=== PATIENT | female | born 1970 | race Caucasian/White ===

== ENCOUNTER 2022-09-06 19:06 | Emergency (ER) | payer BC, SELFPAY ==
[2022-09-06 19:18] VITALS: BP 164/82; PULSE 92; RESP 18; TEMP 36.8; O2SAT 97; BMI 37.8
[2022-09-06 19:22] LABS: Glucometer 389 mg/dL (74-106)
[2022-09-06] MEDS: 0.9 % SODIUM CHLORIDE 1,000 ML 1000 ML IV (19:57)
[2022-09-06 19:58] LABS: Basophils Percent Auto 0.4 % (0.2-2.0); Eosinophils Absolute Auto 0.2 10^3/uL (0.0-0.7); Eosinophils Percent Auto 1.9 % (0.9-7.0); Hematocrit 40.7 % (36.0-48.0); Hemoglobin 14.9 g/dL (12.0-16.0); Immature Granulocytes Abs Auto 0.05 10^3/uL (0.00-0.03); Immature Granulocytes Pct Auto 0.6 % (0.0-0.5); Lymphocytes Absolute Auto 2.3 10^3/uL (1.2-3.8); Lymphocytes Percent Auto 29.3 % (20.5-60.0); Mean Corpuscular HGB Conc 36.6 g/dL (29.9-35.2); Mean Corpuscular Hemoglobin 30.9 pg (26.7-34.0); Mean Corpuscular Volume 84.4 fL (81.0-99.0); Mean Platelet Volume 10.3 fL (9.5-13.5); Monocytes Absolute Auto 0.6 10^3/uL (0.3-0.8); Monocytes Percent Auto 7.1 % (1.7-12.0); Neutrophils Absolute Auto 4.7 10^3/uL (1.4-6.5); Neutrophils Percent Auto 60.7 % (43.0-75.0); Platelet Count 293 10^3/uL (150-450); Red Blood Count 4.82 10^6/uL (4.20-5.40); White Blood Count 7.7 10^3/uL (4.0-11.0)
[2022-09-06 20:10] LABS: Alkaline Phosphatase 136 U/L (46-116); Anion Gap 15.5; Aspartate Amino Transferase <5 U/L (15-37); BUN Creatinine Ratio 16.7; Bilirubin Total 0.4 mg/dL (0.2-1.0); Calcium 9.6 mg/dL (8.5-10.1); Chloride 99 mmol/L (98-107); Estimated GFR (African America >60 (>=60); Estimated GFR (Non-African Ame 57 (>=60); Glucose 398 mg/dL (74-106); Potassium 3.5 mmol/L (3.5-5.1); Sodium 136 mmol/L (136-145); Total Protein 8.4 g/dL (6.4-8.2)
[2022-09-06 20:21] LABS: Alanine Aminotransferase 56 U/L (14-59); Albumin Level 4.2 g/dL (3.4-5.0); Globulin 4.2 g/dL
[2022-09-06 20:24] LABS: Estimated Average Glucose 258 mg/dL; Glycohemoglobin A1C 10.6 % (4.5-6.2)
--- NOTE | 2022-09-06 21:01 | ED.GENADUL1 ---
HPI - General Adult General Chief complaint: Recheck/Abnormal Lab/Rx Stated complaint: HYPERGLYCEMIA-NOT DX DIABETIC Time Seen by Provider: 09/06/22 19:27 Source: patient Mode of arrival: walk-in Limitations: no limitations History of Present Illness HPI narrative: 52-year-old female presents with a chief complaint of elevated blood sugars at home. Patient states she noticed she had elevated blood sugars after stopping one of her psychotic medications. She states she's been borderline for several years. She had an elevated blood sugar of three eighty-nine at home. She states she felt tired and fatigued. States she also has a rash underneath both breasts. Rash appears to be fungal in nature. She's had the rash for a couple weeks. Related Data Home Medications Medication Instructions Recorded Confirmed uoubghshzd-oypmfjpcemauz-nrzrmlhr tab 09/06/22 50 mg-325 mg-40 mg tablet omeprazole 40 mg capsule,delayed mg 09/06/22 release Previous Rx's Medication Instructions Recorded metformin ER 500 mg tablet,ext rel 500 mg PO DAILY #30 dose pk 09/06/22 24 hr-blood sugar diagnostic strips nystatin 100,000 unit/gram topical 1 applic topical DAILY #30 grams 09/06/22 powder Allergies Allergy/AdvReac Type Severity Reaction Status Date / Time aspirin Allergy Unknown Hives Verified 09/06/22 19:29 lisinopril AdvReac Cough Verified 09/06/22 19:29 Review of Systems ROS Narrative All Systems are negative except as noted/marked.All systems reviewed and otherwise negative PFSH PFSH Social History Smoking status: Never smoker Exam Narrative Exam Narrative: Nurses note and vital signs reviewed and patient is not hypoxic. General: The patient appears well and in no apparent distress. Patient is resting comfortably on cart. Skin: Warm, dry, no pallor noted. Macular rash Under bilateral breast, consistent with fungal rash Head: Normocephalic, atraumatic Eye: Normal conjunctiva, no drainage, EOMI. PERRL Ears, Nose, Mouth, and Throat: oral mucosa is moist. Nares patent. Mouth without vesicles. Ear canals patent. Tm's without Erythema Cardiovascular: Regular Rate and Rhythm Respiratory: Patient is in no distress, no accessory muscle use, lungs are clear to auscultation, no wheezing, rales or rhonchi Back: non-tender, no CVA tenderness bilaterally to percussion. GI: Normal bowel sounds, no tenderness to palpation, no masses appreciated. No rebound, guarding, or rigidity noted. Musculoskeletal: The patient has no evidence of calf tenderness, no pitting edema, symmetrical pulses noted bilaterally Neurological: A&O x4, normal speech Psychiatric: Cooperative Constitutional Vital Signs - 24 hr 09/06/22 19:18 Temperature 98.2 F Pulse Rate [Monitor] 92 H Respiratory Rate 18 Blood Pressure [Left Arm] 164/82 H Pulse Oximetry 97 Oxygen Delivery Method Room Air Course Vital Signs Vital signs: Vital Signs Temperature 98.2 F 09/06/22 19:18 Pulse Rate 92 H 09/06/22 19:18 Respiratory Rate 18 09/06/22 19:18 Blood Pressure 164/82 H 09/06/22 19:18 Pulse Oximetry 97 09/06/22 19:18 Oxygen Delivery Method Room Air 09/06/22 19:18 Temperature 98.2 F 09/06/22 19:18 Pulse Rate 92 H 09/06/22 19:18 Respiratory Rate 18 09/06/22 19:18 Blood Pressure 164/82 H 09/06/22 19:18 Pulse Oximetry 97 09/06/22 19:18 Oxygen Delivery Method Room Air 09/06/22 19:18 Medical Decision Making MDM Narrative Medical decision making narrative: She presented here with a chief complaint of elevated blood sugars. CBC BMP within normal limits other rate elevated glucose of three eighty-nine.Acetone is negative patient was unable to produce a urine despite Getting a liter of fluids. BUN/creatinine within normal limits. Patient's hemoglobin A1c is greater than ten. I discussed type 2 diabetes or hypoglycemic patient. Advised patient to follow-up with her primary care physician. She will be given a prescription for nystatin powder as well as metformin. Patient agrees with plan of care. Medical Records Medical records reviewed: Yes I reviewed the patient's medical records Lab Data Lab results reviewed: Yes I reviewed the patient's lab results Labs: Lab Results 09/06/22 09/06/22 09/06/22 Range/Units 18:35 18:44 19:20 WBC 7.7 (4.0-11.0) 10^3/uL RBC 4.82 (4.20-5.40) 10^6/uL Hgb 14.9 (12.0-16.0) g/dL Hct 40.7 (36.0-48.0) % MCV 84.4 (81.0-99.0) fL MCH 30.9 (26.7-34.0) pg MCHC 36.6 H (29.9-35.2) g/dL RDW 12.0 (11.0-15.0) % Plt Count 293 (150-450) 10^3/uL MPV 10.3 (9.5-13.5) fL Neut % (Auto) 60.7 (43.0-75.0) % Lymph % (Auto) 29.3 (20.5-60.0) % [place] % (Auto) 7.1 (1.7-12.0) % Eos % (Auto) 1.9 (0.9-7.0) % Baso % (Auto) 0.4 (0.2-2.0) % Neut # (Auto) 4.7 (1.4-6.5) 10^3/uL Lymph # (Auto) 2.3 (1.2-3.8) 10^3/uL [place] # (Auto) 0.6 (0.3-0.8) 10^3/uL Eos # (Auto) 0.2 (0.0-0.7) 10^3/uL Baso # (Auto) 0.0 (0.0-0.1) 10^3/uL Abs Immat Gran (auto) 0.05 H (0.00-0.03) 10^3/uL Imm/Tot Granulo (auto) 0.6 H (0.0-0.5) % Sodium 136 (136-145) mmol/L Potassium 3.5 (3.5-5.1) mmol/L Chloride 99 (98-107) mmol/L Carbon Dioxide 25.0 (21.0-32.0) mmol/L Anion Gap 15.5 BUN 17.0 (7.0-18.0) mg/dL Creatinine 1.02 (0.55-1.02) mg/dL Est GFR ( Amer) >60 (>=60) Est GFR (Non-Af Amer) 57 L (>=60) BUN/Creatinine Ratio 16.7 Glucose 398 H (74-106) mg/dL Estimat Average Glucose 258 mg/dL Hemoglobin A1c 10.6 H (4.5-6.2) % Calcium 9.6 (8.5-10.1) mg/dL Total Bilirubin 0.4 (0.2-1.0) mg/dL AST <5 L (15-37) U/L ALT 56 (14-59) U/L Alkaline Phosphatase 136 H (46-116) U/L Total Protein 8.4 H (6.4-8.2) g/dL Albumin 4.2 (3.4-5.0) g/dL Globulin 4.2 g/dL Albumin/Globulin Ratio 1.0 POC Glucose 389 H (74-106) mg/dL Discharge Plan Discharge Chief Complaint: Recheck/Abnormal Lab/Rx Clinical Impression: Rash, Hyperglycemia Patient Disposition: Home, Self-Care Time of Disposition Decision: 20:59 Condition: Fair Prescriptions / Home Meds: New metformin-blood sugar diagnost 500 mg combo pack, tablet and strip 500 mg PO DAILY Qty: 30 0RF nystatin 100,000 unit/gram powder 1 applic topical DAILY Qty: 30 0RF No Action omeprazole 40 mg capsule,delayed release(DR/EC) atugtlxtez-tcftkmhmegwhp-esnl 50-325-40 mg tablet Instructions: Nondiabetic Hyperglycemia (ED) Stand Alone Forms: Portal Instructions Referrals: Physician,Non-Staff, MD [Primary Care Provider] - 1 week Discharge Date/Time: 09/06/22 21:35
[2022-09-07 10:49] LABS: Acetone NEGATIVE (NEGATIVE)
== END 2022-09-06 21:35 | disposition home or self-care (01) ==
PROVIDERS: Physician Assistant; Emergency Provider Internal Medicine; PCP Family Medicine
DX: R73.9 Hyperglycemia, unspecified (principal); R21 Rash and other nonspecific skin eruption; Z79.899 Other long term (current) drug therapy
CPT/HCPCS: 36415; 80053; 81001; 82009; 83036; 85025; 99284

== ENCOUNTER 2023-02-09 09:55 | Outpatient (OUT) | payer BC, SELFPAY ==
[2023-02-09 10:13] LABS: Basophils Percent Auto 0.5 % (0.2-2.0); Eosinophils Absolute Auto 0.2 10^3/uL (0.0-0.7); Hematocrit 35.9 % (36.0-48.0); Hemoglobin 13.2 g/dL (12.0-16.0); Immature Granulocytes Abs Auto 0.06 10^3/uL (0.00-0.03); Immature Granulocytes Pct Auto 0.8 % (0.0-0.5); Lymphocytes Absolute Auto 2.3 10^3/uL (1.2-3.8); Lymphocytes Percent Auto 30.7 % (20.5-60.0); Mean Corpuscular HGB Conc 36.8 g/dL (29.9-35.2); Mean Corpuscular Hemoglobin 31.7 pg (26.7-34.0); Mean Corpuscular Volume 86.1 fL (81.0-99.0); Monocytes Absolute Auto 0.6 10^3/uL (0.3-0.8); Monocytes Percent Auto 7.6 % (1.7-12.0); Neutrophils Absolute Auto 4.3 10^3/uL (1.4-6.5); Neutrophils Percent Auto 57.4 % (43.0-75.0); Platelet Count 285 10^3/uL (150-450); Red Blood Count 4.17 10^6/uL (4.20-5.40); Red Cell Distribution Width 12.7 % (11.0-15.0); White Blood Count 7.4 10^3/uL (4.0-11.0)
[2023-02-09 10:48] LABS: Estimated Average Glucose 114 mg/dL; Glycohemoglobin A1C 5.6 % (4.5-6.2)
[2023-02-09 11:47] LABS: Free T4 0.83 ng/dL (0.76-1.46)
[2023-02-09 12:00] LABS: Alanine Aminotransferase 37 U/L (14-59); Albumin Level 3.7 g/dL (3.4-5.0); Alkaline Phosphatase 98 U/L (46-116); Anion Gap 11.5; Aspartate Amino Transferase 19 U/L (15-37); BUN Creatinine Ratio 24.2; Bilirubin Direct 0.1 mg/dL (0.0-0.2); Bilirubin Total 0.3 mg/dL (0.2-1.0); Calcium 9.4 mg/dL (8.5-10.1); Carbon Dioxide 28.1 mmol/L (21.0-32.0); Chloride 106 mmol/L (98-107); Chol HDL Ratio 5.3; Cholesterol 233 mg/dL (<=200); Estimated GFR (African America >60 (>=60); Estimated GFR (Non-African Ame >60 (>=60); Free T3 2.16 pg/mL (2.18-3.98); Globulin 3.6 g/dL; Glucose 136 mg/dL (74-106); HDL Cholesterol 44 mg/dL (40-60); Potassium 3.6 mmol/L (3.5-5.1); Sodium 142 mmol/L (136-145); Thyroid Stimulating Hormone 3.163 uIU/mL (0.358-3.740); Total Protein 7.3 g/dL (6.4-8.2); Triglycerides 161 mg/dL (<=150); VLDL CHOLESTEROL 32.2 mg/dL
== END 2023-02-09 09:56 | disposition home or self-care (01) ==
LOC: LAB 09:56
PROVIDERS: PCP Family Medicine; Visit Provider Family Medicine
DX: Z00.00 Encounter for general adult medical examination without abnormal findings (principal); E03.9 Hypothyroidism, unspecified
CPT/HCPCS: 36415; 80048; 80061; 80076; 83036; 84439; 84443; 84481; 85025

== ENCOUNTER 2023-12-13 07:51 | Outpatient (OUT) | payer BC, SELFPAY ==
--- OUTSIDE RECORDS SUMMARY | 2023-12-13 07:55 | XMS_ITS | CCD ---
Author Organization [facility] Care Team Providers Care Peeled Potato Inspector Name Role Phone Fabiola Bernardo Unavailable Helen Akers Unavailable CIARA, DR BRIAN Fagan Admitting Unavailable NADERER, DR BRIAN Fagan Attending Unavailable NADERER, DR BRIAN Fagan Primary Care Unavailable NADERER, DR BRIAN Fagan Consulting Unavailable NADERER, DR BRIAN Fagan Admitting Unavailable NADERER, DR BRIAN Fagan Attending Unavailable NADERER, DR BRIAN Fagan Primary Care Unavailable TARA, SHANKAR Admitting Unavailable TARA, SHANKAR Attending Unavailable NADERER, DR BRIAN Fagan Primary Care Unavailable TARA, SHANKAR Consulting Unavailable NADERER, DR BRIAN Fagan Admitting Unavailable NADERER, DR BRIAN Fagan Attending Unavailable NADERER, DR BRIAN Fagan Primary Care Unavailable ZIEBER, DR LINCOLN Burns Consulting Unavailable NADERER, DR BRIAN Fagan Consulting Unavailable NADERER, DR BRIAN Fagan Admitting Unavailable NADERER, DR BRIAN Fagan Attending Unavailable NADERER, DR BRIAN Fagan Primary Care Unavailable NADERER, DR BRIAN Fagan Consulting Unavailable Naderer Brian WILKINS Primary Care Provider CIARA, BRIAN Attending Unavailable NADERER, BRIAN Attending Unavailable NADERER, BRIAN Attending Unavailable NADERER, BRIAN Attending Unavailable NADERER, BRIAN Attending Unavailable NADERER, BRIAN Attending Unavailable NADERER, BRIAN Attending Unavailable Allergies Allergy Classification Reported Allergen(s) Allergy Type Date of Onset Reaction(s) Facility (7 sources) Aspirin Drug Allergy 4 hives [facility] (7 sources) Ciprofloxacin Drug Allergy 4 stomach upset [facility] (6 sources) Lisinopril Drug Allergy 4 coughing [facility] (1 source) Aspirin Drug Allergy 3 [facility] (3 sources) Aluminum aspirin Drug Allergy 3 Rash [facility] Work Phone: (6 sources) Lisinopril Propensity to adverse reactions 3 Cough [facility] Medications Current Medications Medication Drug Class(es) Dates Sig (Normalized) Sig (Original) acetaminophen 325 mg / butalbital 50 mg / caffeine 40 mg oral tablet (3 sources) Barbiturate, Central Nervous System Stimulant, Methylxanthine Start: 11-22-2023 take 1 tablet by mouth four times daily as needed for headache butalbital-aceta minophen-caffein e 50-325-40 MG tablet Indications: Vestibular migraine (CMS/HCC) Take 1 tablet by mouth 4 (four) times a day as needed for headaches 30 tablet 11/22/2023 Active [id number] 200 actuat albuterol 0.09 mg/actuat metered dose inhaler (7 sources) beta2-Adrenergic Agonist Start: 06-08-2022 take 2 puff(s) by inhalation four times daily as needed Albuterol Sulfate HFA 108 (90 Base) MCG/ACT 2 puffs Inhalation 4 times a day prn Jun, Active take 2 puff(s) by in halation every four hours for wheezing albuterol HFA 90 mcg/act inhaler Inhale 2 puffs every 4 (four) hours if needed for wheezing Active ALPRAZolam 0.5 mg oral tablet (4 sources) Benzodiazepine Start: 06-03-2023 take 1 tablet by mouth three times daily as needed for anxiety ALPRAZolam (Xanax) 0.5 MG tablet Indications: Generalized anxiety disorder (CMS/HCC) Take 1 tablet (0.5 mg) by mouth 3 (three) times a day as needed for anxiety for up to 20 days 60 tablet 06/03/2023 Active Xanax Active amitriptyline hydrochloride 25 mg oral tablet (3 sources) Tricyclic Antidepressant Start: 05-17-2023 take 25 mg by mouth once daily Amitriptyline Active 25 MG PO Daily May 17, 2023 12:00am Start: 04-05-2023 take 1 tablet by andrés th at bedtime amitriptyline (Elavil) 25 MG tablet Indications: Vestibular migraine (CMS/HCC) Take 1 tablet (25 mg) by mouth at bedtime 30 tablet 3 04/05/2023 Active Start: 04-05-2023 take 1 tablet by andrés th at bedtime amitriptyline (Elavil) 25 MG tablet Indications: Vestibular migraine (CMS/HCC) Take 1 tablet (25 mg) by mouth at bedtime 30 tablet 3 04/05/2023 Active amoxicillin 875 mg / clavulanate 125 mg oral tablet (1 source) Penicillin-class Antibacterial Start: 06-08-2022 take 1 tablet by mouth every twelve hours Amoxicillin-Pot Clavulanate 875-125 MG 1 tablet Orally every 12 hrs for 10 day(s) Jun, Active baclofen 20 mg oral tablet (6 sources) gamma-Aminobutyric Acid-ergic Agonist take 1 tablet by mouth three times daily as needed for muscle spasms baclofen (Lioresal) 20 MG tablet Take 20 mg by mouth 3 (three) times a day as needed for muscle spasms Active Cetirizine (1 source) Histamine-1 Receptor Antagonist ZyrTEC Allergy Active citalopram 20 mg oral tablet (3 sources) Serotonin Reuptake Inhibitor take 1 tablet by mouth in the morning citalopram (CeleXA) 20 MG tablet Take 20 mg by mouth in the morning. 0 Active cyclobenzaprine hydrochloride 10 mg oral tablet (1 source) Muscle Relaxant Start: 07-12-2021 take 1 tablet by mouth three times daily as needed for muscle spasms Cyclobenzaprine HCl 10 MG 1 tab(s) Orally tid prn As needed for muscle spasms or tightness July, Active Doxepin (5 sources) Tricyclic Antidepressant Doxepin HCl Active doxycycline monohydrate 100 mg oral capsule (1 source) Tetracycline-class Drug Start: 12-11-2021 take 1 capsule by mouth every twelve hours Doxycycline Monohydrate 100 MG 1 capsule Orally every 12 hrs for 7 days Dec, Active Escitalopram (5 sources) Serotonin Reuptake Inhibitor Lexapro Active fluticasone propionate 0.05 mg/actuat metered dose nasal spray (7 sources) Corticosteroid Start: 06-08-2022 take 2 spray(s) nasal route once daily Fluticasone Propionate 50 MCG/ACT 2 sprays Nasally Once a day for 14 day(s) Jun, Active take 2 spray(s) nasa l route in the morning fluticasone (Flonase) 50 MCG/ACT nasal spray Administer 2 sprays into each nostril in the morning. Shake gently. Before first use, prime pump. After use, clean tip and replace cap.. Active Glucose Blood (BLOOD GLUCOSE TEST ) (6 sources) Glucose Blood (B LOOD GLUCOSE TEST ) by In Vitro route Active Glucose Blood (B LOOD GLUCOSE TEST ) by In Vitro route 0 Active hydroCHLOROthiazide 25 mg oral tablet (10 sources) Thiazide Diuretic Start: 08-19-2023 End: 08-18-2024 take 1 tablet by mouth once daily hydroCHLOROthiazide (HYDRODiuril) 25 MG tablet Indications: Essential hypertension, benign (CMS/HCC) Take 1 tablet (25 mg) by mouth Daily 30 tablet 11 08/19/2023 08/18/2024 Active take 1 tablet by andrés th in the morning hydroCHLOROthiazide (HYDRODiuril) 25 MG tablet Take 25 mg by mouth in the morning. 0 Active hydroCHLOROthiaz marcy Active ibuprofen 800 mg oral tablet (7 sources) Nonsteroidal Anti-inflammatory Drug Start: 04-17-2013 take 1 tablet by mouth every eight hours Ibuprofen 800 MG 1 tablet Orally Three times a day for 14 days Apr, Active Losartan (2 sources) Angiotensin 2 Receptor Kelli Losartan Potassium Active meclizine hydrochloride 25 mg oral tablet (3 sources) Antiemetic Start: 06-28-2023 take 1 tablet by mouth four times daily as needed for dizziness meclizine (Antivert) 25 MG tablet Indications: Vestibular migraine (CMS/HCC) Take 1 tablet (25 mg) by mouth 4 (four) times a day as needed for dizziness 60 tablet 2 06/28/2023 Active montelukast (5 sources) Leukotriene Receptor Antagonist Singulair Active mupirocin 0.02 mg/mg topical ointment (1 source) RNA Synthetase Inhibitor Antibacterial Start: 12-11-2021 Mupirocin 2 % 1 application to affected area Externally 2 times a day for 7 days Dec, Active OLANZapine 15 mg oral tablet (8 sources) Atypical Antipsychotic Start: 07-16-2023 take 1 tablet by mouth at bedtime OLANZapine (ZyPREXA) 15 MG tablet Indications: Bipolar affective, mixed (HCC) (CMS/HCC) Take 1 tablet (15 mg) by mouth at bedtime 30 tablet 5 07/16/2023 Active Start: 05-17-2023 take 10 mg by mouth once daily Olanzapine Active 10 MG PO Daily May 17, 2023 12:00am take 1 tablet by andrés th once daily OLANZapine (ZyPREXA) 10 MG tablet Take 10 mg by mouth 1 (one) time each day 0 Active OLANZapine Activ e omeprazole 40 mg delayed release oral capsule (12 sources) Proton Pump Inhibitor Start: 05-20-2023 End: 05-19-2024 take 1 capsule by mouth before mealtime omeprazole (PriLOSEC) [address] capsule Indications: Gastroesophageal reflux disease without esophagitis Take 1 capsule (40 mg) by mouth in the morning. Take before meals. Do not crush or chew.. 30 capsule 11 05/20/2023 05/19/2024 Active take 1 capsule by mouth before m ealtime omeprazole (PriLOSEC) [address] capsule Take 40 mg by mouth in the morning. Take before meals. Do not crush or chew.. 0 Active Omeprazole Activ e ondansetron 4 mg oral tablet (1 source) Serotonin-3 Receptor Antagonist Start: 02-09-2022 take 1 tablet by mouth three times daily as needed Zofran 4 MG 1 tablet Orally 3 times a day prn Feb, Active predniSONE 20 mg oral tablet (1 source) Start: 06-08-2022 take 1 tablet by mouth every twelve hours predniSONE 20 MG 1 tablet Orally bid for 5 day(s) Jun, Active promethazine hydrochloride 12.5 mg oral tablet (1 source) Phenothiazine Start: 03-27-2022 take 1 tablet by mouth every eight hours Promethazine HCl 12.5 MG 1 tablet as needed Orally every 8 hrs for 4 days Mar, Active risperiDONE (1 source) Atypical Antipsychotic RisperDAL Active 0.25 mg, 0.5 mg dose 1.5 ml semaglutide 1.34 mg/ml pen injector (2 sources) Start: 04-05-2023 inject 2 mg by subcutaneous injection every week semaglutide (Ozempic, 0.25 or 0.5 MG/DOSE,) 2 MG/1.5ML solution pen-injector Indications: Type 2 diabetes mellitus with hyperglycemia, with long-term current use of insulin ([facility]) Inject 2 mg under the skin 1 (one) time per week 4 each 3 04/05/2023 Active Start: 04-05-2023 inject 2 mg by subcu taneous injection every week semaglutide (Ozempic, 0.25 or 0.5 MG/DOSE,) 2 MG/1.5ML solution pen-injector Indications: Type 2 diabetes mellitus with hyperglycemia, with long-term current use of insulin (CMS/HCC) Inject 2 mg under the skin 1 (one) time per week 4 each 3 04/05/2023 Active Semaglutide (Ozempic) 2 mg/dose (8 mg/3 mL) pen injector (1 source) Start: 05-17-2023 Semaglutide (O zempic) 2 mg/dose (8 mg/3 mL) pen injector Active MG SUBCUT May 17, 2023 12:00am semaglutide (Ozempic, 1 MG/DOSE,) 4 MG/3ML solution pen-injector (3 sources) End: 04-05-2023 inject 1 mg by subcutaneous injection every week semaglutide (Ozempic, 1 MG/DOSE,) 4 MG/3ML solution pen-injector Inject 1 mg under the skin 1 (one) time per week 0 04/05/2023 Discontinued (Dose adjustment) inject 1 mg by subcu taneous injection every week semaglutide (Ozempic, 1 MG/DOSE,) 4 MG/3ML solution pen-injector Inject 1 mg under the skin 1 (one) time per week 0 Active Semaglutide, 2 MG/DOSE, (Ozempic, 2 MG/DOSE,) 8 MG/3ML solution pen-injector (3 sources) Start: 08-19-2023 inject 2 mg by subcutaneous injection every week Semaglutide, 2 MG/DOSE, (Ozempic, 2 MG/DOSE,) 8 MG/3ML solution pen-injector Indications: Type 2 diabetes mellitus with hyperglycemia, with long-term current use of insulin (CMS/HCC) Inject 2 mg under the skin 1 (one) time per week 3 mL 5 08/19/2023 Active sertraline 25 mg oral tablet (3 sources) Serotonin Reuptake Inhibitor Start: 11-22-2023 take 1 tablet by mouth once daily sertraline (Zoloft) 25 MG tablet Indications: Generalized anxiety disorder (CMS/HCC) Take 1 tablet (25 mg) by mouth Daily 30 tablet 3 11/22/2023 Active SUMAtriptan (2 sources) Serotonin-1b and Serotonin-1d Receptor Agonist Imitrex Active topiramate 100 mg oral tablet (8 sources) Start: 11-22-2023 take 1 tablet by mouth in the morning topiramate (Topamax) 100 MG tablet Indications: Vestibular migraine (CMS/HCC) Take 1 tablet (100 mg) by mouth in the morning and 1 tablet (100 mg) before bedtime. 60 tablet 5 11/22/2023 Active Start: 05-17-2023 End: 05-17-2023 take 50 mg by mouth once daily Topiramate Discontinued 50 MG PO Daily May 17, 2023 12:00am May 17, 2023 1:03pm Topamax Active traMADol hydrochloride 50 mg oral tablet (3 sources) Opioid Agonist traMADol (Ultram ) 50 MG tablet Take 50 mg by mouth in the morning and 50 mg at noon and 50 mg in the evening and 50 mg before bedtime. 0 Active Completed/Discontinued Medications Medication Drug Class(es) Dates Sig (Normalized) Sig (Original) Ketorolac (5 sources) Nonsteroidal Anti-inflammatory Drug, Cyclooxygenase Inhibitor Start: 07-12-2021 Toradol per 15 mg July, 30 mg Toradol 30 mg/ml (2 sources) Start: 03-27-2022 Toradol 30 mg/ml Mar, 30 mg triamcinolone acetonide 40 mg/ml injectable suspension (2 sources) Corticosteroid Start: 03-27-2022 Kenalog-40 Mar, 40 mg Problems Active Problems Problem Classification Problem Date Documented Date Episodic/Chronic Allergic reactions (1 source) Allergic condition; Translations: [Allergy, unspecified, initial encounter] 05-17-2023 Episodic Anxiety disorders (10 sources) Generalized anxiety disorder; Translations: [Generalized anxiety disorder] Onset: 04-05-2023 04-05-2023 Chronic Chronic obstructive pulmonary disease and bronchiectasis (1 source) Bronchitis, not specified as acute or chronic Episodic Diabetes mellitus with complications (10 sources) Type 2 diabetes mellitus; Translations: [Type 2 diabetes mellitus with hyperglycemia] Onset: 04-05-2023 04-05-2023 Chronic Disorders of lipid metabolism (6 sources) Hyperlipidemia; Translations: [Hyperlipidemia, unspecified] Onset: 04-05-2023 04-05-2023 Chronic Esophageal disorders (7 sources) Gastroesophageal reflux disease without esophagitis; Translations: [Gastro-esophageal reflux disease without esophagitis] Onset: 04-05-2023 04-05-2023 Chronic Essential hypertension (11 sources) Benign essential hypertension; Translations: [Essential (primary) hypertension] Onset: 04-05-2023 04-05-2023 Chronic Headache; including migraine (15 sources) Migraine without aura, not refractory ; Translations: [Migraine without aura, not intractable, without status migrainosus] Onset: 04-05-2023 Chronic Immunizations and screening for infectious disease (3 sources) Encounter for screening for other viral diseases; Translations: [Contact with and (suspected) exposure to other viral communicable diseases] Onset: 03-27-2021 Resolved: 03-27-2021 Episodic Influenza (1 source) Influenza due to other identified influenza virus with other respiratory manifestations Episodic Mood disorders (12 sources) Mixed bipolar affective disorder; Translations: [Bipolar disorder, current episode mixed, unspecified] Onset: 04-05-2023 04-05-2023 Chronic Nausea and vomiting (1 source) Nausea with vomiting, unspecified Episodic Nutritional deficiencies (7 sources) Vitamin D deficiency, unspecified; Translations: [Vitamin D deficiency] Onset: 05-22-2021 04-05-2023 Chronic Other nervous system disorders (1 source) Other chronic pain; Translations: [OTHER CHRONIC PAIN] Onset: 07-27-2021 Chronic Other nutritional; endocrine; and metabolic disorders (1 source) Obesity, unspecified; Translations: [OBESITY UNSPECIFIED] Onset: 08-22-2021 Chronic Other upper respiratory disease (1 source) Nasal congestion Episodic Other upper respiratory infections (1 source) Chronic sinusitis, unspecified; Translations: [Unspecified sinusitis (chronic)] 05-17-2023 Chronic Otitis media and related conditions (1 source) Otosclerosis; Translations: [Unspecified otosclerosis, unspecified ear] 05-17-2023 Episodic Residual codes; unclassified (6 sources) Obstructive sleep apnea syndrome; Translations: [Obstructive sleep apnea (adult) (pediatric)] Onset: 04-05-2023 04-05-2023 Chronic Skin and subcutaneous tissue infections (1 source) Cellulitis of right toe Episodic Spondylosis; intervertebral disc disorders; other back problems (19 sources) Other intervertebral disc degeneration, lumbosacral region; Translations: [Degeneration of cervical intervertebral disc] Onset: 07-28-2021 04-05-2023 Chronic Thyroid disorders (6 sources) Hypothyroidism; Translations: [Hypothyroidism, unspecified] Onset: 04-05-2023 04-05-2023 Chronic Unclassified (3 sources) CONTACT W/AND (SUSP) EXPOS COVID-19; Translations: [CONTACT W/AND (SUSP) EXPOS COVID-19] Onset: 10-18-2021 Unclassified (3 sources) LOW BACK PAIN, UNSPECIFIED; Translations: [LOW BACK PAIN, UNSPECIFIED] Onset: 08-22-2021 Past or Other Problems Problem Classification Problem Date Documented Da te Episodic/Chronic Other connective tissue disease (1 source) Myalgia, other site; Translations: [MYALGIA OTHER SITE] Onset: 08-22-2021 Episodic Other upper respiratory disease (6 sources) Deviated nasal septum; Translations: [Deviated nasal septum] Onset: 04-05-2023 04-05-2023 Episodic Other upper respiratory infections (4 sources) Acute sinusitis, unspecified; Translations: [Acute pansinusitis] Onset: 06-03-2023 Resolved: 11-22-2023 Episodic Spondylosis; intervertebral disc disorders; other back problems (6 sources) Pain in thoracic spine; Translations: [Cervicalgia] Onset: 07-26-2021 Episodic Sprains and strains (1 source) Strain of muscle and tendon of unspecified wall of thorax, initial encounter Onset: 07-12-2021 Resolved: 07-12-2021 Episodic Unclassified (1 source) CONTACT W/AND (SUSP) EXPOS COVID-19; Translations: [CONTACT W/AND (SUSP) EXPOS COVID-19] Onset: 10-17-2021 Unclassified (1 source) LOW BACK PAIN, UNSPECIFIED; Translations: [LOW BACK PAIN, UNSPECIFIED] Onset: 08-18-2021 Results Test Name Value Interpretation Reference Range Facility Influenza virus B Ag [Presen ce] in Upper respiratory specimen by Rapid immunoassayon 05-17-2023 FLUBV Ag IA.rapid Ql (Nph) Negative [facility] No Panel Informationon 05-16 Influenza Type A (Rapid) Negative [facility] POC SARS CoV-2 Antigen Negative [facility] COVID + FLU Quick Testingon 06-08-2022 SARS-CoV-2 (COVID-19) RNA TOMMY+probe Ql (Unsp spec) Negative [facility] Other COVID + FLU Quick Testing Negative [facility] Other COVID + FLU Quick Testingon 02-09-2022 SARS-CoV-2 (COVID-19) RNA TOMMY+probe Ql (Unsp spec) Negative [facility] Other COVID + FLU Quick Testing Positive [facility] Other COVID + FLU Quick Testing Negative [facility] Other Covid-19 PCR ([facility])on 10-02 SARS-CoV-2 (COVID-19) RNA TOMMY+probe Ql (Unsp spec) Not detected Normal NOT DETECTED [facility] Comment on above: Result Comment: This test is not yet approved or cleared by the [place] FDA. When there are no FDA-approved or cleared tests available, and other criteria are met, FDA can make tests available under an emergency access mechanism called an Emergency Use Authorization (EUA). The EUA for this test is supported by the [employer] of Health and Human Service's (HHS's) declaration that circumstances exist to justify the emergency use of in vitro diagnostics for the detection and/or diagnosis of the virus that causes COVID-19. This EUA will remain in effect (meaning this test can be used) for the duration of the COVID-19 declaration justifying emergency of IVDs, unless it is terminated or revoked by FDA (after which the test may no longer be used). When diagnostic testing is negative, the possibility of a false negative should be considered in the context of a patient's recent exposures and the presence of clinical signs and symptoms consistent with SARS-CoV-2. Performed By: #### [facility] #### [facility] [address] [place] [address] Dr. Che Arias XR TSPINE 3 VIEWSon 07-27-19 22 XR TSPINE 3 VIEWS EXAMINATION: XR CSPINE 2_3 VIEWS, XR TSPINE 3 VIEWS, XR LSPINE 2_3 VIEWS HISTORY: Neck pain COMPARISON: No relevant comparison available. FINDINGS: BONES: No significant spondylosis, scoliosis, fracture, or visible bony lesion. FACET JOINTS: Mild degenerative arthropathy C2 on 3, C3-4. Moderate degenerative facet arthropathy L3-4 through L5-S1. DISC SPACES: Mild narrowing C5-6, T11-T12, T12-L1, L2-3 marked narrowing L5-S1. PARASPINOUS: No paraspinous abnormality is seen. OTHER: Negative. IMPRESSION: 1. Mild degenerative changes of the cervical spine. 2. Mild degenerative changes of the lower lumbar spine. 3. L5-S1 marked degenerative disc disease with moderate degenerative facet arthropathy L3-4 through L5-S1. Consider MRI for further evaluation. Electronically authenticated by: LINCOLN SULLIVAN Date: 2021-07-26 10:49 Normal [facility] CBC AUTO DIFFon 05-18-2021 BASO # 0.1 103/ul Normal 0.0-0.1 [facility] Comment on above: Performed By: #### C BC #### [facility] [address] [place] [address] Dr. Che Arias Basophils/100 WBC (Bld) 0.7 % Normal 0.2-2.0 [facility] Comment on above: Performed By: #### C BC #### [facility] [address] [place] [address] Dr. Che Arias EO # 0.2 103/ul Normal 0.0-0.7 [facility] Comment on above: Performed By: #### C BC #### [facility] [address] [place] [address] Dr. Che Arias Eosinophils/100 WBC (Bld) 2.8 % Normal 0.9-7.0 [facility] Comment on above: Performed By: #### C BC #### [facility] [address] [place] [address] Dr. Ceh Arias Erythrocyte distribution width (RBC) [Ratio] 13.3 % Normal 11.0-15.0 [facility] Comment on above: Performed By: #### C BC #### [facility] [address] [place] [address] Dr. Che Arias Hematocrit (Bld) [Volume fraction] 40.4 % Normal 36.0-48.0 [facility] Comment on above: Performed By: #### C BC #### [facility] [address] [place] [address] Dr. Che Arias Hemoglobin (Bld) [Mass/Vol] 14.1 g/dL Normal 12.0-16.0 [facility] Comment on above: Performed By: #### C BC #### [facility] [address] [place] [address] Dr. Che Arias IG # 0.03 10e3/ul Normal 0.00-0.03 [facility] Comment on above: Performed By: #### C BC #### [facility] [address] [place] [address] Dr. Che Arias IG % 0.4 % Normal 0.0-0.5 [facility] Comment on above: Performed By: #### C BC #### [facility] [address] [place] [address] Dr. Che Arias LYMPH # 1.9 103/ul Normal 1.2-3.8 [facility] Comment on above: Performed By: #### C BC #### [facility] [address] [place] [address] Dr. Che Arias Lymphocytes/100 WBC (Bld) 27.6 % Normal 20.5-60.0 [facility] Comment on above: Performed By: #### C BC #### [facility] [address] [place] [address] Dr. Che Arias MANUAL DIFF REQ NO Normal [facility] Comment on above: Performed By: #### C BC #### [facility] [address] [place] [address] Dr. Che Arias MCH (RBC) [Entitic mass] 30.7 pg Normal 26.7-34.0 [facility] Comment on above: Performed By: #### C BC #### [facility] [address] [place] [address] Dr. Che Arias MCHC (RBC) [Mass/Vol] 34.9 g/dL Normal 29.9-35.2 [facility] Comment on above: Performed By: #### C BC #### [facility] [address] [place] [address] Dr. Che Arias MCV (RBC) [Entitic vol] 87.8 fL Normal 81.0-99.0 [facility] Comment on above: Performed By: #### C BC #### [facility] [address] [place] [address] Dr. Che Arias MONO # 0.5 103/ul Normal 0.3-0.8 [facility] Comment on above: Performed By: #### C BC #### [facility] [address] [place] [address] Dr. Che Arias Monocytes/100 WBC (Bld) 7.3 % Normal 1.7-12.0 [facility] Comment on above: Performed By: #### C BC #### [facility] [address] [place] [address] Dr. Che Arias NEUT # 4.1 103/ul Normal 1.4-6.5 [facility] Comment on above: Performed By: #### C BC #### [facility] [address] [place] [address] Dr. Che Arias Neutrophils/100 WBC (Bld) 61.2 % Normal 43.0-75.0 [facility] Comment on above: Performed By: #### C BC #### [facility] [address] [place] [place] [address] Dr. Che Arias Platelet mean volume (Bld) [Entitic vol] 11.6 fL Normal 9.5-13.5 [facility] Comment on above: Performed By: #### C BC #### [facility] [address] [place] [address] Dr. Che Arias PLT 260 103/ul Normal 150-450 [facility] Comment on above: Performed By: #### C BC #### [facility] [address] [place] [address] Dr. Che Arias RBC 4.60 106/ul Normal 4.20-5.40 [facility] Comment on above: Performed By: #### C BC #### [facility] [address] [address] [address] Che Arias WBC 6.8 103/ul Normal 4.0-11.0 [facility] Comment on above: Performed By: #### C BC #### [facility] [address] [address] [address] Che Arias GLYCOHEMOGLOBIN A1Con 2021 ADA RECOMMENDATION ADA THERAPEUTIC TARGET 6.0 - 7.0 ACTION SUGGESTED > 7.0 Normal [facility] Comment on above: Performed By: #### A 1C ####[facility] [id number] [id number]. Che Arias Glucose [Mass/Vol] 140 mg/dL Normal [facility] Comment on above: Performed By: #### A 1C ####[facility] [id number] [id number]. Che Arias HbA1c (Bld) [Mass fraction] 6.5 % Critically high <=6.0 [facility] Comment on above: Performed By: #### A 1C ####[facility] [id number] [id number]. Che Arias LIPID PROFILEon 05-18-2021 CHOL-HDL RATIO NORM SEE BELOW Normal [facility] Comment on above: Result Comment: 3.3 - 4.4 LOW RISK 4.4 - 7.1 AVERAGE RISK 7.1 - 11.0 MODERATE RISK >11.0 HIGH RISK Performed By: #### B MP, LIVER, TSH, LIPID #### [facility] [address] [address] [address] Che Arias Cholesterol [Mass/Vol] 237 mg/dL Critically high <=200 [facility] Comment on above: Performed By: #### B MP, LIVER, TSH, LIPID #### [facility] [address] [address] [address] Che Arias Cholesterol in HDL [Mass/Vol] 46 mg/dL Normal 40-60 [facility] Comment on above: Performed By: #### B MP, LIVER, TSH, LIPID #### [facility] [address] [address] [address] Che Arias Cholesterol in LDL [Mass/Vol] 161.4 mg/dL Normal [facility] Comment on above: Performed By: #### B MP, LIVER, TSH, LIPID #### [facility] [address] [address] [address] Che Arias Cholesterol.total/Ch olesterol in HDL [Mass ratio] 5.2 {ratio} Normal [facility] Comment on above: Performed By: #### B MP, LIVER, TSH, LIPID #### [facility] [address] [address] [address] Che Arias HDL NORMAL > or = 60 mg/dl - LOW CARDIOVASCULAR RISK <40 mg/dl - HIGH CARDIOVASCULAR RISK Normal [facility] Comment on above: Performed By: #### B MP, LIVER, TSH, LIPID #### [facility] [address] [address] [address] Che Arias LDL CALC NORMAL SEE BELOW Normal [facility] Comment on above: Result Comment: <100 mg/dl OPTIMAL 100 - 129 mg/dl NEAR OR ABOVE OPTIMAL 130 - 159 mg/dl BORDERLINE HIGH 160 - 189 mg/dl HIGH >190 mg/dl VERY HIGH Performed By: #### B MP, LIVER, TSH, LIPID #### [facility] [address] [address] [address] Che Arias Triglyceride [Mass/Vol] 148 mg/dL Normal <=150 [facility] Comment on above: Performed By: #### B MP, LIVER, TSH, LIPID #### [facility] [address] [address] [address] Che Arias VLDL CALC 29.6 mg/dL Normal [facility] Comment on above: Performed By: #### B MP, LIVER, TSH, LIPID #### [facility] [address] [address] [address] Che Arias LIVER PROFILEon 05-18-2021 Albumin [Mass/Vol] 4.0 g/dL Normal 3.5-5.0 [facility] Comment on above: Performed By: #### B MP, LIVER, TSH, LIPID #### [facility] [address] [address] [address] Che Arias Albumin/Globulin [Mass ratio] 1.2 {ratio} Normal [facility] Comment on above: Performed By: #### B MP, LIVER, TSH, LIPID #### [facility] [address] [address] [address] Che Arias ALP [Catalytic activity/Vol] 107 U/L Normal 38-126 [facility] Comment on above: Performed By: #### B MP, LIVER, TSH, LIPID #### [facility] [address] [address] [address] Che Arias ALT [Catalytic activity/Vol] 66 U/L Critically high 9-52 [facility] Comment on above: Performed By: #### B MP, LIVER, TSH, LIPID #### [facility] [address] [place] [address] Dr. Che Arias AST [Catalytic activity/Vol] 41 U/L Critically high 14-36 [facility] Comment on above: Performed By: #### B MP, LIVER, TSH, LIPID #### [facility] [address] [place] [address] Dr. Che Arias BILI, CONJUGATED 0.1 mg/dL Normal 0.0-0.[address] [facility] Comment on above: Performed By: #### B MP, LIVER, TSH, LIPID #### [facility] [address] [address] [address] Che Arias Bilirubin [Mass/Vol] 0.6 mg/dL Normal 0.2-1.3 [facility] Comment on above: Performed By: #### B MP, LIVER, TSH, LIPID #### [facility] [address] [place] [address] Dr. Che Arias Globulin (S) [Mass/Vol] 3.4 g/dL Normal [facility] Comment on above: Performed By: #### B MP, LIVER, TSH, LIPID #### [facility] [address] [place] [address] Dr. Che Arias Protein [Mass/Vol] 7.4 g/dL Normal 6.1-8.2 [facility] Comment on above: Performed By: #### B MP, LIVER, TSH, LIPID #### [facility] [address] [address] [address] Che Arias PROF CHEM 8 (BAS METB)on Anion gap [Moles/Vol] 17.0 mmol/L Normal [facility] Comment on above: Performed By: #### B MP, LIVER, TSH, LIPID #### [facility] [address] [address] [address] Che Arias Calcium [Mass/Vol] 8.9 mg/dL Normal 8.4-10.2 [facility] Comment on above: Performed By: #### B MP, LIVER, TSH, LIPID #### [facility] [address] [place] [address] Dr. Che Arias Chloride [Moles/Vol] 105 mmol/L Normal 98-107 [facility] Comment on above: Performed By: #### B MP, LIVER, TSH, LIPID #### [facility] [address] [address] [address] Che Arias CO2 [Moles/Vol] 23.2 mmol/L Normal 22.0-30.[address] [facility] Comment on above: Performed By: #### B MP, LIVER, TSH, LIPID #### [facility] [address] [address] [address] Che Arias Creatinine [Mass/Vol] 0.78 mg/dL Normal 0.52-1.04 [facility] Comment on above: Performed By: #### B MP, LIVER, TSH, LIPID #### [facility] [address] [address] [address] Che Arias EGFR-AF GAMBIAN >60 Normal >=[address] [facility] Comment on above: Performed By: #### B MP, LIVER, TSH, LIPID #### [facility] [address] [address] [address] Che Arias EGFR-NON AF GAMBIAN >60 Normal >=60 [facility] Comment on above: Performed By: #### B MP, LIVER, TSH, LIPID #### [facility] [address] [address] [address] Che Arias Glucose [Mass/Vol] 162 mg/dL Critically high 74-106 T [facility] Comment on above: Performed By: #### B MP, LIVER, TSH, LIPID #### [facility] [address] [address] [address] Che Arias Potassium [Moles/Vol] 4.2 mmol/L Normal 3.4-5.0 [facility] Comment on above: Performed By: #### B MP, LIVER, TSH, LIPID #### [facility] [address] [place] [address] Dr. Che Arias Sodium [Moles/Vol] 141 mmol/L Normal 137-145 [facility] Comment on above: Performed By: #### B MP, LIVER, TSH, LIPID #### [facility] [address] [address] [address] Che Arias Urea nitrogen [Mass/Vol] 10.0 mg/dL Normal 7.0-17.0 [facility] Comment on above: Performed By: #### B MP, LIVER, TSH, LIPID #### [facility] [address] [place] [address] Dr. Che Arias Urea nitrogen/Creatinine [Mass ratio] 12.8 mg/mg Normal [facility] Comment on above: Performed By: #### B MP, LIVER, TSH, LIPID #### [facility] [address] [place] [address] Dr. Che Arias TSHon 05-18-2021 TSH 2.158 uIU/mL Normal 0.470-4.680 [facility] Comment on above: Performed By: #### B MP, LIVER, TSH, LIPID #### [facility] [address] [place] [address] Dr. Che Arias TSH RANGE SEE BELOW Normal [facility] Comment on above: Result Comment: <0.3 4 UIU/ml HYPERTHYROID 0.34-5.60 UIU/ml EUTHYROID >5.60 UIU/ml HYPOTHYROID Performed By: #### B MP, LIVER, TSH, LIPID #### [facility] [address] [address] [address] Che Arias VITAMIN D 25 OHon 05-18-2021 VIT D 25-OH 28.4 ng/mL Normal [facility] Comment on above: Performed By: #### V ITAD #### [facility] [address] [address] [address] Che Arias VIT D RANGES SEE BELOW Normal [facility] Comment on above: Result Comment: <20 ng/mL Vit D deficient 20 - <30 ng/mL Vit D insufficient 30 - 100 ng/mL Vit D sufficient >100 ng/mL Potential Toxicity Performed By: #### V ITAD #### [facility] [address] [place] [address] Dr. Che Arias COVID Quick Testingon 2021 Result Negative [employer] Other Vital Signs Date Time Vital Sign Value Performing Clinician Facility 12-04-2023 07:16-0400 Body height 162.6 cm Brian Urbina MD Work Phone: [facility] 12-04-2023 07:16-0400 Body mass index (BMI) [Ratio] 29.35 kg/m2 Brian Urbina MD Work Phone: [facility] 12-04-2023 07:16-0400 Body temperature 96.6 [degF] Brian Urbina MD Work Phone: [facility] 12-04-2023 07:16-0400 Body weight 77.56 kg Brian Urbina MD Work Phone: [facility] 12-04-2023 07:16-0400 Diastolic blood pressure 70 mm[Hg] Brian Urbina MD Work Phone: [facility] 12-04-2023 07:16-0400 Heart rate 67 /min Brian Urbina MD Work Phone: [facility] 12-04-2023 07:16-0400 Respiratory rate 20 /min Brian Urbina MD Work Phone: [facility] 12-04-2023 07:16-0400 SaO2% (BldA) [Mass fraction] 97 % Brian Urbina MD Work Phone: [facility] 12-04-2023 07:16-0400 Systolic blood pressure 120 mm[Hg] Brian Urbina MD Work Phone: [facility] 05-17-2023 13:23-0400 Diastolic blood pressure 96 mm[Hg] [facility] 05-17-2023 13:23-0400 Systolic blood pressure 154 mm[Hg] [facility] 05-17-2023 13:00-0400 Body height 1920.24 cm [facility] 05-17-2023 13:00-0400 Body mass index (BMI) [Ratio] 0.2 kg/m2 [facility] 05-17-2023 13:00-0400 Body temperature 98 [degF] [facility] 05-17-2023 13:00-0400 Body weight 95.25 kg [facility] 05-17-2023 13:00-0400 Heart rate 99 /min [facility] 05-17-2023 13:00-0400 Respiratory rate 18 /min [facility] 05-17-2023 13:00-0400 SaO2% (BldA) [Mass fraction] 98 % [facility] 04-05-2023 11:02-0500 Body height 162.6 cm Brian Urbina MD Work Phone: [facility] 04-05-2023 11:02-0500 Body mass index (BMI) [Ratio] 37.59 kg/m2 Brian Urbina MD Work Phone: [facility] 04-05-2023 11:02-0500 Body temperature 97.3 [degF] Brian Urbina MD Work Phone: [facility] 04-05-2023 11:02-0500 Body weight 99.34 kg Brian Urbina MD Work Phone: [facility] 04-05-2023 11:02-0500 Diastolic blood pressure 80 mm[Hg] Brian Urbina MD Work Phone: [facility] 04-05-2023 11:02-0500 Heart rate 93 /min Brian Urbina MD Work Phone: [facility] 04-05-2023 11:02-0500 SaO2% (BldA) [Mass fraction] 98 % Brian Urbina MD Work Phone: [facility] 04-05-2023 11:02-0500 Systolic blood pressure 140 mm[Hg] Brian Urbina MD Work Phone: [facility] 06-08-2022 10:10-0400 Body height 160.02 cm Helen Delphine Other [employer] Other 06-08-2022 10:10-0400 Body mass index (BMI) [Ratio] 38.79 kg/m2 Helen Lakhanimond Other [employer] Other 06-08-2022 10:10-0400 Body temperature 97.6 [degF] Helen Lakhanimond Other [employer] Other 06-08-2022 10:10-0400 Body weight 99.34 kg Helen Lakhanimond Other [employer] Other 06-08-2022 10:10-0400 Respiratory rate 18 /min Helen Lakhanimond Other [employer] Other 06-08-2022 10:10-0400 SaO2% (BldA) [Mass fraction] 96 % Helen Delphine Other [employer] Other 03-27-2022 16:00-0500 Body height 160.02 cm Fabiola Bernardo Other [employer] Other 03-27-2022 16:00-0500 Body mass index (BMI) [Ratio] 38.97 kg/m2 Fabiola Bernardo Other [employer] Other 03-27-2022 16:00-0500 Body temperature 97.1 [degF] Fabiola Bernardo Other [employer] Other 03-27-2022 16:00-0500 Body weight 99.79 kg Fabiola Bernardo Other [employer] Other 03-27-2022 16:00-0500 Respiratory rate 18 /min Fabiola Bernardo Other [employer] Other 03-27-2022 16:00-0500 SaO2% (BldA) [Mass fraction] 91 % Fabiola Bernardo Other [employer] Other 02-09-2022 10:10-0500 Body height 160.02 cm Helen Lakhanimond Other [employer] Other 02-09-2022 10:10-0500 Body mass index (BMI) [Ratio] 38.97 kg/m2 Hleenkylee Akers Other [employer] Other 02-09-2022 10:10-0500 Body temperature 94.6 [degF] Helen Delphine Other [employer] Other 02-09-2022 10:10-0500 Body weight 99.79 kg Helen Delphine Other [employer] Other 02-09-2022 10:10-0500 Respiratory rate 18 /min Helen Lakhanimond Other [employer] Other 02-09-2022 10:10-0500 SaO2% (BldA) [Mass fraction] 98 % Helen Akers Other [employer] Other 12-11-2021 18:15-0400 Body height 160.02 cm Fabiola Bernardo Other [employer] Other 12-11-2021 18:15-0400 Body mass index (BMI) [Ratio] 38.97 kg/m2 Fabiola Bernardo Other [employer] Other 12-11-2021 18:15-0400 Body temperature 97.2 [degF] Fabiola Bernardo Other [employer] Other 12-11-2021 18:15-0400 Body weight 99.79 kg Fabiola Bernardo Other [employer] Other 12-11-2021 18:15-0400 Diastolic blood pressure 94 mm[Hg] Fabiola Bernardo Other [employer] Other 12-11-2021 18:15-0400 Respiratory rate 18 /min Fabiola Bernardo Other [employer] Other 12-11-2021 18:15-0400 SaO2% (BldA) [Mass fraction] 98 % Fabiola Solimanault Other [employer] Other 12-11-2021 18:15-0400 Systolic blood pressure 148 mm[Hg] Fabiola Solimanault Other [employer] Other 07-12-2021 11:35-0400 Body height 160.02 cm Helen Akers Other [employer] Other 07-12-2021 11:35-0400 Body mass index (BMI) [Ratio] 39.5 kg/m2 Helen Akers Other [employer] Other 07-12-2021 11:35-0400 Body temperature 97.2 [degF] Helen Akers Other [employer] Other 07-12-2021 11:35-0400 Body weight 101.15 kg Helen Akers Other [employer] Other 07-12-2021 11:35-0400 Diastolic blood pressure 99 mm[Hg] Helen Akers Other [employer] Other 07-12-2021 11:35-0400 Respiratory rate 16 /min Helen Akers Other [employer] Other 07-12-2021 11:35-0400 SaO2% (BldA) [Mass fraction] 100 % Helen Akers Other [employer] Other 07-12-2021 11:35-0400 Systolic blood pressure 142 mm[Hg] Helen Akers Other [employer] Other Encounters Encounter Date Encounter Type Care Provider Facility Start: 12-04-2023 End: 12-04-2023 Bright Urbina MD Work Phone: [facility] Start: 12-04-2023 End: 12-04-2023 Bright Urbina MD Work Phone: [facility] Start: 12-04-2023 End: 12-04-2023 Office outpatient visit 25 minutes Brian Urbina MD Work Phone: [facility] Comment on above: Type 2 diabetes karrie itus with hyperglycemia, with long-term current use of insulin (CMS/HCC) (Primary Dx); Essential hypertension, benign (CMS/HCC); Bipolar affective, mixed (HCC) (CMS/HCC); Generalized anxiety disorder (CMS/HCC); Vestibular migraine (CMS/HCC) Start: 12-04-2023 End: 12-04-2023 ambulatory BRIAN NADERER Not Available Start: 11-22-2023 End: 11-22-2023 ambulatory BRIAN NADERER Not Available Start: 09-02-2023 End: 09-02-2023 ambulatory BRIAN NADERER Not Available Start: 07-24-2023 End: 07-24-2023 ambulatory BRIAN NADERER Not Available Start: 06-28-2023 End: 06-28-2023 ambulatory BRIAN NADERER Not Available Start: 06-03-2023 End: 06-03-2023 ambulatory BRIAN NADERER Not Available Start: 05-17-2023 End: 05-17-2023 ambulatory [facility] Work Phone: Start: 05-17-2023 End: 05-17-2023 Patient encounter procedure [facility] Work Phone: Start: 04-05-2023 Bamgaby flowsthom Urbina MD Work Phone: [facility] Start: 04-05-2023 Bambomolly flowsthom Urbina MD Work Phone: [facility] Start: 04-05-2023 End: 04-05-2023 Office outpatient visit 25 minutes Brian Urbina MD Work Phone: [facility] Comment on above: Type 2 diabetes karrie itus with hyperglycemia, with long-term current use of insulin (CMS/HCC) (Primary Dx); Essential hypertension, benign (CMS/HCC); Bipolar affective, mixed (HCC) (CMS/HCC); Generalized anxiety disorder (CMS/HCC); Gastroesophageal reflux disease without esophagitis; Vestibular migraine ([facility]) Start: 04-05-2023 End: 04-05-2023 ambulatory BRIAN URBINA Not Available Start: 06-08-2022 End: 06-08-2022 ambulatory Helen Delphine Other [employer] Other Start: 06-08-2022 Office outpatient vi sit 15 minutes Helen Delphine [facility] Start: 03-27-2022 End: 03-27-2022 ambulatory Fabiola Az Other [employer] Other Start: 03-27-2022 Office outpatient vi sit 15 minutes Fabiola Az [facility] Start: 02-09-2022 End: 02-09-2022 ambulatory Helen Delphine Other [employer] Other Start: 02-09-2022 Office outpatient vi sit 15 minutes Helen Delphine [facility] Start: 12-11-2021 End: 12-11-2021 ambulatory Fabiola Az Other [employer] Other Start: 12-11-2021 Office outpatient vi sit 15 minutes Fabiola Az [facility] Start: 10-17-2021 End: 10-17-[address] BRIAN URBINA Facility:[facility] Start: 08-18-2021 End: 08-19-2021 ambulatory SHANKAR PACHECO Facility:[facility] Start: 07-26-2021 End: 09-16-[address] BRIAN URBINA Facility:[facility] Start: 07-26-2021 End: 07-27-[address] BRIAN URBINA Facility:[facility] Start: 07-12-2021 End: 07-12-2021 ambulatory Helen Delphine Other [employer] Other Start: 07-12-2021 Office outpatient vi sit 15 minutes Helen Delphine [facility] Start: 05-22-2021 Encounter for genera l adult medical examination without abnormal findings DR BRIAN URBINA [facility] Start: 05-18-2021 End: 05-19-[address] BRIAN URBINA Facility:[facility] Start: 05-18-2021 End: 05-19-2021 Encounter for general adult medical examination without abnormal findings DR BRIAN URBINA Facility:[facility] Start: 03-27-2021 End: 03-27-2021 ambulatory Fabiola Bernardo Other [employer] Other Start: 03-27-2021 Office outpatient vi sit 5 minutes Fabiola Bernardo [facility] Plan of Treatment Date Care Activity Detail Author Start: 06-11-2024 Glaucoma screening Diabetes: R etinopathy Screening [facility] Start: 03-11-2024 End: 03-11-2024 Patient encounter procedure 03/11/2024 7:00 AM EST [facility] [address] [place] [phone] Brian Urbina MD [address] [place] [phone] [facility] Start: 12-04-2023 End: 12-04-2023 Patient encounter procedure 12/04/2023 7:00 AM EDT Office Visit [facility] [address] [place] [phone] Brian Urbina MD [address] [place] [phone] Arrived [facility] Comment on above: Arrived Start: 11-03-2023 Influenza vaccination Influenza Vacc ine (#1) [facility] Start: 06-03-2023 End: 06-03-2023 Patient encounter procedure 06/03/2023 8:00 AM EDT Office Visit [facility] [address] [place] [phone] Brian Urbina MD [address] [place] [phone] [facility] Start: 04-05-2023 End: 04-05-2023 Patient encounter procedure 04/05/2023 11:00 AM EST Office Visit [facility] [address] [place] [phone] Brian Urbina MD [address] [place] [phone] [facility] Comment on above: Arrived Start: 2010 Screening for malign ant neoplasm of breast Mammogram [facility] Start: 2000 Screening for malign ant neoplasm of cervix [facility] Start: 08-21-1991 Screening for malign ant neoplasm of cervix Pap Smear [facility] Start: 1989 Urine screening for protein Diabetes: Urine Protein Screening [facility] Start: 1980 Glaucoma screening Diabetes: R etinopathy Screening [facility] Start: 1970 Hemoglobin A1c measurement Diabetes: Hemoglobin A1C [facility] Start: 1970 Screening for malign ant neoplasm of colon [facility] Immunizations Immunization Date Immunization Notes Care Provider Fa [facility] 11-24-2022 influenza virus vacc ine, unspecified formulation Brian Urbina MD Work Phone: [facility] Payers Date Payer Category Payer Unknown [id number] 2022 Unknown [id number] 2022 [place] [facility] [id number] 1970 Unknown [id number] 93 1970 Unknown [id number] [id number] 93 1970 Unknown [id number] 2.16.840.1.515659.3.579.2.5 93 1970 Unknown [id number] 2.16.840.1.159674.3.579.2.5 93 1970 Unknown [id number] 2.16.840.1.764724.3.579.2.5 93 1970 Unknown [id number] 2.16.840.1.399746.3.579.2.1 259 1970 Unknown [id number] 2.16.840.1.303456.3.579.2.1 259 1970 Unknown [id number] 2.16.840.1.575595.3.579.2.1 259 1970 Unknown [id number] 2.16.840.1.098974.3.579.2.1 259 1970 Unknown [id number] 2.16.840.1.930801.3.579.2.1 259 1970 Unknown [id number] 2.16.840.1.856025.3.579.2.1 259 1970 Unknown [id number] 2.16.840.1.135578.3.579.2.1 259 1959 Unknown [id number] Self-pay Self Pay [id number] Unknown [place] [employer] [id number] Unknown [facility] [id number] Social History Date Type Detail Facility Unknown if ever smoked [employer] Other Start: 04-03-2023 End: 12-04-2023 Sex Assigned At [facility] Start: 03-22-2023 End: 04-05-2023 Tobacco smoking status NHIS Never smoked tobacco [facility] Start: 04-03-2023 End: 12-04-2023 History of Social function [facility] Within the last year , have you been afraid of your partner or ex-partner? No [facility] Are you now , , , , never or living with a partner? [facility] How often to you hav e a drink containing alcohol? Never [facility] How many standard drinks containing alcohol do you have on a typical day? Patient does not drink [facility] Do you feel stress - tense, restless, nervous, or anxious, or unable to sleep at night because your mind is troubled all the time - these days [OSQ] Very much [facility] (I/We) worried [facility]rew [facility] (my/our) food would run out before (I/we) got money to buy more. DK or Refused [facility] Start: 1970 Sex Assigned At Not on file [facility] Start: 04-05-2023 Tobacco use and exposure Smokeless tobacco non-user [facility] Start: 1970 Sex Assigned At Female F [facility] Clinical Notes 03-27-2021 to 12-04-2023 Brian Urbina MD - 12/04/2023 7:39 AM Chichi Urbina MD - 12/04/2023 7:39 AM Chichi Urbina MD - 12/04/2023 7:38 AM Chichi Urbina MD - 12/04/2023 7:38 AM EDT Note Date & Type Note Facility 12-04-2023 History of Presen t illness Narrative Associated Problem(s): Vestibular migraine (CMS/HCC) DEJESUS stable and continue topamax. Use fioricet PRN. Associated Problem(s): Type 2 diabetes mellitus with hyperglycemia, with long-term current use of insulin (CMS/HCC) Reports BS controlled and due for A1C. Stick to ADA diet and limit carbs. Associated Problem(s): Generalized anxiety disorder (CMS/HCC) Symptoms stable and continue medication. Use xanax PRN. Associated Problem(s): Essential hypertension, benign (CMS/HCC) BP controlled and monitor PRN. Associated Problem(s): Bipolar affective, mixed (HCC) (CMS/HCC) Symptoms stable and continue medication. Images from the original note were not included. Subjective Patient ID: Amanda Hong is a 53 y.o. female who presents for Follow-up (3 m). Follow up DM, HTN, vestibular migraine, bipolar, and anxiety. BS stable around 100-110. Tries to eat well and stick to ADA diet. Denies signs of elevated BS such as polyuria, polyphagia or polydipsia. Checking BP PRN and typically controlled. BP normal today. Taking medication daily and tolerating without side effects. Migraines stable and about 1-2 times a week. Taking topamax daily. Will develop vertigo and room spinning or severe DEJESUS. Using fioricet PRN and helps. Bipolar improved with medication. Not as down or sad and feels happier. No mingo and not hyper or full of energy. Anxiety stable. Not as stressed out or overwhelmed. Not as nervous or worry as much. Not as arzola or irritable. Using xanax PRN and mild relief. Review of Systems Respiratory: Negative for cough, shortness of breath and wheezing. Cardiovascular: Negative for chest pain and palpitations. Gastrointestinal: Negative for abdominal pain, diarrhea, nausea and vomiting. Genitourinary: Negative for dysuria. Objective Physical Exam Constitutional: General: She is not in acute distress. Appearance: Normal appearance. HENT: Head: Normocephalic. Right Ear: Tympanic membrane normal. Left Ear: Tympanic membrane normal. Eyes: Extraocular Movements: Extraocular movements intact. Pupils: Pupils are equal, round, and reactive to light. Cardiovascular: Rate and Rhythm: Normal rate and regular rhythm. Heart sounds: No murmur heard. No friction rub. No gallop. Pulmonary: Effort: Pulmonary effort is normal. Breath sounds: Normal breath sounds. No wheezing, rhonchi or rales. Abdominal: General: Bowel sounds are normal. There is no distension. Palpations: Abdomen is soft. Tenderness: There is no abdominal tenderness. There is no guarding or rebound. Musculoskeletal: Cervical back: Neck supple. Right lower leg: No edema. Left lower leg: No edema. Neurological: Mental Status: She is alert. Assessment/Plan Problem List Items Addressed This Visit Essential hypertension, benign (CMS/HCC) BP controlled and monitor PRN. Bipolar affective, mixed (HCC) (CMS/HCC) Symptoms stable and continue medication. Generalized anxiety disorder (CMS/HCC) Symptoms stable and continue medication. Use xanax PRN. Type 2 diabetes mellitus with hyperglycemia, with long-term current use of insulin (CMS/HCC) - Primary Reports BS controlled and due for A1C. Stick to ADA diet and limit carbs. Vestibular migraine (CMS/HCC) DEJESUS stable and continue topamax. Use fioricet PRN. documented in this encounter [facility] 04-05-2023 History of Presen t illness Narrative Associated Problem(s): Vestibular migraine (CMS/HCC) DEJESUS worse and side effects from topamax and stop. Try elavil to reduce DEJESUS. Use OTC PRN. Associated Problem(s): Type 2 diabetes mellitus with hyperglycemia, with long-term current use of insulin (CMS/HCC) Reports BS elevated and increase ozempic. Stick to ADA diet and limit carbs. Associated Problem(s): Generalized anxiety disorder (CMS/HCC) Occasional symptoms but tolerable and continue medication. Associated Problem(s): Gastroesophageal reflux disease without esophagitis Symptoms controlled with medication and continue. Associated Problem(s): Essential hypertension, benign (CMS/HCC) BP controlled and monitor PRN. Associated Problem(s): Bipolar affective, mixed (HCC) (CMS/HCC) Occasional symptoms but tolerable and continue medication. Subjective Patient ID: Amanda Hong is a 52 y.o. female who presents for Follow-up (Blood sugar running high, fatigue. ). F/u DM, HTN, bipolar, anxiety, vestibular migraines, and GERD. Reports BS elevated over the past month and now 120 - 180 with average around 150 Tries to eat well and stick to ADA diet. Denies signs of elevated BS such as polyuria, polyphagia or polydipsia. Taking ozempic weekly. Checking BP PRN and typically controlled. BP normal today. Taking medication daily and tolerating without side effects. Bipolar stable with medication. Not as down or sad. Able to do more and interacting better with others. No mingo and not hyper or full of energy. Anxiety stable. Not as stressed out or overwhelmed. Not as nervous or worry as much. Not as arzola or irritable. Migraines starting to return. Occasional dizziness and vertigo. Throbbing pain in entire head associated with photophobia, phonophobia and nausea. Started topamax but developed numbness and tingling. Using medication PRN and helps. GERD controlled with omeprazole. Denies epigastric pain or burning and not waking up with symptoms. Review of Systems Respiratory: Negative for cough, shortness of breath and wheezing. Cardiovascular: Negative for chest pain and palpitations. Gastrointestinal: Negative for abdominal pain, diarrhea, nausea and vomiting. Genitourinary: Negative for dysuria. Objective Physical Exam Constitutional: General: She is not in acute distress. Appearance: Normal appearance. HENT: Head: Normocephalic. Right Ear: Tympanic membrane normal. Left Ear: Tympanic membrane normal. Eyes: Extraocular Movements: Extraocular movements intact. Pupils: Pupils are equal, round, and reactive to light. Cardiovascular: Rate and Rhythm: Normal rate and regular rhythm. Heart sounds: No murmur heard. No friction rub. No gallop. Pulmonary: Effort: Pulmonary effort is normal. Breath sounds: Normal breath sounds. No wheezing, rhonchi or rales. Abdominal: General: Bowel sounds are normal. There is no distension. Palpations: Abdomen is soft. Tenderness: There is no abdominal tenderness. There is no guarding or rebound. Musculoskeletal: Cervical back: Neck supple. Right lower leg: No edema. Left lower leg: No edema. Neurological: Mental Status: She is alert. Assessment/Plan Problem List Items Addressed This Visit Essential hypertension, benign (CMS/HCC) BP controlled and monitor PRN. Bipolar affective, mixed (HCC) (CMS/HCC) Occasional symptoms but tolerable and continue medication. Generalized anxiety disorder (CMS/HCC) Occasional symptoms but tolerable and continue medication. Type 2 diabetes mellitus with hyperglycemia, with long-term current use of insulin (CMS/HCC) - Primary Reports BS elevated and increase ozempic. Stick to ADA diet and limit carbs. Relevant Medications semaglutide (Ozempic, 0.25 or 0.5 MG/DOSE,) 2 MG/1.5ML solution pen-injector Vestibular migraine (CMS/HCC) DEJESUS worse and side effects from topamax and stop. Try elavil to reduce DEJESUS. Use OTC PRN. Relevant Medications amitriptyline (Elavil) 25 MG tablet Gastroesophageal reflux disease without esophagitis Symptoms controlled with medication and continue. documented in this encounter [facility] 06-08-2022 Evaluation note Encounter Date Diagnosis Assessment Notes Jun, Nasal congestion (ICD-10 - R09.81) Jun, Acute sinusitis, recurrence not specified, unspecified location (ICD-10 - J01.90) Sinusitis home care material was printed Drink plenty fluids, get plenty of rest. Take the amoxicillin with clavulanate and prednisone as prescribed until gone. Use the fluticasone nasal spray as prescribed and your symptoms improved. Use the albuterol inhaler as needed for cough or shortness of breath. Take Tylenol or Motrin for aches pains or fevers. Follow-up with your family physician if no improvement in 2 to 3 days Jun, Bronchitis (ICD-10 - J40) [employer] Other 01-24-2023 Evaluation note* Encounter Date Diagnosis Assessment Notes Treatment Notes Treatment Clinical Notes Mar, Migraine without aura and without status migrainosus, not intractable (ICD-10 - G43.009) Take medication as directed. Shot given in office of Toradol and steroid. Stay away from known triggers. Follow up with primary care provider or neurology if symptoms persist as new treatment option may need to be discussed. [employer] Other 12-09-2022 Evaluation note* Encounter Date Diagnosis Assessment Notes Treatment Notes Treatment Clinical Notes Feb, Contact with and (suspected) exposure to other viral communicable diseases (ICD-10 - Z20.828) Feb, Influenza A (ICD-10 - J10.1) Influenza: adult home care material was printed Drink plenty fluids, get plenty of rest. Take Tylenol or Motrin for aches pains or fevers. Take Zofran as prescribed for nausea and vomiting. Follow-up with your family physician if no improvement in 2 to 3 days. Off work until next Feb, Nausea and vomiting, unspecified vomiting type (ICD-10 - R11.2) [employer] Other 10-10-2022 Evaluation note* Encounter Date Diagnosis Assessment Notes Treatment Notes Treatment Clinical Notes Dec, Paronychia of toe of right foot (ICD-10 - L03.031) Soak in Epsom salt daily before using medication. Keep area covered when out and about wearing shoes. Do not use hydrogen peroxide to area as it can be damaging to healthy tissue. Contact office and we will help you find specialist if symptoms are not improved. [employer] Other 05-11-2022 Evaluation note* Encounter Date Diagnosis Assessment Notes Treatment Notes Treatment Clinical Notes July, Thoracic myofascial strain, initial encounter (ICD-10 - S29.019A) 3 to 4-dayDrink plenty fluids, get plenty of rest. Continue home medications as prescribed. Take the ibuprofen on a regular basis for the next days. Take the Flexeril as prescribed as needed for muscle pain and stiffness. Be aware the Flexeril make you very tired. Follow-up with your family physician as scheduled. Go to the ER for worsening symptoms or concerns. July, Other Back strain or sprain home care material was printed [employer] Other 01-24-2022 Evaluation note* Encounter Date Diagnosis Assessment Notes Treatment Notes Treatment Clinical Notes Mar, Encounter for screening for other viral diseases (ICD-10 - Z11.59) Mar, Other Additional time spent conducting pre-visit phone call, screening for symptoms, instructions on social distancing, application and removal of PPE, and cleaning of examination room, equipment and supplies was preformed. Patient education given for testing methodology and results. Patient care instructions given in writting by [facility][NOTE 3] Care At Home document. [employer] Other Chief complaint+Reason for visit Narrative* Chief Complaint poss flu Reason for Visit Contact with and (landry spected) exposure to covid-19 Sinusitis [facility] Work Phone: Evaluation note* Diagnosis Type 2 diabetes mellitus with hyperglycemia, with long-term current use of insulin (CMS/[facility])- Primary Essential hypertension, benign (CMS/HCC) Essential hypertension, benign Bipolar affective, mixed (HCC) (CMS/[facility]) Bipolar I disorder, most recent episode (or current) mixed, unspecified Generalized anxiety disorder (CMS/HCC) Generalized anxiety disorder Gastroesophageal reflux disease without esophagitis Esophageal reflux Vestibular migraine ([facility]) [facility]* Diagnosis Onset Date Resolution Status Contact with and (suspected) exposure to covid-19 noneactive Sinusitis noneactive [facility] Work Phone: Evaluation note* Diagnosis Type 2 diabetes mellitus with hyperglycemia, with long-term current use of insulin (CMS/HCC)- Primary Essential hypertension, benign (CMS/HCC) Essential hypertension, benign Bipolar affective, mixed (HCC) (CMS/HCC) Bipolar I disorder, most recent episode (or current) mixed, unspecified Generalized anxiety disorder (CMS/HCC) Generalized anxiety disorder Vestibular migraine (CMS/HCC) [facility] N[facility] - Reported* Type Description Date Medical History bipolar Medical History depression Medical History allergies Medical History Allergies Medical History HTN Medical History Otosclerosis, unspecified latera lity Medical History Bipolar disorder Surgical History left ear Surgical History stapedectomy Apr 2012 Surgical History hysterectomy Surgical History partial hysterectomy Hospitalization History child Hospitalization History see above [employer] Other History general Narrative - Reported* Type Description Date Medical History bipolar Medical History depression Medical History allergies Medical History Allergies Medical History HTN Medical History Otosclerosis, unspecified latera lity Medical History Bipolar disorder Medical History migraine headache Surgical History left ear Surgical History stapedectomy Apr 2012 Surgical History hysterectomy Surgical History partial hysterectomy Hospitalization History child Hospitalization History see above [employer] Other Summary Purpose Family History Relationship Condition Age at Onset Recorded Date/T maylin father Diabetes mellitus Unknown Unknown Hypertension Unknown Not Specified Diabetes mellitus Unknown Family history of thyroid disease Unknown Advance Directives Advance Directive Response Recorded Date/ Time Advance Directives No August 05 9 8:30am Additional Source Comments REASON FOR VISIT (unrecogniz ed section and content) Reason Comments Follow-up Blood sugar running high, fatigue. Reason Comments Follow-up 3 m INFORMATION SOURCE (unrecogn ized section and content) DATE CREATED AUTHOR [facility]27/2022 [facility] DATE CREATED AUTHOR AUTHOR'S ORGANIZ ATION 12/05/2023 [facility] [employer] Care Teams (unrecognized sec tion and content) [employer] Relationship Specialty Start Date End Date Brian Urbina MD [address] [place] [phone] PCP - General Family Medicine 03/22/23 [employer] Pot[employer] Inspector Relationship Specialty Start Date End Date Brian Urbina MD [address] [place] [phone] PCP - [facility] 03/22/23 Team Status: Active Member Role Status Dates Brian Urbina MD Primary Care Provider Active Team Status: Inactive Member Role Status Dates Brian Urbina MD Primary Care Provider Active S tart: May 17, 2023 End: May 17, 2023 Helen Akers [employer] Attending Provider Active S tart: May 17, 2023 End: May 17, 2023 Peeled Potato Inspector Relationship Specialty Start Date End Date Brian Urbina MD [address] [place] [phone] PCP - [facility] 03/22/23 Peeled Potato Inspector Relationship Specialty Start Date End Date Brian Urbina MD [address] [place] [phone] PCP - [facility] 03/22/23 Goals (unrecognized section and content) Goals may be documented in a n alternate section FOR RECORDS PERTAINING TO PATIENTS WHO ARE OR HAVE BEEN ENROLLED IN A CHEMICAL DEPENDENCY/SUBSTANCEABUSE PROGRAM, SOME INFORMATION MAY BE OMITTED. This clinical summary was aggregated from multiple sources. Caution should be exercised in using it in the provision of clinical care. This summary normalizes information from multiple sources, and as a consequence, information in this document may materially change the coding, format and clinical context of patient data. In addition, data may be omitted in some cases. CLINICAL DECISIONS SHOULD BE BASED ON THE PRIMARY CLINICAL RECORDS. [facility] [employer] [facility]. provides no warranty or guarantee of the accuracy or completeness of information in this document.
[2023-12-13 08:22] LABS: Estimated Average Glucose 77 mg/dL; Glycohemoglobin A1C 4.3 % (4.5-6.2)
[2023-12-13 09:11] LABS: Microalbumin Urine Random <1.3 mg/dL (<=30.0)
== END 2023-12-13 07:52 | disposition home or self-care (01) ==
LOC: LAB 07:52
PROVIDERS: PCP Family Medicine; Visit Provider Family Medicine
DX: E11.65 Type 2 diabetes mellitus with hyperglycemia (principal); Z79.4 Long term (current) use of insulin
CPT/HCPCS: 36415; 82043; 83036

== ENCOUNTER 2024-01-13 11:32 | Emergency (ER) | payer BC, SELFPAY ==
[2024-01-13 11:45] VITALS: BP 171/96; PULSE 70; TEMP 36.9; O2SAT 98; BMI 28.3
--- OUTSIDE RECORDS SUMMARY | 2024-01-13 12:05 | XMS_ITS | CCD ---
Author Organization [facility] Care Team Providers Care [employer] Name Role Phone Fabiola Bernardo Unavailable Helen [...] Unavailable NADERER, DR BRIAN Fagan Consulting Unavailable NadBrian suazo MD Primary Care Provider Brian Urbina MD Unavailable BRIAN URBINA Attending Unavailable NADERER, BRIAN Attending Unavailable NADERER, BRIAN Attending Unavailable NADERER, BRIAN Attending Unavailable NADERER, BRIAN Attending Unavailable NADERER, BRIAN Attending Unavailable NADERER, BRIAN Attending Unavailable NADERER, BRIAN Attending Unavailable NADERER, BRIAN Attending Unavailable NADERER, BRIAN Attending Unavailable Allergies Allergy Classification Reported Allergen(s) Allergy Type Date of Onset Reaction(s) Facility (7 sources) Aspirin Drug Allergy 4 [facility] (7 sources) Ciprofloxacin Drug Allergy 4 stomach upset [facility] (6 sources) Lisinopril Drug Allergy 4 coughing [facility] (1 source) Aspirin Drug Allergy 3 [facility] (9 sources) Aluminum aspirin Drug Allergy 3 Rash [facility] Work Phone: (18 sources) Lisinopril Propensity to adverse reactions 3 Cough [facility] Medications Current Medications Medication Drug Class(es) Dates Sig (Normalized) Sig (Original) acetaminophen 325 mg / butalbital 50 mg / caffeine 40 mg oral tablet (15 sources) Barbiturate, Central Nervous System Stimulant, Methylxanthine Start: 11-22-2023 take 1 tablet by mouth four times daily as needed for headache butalbital-aceta minophen-caffein e 50-325-40 MG tablet Indications: Vestibular migraine (CMS/HCC) Take 1 tablet by mouth 4 (four) times a day as needed for headaches 30 tablet 11/22/2023 Active [id number] 200 actuat albuterol 0.09 mg/actuat metered dose inhaler (19 sources) beta2-Adrenergic Agonist Start: 06-08-2022 take 2 puff(s) by inhalation four times daily as needed Albuterol Sulfate HFA 108 (90 Base) MCG/ACT 2 puffs Inhalation 4 times a day prn Jun, Active take 2 puff(s) by in halation every four hours for wheezing albuterol HFA 90 mcg/act inhaler Inhale 2 puffs every 4 (four) hours if needed for wheezing Active ALPRAZolam 1 mg oral tablet (20 sources) Benzodiazepine Start: 12-19-2023 End: 01-29-2024 take 1 tablet by mouth three times daily as needed for anxiety ALPRAZolam (Xanax) 1 MG tablet Indications: Generalized anxiety disorder (CMS/HCC) Take 1 tablet (1 mg) by mouth 3 (three) times a day as needed for anxiety for up to 20 days 60 tablet 01/09/2024 01/29/2024 Active Start: 06-03-2023 End: 01-05-2024 take 1 tablet by mouth three times daily as needed for anxiety ALPRAZolam (Xanax) 0.5 MG tablet Indications: Generalized anxiety disorder (CMS/HCC) Take 1 tablet (0.5 mg) by mouth 3 (three) times a day as needed for anxiety for up to 20 days 60 tablet 12/16/2023 12/19/2023 Discontinued (Reorder) Xanax Active amitriptyline hydrochloride 25 mg oral [...] Jun, Active baclofen 20 mg oral tablet (18 sources) gamma-Aminobutyric Acid-ergic Agonist take 1 tablet [...] propionate 0.05 mg/actuat metered dose nasal spray (20 sources) Corticosteroid Start: 12-12-2023 take 2 spray(s) nasal route once daily fluticasone (Flonase) 50 MCG/ACT nasal spray Indications: Chronic rhinosinusitis Administer 2 sprays into each nostril Daily Shake gently. Before first use, prime pump. After use, clean tip and replace cap. 16 g 5 12/12/2023 Active Start: 06-08-2022 take 2 spray(s) nasa l route once daily Fluticasone Propionate 50 MCG/ACT 2 sprays Nasally Once a day for 14 day(s) Jun, Active End: 12-12-2023 take 2 spray(s) nasal route in the morning fluticasone (Flonase) 50 MCG/ACT nasal spray Administer 2 sprays into each nostril in the morning. Shake gently. Before first use, prime pump. After use, clean tip and replace cap.. 12/12/2023 Discontinued (Reorder) Glucose Blood (BLOOD GLUCOSE TEST ) (18 sources) Glucose Blood (B LOOD GLUCOSE TEST ) by In Vitro route Active Glucose Blood (B LOOD GLUCOSE TEST ) by In Vitro route 0 Active hydroCHLOROthiazide 25 mg oral tablet (20 sources) Thiazide Diuretic Start: 08-19-2023 End: 08-18-2024 take 1 tablet by mouth once daily hydroCHLOROthiazide (HYDRODiuril) 25 MG tablet Indications: Essential hypertension, benign (CMS/HCC) Take 1 tablet (25 mg) by mouth Daily 30 tablet 08/19/2023 08/18/2024 Active take 1 tablet by andrés th in the morning hydroCHLOROthiazide (HYDRODiuril) 25 MG tablet Take 25 mg by mouth in the morning. 0 Active hydroCHLOROthiaz marcy Active ibuprofen 800 mg oral tablet (7 sources) Nonsteroidal Anti-inflammatory Drug Start: 04-17-2013 take 1 tablet by mouth every eight hours Ibuprofen 800 MG 1 tablet Orally Three times a day for 14 days 14 Apr, 2013 Active levoFLOXacin 750 mg oral tablet (4 sources) Quinolone Antimicrobial Start: 12-19-2023 End: 01-02-2024 take 1 tablet by mouth once daily levoFLOXacin (Levaquin) 750 MG tablet Indications: Acute non-recurrent pansinusitis Take 1 tablet (750 mg) by mouth Daily for 7 days 7 tablet 12/19/2023 01/02/2024 Discontinued Losartan (2 sources) Angiotensin 2 Receptor Kelli Losartan Potassium Active meclizine hydrochloride 25 mg oral tablet (15 sources) Antiemetic Start: 06-28-2023 take 1 tablet [...] Dec, Active OLANZapine 15 mg oral tablet (20 sources) Atypical Antipsychotic Start: 07-16-2023 take 1 [...] omeprazole 40 mg delayed release oral capsule (20 sources) Proton Pump Inhibitor Start: 05-20-2023 End: [...] 3 times a day prn Feb, Active promethazine hydrochloride 12.5 mg oral tablet [...] hyperglycemia, with long-term current use of insulin (CMS/[facility]) Inject 2 mg under the skin 1 [...] (Ozempic, 2 MG/DOSE,) 8 MG/3ML solution pen-injector (15 sources) Start: 08-19-2023 inject 2 mg by subcutaneous injection every week Semaglutide, 2 MG/DOSE, (Ozempic, 2 MG/DOSE,) 8 MG/3ML solution pen-injector Indications: Type 2 diabetes mellitus with hyperglycemia, with long-term current use of insulin (CMS/HCC) Inject 2 mg under the skin 1 (one) time per week 3 mL 5 08/19/2023 Active sertraline 50 mg oral tablet (19 sources) Serotonin Reuptake Inhibitor Start: 01-02-2024 take 1 tablet by mouth once daily sertraline (Zoloft) 50 MG tablet Indications: Generalized anxiety disorder (CMS/HCC) Take 1 tablet (50 mg) by mouth Daily 30 tablet 5 01/02/2024 Active Start: 01-02-2024 take 1 tablet by andrés th once daily sertraline (Zoloft) 50 MG tablet Indications: Generalized anxiety disorder (CMS/HCC) Take 1 tablet (50 mg) by mouth Daily 30 tablet 5 01/02/2024 Active Start: 12-12-2023 End: 01-02-2024 take 1 tablet by mouth once daily sertraline (Zoloft) 50 MG tablet Indications: Generalized anxiety disorder (CMS/HCC) Take 1 tablet (50 mg) by mouth Daily 30 tablet 5 12/12/2023 01/02/2024 Discontinued (Reorder) Start: 11-22-2023 End: 12-12-2023 take 1 tablet by mouth once daily sertraline (Zoloft) 25 MG tablet Indications: Generalized anxiety disorder (CMS/HCC) Take 1 tablet (25 mg) by mouth Daily 30 tablet 3 11/22/2023 12/12/2023 Discontinued (Reorder) SUMAtriptan (2 sources) Serotonin-1b and Serotonin-1d Receptor Agonist Imitrex Active topiramate 100 mg oral tablet (19 sources) Start: End: take 1 tablet by mouth in the morning topiramate (Topamax) 100 MG tablet Indications: Vestibular migraine (CMS/HCC) Take 1 tablet (100 mg) by mouth in the morning and 1 tablet (100 mg) before bedtime. 60 tablet 5 11/22/2023 01/02/2024 Discontinued Start: 05-17-2023 End: 05-17-2023 take 50 mg [...] and 50 mg before bedtime. 0 Active zonisamide 25 mg oral capsule (3 sources) Anti-epileptic Agent Start: take 2 capsules by mouth once daily zonisamide (Zonegran) 25 MG capsule Indications: Vestibular migraine (CMS/HCC) Take 2 capsules (50 mg) by mouth Daily 60 capsule 3 01/02/2024 Active Start: 01-02-2024 take 2 capsules by m outh once daily zonisamide (Zonegran) 25 MG capsule Indications: Vestibular migraine (CMS/HCC) Take 2 capsules (50 mg) by mouth Daily 60 capsule 3 01/02/2024 Active Completed/Discontinued Medications Medication Drug Class(es) Dates Sig (Normalized) Sig (Original) cefdinir 300 mg oral capsule (7 sources) Cephalosporin Antibacterial Start: 12-12-2023 End: 12-22-2023 take 1 capsule by mouth in the morning cefdinir (Omnicef) 300 MG capsule Indications: Acute non-recurrent pansinusitis Take 1 capsule (300 mg) by mouth in the morning and 1 capsule (300 mg) before bedtime. Do all this for 10 days. 20 capsule 12/12/2023 12/19/2023 Discontinued Ketorolac (5 sources) Nonsteroidal Anti-inflammatory Drug, Cyclooxygenase Inhibitor Start: 07-12-2021 Toradol per 15 mg July, 30 mg predniSONE 50 mg oral tablet (7 sources) Start: 12-12-2023 End: 12-19-2023 take 1 tablet by mouth once daily predniSONE (Deltasone) 50 MG tablet Indications: Acute non-recurrent pansinusitis Take 1 tablet (50 mg) by mouth Daily for 6 days 6 tablet 12/12/2023 12/19/2023 Discontinued Start: 06-08-2022 take 1 tablet by andrés th every twelve hours predniSONE 20 MG 1 tablet Orally bid for 5 day(s) Jun, Active Toradol 30 mg/ml (2 sources) Start: 03-27-2022 Toradol 30 mg/ ml Mar, 30 mg triamcinolone acetonide 40 mg/ml injectable suspension (2 sources) Corticosteroid Start: 03-27-2022 Kenalog-40 Mar, 40 mg Problems Active Problems Problem Classification Problem Date Documented Date Episodic/Chronic Allergic reactions (1 source) Allergic condition; Translations: [Allergy, unspecified, initial encounter] 05-17-2023 Episodic Anxiety disorders (20 sources) Generalized anxiety disorder; Translations: [Generalized anxiety disorder] Onset: 04-05-2023 04-05-2023 Chronic Chronic obstructive pulmonary disease and bronchiectasis (1 source) Bronchitis, not specified as acute or chronic Episodic Diabetes mellitus with complications (20 sources) Type 2 diabetes mellitus; Translations: [Type 2 diabetes mellitus with hyperglycemia] Onset: 04-05-2023 04-05-2023 Chronic Disorders of lipid metabolism (18 sources) Hyperlipidemia; Translations: [Hyperlipidemia, unspecified] Onset: 04-05-2023 04-05-2023 Chronic Esophageal disorders (19 sources) Gastroesophageal reflux disease without esophagitis; Translations: [Gastro-esophageal reflux disease without esophagitis] Onset: 04-05-2023 04-05-2023 Chronic Essential hypertension (20 sources) Benign essential hypertension; Translations: [Essential (primary) hypertension] Onset: 04-05-2023 04-05-2023 Chronic Headache; including migraine (20 sources) Migraine without aura, not refractory ; [...] with other respiratory manifestations Episodic Mood disorders (20 sources) Mixed bipolar affective disorder; Translations: [Bipolar disorder, current episode mixed, unspecified] Onset: 04-05-2023 04-05-2023 Chronic Nausea and vomiting (1 source) Nausea with vomiting, unspecified Episodic Nutritional deficiencies (19 sources) Vitamin D deficiency, unspecified; Translations: [Vitamin D deficiency] Onset: 05-22-2021 04-05-2023 Chronic Other nervous system disorders (1 source) Other chronic pain; Translations: [OTHER CHRONIC PAIN] Onset: 07-27-2021 Chronic Other nutritional; endocrine; and metabolic disorders (1 source) Obesity, unspecified; Translations: [OBESITY UNSPECIFIED] Onset: 08-22-2021 Chronic Other upper respiratory disease (1 source) Nasal congestion Episodic Other upper respiratory infections (14 sources) Chronic sinusitis, unspecified; Translations: [Unspecified sinusitis (chronic)] Onset: 12-12-2023 05-17-2023 Chronic Otitis media and related conditions (1 source) Otosclerosis; Translations: [Unspecified otosclerosis, unspecified ear] 05-17-2023 Episodic Residual codes; unclassified (18 sources) Obstructive sleep apnea syndrome; Translations: [Obstructive sleep apnea (adult) (pediatric)] Onset: 04-05-2023 04-05-2023 Chronic Skin and subcutaneous tissue infections (1 source) Cellulitis of right toe Episodic Spondylosis; intervertebral disc disorders; other back problems (20 sources) Other intervertebral disc degeneration, lumbosacral region; Translations: [Degeneration of cervical intervertebral disc] Onset: 07-28-2021 04-05-2023 Chronic Thyroid disorders (18 sources) Hypothyroidism; Translations: [Hypothyroidism, unspecified] Onset: 04-05-2023 [...] Onset: 08-22-2021 Episodic Other upper respiratory disease (18 sources) Deviated nasal septum; Translations: [Deviated nasal septum] Onset: 04-05-2023 04-05-2023 Episodic Other upper respiratory infections (20 sources) Acute sinusitis, unspecified; Translations: [Acute pansinusitis] [...] Test Name Value Interpretation Reference Range Facility MLR HEMOGLOBIN A1Con 024 Glucose [Mass/Vol] 77 mg/dL [facility] HbA1c (Bld) [Mass fraction] 4.3 % Low 4.5 - 6.2 % [facility] Comment on above: ADA RECOMMENDED LIMI T 4.0 - 6.0 ADA THERAPEUTIC TARGET < 7.0 ACTION SUGGESTED > 7.0 Interpretation and review of laboratory results Abnormal [facility] Health[facility] e Influenza virus B Ag [Presen ce] in Upper respiratory specimen by Rapid immunoassayon 05-17-2023 FLUBV Ag IA.rapid Ql (Nph) Negative [facility] No Panel Informationon 05-16 Influenza Type A (Rapid) Negative [facility] POC SARS CoV-2 Antigen Negative [facility] COVID + FLU Quick Testingon 06-08-2022 SARS-CoV-2 (COVID-19) RNA TOMMY+probe Ql (Unsp spec) Negative [employer] Other COVID + FLU Quick Testing Negative [employer] Other COVID + FLU Quick Testingon 02-09-2022 SARS-CoV-2 (COVID-19) RNA TOMMY+probe Ql (Unsp spec) Negative [employer] Other COVID + FLU Quick Testing Positive [employer] Other COVID + FLU Quick Testing Negative [employer] Other Covid-19 PCR ([facility])on 10-02 SARS-CoV-2 (COVID-19) RNA TOMMY+probe Ql (Unsp spec) Not detected Normal NOT DETECTED [facility] Comment on above: Result Comment: This test is not yet approved or cleared by the [place] FDA. When there are no FDA-approved or cleared tests available, and other criteria are met, FDA can make tests available under an emergency access mechanism called an Emergency Use Authorization (EUA). The EUA for this test is supported by the [place] of Health and Human Service's (HHS's) declaration [...] consistent with SARS-CoV-2. Performed By: #### [facility] #### [facility] [address] [place] [address] Dr. Che Arias XR TSPINE 3 VIEWSon [...] LINCOLN SULLIVAN Date: 2021-07-26 10:49 Normal [facility] CBC AUTO DIFFon 05-18-2021 BASO # 0.1 103/ul Normal 0.0-0.1 [facility] Comment on above: Performed By: #### C BC #### [facility] [address] [address] [address] Che Arias Basophils/100 WBC (Bld) 0.7 % Normal 0.2-2.0 [facility] Comment on above: Performed By: #### C BC #### [facility] [address] [address] [address] Che Arias EO # 0.2 103/ul Normal 0.0-0.7 [facility] Comment on above: Performed By: #### C BC #### [facility] [address] [address] [address] Che Arias Eosinophils/100 WBC (Bld) 2.8 % Normal 0.9-7.0 [facility] Comment on above: Performed By: #### C BC #### [facility] [address] [address] [address] Che Arias Erythrocyte distribution width (RBC) [Ratio] 13.3 % Normal 11.0-15.0 [facility] Comment on above: Performed By: #### C BC #### [facility] [address] [address] [address] Che Arias Hematocrit (Bld) [Volume fraction] 40.4 % Normal 36.0-48.0 [facility] Comment on above: Performed By: #### C BC #### [facility] [address] [place] [address] Dr. Che Arias Hemoglobin (Bld) [Mass/Vol] 14.1 g/dL Normal 12.0-16.0 [facility] Comment on above: Performed By: #### C BC #### [facility] [address] [place] [address] Dr. Che Arias IG # 0.03 10e3/ul Normal 0.00-0.03 [facility] Comment on above: Performed By: #### C BC #### [facility] [address] [place] [address] Dr. Che Arias IG % 0.4 % Normal 0.0-0.5 [facility] Comment on above: Performed By: #### C BC #### [facility] [address] [place] [address] Dr. Che Arias LYMPH # 1.9 103/ul Normal 1.2-3.8 [facility] Comment on above: Performed By: #### C BC #### [facility] [address] [place] [address] Dr. Che Arias Lymphocytes/100 WBC (Bld) 27.6 % Normal 20.5-60.0 [facility] Comment on above: Performed By: #### C BC #### [facility] [address] [place] [address] Dr. Che Arias MANUAL DIFF REQ NO Normal [facility] Comment on above: Performed By: #### C BC #### [facility] [address] [place] [address] Dr. Che Arias MCH (RBC) [Entitic mass] 30.7 pg Normal 26.7-34.0 [facility] Comment on above: Performed By: #### C BC #### [facility] [address] [place] [address] Dr. Che Arias MCHC (RBC) [Mass/Vol] 34.9 g/dL Normal 29.9-35.2 [facility] Comment on above: Performed By: #### C BC #### [facility] [address] [address] [address] Che Arias MCV (RBC) [Entitic vol] 87.8 fL Normal 81.0-99.0 [facility] Comment on above: Performed By: #### C BC #### [facility] [address] [address] [address] Che Arias MONO # 0.5 103/ul Normal 0.3-0.8 [facility] Comment on above: Performed By: #### C BC #### [facility] [address] [address] [address] Che Arias Monocytes/100 WBC (Bld) 7.3 % Normal 1.7-12.0 [facility] Comment on above: Performed By: #### C BC #### [facility] [address] [place] [address] Dr. Che Arias NEUT # 4.1 103/ul Normal 1.4-6.5 [facility] Comment on above: Performed By: #### C BC #### [facility] [address] [place] [address] Dr. Che Arias Neutrophils/100 WBC (Bld) 61.2 % Normal 43.0-75.0 [facility] Comment on above: Performed By: #### C BC #### [facility] [address] [place] [address] Dr. Che Arias Platelet mean volume (Bld) [Entitic vol] 11.6 fL Normal 9.5-13.5 [facility] Comment on above: Performed By: #### C BC #### [facility] [address] [place] [address] Dr. Che Arias PLT 260 103/ul Normal 150-450 [facility] Comment on above: Performed By: #### C BC #### [facility] [address] [place] [address] Dr. Che Arias RBC 4.60 106/ul Normal 4.20-5.40 [facility] Comment on above: Performed By: #### C BC #### [facility] [address] [place] [address] Dr. Che Arias WBC 6.8 103/ul Normal 4.0-11.0 [facility] Comment on above: Performed By: #### C BC #### [facility] [id number] Che Arias GLYCOHEMOGLOBIN A1Con 2021 ADA RECOMMENDATION ADA THERAPEUTIC TARGET 6.0 - 7.0 ACTION SUGGESTED > 7.0 Normal [facility] Comment on above: Performed By: #### A 1C ####[facility] [id number] [place], [place] [id number]. Che Arias Glucose [Mass/Vol] 140 mg/dL Normal [facility] Comment on above: Performed By: #### A 1C ####[facility] [id number] [id number][address] Che Arias HbA1c (Bld) [Mass fraction] 6.5 % Critically high <=6.0 [facility] Comment on above: Performed By: #### A 1C ####[facility] [address] [address]Dr[address] Che Arias LIPID PROFILEon 05-18-2021 CHOL-HDL RATIO NORM SEE BELOW Normal [facility] Comment on above: Result Comment: 3.3 - 4.4 LOW RISK 4.4 - 7.1 AVERAGE RISK 7.1 - 11.0 MODERATE RISK >11.0 HIGH RISK Performed By: #### B MP, LIVER, TSH, LIPID #### [facility] [address] [address] [address] Che Arias Cholesterol [Mass/Vol] 237 mg/dL Critically high <=200 [facility] Comment on above: Performed By: #### B MP, LIVER, TSH, LIPID #### [facility] [id number] Che Arias Cholesterol in HDL [Mass/Vol] 46 mg/dL Normal 40-60 [facility] Comment on above: Performed By: #### B MP, LIVER, TSH, LIPID #### [facility] [address] [address] [address] Che Arias Cholesterol in LDL [Mass/Vol] 161.4 mg/dL Normal [facility] Comment on above: Performed By: #### B MP, LIVER, TSH, LIPID #### [facility] [address] [address] [address] Che Arias Cholesterol.total/Ch olesterol in HDL [Mass ratio] 5.2 {ratio} Normal [facility] Comment on above: Performed By: #### B MP, LIVER, TSH, LIPID #### [facility] [address] [address] [address] Che Arias HDL NORMAL > or = 60 mg/dl - LOW CARDIOVASCULAR RISK <40 mg/dl - HIGH CARDIOVASCULAR RISK Normal [facility] Comment on above: Performed By: #### B MP, LIVER, TSH, LIPID #### [facility] [address] [place] [address] Dr. Che Arias LDL CALC NORMAL SEE BELOW Normal [facility] Comment on above: Result Comment: <100 mg/dl OPTIMAL 100 - 129 mg/dl NEAR OR ABOVE OPTIMAL 130 - 159 mg/dl BORDERLINE HIGH 160 - 189 mg/dl HIGH >190 mg/dl VERY HIGH Performed By: #### B MP, LIVER, TSH, LIPID #### [facility] [address] [place] [address] Dr. Che Arias Triglyceride [Mass/Vol] 148 mg/dL Normal <=150 [facility] Comment on above: Performed By: #### B MP, LIVER, TSH, LIPID #### [facility] [address] [place] [address] Dr. Che Arias VLDL CALC 29.6 mg/dL Normal [facility] Comment on above: Performed By: #### B MP, LIVER, TSH, LIPID #### [facility] [address] [address] [address] Che Arias LIVER PROFILEon 05-18-2021 Albumin [Mass/Vol] 4.0 g/dL Normal 3.5-5.0 [facility] Comment on above: Performed By: #### B MP, LIVER, TSH, LIPID #### [facility] [address] [place] [address] Dr. Che Arias Albumin/Globulin [Mass ratio] 1.2 {ratio} Normal [facility] Comment on above: Performed By: #### B MP, LIVER, TSH, LIPID #### [facility] [address] [place] [address] Dr. Che Arias ALP [Catalytic activity/Vol] 107 U/L Normal 38-126 [facility] Comment on above: Performed By: #### B MP, LIVER, TSH, LIPID #### [facility] [address] [place] [address] Dr. Che Arias ALT [Catalytic activity/Vol] 66 U/L Critically high 9-52 [facility] Comment on above: Performed By: #### B MP, LIVER, TSH, LIPID #### [facility] [address] [place] [address] Dr. Che Arias AST [Catalytic activity/Vol] 41 U/L Critically high 14-36 [facility] Comment on above: Performed By: #### B MP, LIVER, TSH, LIPID #### [facility] [address] [place] [address] Dr. Che Arias BILI, CONJUGATED 0.1 mg/dL Normal 0.0-0.3 [facility] Comment on above: Performed By: #### B MP, LIVER, TSH, LIPID #### [facility] [address] [place] [address] Dr. Che Arias Bilirubin [Mass/Vol] 0.6 mg/dL Normal 0.2-1.3 [facility] Comment on above: Performed By: #### B MP, LIVER, TSH, LIPID #### [facility] [address] [place] [address] Dr. Che Arias Globulin (S) [Mass/Vol] 3.4 g/dL Normal [facility] Comment on above: Performed By: #### B MP, LIVER, TSH, LIPID #### [facility] [address] [place] [address] Dr. Che Arias Protein [Mass/Vol] 7.4 g/dL Normal 6.1-8.2 [facility] Comment on above: Performed By: #### B MP, LIVER, TSH, LIPID #### [facility] [address] [address] [address] Che Arias PROF CHEM 8 (BAS METB)on Anion gap [Moles/Vol] 17.0 mmol/L Normal [facility] Comment on above: Performed By: #### B MP, LIVER, TSH, LIPID #### [facility] [address] [address] [address] Che Arias Calcium [Mass/Vol] 8.9 mg/dL Normal 8.4-10.2 [facility] Comment on above: Performed By: #### B MP, LIVER, TSH, LIPID #### [facility] [address] [place] [address] Dr. Che Arias Chloride [Moles/Vol] 105 mmol/L Normal 98-107 [facility] Comment on above: Performed By: #### B MP, LIVER, TSH, LIPID #### [facility] [address] [place] [address] Dr. Che Arias CO2 [Moles/Vol] 23.2 mmol/L Normal 22.0-30.0 [facility] Comment on above: Performed By: #### B MP, LIVER, TSH, LIPID #### [facility] [address] [place] [address] Dr. Che Arias Creatinine [Mass/Vol] 0.78 mg/dL Normal 0.52-1.04 [facility] Comment on above: Performed By: #### B MP, LIVER, TSH, LIPID #### [facility] [address] [place] [address] Dr. Che Arias EGFR-AF JAPANESE >60 Normal >=60 [facility] Comment on above: Performed By: #### B MP, LIVER, TSH, LIPID #### [facility] [address] [place] [address] Dr. Che Arias EGFR-NON AF JAPANESE >60 Normal >=60 [facility] Comment on above: Performed By: #### B MP, LIVER, TSH, LIPID #### [facility] [address] [place] [address] Dr. Che Arias Glucose [Mass/Vol] 162 mg/dL Critically high 74-106 [facility] Comment on above: Performed By: #### B MP, LIVER, TSH, LIPID #### [facility] [address] [address] [address] Che Arais Potassium [Moles/Vol] 4.2 mmol/L Normal 3.4-5.0 [facility] Comment on above: Performed By: #### B MP, LIVER, TSH, LIPID #### [facility] [address] [address] [address] Che Arias Sodium [Moles/Vol] 141 mmol/L Normal 137-145 [facility] Comment on above: Performed By: #### B MP, LIVER, TSH, LIPID #### [facility] [address] [place] [address] Dr. Che Arias Urea nitrogen [Mass/Vol] 10.0 mg/dL Normal 7.0-17.0 [facility] Comment on above: Performed By: #### B MP, LIVER, TSH, LIPID #### [facility] [address] [place] [address] Dr. Che Arias Urea nitrogen/Creatinine [Mass ratio] 12.8 mg/mg Normal [facility] Comment on above: Performed By: #### B MP, LIVER, TSH, LIPID #### [facility] [address] [place] [address] Dr. Che Arias TSHon 05-18-2021 TSH 2.158 uIU/mL Normal 0.470-4.680 [facility] Comment on above: Performed By: #### B MP, LIVER, TSH, LIPID #### [facility] [address] [place] [address] Dr. Che Arias TSH RANGE SEE BELOW Normal [facility] Comment on above: Result Comment: <0.3 4 UIU/ml HYPERTHYROID 0.34-5.60 UIU/ml EUTHYROID >5.60 UIU/ml HYPOTHYROID Performed By: #### B MP, LIVER, TSH, LIPID #### [facility] [address] [place] [address] Dr. Che Arias VITAMIN D 25 OHon 05-18-2021 VIT D 25-OH 28.4 ng/mL Normal [facility] Comment on above: Performed By: #### V ITAD #### [facility] [address] [place], [place] [address] Dr. Che Arias VIT D RANGES SEE BELOW Normal [facility] Comment on above: Result Comment: <20 ng/mL Vit D deficient 20 - <30 ng/mL Vit D insufficient 30 - 100 ng/mL Vit D sufficient >100 ng/mL Potential Toxicity Performed By: #### V ITAD #### [facility] [address] [place], [place] [address] Dr. Che Arias COVID Quick Testingon 2021 Result Negative [employer] Other Vital Signs Date Time Vital Sign Value Performing Clinician Facility 01-02-2024 09:50-0400 Body height 162.6 cm Brian Urbnia MD Work Phone: [facility] 01-02-2024 09:50-0400 Body mass index (BMI) [Ratio] 28.15 kg/m2 Brian Urbina MD Work Phone: [facility] 01-02-2024 09:50-0400 Body temperature 97.5 [degF] Brian Urbina MD Work Phone: [facility] 01-02-2024 09:50-0400 Body weight 74.39 kg Brian Urbina MD Work Phone: [facility] 01-02-2024 09:50-0400 Diastolic blood pressure 64 mm[Hg] Brian Urbina MD Work Phone: [facility] 01-02-2024 09:50-0400 Heart rate 89 /min Brian Urbina MD Work Phone: [facility] 01-02-2024 09:50-0400 Respiratory rate 22 /min Brian Urbina MD Work Phone: [facility] 01-02-2024 09:50-0400 SaO2% (BldA) [Mass fraction] 98 % Brian Urbina MD Work Phone: [facility] 01-02-2024 09:50-0400 Systolic blood pressure 148 mm[Hg] Brian Urbina MD Work Phone: [facility] 12-19-2023 14:00-0400 Body height 162.6 cm Brian Urbina MD Work Phone: [facility] 12-19-2023 14:00-0400 Body mass index (BMI) [Ratio] 28.49 kg/m2 Brian Urbina MD Work Phone: [facility] 12-19-2023 14:00-0400 Body temperature 97.11 [degF] Brian Urbina MD Work Phone: [facility] 12-19-2023 14:00-0400 Body weight 75.3 kg Brian Urbina MD Work Phone: [facility] 12-19-2023 14:00-0400 Diastolic blood pressure 76 mm[Hg] Brian Urbina MD Work Phone: [facility] 12-19-2023 14:00-0400 Heart rate 92 /min Brian Urbina MD Work Phone: [facility] 12-19-2023 14:00-0400 Respiratory rate 20 /min Brian Urbina MD Work Phone: [facility] 12-19-2023 14:00-0400 SaO2% (BldA) [Mass fraction] 99 % Brian Urbina MD Work Phone: [facility] 12-19-2023 14:00-0400 Systolic blood pressure 134 mm[Hg] Brian Urbina MD Work Phone: [facility] 12-12-2023 10:26-0400 Body height 162.6 cm Brian Urbina MD Work Phone: [facility] 12-12-2023 10:26-0400 Body mass index (BMI) [Ratio] 28.32 kg/m2 Brian Urbina MD Work Phone: [facility] 12-12-2023 10:26-0400 Body temperature 95.11 [degF] Brian Urbina MD Work Phone: [facility] 12-12-2023 10:26-0400 Body weight 74.84 kg Brian Urbina MD Work Phone: [facility] 12-12-2023 10:26-0400 Diastolic blood pressure 90 mm[Hg] Brian Urbina MD Work Phone: [facility] 12-12-2023 10:26-0400 Heart rate 88 /min Brian Urbina MD Work Phone: [facility] 12-12-2023 10:26-0400 Respiratory rate 20 /min Brian Urbina MD Work Phone: [facility] 12-12-2023 10:26-0400 SaO2% (BldA) [Mass fraction] 98 % Brian Urbina MD Work Phone: [facility] 12-12-2023 10:26-0400 Systolic blood pressure 142 mm[Hg] Brian Urbina MD Work Phone: [facility] 12-04-2023 07:16-0400 Body height 162.6 cm Brian Urbina MD Work Phone: [facility] 12-04-2023 07:16-0400 Body mass index (BMI) [Ratio] 29.35 kg/m2 Brian Urbina MD Work Phone: [facility] 12-04-2023 07:16-0400 Body temperature 96.6 [degF] Brian Urbina MD Work Phone: [facility] 12-04-2023 07:16-0400 Body weight 77.56 kg Brian Urbina MD Work Phone: [facility] 12-04-2023 07:16-0400 Diastolic blood pressure 70 mm[Hg] Brian Urbina MD Work Phone: [facility] 12-04-2023 07:16-0400 Heart rate 67 /min Brian Urbina MD Work Phone: [facility] 12-04-2023 07:16-0400 Respiratory rate 20 /min Brian Urbina MD Work Phone: [facility] 12-04-2023 07:16-0400 SaO2% (BldA) [Mass fraction] 97 % Brian Urbina MD Work Phone: [facility] 12-04-2023 07:16-0400 Systolic blood pressure 120 mm[Hg] Brian Urbina MD Work Phone: [facility] 05-17-2023 13:23-0400 Diastolic blood pressure 96 mm[Hg] [facility] 05-17-2023 13:23-0400 Systolic blood pressure 154 mm[Hg] [facility] 05-17-2023 13:00-0400 Body height 1920.24 cm [facility] 05-17-2023 13:00-0400 Body mass index (BMI) [Ratio] 0.2 kg/m2 [facility] 05-17-2023 13:00-0400 Body temperature 98 [degF] [facility] 05-17-2023 13:00-0400 Body weight 95.25 kg [facility] 05-17-2023 13:00-0400 Heart rate 99 /min [facility] 05-17-2023 13:00-0400 Respiratory rate 18 /min [facility] 05-17-2023 13:00-0400 SaO2% (BldA) [Mass fraction] 98 % [facility] 04-05-2023 11:02-0500 Body height 162.6 cm Brian Urbina MD Work Phone: [facility] 04-05-2023 11:02-0500 Body mass index (BMI) [Ratio] 37.59 kg/m2 Brian Urbina MD Work Phone: [facility] 04-05-2023 11:02-0500 Body temperature 97.3 [degF] Brian Urbina MD Work Phone: [facility] 04-05-2023 11:02-0500 Body weight 99.34 kg Brian Urbina MD Work Phone: [facility] 04-05-2023 11:02-0500 Diastolic blood pressure 80 mm[Hg] Brian Urbina MD Work Phone: [facility] 04-05-2023 11:02-0500 Heart rate 93 /min Brian Urbina MD Work Phone: [facility] 04-05-2023 11:02-0500 SaO2% (BldA) [Mass fraction] 98 % Brian Urbina MD Work Phone: [facility] 04-05-2023 11:02-0500 Systolic blood pressure 140 mm[Hg] Brian Urbina MD Work Phone: [facility] 06-08-2022 10:10-0400 Body height 160.02 cm Helen Delphine Other [employer] Other 06-08-2022 10:10-0400 Body mass index (BMI) [Ratio] 38.79 kg/m2 Helen Delphine Other [employer] Other 06-08-2022 10:10-0400 Body temperature 97.6 [degF] Helen Delphine Other [employer] Other 06-08-2022 10:10-0400 Body weight 99.34 kg Helen Delphine Other [employer] Other 06-08-2022 10:10-0400 Respiratory rate 18 /min Helen Delphine Other [employer] Other 06-08-2022 10:10-0400 SaO2% (BldA) [Mass fraction] 96 % Helen Akers Other [employer] Other 03-27-2022 16:00-0500 Body height 160.02 cm Fabiola Bernardo Other [employer] Other 03-27-2022 16:00-0500 Body mass index (BMI) [Ratio] 38.97 kg/m2 Fabiola Bernardo Other [employer] Other 03-27-2022 16:00-0500 Body temperature 97.1 [degF] Fabiola Bernardo Other [employer] Other 03-27-2022 16:00-0500 Body weight 99.79 kg Fabiola Bernardo Other [employer] Other 03-27-2022 16:00-0500 Respiratory rate 18 /min Fabiola Bernardo Other [employer] Other 03-27-2022 16:00-0500 SaO2% (BldA) [Mass fraction] 91 % Fabiola Bernardo Other [employer] Other 02-09-2022 10:10-0500 Body height 160.02 cm Helen Akers Other [employer] Other 02-09-2022 10:10-0500 Body mass index (BMI) [Ratio] 38.97 kg/m2 Helen Delphine Other [employer] Other 02-09-2022 10:10-0500 Body temperature 94.6 [degF] Helen Delphine Other [employer] Other 02-09-2022 10:10-0500 Body weight 99.79 kg Helen Delphine Other [employer] Other 02-09-2022 10:10-0500 Respiratory rate 18 /min Helen Akers Other [employer] Other 02-09-2022 10:10-0500 SaO2% (BldA) [Mass fraction] 98 % Helen Akers Other [employer] Other 12-11-2021 18:15-0400 Body height 160.02 cm Fabiola Bernardo Other [employer] Other 12-11-2021 18:15-0400 Body mass index (BMI) [Ratio] 38.97 kg/m2 Fabiola Bernardo Other [employer] Other 12-11-2021 18:15-0400 Body temperature 97.2 [degF] Fabiola Solimanault Other [employer] Other 12-11-2021 18:15-0400 Body weight 99.79 kg Fabiola Bernardo Other [employer] Other 12-11-2021 18:15-0400 Diastolic blood pressure 94 mm[Hg] Fabiola Az Other [employer] Other 12-11-2021 18:15-0400 Respiratory rate 18 /min Fabiola Solimanault Other [employer] Other 12-11-2021 18:15-0400 SaO2% (BldA) [Mass fraction] 98 % Fabiola Solimanault Other [employer] Other 12-11-2021 18:15-0400 Systolic blood pressure 148 mm[Hg] Fabiola Bernardo Other [employer] Other 07-12-2021 11:35-0400 Body height 160.02 cm Helen Akers Other [employer] Other 07-12-2021 11:35-0400 Body mass index (BMI) [Ratio] 39.5 kg/m2 Helen Akers Other [employer] Other 07-12-2021 11:35-0400 Body temperature 97.2 [degF] Helen Akers Other [employer] Other 07-12-2021 11:35-0400 Body weight 101.15 kg Helen Akers Other [employer] Other 07-12-2021 11:35-0400 Diastolic blood pressure 99 mm[Hg] Helen Akers Other [employer] Other 07-12-2021 11:35-0400 Respiratory rate 16 /min Helen Akers Other [employer] Other 07-12-2021 11:35-0400 SaO2% (BldA) [Mass fraction] 100 % Helen Akers Other [employer] Other 07-12-2021 11:35-0400 Systolic blood pressure 142 mm[Hg] Helen Akers Other [employer] Other Encounters Encounter Date Encounter Type Care Provider Facility Start: 01-09-2024 End: 01-09-2024 Cici Urbina MD Work Phone: [facility] Comment on above: Generalized anxiety disorder (CMS/HCC) Start: 01-02-2024 End: 01-02-2024 Bamboo flowsheet Brian Urbina MD Work Phone: [facility] Start: 01-02-2024 End: 01-02-2024 Bamboo flowsheet Brian Urbina MD Work Phone: [facility] Start: 01-02-2024 End: 01-02-2024 Office outpatient visit 25 minutes Brian Urbina MD Work Phone: [facility] Comment on above: Vestibular migraine (CMS/HCC) (Primary Dx); Bipolar affective, mixed (HCC) (CMS/HCC); Generalized anxiety disorder (CMS/HCC) Start: 01-02-2024 End: 01-02-2024 ambulatory BRIAN URBINA Not Available Start: 12-19-2023 End: 12-19-2023 Bamboo flowsheet Brian Urbina MD Work Phone: [facility] Start: 12-19-2023 End: 12-19-2023 Bamboo flowsheet Brian Urbina MD Work Phone: [facility] Start: 12-19-2023 End: 12-19-2023 Office outpatient visit 25 minutes Brian Urbina MD Work Phone: [facility] Comment on above: Vestibular migraine (CMS/HCC) (Primary Dx); Generalized anxiety disorder (CMS/HCC); Acute non-recurrent pansinusitis; Bipolar affective, mixed (HCC) (CMS/HCC) Start: 12-19-2023 End: 12-19-2023 ambulatory BRIAN URBINA Not Available Start: 12-16-2023 End: 12-16-2023 Refill Brian Urbina MD Work Phone: [facility] Comment on above: Generalized anxiety disorder (CMS/HCC) Start: 12-13-2023 End: 12-13-2023 Clinisync Result Encounter Brian Urbina MD Work Phone: [facility] Unsolicited Start: 12-13-2023 End: 12-13-2023 Clinisync Result Encounter Brian Urbina MD Work Phone: [facility] Unsolicited Start: 12-12-2023 End: 12-12-2023 Bamboo flowsheet Brian Urbina MD Work Phone: [facility] Start: 12-12-2023 End: 12-12-2023 Bamboo flowsheet Brian Urbina MD Work Phone: [facility] Start: 12-12-2023 End: 12-12-2023 Office outpatient visit 25 minutes Brian Urbina MD Work Phone: [facility] Comment on above: Vestibular migraine (CMS/HCC) (Primary Dx); Acute non-recurrent pansinusitis; Chronic rhinosinusitis; Bipolar affective, mixed (HCC) (CMS/HCC); Generalized anxiety disorder (CMS/HCC) Start: 12-12-2023 End: 12-12-2023 ambulatory BRIAN URBINA Not Available Start: 12-04-2023 End: 12-04-2023 Bamboo flowsheet Brian Urbina MD Work Phone: [facility] Start: 12-04-2023 End: 12-04-2023 Bamboo flowsheet Brian Urbina MD Work Phone: [facility] Start: 12-04-2023 End: 12-04-2023 Office outpatient visit 25 minutes Brian Urbina MD Work Phone: [facility] Comment on above: Type 2 diabetes karrie itus with hyperglycemia, with long-term current use of insulin (CMS/HCC) (Primary Dx); Essential hypertension, benign (CMS/HCC); Bipolar affective, mixed (HCC) (CMS/HCC); Generalized anxiety disorder (CMS/HCC); Vestibular migraine (CMS/HCC) Start: 12-04-2023 End: 12-04-2023 ambulatory BRIAN URBINA Not Available Start: 11-22-2023 End: 11-22-2023 ambulatory BRIAN URBINA Not Available Start: 09-02-2023 End: 09-02-2023 ambulatory BRIAN NADERER Not Available Start: 07-24-2023 End: 07-24-2023 ambulatory BRIAN NANCIERER Not Available Start: 06-28-2023 End: 06-28-2023 ambulatory BRIAN NANCIERER Not Available Start: 06-03-2023 End: 06-03-2023 ambulatory BRIAN NANCIERER Not Available Start: 05-17-2023 End: 05-17-[address] [facility] Work Phone: Start: 05-17-2023 End: 05-17-2023 Patient encounter procedure [facility] Work Phone: Start: 04-05-2023 Bamboo flowsheet Brian Urbina MD Work Phone: [facility] Start: 04-05-2023 Bright flowsheet Brian Urbina MD Work Phone: [facility] Start: 04-05-2023 End: 04-05-2023 Office outpatient visit 25 minutes Brian Urbina MD Work Phone: [facility] Comment on above: Type 2 diabetes karrie itus with hyperglycemia, with long-term current use of insulin (CMS/HCC) (Primary Dx); Essential hypertension, benign (CMS/HCC); Bipolar affective, mixed (HCC) (CMS/HCC); Generalized anxiety disorder (CMS/HCC); Gastroesophageal reflux disease without esophagitis; Vestibular migraine (CMS/HCC) Start: 04-05-2023 End: 04-05-2023 ambulatory BRIAN GARDUNOR Not Available Start: 06-08-2022 End: 06-08-2022 ambulatory Helen Akers Other [employer] Other Start: 06-08-2022 Office outpatient vi sit 15 minutes Helen Akers [facility] Start: 03-27-2022 End: 03-27-2022 ambulatory Fabiola Bernardo Other [employer] Other Start: 03-27-2022 Office outpatient vi sit 15 minutes Fabiola Bernardo [facility] Start: 02-09-2022 End: 02-09-2022 ambulatory Helen Delphine Other [employer] Other Start: 02-09-2022 Office outpatient vi sit 15 minutes Helen Delphine [facility] Start: 12-11-2021 End: 12-11-2021 ambulatory Fabiola Bernardo Other [employer] Other Start: 12-11-2021 Office outpatient vi sit 15 minutes Fabiola Az [facility] Start: 10-17-2021 End: 10-17-[address] BRIAN URBINA Facility:[facility] Start: 08-18-2021 End: 08-19-2021 ambulatory SHANKAR PACHECO Facility:[facility] Start: 07-26-2021 End: 09-16-[address] BRIAN URBINA Facility:[facility] Start: 07-26-2021 End: 07-27-[address] BRIAN URBINA Facility:[facility] Start: 07-12-2021 End: 07-12-2021 ambulatory Helen Delphine Other [employer] Other Start: 07-12-2021 Office outpatient vi sit 15 minutes Helenkylee Akers [facility] Start: 05-22-2021 Encounter for genera l adult medical examination without abnormal findings DR BRIAN URBINA [facility] Start: 05-18-2021 End: 05-19-[address] BRIAN URBINA Facility:[facility] Start: 05-18-2021 End: 05-19-2021 Encounter for general adult medical examination without abnormal findings DR BRIAN URBINA Facility:[facility] Start: 03-27-2021 End: 03-27-2021 ambulatory Fabiola Bernardo Other [employer] Other Start: 03-27-2021 Office outpatient vi sit 5 minutes Fabiolarafat Bernardo [facility] Procedures Date Procedure Procedure Detail Performing Clinician Start: 12-13-2023 MLR HEMOGLOBIN A1C Brian Urbina MD Work Phone: Plan of Treatment Date Care Activity Detail Author Start: 12-12-2024 Urine screening for protein Diabetes: Urine Protein Screening [facility] Start: 06-12-2024 Hemoglobin A1c measurement Diabetes: Hemoglobin A1C [facility] Start: 06-11-2024 Glaucoma screening Diabetes: R etinopathy Screening [facility] Start: 03-11-2024 End: 03-11-2024 Patient encounter procedure 03/11/2024 7:00 AM EST Office Visit [facility] [address] [place] [phone] Brian Urbina MD [address] [place] [phone] [facility] Start: 02-03-2024 End: 02-03-2024 Patient encounter procedure 02/03/2024 9:00 AM EST Office Visit [facility] [address] [place] [phone] Ricardo Wells, [address] [place], [place] [id number] [facility] [address] Start: 01-02-2024 End: 01-02-2024 Patient encounter procedure 01/02/2024 10:00 AM EDT Office Visit [facility] [address] [place] [phone] Brian Urbina MD [address] [place] [phone] [facility] Comment on above: Arrived Start: 12-19-2023 End: 12-19-2023 Patient encounter procedure 12/19/2023 2:00 PM EDT Office Visit [facility] [address] [place] [phone] Brian Urbina MD [address] [place] [phone] Arrived [facility] Comment on above: Arrived Start: 12-12-2023 End: 12-12-2023 Patient encounter procedure 12/12/2023 10:30 AM EDT Office Visit [facility] [address] [place] [address] Brian Urbina MD [address] [place] [phone] Arrived [facility] Comment on above: Arrived Start: 12-04-2023 End: 12-04-2023 Patient encounter procedure 12/04/2023 7:00 AM EDT Office Visit [facility] [address] [place] [address] Brian Urbina MD [address] [place] [phone] Arrived [facility] Comment on above: Arrived Start: 11-03-2023 Influenza vaccination Influenza Vacc ine (#1) [facility] Start: 06-03-2023 End: 06-03-2023 Patient encounter procedure 06/03/2023 8:00 AM EDT Office Visit [facility] [address] [place] [address] Brian Urbina MD [address] [place] [phone] [facility] Start: 04-05-2023 End: 04-05-2023 Patient encounter procedure 04/05/2023 11:00 AM EST Office Visit [facility] [address] [place] [address] Brian Urbina MD [address] [place] [phone] Arrived [facility] Comment on above: Arrived Start: 2010 Screening for malign ant neoplasm of breast Mammogram [facility] Start: 2000 Screening for malign ant neoplasm of cervix [facility] Start: 08-21-1991 Screening for malign ant neoplasm of cervix Pap Smear [facility] Start: 1989 Urine screening for protein Diabetes: Urine Protein Screening [facility] Start: 1980 Glaucoma screening Diabetes: R etinopathy Screening [facility] Start: 1970 Hemoglobin A1c measurement Diabetes: Hemoglobin A1C [facility] Start: 1970 Screening for malign ant neoplasm of colon [facility] Immunizations Immunization Date Immunization Notes Care Provider Fa cility 11-24-2022 influenza virus vacc ine, unspecified formulation Brian Urbina MD Work Phone: [facility] Payers Date Payer Category Payer [facility] BCBS [id number] 2023 Unknown [id number] 2022 Unknown [id number] 2022 [facility] [id number] [id number] 1970 Unknown [id number] 2..840.1.774969.3.57 9.2.593 1970 Unknown [id number] 2.16.840.1.643752.3.57 9.2.593 1970 Unknown [id number] 2.16.840.1.008308.3.57 9.2.593 1970 Unknown [id number] 2.16.840.1.866300.3.57 9.2.593 1970 Unknown [id number] 2.16.840.1.273318.3.57 9.2.593 1970 Unknown [id number] 2.16.840.1.167363.3.57 9.2.1259 1970 Unknown [id number] 2.16.840.1.201939.3.57 9.2.1259 1970 Unknown [id number] 2.16.840.1.874888.3.57 9.2.1259 1970 Unknown [id number] 2.16.840.1.762960.3.57 9.2.1259 1970 Unknown [id number] 2.16.840.1.670548.3.57 9.2.1259 1970 Unknown [id number] 2.16.840.1.659135.3.57 9.2.1259 1970 Unknown [id number] 2.16.840.1.874516.3.57 9.2.1259 1970 Unknown [id number] 2.16.840.1.504536.3.57 9.2.1259 1970 Unknown [id number] 2.16.840.1.407266.3.57 9.2.1259 1970 Unknown [id number] 2.16.840.1.903472.3.57 9.2.1259 1959 Unknown [id number] 2.16.840.1.261684.19 Self-pay Self Pay [id number] Unknown [employer]/BS [id number] Unknown [facility] [id number] Social History Date Type Detail Facility Unknown if ever smoked [employer] Other Start: 04-03-2023 End: 01-02-2024 Sex Assigned At [facility] Start: 03-22-2023 End: 04-05-2023 Tobacco smoking status NHIS Never smoked tobacco [facility] Start: 04-03-2023 End: 01-02-2024 History of Social function [facility] Within [...] [OSQ] Very much [facility] (I/We) worried wheth er (my/our) food would run out before (I/we) got money to buy more. DK or Refused [facility] Start: 1970 Sex Assigned At Not on file [facility] Start: 04-05-2023 Tobacco use and exposure Smokeless tobacco non-user [facility] Start: 1970 Sex Assigned At Female [facility] [facility] Clinical Notes 03-27-2021 to 01-02-2024 Brian Urbina MD - 01/02/2024 10:27 AM Chichi Urbina MD - 01/02/2024 10:26 AM Chichi Urbina MD - 01/02/2024 10:26 AM Chichi Urbina MD - 01/02/2024 10:00 AM EDT Note Date & Type Note Facility 01-02-2024 History of Presen t illness Narrative Associated Problem(s): Vestibular migraine (CMS/HCC) DEJESUS unchanged and stop topamax. Try zonegran. Refer to neurology. Use fioricet PRN. Off work 12/16-01/04 and return 01/05. Associated Problem(s): Generalized anxiety disorder (CMS/HCC) Symptoms worse and increase zoloft. Warned will take 2-3 weeks to notice improvement in mood. Continue zyprexa. Use xanax PRN. Associated Problem(s): Bipolar affective, mixed (HCC) (CMS/HCC) Symptoms worse and increase zoloft. Warned will take 2-3 weeks to notice improvement in mood. Continue zyprexa. Images from the original note were not included. Subjective Patient ID: Amanda Hong is a 53 y.o. female who presents for Follow-up (MIGRAINES/ VERTIGO). Continues to c/o migraines and anxiety. Seen 12/18 and given levaquin and prednisone for sinuses. Off work since 12/16. Continues to have severe symptoms. Frequent DEJESUS and daily migraines over the past few days. Throbbing pain in entire head associated with photophobia, phonophobia and nausea. Severe vertigo and dizziness with migraine and off balance. Severe nausea and feels like will throw up. Dizziness triggered with movement and hard to walk. Meclizine and fioricet help some but continued symptoms. Not able to function due to symptoms. Taking topamax but not helping reduce DEJESUS. Continues to have severe anxiety. Nervous and worry all the time. Stressed out and overwhelmed. Thought racing and hard to clear mind. Arzola, irritable and snapping at others. Easily upset and overreact. Feels restless and can't sit still. Using xanax PRN and not helping. Did not slat pickler increased zoloft and on zyprexa. Review of Systems Respiratory: Negative for cough, [...] Assessment/Plan Problem List Items Addressed This Visit Bipolar affective, mixed (HCC) (CMS/HCC) Symptoms worse and increase zoloft. Warned will take 2-3 weeks to notice improvement in mood. Continue zyprexa. Generalized anxiety disorder (CMS/HCC) Symptoms worse and increase zoloft. Warned will take 2-3 weeks to notice improvement in mood. Continue zyprexa. Use xanax PRN. Relevant Medications sertraline (Zoloft) 50 MG tablet Vestibular migraine (CMS/HCC) - Primary DEJESUS unchanged and stop topamax. Try zonegran. Refer to neurology. Use fioricet PRN. Off work 12/16-01/04 and return 01/05. Relevant Medications zonisamide (Zonegran) 25 MG capsule Other Relevant Orders Ambulatory referral to Neurology documented in this encounter [facility] 12-19-2023 History of Presen t illness Narrative Associated Problem(s): Vestibular migraine (CMS/HCC) DEJESUS worse likely related to sinusitis and anxiety. Continue topamax. Use fioricet PRN. Off work 12/16-12/23 and return 12/24. Associated Problem(s): Generalized anxiety disorder (CMS/HCC) Symptoms worse and zoloft increased last week. Warned will take 2-3 weeks to notice improvement in mood. Continue zyprexa. Increase xanax and use PRN. Associated Problem(s): Bipolar affective, mixed (HCC) (CMS/HCC) Symptoms worse and zoloft increased last week. Warned will take 2-3 weeks to notice improvement in mood. Continue zyprexa. Associated Problem(s): Acute non-recurrent pansinusitis Take antibiotics for 7 days. Use flonase for inflammation. Use sudafed or other decongestants as needed. Use Robitussin or Robitussin-DM for cough. Can use afrin for congestion but no longer than 3 days. Can use Mucinex to bring up phlegm. Use Motrin or Tylenol as needed for fever, aches, or pains. Increase fluid intake and rest. Should improve over next 5-7 days and if no better or worse call for re-evaluation. Images from the original note were not included. Subjective Patient ID: Amanda Hong is a 53 y.o. female who presents for Migraine and Anxiety. C/o continued sinus symptoms and migraines. Seen 12/11 and given cefdinir and prednisone. Only took for few days then stopped due to side effects. Continues to have severe symptoms. Frequent DEJESUS and daily migraines over the past few days. Returned to work 12/15 but off since 12/16. Throbbing pain in entire head associated with photophobia, phonophobia and nausea. Severe vertigo and dizziness with migraine and off balance. Severe nausea and feels like will throw up. Meclizine and fioricet help some but continued symptoms. Not able to function due to symptoms. Increased congestion and sinus symptoms. DEJESUS and pressure in forehead and cheeks along with postnasal drip. Ears plugged and popping. Continues to have severe anxiety. Nervous and worry all the time. Stressed out and overwhelmed. Thought racing and hard to clear mind. Arzola, irritable and snapping at others. Easily upset and overreact. Feels restless and can't sit still. Using xanax PRN and not helping. Increased zoloft last week and on zyprexa. Review of Systems Respiratory: Negative for cough, [...] Assessment/Plan Problem List Items Addressed This Visit Bipolar affective, mixed (HCC) (CMS/HCC) Symptoms worse and zoloft increased last week. Warned will take 2-3 weeks to notice improvement in mood. Continue zyprexa. Generalized anxiety disorder (CMS/HCC) Symptoms worse and zoloft increased last week. Warned will take 2-3 weeks to notice improvement in mood. Continue zyprexa. Increase xanax and use PRN. Relevant Medications ALPRAZolam (Xanax) 1 MG tablet Vestibular migraine (CMS/HCC) - Primary DEJESUS worse likely related to sinusitis and anxiety. Continue topamax. Use fioricet PRN. Off work 12/16-12/23 and return 12/24. Acute non-recurrent pansinusitis Take antibiotics for 7 days. Use flonase for inflammation. Use sudafed or other decongestants as needed. Use Robitussin or Robitussin-DM for cough. Can use afrin for congestion but no longer than 3 days. Can use Mucinex to bring up phlegm. Use Motrin or Tylenol as needed for fever, aches, or pains. Increase fluid intake and rest. Should improve over next 5-7 days and if no better or worse call for re-evaluation. Relevant Medications levoFLOXacin (Levaquin) 750 MG tablet documented in this encounter [facility] 12-12-2023 History of Presen t illness Narrative Associated Problem(s): Vestibular migraine (CMS/HCC) DEJESUS worse likely related to sinusitis and anxiety. Continue topamax. Use fioricet PRN. Off work 12/10-12/14 and return 12/15. Associated Problem(s): Generalized anxiety disorder (CMS/HCC) Symptoms worse and increase zoloft. Warned will take 2-3 weeks to notice improvement in mood. Continue zyprexa. Associated Problem(s): Chronic rhinosinusitis Start flonase. Associated Problem(s): Bipolar affective, mixed (HCC) (CMS/HCC) Symptoms worse and increase zoloft. Warned will take 2-3 weeks to notice improvement in mood. Continue zyprexa. Associated Problem(s): Acute non-recurrent pansinusitis Take antibiotics BID for 10 days. Use prednisone for inflammation. Use sudafed or other decongestants as needed. Use Robitussin or Robitussin-DM for cough. Can use afrin for congestion but no longer than 3 days. Can use Mucinex to bring up phlegm. Use Motrin or Tylenol as needed for fever, aches, or pains. Increase fluid intake and rest. Should improve over next 5-7 days and if no better or worse call for re-evaluation. Images from the original note were not included. Subjective Patient ID: Amanda Hong is a 53 y.o. female who presents for Migraine. C/o worsening migraines over the past few days. Had to miss work 12/10. Throbbing pain in entire head associated with photophobia, phonophobia and nausea. Severe vertigo and dizziness with migraine and off balance. Severe nausea and feels like will throw up. Meclizine and fioricet help some but continued symptoms. Not able to function due to symptoms. Increased congestion and sinus symptoms. DEJESUS and pressure in forehead and cheeks along with postnasal drip. Ears plugged and popping. recently sick. C/o severe anxiety. No major stressors but feels increased symptoms. Nervous and worry all the time. Stressed out and overwhelmed. Thought racing and hard to clear mind. Arzola, irritable and snapping at others. Easily upset and overreact. Feels restless and can't sit still. Using xanax PRN and mild relief. Still on zyprexa and zoloft. Review of Systems Respiratory: Negative for cough, shortness of breath and wheezing. Cardiovascular: Negative for chest pain and palpitations. Gastrointestinal: Negative for abdominal pain, diarrhea, nausea and vomiting. Genitourinary: Negative for dysuria. Objective Physical Exam Constitutional: General: She is not in acute distress. Appearance: Normal appearance. HENT: Head: Normocephalic. Ears: Comments: Bilateral TM clear but bulging with fluid. Mouth/Throat: Comments: Postnasal drip Eyes: Extraocular Movements: Extraocular movements intact. Pupils: [...] Assessment/Plan Problem List Items Addressed This Visit Bipolar affective, mixed (HCC) (CMS/HCC) Symptoms worse and increase zoloft. Warned will take 2-3 weeks to notice improvement in mood. Continue zyprexa. Generalized anxiety disorder (CMS/HCC) Symptoms worse and increase zoloft. Warned will take 2-3 weeks to notice improvement in mood. Continue zyprexa. Relevant Medications sertraline (Zoloft) 50 MG tablet Vestibular migraine (CMS/HCC) - Primary DEJESUS worse likely related to sinusitis and anxiety. Continue topamax. Use fioricet PRN. Off work 12/10-12/14 and return 12/15. Acute non-recurrent pansinusitis Take antibiotics BID for 10 days. Use prednisone for inflammation. Use sudafed or other decongestants as needed. Use Robitussin or Robitussin-DM for cough. Can use afrin for congestion but no longer than 3 days. Can use Mucinex to bring up phlegm. Use Motrin or Tylenol as needed for fever, aches, or pains. Increase fluid intake and rest. Should improve over next 5-7 days and if no better or worse call for re-evaluation. Relevant Medications cefdinir (Omnicef) 300 MG capsule predniSONE (Deltasone) 50 MG tablet Chronic rhinosinusitis Start flonase. Relevant Medications fluticasone (Flonase) 50 MCG/ACT nasal spray documented in this encounter [facility] 12-04-2023 History of Presen t illness Narrative [...] Use fioricet PRN. documented in this encounter [facility] 04-05-2023 History of Presen t illness Narrative [...] medication and continue. documented in this encounter [facility] 06-08-2022 Evaluation note Encounter Date Diagnosis Assessment [...] 3 days Jun, Bronchitis (ICD-10 - J40) [employer] Other 01-24-2023 Evaluation note* Encounter Date Diagnosis [...] treatment option may need to be discussed. [employer] Other 12-09-2022 Evaluation note* Encounter Date Diagnosis [...] vomiting, unspecified vomiting type (ICD-10 - R11.2) [employer] Other 10-10-2022 Evaluation note* Encounter Date Diagnosis [...] find specialist if symptoms are not improved. [employer] Other 05-11-2022 Evaluation note* Encounter Date Diagnosis [...] or sprain home care material was printed [employer] Other 01-24-2022 Evaluation note* Encounter Date Diagnosis [...] Patient care instructions given in writting by [facility] At Home document. [employer] Other Chief complaint+Reason for visit Narrative* Chief Complaint poss flu Reason for Visit Contact with and (landry spected) exposure to covid-19 Sinusitis [facility] Work Phone: Evaluation note* Diagnosis Type 2 diabetes mellitus with hyperglycemia, with long-term current use of insulin (CMS/HCC)- Primary Essential hypertension, benign (CMS/HCC) Essential hypertension, benign Bipolar affective, mixed (HCC) (CMS/HCC) Bipolar I disorder, most recent episode (or current) mixed, unspecified Generalized anxiety disorder (CMS/HCC) Generalized anxiety disorder Gastroesophageal reflux disease without esophagitis Esophageal reflux Vestibular migraine (CMS/HCC) documented in this encounter [facility]* Diagnosis Onset Date Resolution Status Contact with and (suspected) exposure to covid-19 noneactive Sinusitis noneactive [facility] Work Phone: Evaluation note* Diagnosis Type 2 diabetes mellitus with hyperglycemia, with long-term current use of insulin (CMS/HCC)- Primary Essential hypertension, benign (CMS/HCC) Essential hypertension, benign Bipolar affective, mixed (HCC) (CMS/HCC) Bipolar I disorder, most recent episode (or current) mixed, unspecified Generalized anxiety disorder (CMS/HCC) Generalized anxiety disorder Vestibular migraine (CMS/HCC) documented in this encounter [facility]Evaluation note* Diagnosis Vestibular migraine (CMS/HCC)- Primary Acute non-recurrent pansinusitis Chronic rhinosinusitis Unspecified sinusitis (chronic) Bipolar affective, mixed (HCC) (CMS/HCC) Bipolar I disorder, most recent episode (or current) mixed, unspecified Generalized anxiety disorder (CMS/HCC) Generalized anxiety disorder documented in this encounter [facility] note* Diagnosis Type 2 diabetes mellitus with hyperglycemia, with long-term current use of insulin (CMS/HCC)- Primary Essential hypertension, benign (CMS/HCC) Essential hypertension, benign Bipolar affective, mixed (HCC) (CMS/HCC) Bipolar I disorder, most recent episode (or current) mixed, unspecified Generalized anxiety disorder (CMS/HCC) Generalized anxiety disorder Gastroesophageal reflux disease without esophagitis Esophageal reflux Vestibular migraine (CMS/HCC) Essential hypertension, benign (CMS/HCC)- Primary Essential hypertension, benign Type 2 diabetes mellitus with hyperglycemia, with long-term current use of insulin (CMS/HCC) Vestibular migraine (CMS/HCC) Bipolar affective, mixed (HCC) (CMS/HCC) Bipolar I disorder, most recent episode (or current) mixed, unspecified Generalized anxiety disorder (CMS/HCC) Generalized anxiety disorder Colon cancer screening Special screening for malignant neoplasms, colon Acute non-recurrent pansinusitis Vestibular migraine (CMS/HCC)- Primary Bipolar affective, mixed (HCC) (CMS/HCC) Bipolar I disorder, most recent episode (or current) mixed, unspecified Generalized anxiety disorder (CMS/HCC) Generalized anxiety disorder Type 2 diabetes mellitus with hyperglycemia, with long-term current use of insulin (CMS/HCC)- Primary Essential hypertension, benign (CMS/HCC) Essential hypertension, benign Vestibular migraine (CMS/HCC) Bipolar affective, mixed (HCC) (CMS/HCC) Bipolar I disorder, most recent episode (or current) mixed, unspecified Generalized anxiety disorder (CMS/HCC) Generalized anxiety disorder Acute non-recurrent pansinusitis Breast cancer screening by mammogram Type 2 diabetes mellitus with other specified complication, without long-term current use of insulin (CMS/HCC) Type 2 diabetes mellitus with hyperglycemia, with long-term current use of insulin (CMS/HCC)- Primary Essential hypertension, benign (CMS/HCC) Essential hypertension, benign Bipolar affective, mixed (HCC) (CMS/HCC) Bipolar I disorder, most recent episode (or current) mixed, unspecified Generalized anxiety disorder (CMS/HCC) Generalized anxiety disorder Vestibular migraine (CMS/HCC) Vestibular migraine (CMS/HCC)- Primary Generalized anxiety disorder (CMS/HCC) Generalized anxiety disorder Bipolar affective, mixed (HCC) (CMS/HCC) Bipolar I disorder, most recent episode (or current) mixed, unspecified Type 2 diabetes mellitus with hyperglycemia, with long-term current use of insulin (CMS/HCC)- Primary Essential hypertension, benign (CMS/HCC) Essential hypertension, benign Bipolar affective, mixed (HCC) (CMS/HCC) Bipolar I disorder, most recent episode (or current) mixed, unspecified Generalized anxiety disorder (CMS/HCC) Generalized anxiety disorder Vestibular migraine (CMS/HCC) Vestibular migraine (CMS/HCC)- Primary Acute non-recurrent pansinusitis Chronic rhinosinusitis Unspecified sinusitis (chronic) Bipolar affective, mixed (HCC) (CMS/HCC) Bipolar I disorder, most recent episode (or current) mixed, unspecified Generalized anxiety disorder (CMS/HCC) Generalized anxiety disorder Generalized anxiety disorder (CMS/HCC) Generalized anxiety disorder documented in this encounter [facility]* Diagnosis Type 2 diabetes mellitus with hyperglycemia, with long-term current use of insulin (CMS/HCC)- Primary Essential hypertension, benign (CMS/HCC) Essential hypertension, benign Bipolar affective, mixed (HCC) (CMS/HCC) Bipolar I disorder, most recent episode (or current) mixed, unspecified Generalized anxiety disorder (CMS/HCC) Generalized anxiety disorder Gastroesophageal reflux disease without esophagitis Esophageal reflux Vestibular migraine (CMS/HCC) Essential hypertension, benign (CMS/HCC)- Primary Essential hypertension, benign Type 2 diabetes mellitus with hyperglycemia, with long-term current use of insulin (CMS/HCC) Vestibular migraine (CMS/HCC) Bipolar affective, mixed (HCC) (CMS/HCC) Bipolar I disorder, most recent episode (or current) mixed, unspecified Generalized anxiety disorder (CMS/HCC) Generalized anxiety disorder Colon cancer screening Special screening for malignant neoplasms, colon Acute non-recurrent pansinusitis Vestibular migraine (CMS/HCC)- Primary Bipolar affective, mixed (HCC) (CMS/HCC) Bipolar I disorder, most recent episode (or current) mixed, unspecified Generalized anxiety disorder (CMS/HCC) Generalized anxiety disorder Type 2 diabetes mellitus with hyperglycemia, with long-term current use of insulin (CMS/HCC)- Primary Essential hypertension, benign (CMS/HCC) Essential hypertension, benign Vestibular migraine (CMS/HCC) Bipolar affective, mixed (HCC) (CMS/HCC) Bipolar I disorder, most recent episode (or current) mixed, unspecified Generalized anxiety disorder (CMS/HCC) Generalized anxiety disorder Acute non-recurrent pansinusitis Breast cancer screening by mammogram Type 2 diabetes mellitus with other specified complication, without long-term current use of insulin (CMS/HCC) Type 2 diabetes mellitus with hyperglycemia, with long-term current use of insulin (CMS/HCC)- Primary Essential hypertension, benign (CMS/HCC) Essential hypertension, benign Bipolar affective, mixed (HCC) (CMS/HCC) Bipolar I disorder, most recent episode (or current) mixed, unspecified Generalized anxiety disorder (CMS/HCC) Generalized anxiety disorder Vestibular migraine (CMS/HCC) Vestibular migraine (CMS/HCC)- Primary Generalized anxiety disorder (CMS/HCC) Generalized anxiety disorder Bipolar affective, mixed (HCC) (CMS/HCC) Bipolar I disorder, most recent episode (or current) mixed, unspecified Type 2 diabetes mellitus with hyperglycemia, with long-term current use of insulin (CMS/HCC)- Primary Essential hypertension, benign (CMS/HCC) Essential hypertension, benign Bipolar affective, mixed (HCC) (CMS/HCC) Bipolar I disorder, most recent episode (or current) mixed, unspecified Generalized anxiety disorder (CMS/HCC) Generalized anxiety disorder Vestibular migraine (CMS/HCC) Vestibular migraine (CMS/HCC)- Primary Acute non-recurrent pansinusitis Chronic rhinosinusitis Unspecified sinusitis (chronic) Bipolar affective, mixed (HCC) (CMS/HCC) Bipolar I disorder, most recent episode (or current) mixed, unspecified Generalized anxiety disorder (CMS/HCC) Generalized anxiety disorder Vestibular migraine (CMS/HCC)- Primary Generalized anxiety disorder (CMS/HCC) Generalized anxiety disorder Acute non-recurrent pansinusitis Bipolar affective, mixed (HCC) (CMS/HCC) Bipolar I disorder, most recent episode (or current) mixed, unspecified documented in this encounter [facility]* Diagnosis Type 2 diabetes mellitus with hyperglycemia, with long-term current use of insulin (CMS/HCC)- Primary Essential hypertension, benign (CMS/HCC) Essential hypertension, benign Bipolar affective, mixed (HCC) (CMS/HCC) Bipolar I disorder, most recent episode (or current) mixed, unspecified Generalized anxiety disorder (CMS/HCC) Generalized anxiety disorder Gastroesophageal reflux disease without esophagitis Esophageal reflux Vestibular migraine (CMS/HCC) Essential hypertension, benign (CMS/HCC)- Primary Essential hypertension, benign Type 2 diabetes mellitus with hyperglycemia, with long-term current use of insulin (CMS/HCC) Vestibular migraine (CMS/HCC) Bipolar affective, mixed (HCC) (CMS/HCC) Bipolar I disorder, most recent episode (or current) mixed, unspecified Generalized anxiety disorder (CMS/HCC) Generalized anxiety disorder Colon cancer screening Special screening for malignant neoplasms, colon Acute non-recurrent pansinusitis Vestibular migraine (CMS/HCC)- Primary Bipolar affective, mixed (HCC) (CMS/HCC) Bipolar I disorder, most recent episode (or current) mixed, unspecified Generalized anxiety disorder (CMS/HCC) Generalized anxiety disorder Type 2 diabetes mellitus with hyperglycemia, with long-term current use of insulin (CMS/HCC)- Primary Essential hypertension, benign (CMS/HCC) Essential hypertension, benign Vestibular migraine (CMS/HCC) Bipolar affective, mixed (HCC) (CMS/HCC) Bipolar I disorder, most recent episode (or current) mixed, unspecified Generalized anxiety disorder (CMS/HCC) Generalized anxiety disorder Acute non-recurrent pansinusitis Breast cancer screening by mammogram Type 2 diabetes mellitus with other specified complication, without long-term current use of insulin (CMS/HCC) Type 2 diabetes mellitus with hyperglycemia, with long-term current use of insulin (CMS/HCC)- Primary Essential hypertension, benign (CMS/HCC) Essential hypertension, benign Bipolar affective, mixed (HCC) (CMS/HCC) Bipolar I disorder, most recent episode (or current) mixed, unspecified Generalized anxiety disorder (CMS/HCC) Generalized anxiety disorder Vestibular migraine (CMS/HCC) Vestibular migraine (CMS/HCC)- Primary Generalized anxiety disorder (CMS/HCC) Generalized anxiety disorder Bipolar affective, mixed (HCC) (CMS/HCC) Bipolar I disorder, most recent episode (or current) mixed, unspecified Type 2 diabetes mellitus with hyperglycemia, with long-term current use of insulin (CMS/HCC)- Primary Essential hypertension, benign (CMS/HCC) Essential hypertension, benign Bipolar affective, mixed (HCC) (CMS/HCC) Bipolar I disorder, most recent episode (or current) mixed, unspecified Generalized anxiety disorder (CMS/HCC) Generalized anxiety disorder Vestibular migraine (CMS/HCC) Vestibular migraine (CMS/HCC)- Primary Acute non-recurrent pansinusitis Chronic rhinosinusitis Unspecified sinusitis (chronic) Bipolar affective, mixed (HCC) (CMS/HCC) Bipolar I disorder, most recent episode (or current) mixed, unspecified Generalized anxiety disorder (CMS/HCC) Generalized anxiety disorder Vestibular migraine (CMS/HCC)- Primary Generalized anxiety disorder (CMS/HCC) Generalized anxiety disorder Acute non-recurrent pansinusitis Bipolar affective, mixed (HCC) (CMS/HCC) Bipolar I disorder, most recent episode (or current) mixed, unspecified Vestibular migraine (CMS/HCC)- Primary Bipolar affective, mixed (HCC) (CMS/HCC) Bipolar I disorder, most recent episode (or current) mixed, unspecified Generalized anxiety disorder (CMS/HCC) Generalized anxiety disorder documented in this encounter [facility]* Diagnosis Type 2 diabetes mellitus with hyperglycemia, with long-term current use of insulin (CMS/HCC)- Primary Essential hypertension, benign (CMS/HCC) Essential hypertension, benign Bipolar affective, mixed (HCC) (CMS/HCC) Bipolar I disorder, most recent episode (or current) mixed, unspecified Generalized anxiety disorder (CMS/HCC) Generalized anxiety disorder Gastroesophageal reflux disease without esophagitis Esophageal reflux Vestibular migraine (CMS/HCC) Essential hypertension, benign (CMS/HCC)- Primary Essential hypertension, benign Type 2 diabetes mellitus with hyperglycemia, with long-term current use of insulin (CMS/HCC) Vestibular migraine (CMS/HCC) Bipolar affective, mixed (HCC) (CMS/HCC) Bipolar I disorder, most recent episode (or current) mixed, unspecified Generalized anxiety disorder (CMS/HCC) Generalized anxiety disorder Colon cancer screening Special screening for malignant neoplasms, colon Acute non-recurrent pansinusitis Vestibular migraine (CMS/HCC)- Primary Bipolar affective, mixed (HCC) (CMS/HCC) Bipolar I disorder, most recent episode (or current) mixed, unspecified Generalized anxiety disorder (CMS/HCC) Generalized anxiety disorder Type 2 diabetes mellitus with hyperglycemia, with long-term current use of insulin (CMS/HCC)- Primary Essential hypertension, benign (CMS/HCC) Essential hypertension, benign Vestibular migraine (CMS/HCC) Bipolar affective, mixed (HCC) (CMS/HCC) Bipolar I disorder, most recent episode (or current) mixed, unspecified Generalized anxiety disorder (CMS/HCC) Generalized anxiety disorder Acute non-recurrent pansinusitis Breast cancer screening by mammogram Type 2 diabetes mellitus with other specified complication, without long-term current use of insulin (CMS/HCC) Type 2 diabetes mellitus with hyperglycemia, with long-term current use of insulin (CMS/HCC)- Primary Essential hypertension, benign (CMS/HCC) Essential hypertension, benign Bipolar affective, mixed (HCC) (CMS/HCC) Bipolar I disorder, most recent episode (or current) mixed, unspecified Generalized anxiety disorder (CMS/HCC) Generalized anxiety disorder Vestibular migraine (CMS/HCC) Vestibular migraine (CMS/HCC)- Primary Generalized anxiety disorder (CMS/HCC) Generalized anxiety disorder Bipolar affective, mixed (HCC) (CMS/HCC) Bipolar I disorder, most recent episode (or current) mixed, unspecified Type 2 diabetes mellitus with hyperglycemia, with long-term current use of insulin (CMS/HCC)- Primary Essential hypertension, benign (CMS/HCC) Essential hypertension, benign Bipolar affective, mixed (HCC) (CMS/HCC) Bipolar I disorder, most recent episode (or current) mixed, unspecified Generalized anxiety disorder (CMS/HCC) Generalized anxiety disorder Vestibular migraine (CMS/HCC) Vestibular migraine (CMS/HCC)- Primary Acute non-recurrent pansinusitis Chronic rhinosinusitis Unspecified sinusitis (chronic) Bipolar affective, mixed (HCC) (CMS/HCC) Bipolar I disorder, most recent episode (or current) mixed, unspecified Generalized anxiety disorder (CMS/HCC) Generalized anxiety disorder Vestibular migraine (CMS/HCC)- Primary Generalized anxiety disorder (CMS/HCC) Generalized anxiety disorder Acute non-recurrent pansinusitis Bipolar affective, mixed (HCC) (CMS/HCC) Bipolar I disorder, most recent episode (or current) mixed, unspecified Vestibular migraine (CMS/HCC)- Primary Bipolar affective, mixed (HCC) (CMS/HCC) Bipolar I disorder, most recent episode (or current) mixed, unspecified Generalized anxiety disorder (CMS/HCC) Generalized anxiety disorder Generalized anxiety disorder (CMS/HCC) Generalized anxiety disorder documented in this encounter [facility] Narrative - Reported* Type Description Date Medical History bipolar Medical History depression Medical History allergies Medical History Allergies Medical History HTN Medical History Otosclerosis, unspecified latera lity Medical History Bipolar disorder Surgical History left ear Surgical History stapedectomy Apr 2012 Surgical History hysterectomy Surgical History partial hysterectomy Hospitalization History child Hospitalization History see above [employer] Other History general Narrative - Reported* Type Description Date Medical History bipolar Medical History depression Medical History allergies Medical History Allergies Medical History HTN Medical History Otosclerosis, unspecified latera lity Medical History Bipolar disorder Medical History migraine headache Surgical History left ear Surgical History stapedectomy Apr 2012 Surgical History hysterectomy Surgical History partial hysterectomy Hospitalization History child Hospitalization History see above [employer] Other Summary Purpose Family History Relationship Condition [...] high, fatigue. Reason Comments Follow-up 3 m Reason Comments Migraine Reason Onset Date Comments Med Refill 12/16/2023 Reason Comments Migraine Anxiety Reason Comments Follow-up MIGRAINES/ VERTIGO Reason Onset Date Comments Med Refill 01/09/2024 INFORMATION SOURCE (unrecogn ized section and content) DATE CREATED AUTHOR 02/27/2022 [facility] DATE CREATED AUTHOR AUTHOR'S ORGANIZ ATION 01/04/2024 [facility] Care Teams (unrecognized sec tion and content) [employer] Relationship Specialty Start Date End Date Brian Urbina MD [address] [place] [phone] PCP - General Family Medicine 03/22/23 [employer] Relationship Specialty Start Date End Date Brian Urbina MD [address] [place] [phone] PCP - General Family Medicine 03/22/23 Team Status: Active Member Role Status Dates Brian Urbina MD Primary Care Provider Active Team Status: Inactive Member Role Status Dates Brian Urbina MD Primary Care Provider Active S tart: May 17, 2023 End: May 17, 2023 Helen Akers NP-C Attending Provider Active S tart: May 17, 2023 End: May 17, 2023 [employer] Relationship Specialty Start Date End Date Brian Urbina MD [address] [place] [phone] PCP - General Family Medicine 03/22/23 [employer] Relationship Specialty Start Date End Date Brian Urbina MD [address] [place] [phone] PCP - General Family Medicine 03/22/23 [employer] Relationship Specialty Start Date End Date Brian Urbina MD [address] [place] [phone] PCP - General Family Medicine 03/22/23 [employer] Relationship Specialty Start Date End Date Brian Urbina MD [address] [place] [phone] PCP - General Family Medicine 03/22/23 [employer] Relationship Specialty Start Date End Date Brian Urbina MD [address] [place] [phone] PCP - General Family Medicine 03/22/23 [employer] Relationship Specialty Start Date End Date Brian Urbina MD [address] [place] [address] PCP - General Family Medicine 03/22/23 [employer] Relationship Specialty Start Date End Date Brian Urbina MD [address] [place] [address] PCP - General Family Medicine 03/22/23 [employer] Relationship Specialty Start Date End Date Brian Urbina MD [address] [place] [address] PCP - General Family Medicine 03/22/23 [employer] Relationship Specialty Start Date End Date Brian Urbina MD [address] [place] [address] PCP - General Family Medicine 03/22/23 Brian Urbina MD [address] [place] [address] PCP - [employer] 03/04/23 [employer] Relationship Specialty Start Date End Date Brian Urbina MD [address] [place] [address] PCP - General Family Medicine 03/22/23 Brian Urbina MD [address] [place] [address] PCP - [employer] 03/04/23 [employer] Relationship Specialty Start Date End Date Brian Urbina MD [address] [place] [address] PCP - General Family Medicine 03/22/23 Goals (unrecognized section and content) Goals [...] BE BASED ON THE PRIMARY CLINICAL RECORDS. [employer] provides no warranty or guarantee of the accuracy or completeness of information in this document.
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
[2024-01-13] MEDS: BUTALB/ACETAMINOPHEN/CAFFEINE 50-325-40MG TABLET 1 TAB PO (14:41)
[2024-01-13] MEDS: METOCLOPRAMIDE HCL 10 MG/2 ML VIAL IVP (14:42)
[2024-01-13] MEDS: DEXAMETHASONE SOD PHOS 10 MG/ML VIAL IV (14:46)
[2024-01-13] MEDS: KETOROLAC TROMETHAMINE 30 MG/ML VIAL 15 MG IVP (14:46)
[2024-01-13 14:54] VITALS: BP 166/88; PULSE 71; O2SAT 98
== END 2024-01-13 15:47 | disposition home or self-care (01) ==
PROVIDERS: Emergency Provider Emergency Medicine; PCP Family Medicine
DX: R51.9 Headache, unspecified (principal)
CPT/HCPCS: 96374; 96375; 99284; J1100; J1885; J2765

== ENCOUNTER 2024-07-06 14:26 | Emergency (ER) | payer BC, SELFPAY ==
[2024-07-06 14:31] VITALS: BP 161/100; PULSE 76; TEMP 36.5; O2SAT 97; BMI 26.9
--- NOTE | 2024-07-06 14:43 | ED.NAVMDI1 ---
HPI - Nausea/Vomiting/Diarrhea General Chief complaint: Nausea/Vomiting/Diarrhea Stated complaint: N/V/D Time Seen by Provider: 07/06/24 14:33 Source: patient Mode of arrival: walk-in Limitations: no limitations History of Present Illness HPI Narrative: 53 year old female presents to the ED for N/V/D. Onset was last night. Reports mild abd cramping. Denies fever, chills, urinary symptoms, cough, congestion. Denies CP, SOB. She had similar symptoms last week for 1 day. Reports one episode of emesis and one loose stool today. She was sent from urgent care for evaluation. She does take Ozempic. Denies a recent dose change. She takes her injection on Saturdays; 07/04/24 was her last dose. Related Data Home Medications ?Medication ?Instructions ?Recorded ?Confirmed dwzqwvtoax-xbaqpidleubea-udpbykfh 1 tab PO Q6H 09/06/22 01/13/24 50 mg-325 mg-40 mg tablet omeprazole 40 mg capsule,delayed 40 mg PO Q8H 09/06/22 01/13/24 release alprazolam 1 mg tablet 1 mg PO Q8H 01/13/24 01/13/24 hydrochlorothiazide 25 mg tablet 25 mg PO DAILY 01/13/24 01/13/24 olanzapine 15 mg tablet 15 mg PO DAILY 01/13/24 01/13/24 semaglutide 2 mg/dose (8 mg/3 mL) 2 mg subcut .weekly 01/13/24 01/13/24 subcutaneous pen injector (Ozempic) sertraline 25 mg tablet 25 mg PO Q24H 01/13/24 01/13/24 sertraline 50 mg tablet 50 mg PO Q24H 01/13/24 01/13/24 topiramate 100 mg tablet 100 mg PO Q12H 01/13/24 01/13/24 zonisamide 25 mg capsule 50 mg PO DAILY 01/13/24 01/13/24 Previous Rx's ?Medication ?Instructions ?Recorded metformin ER 500 mg tablet,ext rel 500 mg PO DAILY #30 dose pk 09/06/22 24 hr-blood sugar diagnostic strips nystatin 100,000 unit/gram topical 1 applic topical DAILY #30 grams 09/06/22 powder prochlorperazine maleate 10 mg 10 mg PO Q12H PRN nausea and 01/13/24 tablet (Compazine) vomiting, headache 7 days #7 tabs ondansetron 4 mg disintegrating 4 mg PO Q8H PRN nausea and 07/06/24 tablet vomiting 4 days #12 tabs Allergies Allergy/AdvReac Type Severity Reaction Status Date / Time aspirin Allergy Unknown Hives Verified 09/06/22 19:29 lisinopril AdvReac Cough Verified 09/06/22 19:29 Review of Systems ROS Constitutional Denies: fever or chills Ears, nose, mouth, and throat Denies: throat pain, neck pain or nasal congestion Cardiovascular Denies: chest pain Respiratory Denies: shortness of breath or cough Gastrointestinal Reports: nausea, vomiting and diarrhea; Denies: abdominal pain Genitourinary Denies: painful urination or urinary frequency Musculoskeletal Denies: back pain Integumentary/Breast Denies: rash Neurological Denies: headache or dizziness PFSH PFSH Social History Smoking status: Never smoker Little interest or pleasure in doing things: not at all Feeling down, depressed, or hopeless: not at all Exam Constitutional Vital Signs, click to edit/add: Last Vital Signs Temp 97.7 F 07/06/24 14:31 Pulse 76 07/06/24 14:31 Resp 18 07/06/24 14:31 BP 161/100 H 07/06/24 14:31 Pulse Ox 97 07/06/24 14:31 O2 Del Method Room Air 07/06/24 14:31 Common normals: no apparent distress and oriented x3 General appearance: cooperative HENMT Mouth: moist mucous membranes abnormal (Dry) Throat: posterior oropharynx normal Eye Common normals: conjunctivae normal and no scleral icterus Respiratory Common normals: normal respiratory effort Effort & inspection: able to speak in complete sentences and symmetric chest movement Cardio Common normals: regular rate and regular rhythm GI Common normals: Normal to inspection, nondistended, normoactive bowel sounds present, soft to palpation and non-tender Neuro Common normals: oriented x3, moves all extremities and no focal motor deficits Sensorium/orientation: awake Speech: speech normal Course Vital Signs Vital signs: Vital Signs Temperature 97.7 F 07/06/24 14:31 Pulse Rate 76 07/06/24 14:31 Respiratory Rate 18 07/06/24 14:31 Blood Pressure 161/100 H 07/06/24 14:31 Pulse Oximetry 97 07/06/24 14:31 Oxygen Delivery Method Room Air 07/06/24 14:31 Temperature 97.7 F 07/06/24 14:31 Pulse Rate 76 07/06/24 14:31 Respiratory Rate 18 07/06/24 14:31 Blood Pressure 161/100 H 07/06/24 14:31 Pulse Oximetry 97 07/06/24 14:31 Oxygen Delivery Method Room Air 07/06/24 14:31 MDM - Nausea/Vomiting/Diarrhea MDM Narrative Medical decision making narrative: Potassium was 3.2Findings were discussed with the patient. She was given medication with improvement. She declined a dose of potassium here in the ED. Follow up with pcp for a recheck, further evaluation and treatment. A prescription was provided for Zofran. Medical Records Attestation: I reviewed the patient's medical records. Lab Data Attestation: I reviewed the patient's lab results. Labs: Lab Results 07/06/24 Range/Units 14:40 WBC 10.3 (4.0-11.0) 10^3/uL RBC 4.56 (4.20-5.40) 10^6/uL Hgb 14.7 (12.0-16.0) g/dL Hct 40.8 (36.0-48.0) % MCV 84.4 (81.0-99.0) fL MCH 31.3 (26.7-34.0) pg MCHC 36.0 H (29.9-35.2) g/dL RDW 12.6 (11.0-15.0) % Plt Count 274 (150-450) 10^3/uL MPV 10.2 (9.5-13.5) fL Neut % (Auto) 73.3 (43.0-75.0) % Lymph % (Auto) 19.8 L (20.5-60.0) % Greene % (Auto) 5.6 (1.7-12.0) % Eos % (Auto) 0.3 L (0.9-7.0) % Baso % (Auto) 0.4 (0.2-2.0) % Neut # (Auto) 7.5 H (1.4-6.5) 10^3/uL Lymph # (Auto) 2.0 (1.2-3.8) 10^3/uL Greene # (Auto) 0.6 (0.3-0.8) 10^3/uL Eos # (Auto) 0.0 (0.0-0.7) 10^3/uL Baso # (Auto) 0.0 (0.0-0.1) 10^3/uL Abs Immat Gran (auto) 0.06 H (0.00-0.03) 10^3/uL Imm/Tot Granulo (auto) 0.6 H (0.0-0.5) % Sodium 136 (136-145) mmol/L Potassium 3.2 L (3.5-5.1) mmol/L Chloride 100 (98-107) mmol/L Carbon Dioxide 26.3 (21.0-32.0) mmol/L Anion Gap 12.9 BUN 13.0 (7.0-18.0) mg/dL Creatinine 0.75 (0.55-1.02) mg/dL Est GFR ( Amer) >60 (>=60 mL/min/1.73m^2) Est GFR (Non-Af Amer) >60 (>=60 mL/min/1.73m^2) BUN/Creatinine Ratio 17.3 Glucose 84 (74-106) mg/dL Calcium 9.3 (8.5-10.1) mg/dL Total Bilirubin 0.5 (0.2-1.0) mg/dL AST 15 (15-37) U/L ALT 22 (14-59) U/L Alkaline Phosphatase 76 (46-116) U/L Total Protein 7.0 (6.4-8.2) g/dL Albumin 4.1 (3.4-5.0) g/dL Globulin 2.9 g/dL Albumin/Globulin Ratio 1.4 Lipase 51.0 (16.0-77.0) U/L Discharge Plan Discharge Chief Complaint: Nausea/Vomiting/Diarrhea Clinical Impression: Nausea, vomiting, and diarrhea Patient Disposition: Home, Self-Care Time of Disposition Decision: 16:20 Condition: Good Mode of Transportation: Private Vehicle Prescriptions / Home Meds: New ondansetron 4 mg tablet,disintegrating 4 mg PO Q8H PRN (Reason: nausea and vomiting) 4 Days Qty: 12 0RF No Action alprazolam 1 mg tablet 1 mg PO Q8H hydrochlorothiazide 25 mg tablet 25 mg PO DAILY olanzapine 15 mg tablet 15 mg PO DAILY Ozempic 2 mg/dose (8 mg/3 mL) pen injector 2 mg SUBCUT .weekly sertraline 25 mg tablet 25 mg PO Q24H sertraline 50 mg tablet 50 mg PO Q24H topiramate 100 mg tablet 100 mg PO Q12H zonisamide 25 mg capsule 50 mg PO DAILY prochlorperazine maleate [Compazine] 10 mg tablet 10 mg PO Q12H PRN (Reason: nausea and vomiting, headache) 7 Days Qty: 7 0RF omeprazole 40 mg capsule,delayed release(DR/EC) 40 mg PO Q8H sgmitxnqra-luldewjqqxadi-rcxc 50-325-40 mg tablet 1 tab PO Q6H metformin-blood sugar diagnost 500 mg combo pack, tablet and strip 500 mg PO DAILY Qty: 30 0RF nystatin 100,000 unit/gram powder 1 applic topical DAILY Qty: 30 0RF Print Language: Turkmen Instructions: Acute Nausea and Vomiting (ED), Acute Diarrhea (ED) Additional Instructions: Return to the ER for worsening symptoms. Referrals: Brian Agrawal MD [Primary Care Provider, Family Practice] - 1 week
[2024-07-06 15:02] LABS: Alanine Aminotransferase 22 U/L (14-59); Albumin Globulin Ratio 1.4; Albumin Level 4.1 g/dL (3.4-5.0); Alkaline Phosphatase 76 U/L (46-116); Anion Gap 12.9; Aspartate Amino Transferase 15 U/L (15-37); BUN Creatinine Ratio 17.3; Bilirubin Total 0.5 mg/dL (0.2-1.0); Calcium 9.3 mg/dL (8.5-10.1); Carbon Dioxide 26.3 mmol/L (21.0-32.0); Chloride 100 mmol/L (98-107); Estimated GFR (African America >60 (>=60 mL/min/1.73m^2); Estimated GFR (Non-African Ame >60 (>=60 mL/min/1.73m^2); Globulin 2.9 g/dL; Glucose 84 mg/dL (74-106); Potassium 3.2 mmol/L (3.5-5.1); Sodium 136 mmol/L (136-145)
[2024-07-06] MEDS: ONDANSETRON PF 4 MG/2 ML VIAL IV (15:02)
[2024-07-06] MEDS: 0.9 % SODIUM CHLORIDE 1,000 ML 999 ML IV (15:02)
[2024-07-06 15:45] LABS: Basophils Percent Auto 0.4 % (0.2-2.0); Eosinophils Percent Auto 0.3 % (0.9-7.0); Immature Granulocytes Abs Auto 0.06 10^3/uL (0.00-0.03); Immature Granulocytes Pct Auto 0.6 % (0.0-0.5); Lymphocytes Percent Auto 19.8 % (20.5-60.0); Mean Corpuscular Volume 84.4 fL (81.0-99.0); Mean Platelet Volume 10.2 fL (9.5-13.5); Monocytes Absolute Auto 0.6 10^3/uL (0.3-0.8); Monocytes Percent Auto 5.6 % (1.7-12.0); Neutrophils Absolute Auto 7.5 10^3/uL (1.4-6.5); Neutrophils Percent Auto 73.3 % (43.0-75.0); Platelet Count 274 10^3/uL (150-450); Red Blood Count 4.56 10^6/uL (4.20-5.40); Red Cell Distribution Width 12.6 % (11.0-15.0); White Blood Count 10.3 10^3/uL (4.0-11.0)
[2024-07-06 16:15] LABS: Hematocrit 40.8 % (36.0-48.0); Hemoglobin 14.7 g/dL (12.0-16.0); Mean Corpuscular Hemoglobin 31.3 pg (26.7-34.0)
== END 2024-07-06 16:25 | disposition home or self-care (01) ==
PROVIDERS: Nurse Practitioner Family; Emergency Provider Student in an Organized Health Care Education/Training Program; PCP Family Medicine
DX: R11.2 Nausea with vomiting, unspecified (principal); R19.7 Diarrhea, unspecified; Z79.85 Long-term (current) use of injectable non-insulin antidiabetic drugs
CPT/HCPCS: 36415; 80053; 83690; 85025; 96361; 96374; 99285; J2405

== ENCOUNTER 2024-07-17 09:34 | Outpatient (OUT) | payer BC, SELFPAY ==
--- OUTSIDE RECORDS SUMMARY | 2024-07-17 09:53 | XMS_ITS | CCD ---
Author Organization [facility] Care Team Providers Care Electricity Trader Name Role Phone Fabiola Bernardo Unavailable Helen [...] Unavailable Naderer Brian WILKINS Primary Care Provider [phone] Brian Urbina MD Unavailable Tuan Wells DO Unavailable Margarito HOU, Mandy Unavailable Laron HOU, Marj Unavailable Margarito HOU, Mandy Unavailable BRIAN URBINA Attending Unavailable NADERER, BRIAN Attending Unavailable NADERER, BRIAN Attending Unavailable NADERER, BRIAN Attending Unavailable NADERER, BRIAN Attending Unavailable NADERER, BRIAN Attending Unavailable TUAN WELLS Attending Unavailable NADERER, BRIAN Referring Unavailable NADERER, BRIAN Attending Unavailable NADEREKaty, BRIAN Attending Unavailable BRIAN URBINA Attending Unavailable BRIAN URBINA Attending Unavailable BRIAN URBINA Attending Unavailable BRIAN URBINA Attending Unavailable Allergies Allergy Classification Reported Allergen(s) Allergy Type Date of Onset Reaction(s) Facility (11 sources) Aspirin Drug Allergy 4 hives [facility] (11 sources) Ciprofloxacin Drug Allergy 4 stomach upset [facility] (10 sources) Lisinopril Drug Allergy 4 coughing [facility] (1 source) Aspirin Drug Allergy 3 [facility] (20 sources) Aluminum aspirin Drug Allergy 3 Rash [facility] Work Phone: (20 sources) Lisinopril Propensity to adverse reactions 3 Cough [facility] Medications Current Medications Medication Drug Class(es) Dates Sig (Normalized) Sig (Original) acetaminophen 325 mg / butalbital 50 mg / caffeine 40 mg oral tablet (20 sources) Barbiturate, Central Nervous System Stimulant, Methylxanthine Start: 11-22-2023 take 1 tablet by mouth four times daily as needed for headache butalbital-aceta minophen-caffein e 50-325-40 MG tablet Indications: Vestibular migraine (CMS/HCC) Take 1 tablet by mouth 4 (four) times a day as needed for headaches 30 tablet 11/22/2023 Active [id number] actuat albuterol 0.09 mg/actuat metered dose inhaler (20 sources) beta2-Adrenergic Agonist Start: 06-08-2022 take 2 puff(s) by inhalation four times daily as needed Albuterol Sulfate HFA 108 (90 Base) MCG/ACT 2 puffs Inhalation 4 times a day prn Jun, Active End: 01-21-2024 take 2 puff(s) by inhalation every four hours for wheezing albuterol HFA 90 mcg/act inhaler Inhale 2 puffs every 4 (four) hours if needed for wheezing 01/21/2024 Discontinued ALPRAZolam 1 mg oral tablet (20 sources) Benzodiazepine Start: 12-19-2023 End: 06-30-2024 take 1 tablet by mouth three times daily as needed for anxiety ALPRAZolam (Xanax) 1 MG tablet Indications: Generalized anxiety disorder (CMS/HCC) TAKE 1 TABLET BY MOUTH THREE TIMES DAILY NEEDED FOR ANXIETY 60 tablet 1 06/30/2024 Active Start: 06-03-2023 End: 01-05-2024 take 1 tablet by mouth three times daily as needed for anxiety ALPRAZolam (Xanax) 0.5 MG tablet Indications: Generalized anxiety disorder (CMS/HCC) Take 1 tablet (0.5 mg) by mouth 3 (three) times a day as needed for anxiety for up to 20 days 60 tablet 12/16/2023 12/19/2023 Discontinued (Reorder) Xanax Active baclofen 20 mg oral tablet (20 sources) gamma-Aminobutyric Acid-ergic Agonist take 1 tablet by mouth three times daily as needed for muscle spasms baclofen (Lioresal) 20 MG tablet Take 20 mg by mouth 3 (three) times a day as needed for muscle spasms Active Butalbital-Acetam inophen-Caff 50-325-40 mg tablet (4 sources) Start: 4 take 1 tablet by mouth every six hours as needed Butalbital-Acetami nophen-Caff 50-325-40 mg tablet Active 1 TAB PO Every 6 hours as needed January 13, 2024 1:00am Start: 01-13-2024 take 1 tablet by andrés th every six hours as needed Vybxwpjsbf-Lnzrhylzkyfwb-Yrlq 50-325-40 mg tablet Active 1 TAB PO Every 6 hours as needed January 13, 2024 12:00am Cetirizine (1 source) Histamine-1 Receptor Antagonist ZyrTEC Allergy Activ e citalopram 40 mg oral tablet (6 sources) Serotonin Reuptake Inhibitor Start: End: 4 take 1 tablet by mouth once daily citalopram (CeleXA) 40 MG tablet Indications: Generalized anxiety disorder (CMS/HCC) Take 1 tablet (40 mg) by mouth Daily 30 tablet 5 09/02/2023 11/22/2023 Discontinued take 1 tablet by mouth in the mo rning citalopram (CeleXA) 20 MG tablet Take 20 mg by mouth in the morning. 0 Active cyclobenzaprine hydrochloride 10 mg oral tablet (1 source) Muscle Relaxant Start: 07-12-2021 take 1 tablet by mouth three times daily as needed for muscle spasms Cyclobenzaprine HCl 10 MG 1 tab(s) Orally tid prn As needed for muscle spasms or tightness July, Active dicyclomine hydrochloride 20 mg oral tablet (6 sources) Anticholinergic Start: 06-09-2024 take 1 tablet by mouth four times daily as needed for pain dicyclomine (Bentyl) 20 MG tablet Indications: Viral gastroenteritis Take 1 tablet (20 mg) by mouth 4 (four) times a day as needed (abdominal pain or cramps) 30 tablet 2 06/09/2024 Active Doxepin (5 sources) Tricyclic Antidepressant Doxepin [...] tip and replace cap. 16 g 5 06/01/2024 Active Start: 06-08-2022 take 2 spray(s) nasa [...] tip and replace cap.. 12/12/2023 Discontinued (Reorder) 1.5 ml fremanezumab-vfrm 150 mg/ml auto-injector (10 sources) Start: 02-03-2024 End: 04-15-2024 inject 1 mL by subcutaneous injection every 30 days fremanezumab (Ajovy) 225 MG/1.5ML auto-injector Indications: Chronic migraine without aura without status migrainosus, not intractable (CMS/HCC) INJECT 1 PEN SUBCUTANEOUSLY (UNDER THE SKIN) EVERY 30 DAYS 1.5 mL 2 02/03/2024 04/15/2024 Discontinued Start: 02-03-2024 End: 02-02-2025 fremanezumab (Ajovy) 225 MG/ 1.5ML auto-injector Indications: Chronic migraine without aura without status migrainosus, not intractable (CMS/HCC) Inject 1 pen (225 mg) under the skin every 30 (thirty) days 1.68 mL 11 02/03/2024 02/02/2025 Active Glucose Blood (BLOOD GLUCOSE TEST ) (20 sources) Glucose Blood (B LOOD GLUCOSE TEST [...] a day for 14 days Apr, Active levoFLOXacin 750 mg oral tablet (4 sources) Quinolone Antimicrobial Start: 12-19-2023 End: 01-02-2024 take 1 tablet by mouth once daily levoFLOXacin (Levaquin) 750 MG tablet Indications: Acute non-recurrent pansinusitis Take 1 tablet (750 mg) by mouth Daily for 7 days 7 tablet 12/19/2023 01/02/2024 Discontinued Losartan (2 sources) Angiotensin 2 Receptor Kelli Losartan Potassium Active meclizine hydrochloride 25 mg oral tablet (20 sources) Antiemetic Start: 06-28-2023 take 1 tablet [...] day for 7 days Dec, Active OLANZapine 10 mg oral tablet (20 sources) Atypical Antipsychotic Start: 07-15-2024 take 1 tablet by mouth at bedtime OLANZapine (ZyPREXA) 10 MG tablet Indications: Bipolar affective, mixed (HCC) (CMS/HCC) Take 1 tablet (10 mg) by mouth at bedtime 30 tablet 3 07/15/2024 Active Start: 07-15-2024 take 1 tablet by andrés th at bedtime OLANZapine (ZyPREXA) 10 MG tablet Indications: Bipolar affective, mixed (HCC) (CMS/HCC) Take 1 tablet (10 mg) by mouth at bedtime 30 tablet 3 07/15/2024 Active Start: 03-11-2024 End: 07-15-2024 take 1 tablet by mouth at bedtime OLANZapine (ZyPREXA) 7.5 MG tablet Indications: Bipolar affective, mixed (HCC) (CMS/HCC) Take 1 tablet (7.5 mg) by mouth at bedtime 30 tablet 5 03/11/2024 07/15/2024 Discontinued (Reorder) Start: 07-16-2023 End: 05-13-2024 take 1 tablet by mouth once daily at bedtime Olanzapine 15 mg tablet Discontinued 15 MG PO Daily at bedtime January 13, 2024 1:00am May 13, 2024 3:14pm Start: 05-17-2023 End: 01-13-2024 take 1 tablet by mouth once daily Olanzapine 10 mg tablet Discontinued 10 MG PO Daily May 17, 2023 12:00am January 13, 2024 10:32am take 1 tablet by andrés th once daily OLANZapine (ZyPREXA) 10 MG tablet Take 10 mg by mouth 1 (one) time each day 0 Active OLANZapine Activ e omeprazole 40 mg delayed release oral capsule (20 sources) Proton Pump Inhibitor Start: 05-20-2023 End: 05-04-2025 take 1 capsule by mouth before mealtime omeprazole (PriLOSEC) [address] capsule Indications: Gastroesophageal reflux disease without esophagitis Take 1 capsule (40 mg) by mouth in the morning. Take before meals. Do not crush or chew.. 30 capsule 11 05/04/2024 05/04/2025 Active take 1 capsule by mouth before m ealtime omeprazole (PriLOSEC) [address] capsule Take 40 mg by mouth in the morning. Take before meals. Do not crush or chew.. 0 Active Omeprazole Activ e ondansetron 4 mg disintegrating oral tablet (20 sources) Serotonin-3 Receptor Antagonist Start: 01-21-2024 End: 06-09-2024 take 1 tablet by mouth every eight hours for nausea ondansetron ODT (Zofran-ODT) 4 MG disintegrating tablet Indications: Vestibular migraine (CMS/HCC) Take 1 tablet (4 mg) by mouth every 8 (eight) hours if needed for nausea or vomiting 30 tablet 3 06/09/2024 Active Start: 02-09-2022 take 1 tablet by andrés th three times daily as needed Zofran 4 [...] each 3 04/05/2023 Active Semaglutide (Ozempic) 2 mg/d ose (8 mg/3 mL) pen injector (5 sources) Start: 05-17-2023 Semaglutide (O zempic) 2 mg/dose (8 mg/3 mL) pen injector Active MG SUBCUT May 16, 2023 11:00pm Start: 05-17-2023 Semaglutide (O zempic) 2 mg/dose [...] (Ozempic, 2 MG/DOSE,) 8 MG/3ML solution pen-injector (20 sources) Start: 03-02-2024 End: 07-15-2024 inject 2 mg by subcutaneous injection every week Semaglutide, 2 MG/DOSE, (Ozempic, 2 MG/DOSE,) 8 MG/3ML solution pen-injector Indications: Type 2 diabetes mellitus with hyperglycemia, with long-term current use of insulin (CMS/HCC) Inject 2 mg under the skin 1 (one) time per week 3 mL 5 03/02/2024 07/15/2024 Discontinued Start: 03-02-2024 inject 2 mg by subcu taneous injection every week Semaglutide, 2 MG/DOSE, (Ozempic, 2 MG/DOSE,) 8 MG/3ML solution pen-injector Indications: Type 2 diabetes mellitus with hyperglycemia, with long-term current use of insulin (CMS/HCC) Inject 2 mg under the skin 1 (one) time per week 3 mL 5 03/02/2024 Active Start: 08-19-2023 inject 2 mg by subcu taneous injection every week Semaglutide, 2 MG/DOSE, (Ozempic, 2 MG/DOSE,) 8 MG/3ML solution pen-injector Indications: Type 2 diabetes mellitus with hyperglycemia, with long-term current use of insulin (CMS/HCC) Inject 2 mg under the skin 1 (one) time per week 3 mL 5 08/19/2023 Active sertraline 100 mg oral tablet (20 sources) Serotonin Reuptake Inhibitor Start: 06-30-2024 take 1 tablet by mouth once daily sertraline (Zoloft) 100 MG tablet Take 100 mg by mouth Daily 06/30/2024 Active Start: 05-13-2024 End: 05-30-2024 take 1 tablet by mouth once daily Sertraline 100 mg tablet Active 100 MG PO Daily May 30, 2024 11:01am Start: 03-11-2024 End: 04-15-2024 take 1 tablet by mouth once daily sertraline (Zoloft) 100 MG tablet Indications: Generalized anxiety disorder (CMS/HCC) Take 1 tablet (100 mg) by mouth Daily 30 tablet 5 03/11/2024 04/15/2024 Discontinued (Dose adjustment) Start: 12-12-2023 End: 07-15-2024 take 1 tablet by mouth once daily sertraline (Zoloft) 50 MG tablet Indications: Generalized anxiety disorder (CMS/HCC) Take 1 tablet (50 mg) by mouth Daily 04/15/2024 07/15/2024 Discontinued Start: 11-22-2023 End: 12-12-2023 take 1 tablet by mouth once daily sertraline (Zoloft) 25 MG tablet Indications: Generalized anxiety disorder (CMS/HCC) Take 1 tablet (25 mg) by mouth Daily 30 tablet 3 11/22/2023 12/12/2023 Discontinued (Reorder) SUMAtriptan (2 sources) Serotonin-1b and Serotonin-1d Receptor Agonist Imitrex Active traMADol hydrochloride 50 mg oral tablet (3 sources) Opioid Agonist traMADol (Ultram ) 50 MG tablet Take 50 mg by mouth in the morning and 50 mg at noon and 50 mg in the evening and 50 mg before bedtime. 0 Active zonisamide 100 mg oral capsule (20 sources) Anti-epileptic Agent Start: End: take 1 capsule by mouth once daily zonisamide (Zonegran) 100 MG capsule Indications: Vestibular migraine (CMS/HCC) TAKE 1 CAPSULE BY MOUTH DAILY 30 capsule 5 06/30/2024 Active Start: 01-13-2024 End: 05-13-2024 take 1 capsule by mouth once daily Zonisamide 25 mg capsule Discontinued 50 MG PO daily January 13, 2024 1:00am May 13, 2024 3:14pm Start: 01-02-2024 End: 01-21-2024 take 2 capsules by mouth once daily zonisamide (Zonegran) 25 MG capsule Indications: Vestibular migraine (CMS/HCC) Take 2 capsules (50 mg) by mouth Daily 60 capsule 3 01/02/2024 01/21/2024 Discontinued Completed/Discontinued Medications Medication Drug Class(es) Dates Sig (Normalized) Sig (Original) amitriptyline hydrochloride 25 mg oral tablet (10 sources) Tricyclic Antidepressant Start: 05-17-2023 End: 01-21-2024 take 1 tablet by mouth once daily Amitriptyline 25 mg tablet Discontinued 25 MG PO Daily May 17, 2023 12:00am January 13, 2024 10:50am Start: 04-05-2023 take 1 tablet by andrés [...] mg / clavulanate 125 mg oral tablet (5 sources) Penicillin-class Antibacterial Start: 05-17-2023 End: 01-13-2024 take 1 tablet by mouth twice daily Amoxicillin-Pot Clavulanate 875-125 mg tablet Discontinued 1 TAB PO Twice daily May 17, 2023 12:00am January 13, 2024 10:33am Start: 06-08-2022 take 1 tablet by andrés th every twelve hours Amoxicillin-Pot Clavulanate 875-125 MG 1 tablet Orally every 12 hrs for 10 day(s) Jun, Active benzonatate 200 mg oral capsule (4 sources) Non-narcotic Antitussive Start: 05-17-2023 End: 01-13-2024 Benzonatate 200 mg capsule Discontinued 200 MG PO 2-3 TIMES PER DAY as needed for cough May 17, 2023 12:00am January 13, 2024 10:32am cefdinir 300 mg oral capsule (7 sources) [...] Orally bid for 5 day(s) Jun, Active prochlorperazine 10 mg oral tablet (3 sources) Phenothiazine Start: 01-13-2024 End: 01-21-2024 prochlorperazine (Compazine) 10 MG tablet Take 10 mg by mouth every 12 (twelve) hours if needed for nausea or vomiting 01/13/2024 01/21/2024 Discontinued topiramate 100 mg oral tablet (20 sources) Start: 01-13-2024 End: 01-13-2024 take 1 tablet by mouth once daily Topiramate 100 mg tablet Discontinued 100 MG PO Daily January 13, 2024 1:00am January 13, 2024 10:51am Start: 11-22-2023 End: 01-02-2024 take 1 tablet by mouth in the morning topiramate (Topamax) 100 MG tablet Indications: Vestibular migraine (CMS/HCC) Take 1 tablet (100 mg) by mouth in the morning and 1 tablet (100 mg) before bedtime. 60 tablet 5 11/22/2023 01/02/2024 Discontinued Start: 06-28-2023 End: 11-22-2023 take 1 tablet by mouth in the morning topiramate 50 MG tablet Indications: Vestibular migraine (CMS/HCC) Take 50 mg by mouth in the morning and 50 mg before bedtime. 06/28/2023 11/22/2023 Discontinued Start: 05-17-2023 End: 05-17-2023 take 1 tablet by mouth once daily Topiramate 50 mg tablet Discontinued 50 MG PO Daily May 17, 2023 12:00am May 17, 2023 1:03pm Topamax Active Toradol 30 mg/ml (2 sources) Start: 03-27-2022 Toradol 30 mg/ ml Mar, 30 mg triamcinolone acetonide 40 mg/ml injectable suspension (2 sources) Corticosteroid Start: 03-27-2022 Kenalog-40 Mar, 40 mg Problems Active Problems Problem Classification Problem Date Documented Date Episodic/Chronic Allergic reactions (5 sources) Allergic condition; Translations: [Allergy, unspecified, initial encounter] [...] 04-05-2023 04-05-2023 Chronic Disorders of lipid metabolism (20 sources) Hyperlipidemia; Translations: [Hyperlipidemia, unspecified] Onset: 04-05-2023 04-05-2023 Chronic Esophageal disorders (20 sources) Gastroesophageal reflux disease without esophagitis; Translations: [...] influenza virus with other respiratory manifestations Episodic Intestinal infection (10 sources) Viral gastroenteritis; Translations: [Viral intestinal infection, unspecified] Onset: 06-09-2024 Resolved: 07-15-2024 06-09-2024 Episodic Miscellaneous mental health disorders (2 sources) Emotional state finding; Translations: [Mental disorder, not otherwise specified] 02-03-2024 Chronic Mood disorders (20 sources) Mixed bipolar affective disorder; Translations: [Bipolar disorder, current episode mixed, unspecified] Onset: 04-05-2023 04-05-2023 Chronic Nausea and vomiting (1 source) Nausea with vomiting, unspecified Episodic Noninfectious gastroenteritis (4 sources) Gastroenteritis; Translations: [Noninfective gastroenteritis and colitis, unspecified] 05-13-2024 Episodic Nutritional deficiencies (20 sources) Vitamin D deficiency, unspecified; Translations: [Vitamin D deficiency] Onset: 05-22-2021 04-05-2023 Chronic Other nervous system disorders (1 source) Other chronic pain; Translations: [OTHER CHRONIC PAIN] Onset: 07-27-2021 Chronic Other nutritional; endocrine; and metabolic disorders (1 source) Obesity, unspecified; Translations: [OBESITY UNSPECIFIED] Onset: 08-22-2021 Chronic Other upper respiratory disease (1 source) Nasal congestion Episodic Other upper respiratory infections (20 sources) Chronic sinusitis, unspecified; Translations: [Unspecified sinusitis (chronic)] Onset: 12-12-2023 05-17-2023 Chronic Otitis media and related conditions (5 sources) Otosclerosis; Translations: [Unspecified otosclerosis, unspecified ear] 05-17-2023 Episodic Residual codes; unclassified (20 sources) Obstructive sleep apnea syndrome; Translations: [Obstructive sleep apnea (adult) (pediatric)] Onset: 04-05-2023 04-05-2023 Chronic Skin and subcutaneous tissue infections (1 source) Cellulitis of right toe Episodic Spondylosis; intervertebral disc disorders; other back problems (20 sources) Other intervertebral disc degeneration, lumbosacral region; Translations: [Degeneration of cervical intervertebral disc] Onset: 07-28-2021 04-05-2023 Chronic Thyroid disorders (20 sources) Hypothyroidism; Translations: [Hypothyroidism, unspecified] Onset: 04-05-2023 04-05-2023 Chronic Unclassified (3 sources) CONTACT W/AND (SUSP) EXPOS COVID-19; Translations: [CONTACT W/AND (SUSP) EXPOS COVID-19] Onset: 10-18-2021 Unclassified (3 sources) LOW BACK PAIN, UNSPECIFIED; Translations: [LOW BACK PAIN, UNSPECIFIED] Onset: 08-22-2021 Viral infection (2 sources) Disease caused by 2019-nCoV; Translations: [COVID-19] 05-30-2024 Episodic Past or Other Problems Problem Classification Problem Date Documented Da te Episodic/Chronic Other connective tissue disease (1 source) Myalgia, other site; Translations: [MYALGIA OTHER SITE] Onset: 08-22-2021 Episodic Other upper respiratory disease (20 sources) Deviated nasal septum; Translations: [Deviated nasal septum] Onset: 04-05-2023 04-05-2023 Episodic Other upper respiratory infections (20 sources) Acute sinusitis, unspecified; Translations: [Acute pansinusitis] Onset: 06-03-2023 Resolved: 03-11-2024 Episodic Spondylosis; intervertebral disc disorders; other back [...] Test Name Value Interpretation Reference Range Facility COVID Cepheidon 05-30-2024 SARS-CoV-2 (COVID-19) RNA TOMMY+probe Ql (Unsp spec) COVID Cepheid [facility] - Microbiology an d Antimicrobial susceptibilityon 05-30-2024 SARS-CoV-2 (COVID-19) RNA TOMMY+probe Ql (Unsp spec) Positive [facility] No Panel Informationon 05-30 POC Influenza A (PCR) Negative [facility] POC Influenza B (PCR) Negative [facility] Influenza virus B Ag [Presen ce] in Upper respiratory specimen by Rapid immunoassayon 05-13-2024 FLUBV Ag IA.rapid Ql (Nph) Influenza virus B Ag [Presence] in Upper respiratory specimen by Rapid immunoassay [facility] No Panel Informationon 05-13 Influenza Type A (Rapid) Negative [facility] POC SARS CoV-2 Antigen Negative [facility] MLR HEMOGLOBIN A1Con 024 Glucose [Mass/Vol] 77 mg/dL [facility] HbA1c (Bld) [Mass fraction] 4.3 % Low 4.5 - 6.2 % [facility] Comment on above: ADA RECOMMENDED LIMI T 4.0 - 6.0 ADA THERAPEUTIC TARGET < 7.0 ACTION SUGGESTED > 7.0 Interpretation and review of laboratory results Abnormal [facility] Influenza virus B Ag [Presen ce] in Upper respiratory specimen by Rapid immunoassayon 05-17-2023 FLUBV Ag IA.rapid Ql (Nph) Negative [facility] No Panel Informationon 05-16 Influenza Type A (Rapid) Negative [facility] POC SARS CoV-2 Antigen Negative [facility] COVID + FLU Quick Testingon 06-08-2022 SARS-CoV-2 (COVID-19) RNA TOMMY+probe Ql (Unsp spec) Negative [facility] Other COVID + FLU Quick Testing Negative [employer] [facility] Other COVID + FLU Quick Testingon 02-09-2022 SARS-CoV-2 (COVID-19) RNA TOMMY+probe Ql (Unsp spec) Negative [facility] [facility] Other COVID + FLU Quick Testing Positive [employer] [facility] Other COVID + FLU Quick Testing Negative [facility] [facility] Other Covid-19 PCR ([facility])on 10-02 SARS-CoV-2 (COVID-19) RNA TOMMY+probe Ql (Unsp spec) Not detected Normal NOT DETECTED [facility] Comment on above: Result Comment: This test is not yet approved or cleared by the [place] FDA. When there are no FDA-approved or cleared tests available, and other criteria are met, FDA can make tests available under an emergency access mechanism called an Emergency Use Authorization (EUA). The EUA for this test is supported by the [employer] of Health and Human Service's (HHS's) declaration [...] consistent with SARS-CoV-2. Performed By: #### C [facility] #### [facility] [address] [place] [address] Dr. Che Arias XR TSPINE 3 VIEWSon [...] LINCOLN SULLIVAN Date: 2021-07-26 10:49 Normal [facility] CBC AUTO DIFFon 05-18-2021 BASO # 0.1 103/ul Normal 0.0-0.1 [facility] Comment on above: Performed By: #### C BC #### [facility] [address] [place] [address] Dr. Che Arias Basophils/100 WBC (Bld) 0.7 % Normal 0.2-2.0 [facility] Comment on above: Performed By: #### C BC #### [facility] [address] [place] [address] Dr. Che Arias EO # 0.2 103/ul Normal 0.0-0.7 [facility] Comment on above: Performed By: #### C BC #### [facility] [address] [place] [address] Dr. Che Arias Eosinophils/100 WBC (Bld) 2.8 % Normal 0.9-7.0 [facility] Comment on above: Performed By: #### C BC #### [facility] [address] [place] [address] Dr. Che Arias Erythrocyte distribution width (RBC) [Ratio] 13.3 % Normal 11.0-15.0 [facility] Comment on above: Performed By: #### C BC #### [facility] [address] [place] [address] Dr. Che Arias Hematocrit (Bld) [Volume fraction] 40.4 % Normal 36.0-48.0 [facility] Comment on above: Performed By: #### C BC #### [facility] [address] [place] [address] Dr. Che Arias Hemoglobin (Bld) [Mass/Vol] 14.1 g/dL Normal 12.0-16.0 [facility] Comment on above: Performed By: #### C BC #### [facility] [address] [place] [address] Dr. Che Arias IG # 0.03 10e3/ul Normal 0.00-0.03 [facility] Comment on above: Performed By: #### C BC #### [facility] [address] [place] [address] Dr. Che Arias IG % 0.4 % Normal 0.0-0.5 [facility] Comment on above: Performed By: #### C BC #### [facility] [address] [place] [address] Dr. Che Arias LYMPH # 1.9 103/ul Normal 1.2-3.8 [facility] Comment on above: Performed By: #### C BC #### [facility] [address] [place] [address] Dr. Che Arias Lymphocytes/100 WBC (Bld) 27.6 % Normal 20.5-60.0 [facility] Comment on above: Performed By: #### C BC #### [facility] [address] [place] [address] Dr. Che Arias MANUAL DIFF REQ NO Normal [facility] Comment on above: Performed By: #### C BC #### [facility] [address] [place] [address] Dr. Che Arias MCH (RBC) [Entitic mass] 30.7 pg Normal 26.7-34.0 [facility] Comment on above: Performed By: #### C BC #### [facility] [address] [place] [address] Dr. Che Arias MCHC (RBC) [Mass/Vol] 34.9 g/dL Normal 29.9-35.2 [facility] Comment on above: Performed By: #### C BC #### [facility] [address] [place] [address] Dr. Che Arias MCV (RBC) [Entitic vol] 87.8 fL Normal 81.0-99.0 [facility] Comment on above: Performed By: #### C BC #### [facility] [address] [place] [address] Dr. Che Arias MONO # 0.5 103/ul Normal 0.3-0.8 [facility] Comment on above: Performed By: #### C BC #### [facility] [address] [place] [address] Dr. Che Arias Monocytes/100 WBC (Bld) 7.3 % Normal 1.7-12.0 [facility] Comment on above: Performed By: #### C BC #### [facility] [address] [place] [address] Dr. Che Arias NEUT # 4.1 103/ul Normal 1.4-6.5 [facility] Comment on above: Performed By: #### C BC #### [facility] [address] [place] [address] Dr. Che Arias Neutrophils/100 WBC (Bld) 61.2 % Normal 43.0-75.0 [facility] Comment on above: Performed By: #### C BC #### [facility] [address] [place] [address] Dr. Che Arias Platelet mean volume (Bld) [Entitic vol] 11.6 fL Normal 9.5-13.5 [facility] Comment on above: Performed By: #### C BC #### [facility] [address] [place] [address] Dr. Che Arias PLT 260 103/ul Normal 150-450 [facility] Comment on above: Performed By: #### C BC #### [facility] [address] [place] [address] Dr. Che Arias RBC 4.60 106/ul Normal 4.20-5.40 [facility] Comment on above: Performed By: #### C BC #### [facility] [address] [place] [address] Dr. Che Arias WBC 6.8 103/ul Normal 4.0-11.0 [facility] Comment on above: Performed By: #### C BC #### [facility] [address] [address] [address] Che Arias GLYCOHEMOGLOBIN A1Con 2021 ADA RECOMMENDATION ADA THERAPEUTIC TARGET 6.0 - 7.0 ACTION SUGGESTED > 7.0 Normal [facility] Comment on above: Performed By: #### A 1C ####[facility] [id number] [id number]. Che Arias Glucose [Mass/Vol] 140 mg/dL Normal [facility] Comment on above: Performed By: #### A 1C ####[facility] [id number] [id number]. Che Arias HbA1c (Bld) [Mass fraction] 6.5 % Critically high <=6.0 [facility] Comment on above: Performed By: #### A 1C ####[facility] [id number] [address]Dr. Che Arias LIPID PROFILEon 05-18-2021 CHOL-HDL RATIO NORM SEE BELOW Normal [facility] Comment on above: Result Comment: 3.3 - 4.4 LOW RISK 4.4 - 7.1 AVERAGE RISK 7.1 - 11.0 MODERATE RISK >11.0 HIGH RISK Performed By: #### B MP, LIVER, TSH, LIPID #### [facility] [address] [address] [address] Che Arias Cholesterol [Mass/Vol] 237 mg/dL Critically high <=200 [facility] Comment on above: Performed By: #### B MP, LIVER, TSH, LIPID #### [facility] [address] [address] [address] Che Arias Cholesterol in HDL [Mass/Vol] 46 mg/dL Normal 40-60 [facility] Comment on above: Performed By: #### B MP, LIVER, TSH, LIPID #### [facility] [address] [address] [address] Che Arias Cholesterol in LDL [Mass/Vol] 161.4 mg/dL Normal [facility] Comment on above: Performed By: #### B MP, LIVER, TSH, LIPID #### [facility] [address] [address] [address] Che Arias Cholesterol.total/Cho lesterol in HDL [Mass ratio] 5.2 {ratio} Normal [facility] Comment on above: Performed By: #### B MP, LIVER, TSH, LIPID #### [facility] [address] [address] [address] Che Arias HDL NORMAL > or = 60 mg/dl - LOW CARDIOVASCULAR RISK <40 mg/dl - HIGH CARDIOVASCULAR RISK Normal [facility] Comment on above: Performed By: #### B MP, LIVER, TSH, LIPID #### [facility] [address] [address] [address] Che Arias LDL CALC NORMAL SEE BELOW Normal [facility] Comment on above: Result Comment: <100 mg/dl OPTIMAL 100 - 129 mg/dl NEAR OR ABOVE OPTIMAL 130 - 159 mg/dl BORDERLINE HIGH 160 - 189 mg/dl HIGH >190 mg/dl VERY HIGH Performed By: #### B MP, LIVER, TSH, LIPID #### [facility] [address] [address] [address] Che Arias Triglyceride [Mass/Vol] 148 mg/dL Normal <=150 [facility] Comment on above: Performed By: #### B MP, LIVER, TSH, LIPID #### [facility] [address] [address] [address] Che Arias VLDL CALC 29.6 mg/dL Normal [facility] Comment on above: Performed By: #### B MP, LIVER, TSH, LIPID #### [facility] [address] [address] [address] Che Arias LIVER PROFILEon 05-18-2021 Albumin [Mass/Vol] 4.0 g/dL Normal 3.5-5.0 [facility] Comment on above: Performed By: #### B MP, LIVER, TSH, LIPID #### [facility] [address] [address] [address] Che Arias Albumin/Globulin [Mass ratio] 1.2 {ratio} Normal [facility] Comment on above: Performed By: #### B MP, LIVER, TSH, LIPID #### [facility] [address] [address] [address] Che Arias ALP [Catalytic activity/Vol] 107 U/L Normal 38-126 [facility] Comment on above: Performed By: #### B MP, LIVER, TSH, LIPID #### [facility] [address] [address] [address] Che Arias ALT [Catalytic activity/Vol] 66 U/L Critically high 9-52 [facility] Comment on above: Performed By: #### B MP, LIVER, TSH, LIPID #### [facility] [address] [address] [address] Che Arias AST [Catalytic activity/Vol] 41 U/L Critically high 14-36 [facility] Comment on above: Performed By: #### B MP, LIVER, TSH, LIPID #### [facility] [address] [address] [address] Che Arias BILI, CONJUGATED 0.1 mg/dL Normal 0.0-0.3 [facility] Comment on above: Performed By: #### B MP, LIVER, TSH, LIPID #### [facility] [address] [address] [address] Che Arias Bilirubin [Mass/Vol] 0.6 mg/dL Normal 0.2-1.3 [facility] Comment on above: Performed By: #### B MP, LIVER, TSH, LIPID #### [facility] [address] [address] [address] Che Arias Globulin (S) [Mass/Vol] 3.4 g/dL Normal [facility] Comment on above: Performed By: #### B MP, LIVER, TSH, LIPID #### [facility] [address] [address] [address] Che Arias Protein [Mass/Vol] 7.4 g/dL Normal 6.1-8.2 [facility] Comment on above: Performed By: #### B MP, LIVER, TSH, LIPID #### [facility] [address] [address] [address] Che Arias PROF CHEM 8 (BAS METB)on Anion gap [Moles/Vol] 17.0 mmol/L Normal [facility] Comment on above: Performed By: #### B MP, LIVER, TSH, LIPID #### [facility] [address] [address] [address] Che Arias Calcium [Mass/Vol] 8.9 mg/dL Normal 8.4-10.2 [facility] Comment on above: Performed By: #### B MP, LIVER, TSH, LIPID #### [facility] [address] [address] [address] Che Arias Chloride [Moles/Vol] 105 mmol/L Normal 98-107 [facility] Comment on above: Performed By: #### B MP, LIVER, TSH, LIPID #### [facility] [address] [place] [address] Dr. Che Arias CO2 [Moles/Vol] 23.2 mmol/L Normal 22.0-30.0 [facility] Comment on above: Performed By: #### B MP, LIVER, TSH, LIPID #### [facility] [address] [place] [address] Dr. Che Arias Creatinine [Mass/Vol] 0.78 mg/dL Normal 0.52-1.04 [facility] Comment on above: Performed By: #### B MP, LIVER, TSH, LIPID #### [facility] [address] [place] [address] Dr. Che Arias EGFR-AF BANGLADESHI >60 Normal >=60 [facility] Comment on above: Performed By: #### B MP, LIVER, TSH, LIPID #### [facility] [address] [place] [address] Dr. Che Arias EGFR-NON AF BANGLADESHI >60 Normal >=60 [facility] Comment on above: Performed By: #### B MP, LIVER, TSH, LIPID #### [facility] [address] [place] [address] Dr. Che Arias Glucose [Mass/Vol] 162 mg/dL Critically high 74-106 [facility] Comment on above: Performed By: #### B MP, LIVER, TSH, LIPID #### [facility] [address] [place] [address] Dr. Che Arias Potassium [Moles/Vol] 4.2 mmol/L Normal 3.4-5.0 [facility] Comment on above: Performed By: #### B MP, LIVER, TSH, LIPID #### [facility] [address] [place] [address] Dr. Che Arias Sodium [Moles/Vol] 141 mmol/L Normal 137-145 [facility] Comment on above: Performed By: #### B MP, LIVER, TSH, LIPID #### [facility] [address] [place] [address] Dr. Che Arias Urea nitrogen [Mass/Vol] 10.0 mg/dL Normal 7.0-17.0 [facility] Comment on above: Performed By: #### B MP, LIVER, TSH, LIPID #### [facility] [address] [place] [address] Dr. Che Arias Urea nitrogen/Creatinine [Mass ratio] 12.8 mg/mg Normal [facility] Comment on above: Performed By: #### B MP, LIVER, TSH, LIPID #### [facility] [address] [place] [address] Dr. Che Arias TSHon 05-18-2021 TSH 2.158 uIU/mL Normal 0.470-4.680 [facility] Comment on above: Performed By: #### B MP, LIVER, TSH, LIPID #### [facility] [address] [place] [address] Dr. Che Arias TSH RANGE SEE BELOW Normal [facility] Comment on above: Result Comment: <0.3 4 UIU/ml HYPERTHYROID 0.34-5.60 UIU/ml EUTHYROID >5.60 UIU/ml HYPOTHYROID Performed By: #### B MP, LIVER, TSH, LIPID #### [facility] [address] [place] [address] Dr. Che Arias VITAMIN D 25 OHon 05-18-2021 VIT D 25-OH 28.4 ng/mL Normal [facility] Comment on above: Performed By: #### V ITAD #### [facility] [address] [address] [address] Che Arias VIT D RANGES SEE BELOW Normal [facility] Comment on above: Result Comment: <20 ng/mL Vit D deficient 20 - <30 ng/mL Vit D insufficient 30 - 100 ng/mL Vit D sufficient >100 ng/mL Potential Toxicity Performed By: #### V ITAD #### [facility] [address] [address] [address] Che Arias COVID Quick Testingon 2021 Result Negative [employer] Other Vital Signs Date Time Vital Sign Value Performing Clinician Facility 07-15-2024 11:07-0400 Body height 162.6 cm Brian Urbina MD Work Phone: [facility] 07-15-2024 11:07-0400 Body mass index (BMI) [Ratio] 26.43 kg/m2 Brian Urbina MD Work Phone: [facility] 07-15-2024 11:07-0400 Body temperature 97.11 [degF] Brian Urbina MD Work Phone: [facility] 07-15-2024 11:07-0400 Body weight 69.85 kg Brian Urbina MD Work Phone: [facility] 07-15-2024 11:07-0400 Diastolic blood pressure 90 mm[Hg] Brian Urbina MD Work Phone: [facility] 07-15-2024 11:07-0400 Heart rate 105 /min Brian Urbina MD Work Phone: [facility] 07-15-2024 11:07-0400 Respiratory rate 24 /min Brian Urbina MD Work Phone: [facility] 07-15-2024 11:07-0400 SaO2% (BldA) [Mass fraction] 98 % Brian Urbina MD Work Phone: [facility] 07-15-2024 11:07-0400 Systolic blood pressure 140 mm[Hg] Brian Urbina MD Work Phone: [facility] 07-06-2024 13:54-0400 Body height 162.56 cm [facility] 07-06-2024 13:54-0400 Body mass index (BMI) [Ratio] 27.3 kg/m2 [facility] 07-06-2024 13:54-0400 Body temperature 98.9 [degF] [facility] 07-06-2024 13:54-0400 Body weight 72.17 kg [facility] 07-06-2024 13:54-0400 Diastolic blood pressure 97 mm[Hg] [facility] 07-06-2024 13:54-0400 Heart rate 80 /min [facility] 07-06-2024 13:54-0400 Respiratory rate 19 /min [facility] 07-06-2024 13:54-0400 SaO2% (BldA) [Mass fraction] 99 % [facility] 07-06-2024 13:54-0400 Systolic blood pressure 156 mm[Hg] [facility] 06-30-2024 09:03-0400 Body height 162.56 cm [facility] 06-30-2024 09:03-0400 Body mass index (BMI) [Ratio] 26.9 kg/m2 [facility] 06-30-2024 09:03-0400 Body temperature 98.4 [degF] [facility] 06-30-2024 09:03-0400 Body weight 71.21 kg [facility] 06-30-2024 09:03-0400 Diastolic blood pressure 83 mm[Hg] [facility] 06-30-2024 09:03-0400 Heart rate 80 /min [facility] 06-30-2024 09:03-0400 Respiratory rate 14 /min [facility] 06-30-2024 09:03-0400 SaO2% (BldA) [Mass fraction] 97 % [facility] 06-30-2024 09:03-0400 Systolic blood pressure 155 mm[Hg] [facility] 06-09-2024 10:25-0400 Body height 162.6 cm Brian Urbina MD Work Phone: [facility] 06-09-2024 10:25-0400 Body mass index (BMI) [Ratio] 26.26 kg/m2 Brian Urbina MD Work Phone: [facility] 06-09-2024 10:25-0400 Body temperature 96.6 [degF] Brian Urbina MD Work Phone: [facility] 06-09-2024 10:25-0400 Body weight 69.4 kg Brian Urbina MD Work Phone: [facility] 06-09-2024 10:25-0400 Diastolic blood pressure 84 mm[Hg] Biran Urbina MD Work Phone: [facility] 06-09-2024 10:25-0400 Heart rate 97 /min Brian Urbina MD Work Phone: [facility] 06-09-2024 10:25-0400 Respiratory rate 20 /min Brian Urbina MD Work Phone: [facility] 06-09-2024 10:25-0400 SaO2% (BldA) [Mass fraction] 98 % Brian Urbina MD Work Phone: [facility] 06-09-2024 10:25-0400 Systolic blood pressure 140 mm[Hg] Brian Urbina MD Work Phone: [facility] 05-30-2024 10:57-0400 Body height 162.56 cm [facility] 05-30-2024 10:57-0400 Body mass index (BMI) [Ratio] 26.8 kg/m2 [facility] 05-30-2024 10:57-0400 Body temperature 98.4 [degF] [facility] 05-30-2024 10:57-0400 Body weight 70.81 kg [facility] 05-30-2024 10:57-0400 Diastolic blood pressure 81 mm[Hg] [facility] 05-30-2024 10:57-0400 Heart rate 101 /min [facility] 05-30-2024 10:57-0400 Respiratory rate 18 /min [facility] 05-30-2024 10:57-0400 SaO2% (BldA) [Mass fraction] 97 % [facility] 05-30-2024 10:57-0400 Systolic blood pressure 132 mm[Hg] [facility] 05-13-2024 15:22-0400 Body height 162.56 cm [facility] 05-13-2024 15:22-0400 Body mass index (BMI) [Ratio] 27.4 kg/m2 [facility] 05-13-2024 15:22-0400 Body temperature 98.1 [degF] [facility] 05-13-2024 15:22-0400 Body weight 72.63 kg [facility] 05-13-2024 15:22-0400 Diastolic blood pressure 80 mm[Hg] [facility] 05-13-2024 15:22-0400 Heart rate 81 /min [facility] 05-13-2024 15:22-0400 Respiratory rate 18 /min [facility] 05-13-2024 15:22-0400 SaO2% (BldA) [Mass fraction] 97 % [facility] 05-13-2024 15:22-0400 Systolic blood pressure 119 mm[Hg] [facility] 04-15-2024 08:30-0500 Body height 162.6 cm Brian Urbina MD Work Phone: [facility] 04-15-2024 08:30-0500 Body mass index (BMI) [Ratio] 27.12 kg/m2 Brian Urbina MD Work Phone: [facility] 04-15-2024 08:30-0500 Body temperature 96.6 [degF] Brian Urbina MD Work Phone: [facility] 04-15-2024 08:30-0500 Body weight 71.67 kg Brian Urbina MD Work Phone: [facility] 04-15-2024 08:30-0500 Diastolic blood pressure 70 mm[Hg] Brian Urbina MD Work Phone: [facility] 04-15-2024 08:30-0500 Heart rate 74 /min Brian Urbina MD Work Phone: [facility] 04-15-2024 08:30-0500 Respiratory rate 20 /min Brian Urbina MD Work Phone: [facility] 04-15-2024 08:30-0500 SaO2% (BldA) [Mass fraction] 98 % Brian Urbina MD Work Phone: [facility] 04-15-2024 08:30-0500 Systolic blood pressure 106 mm[Hg] Brian Urbina MD Work Phone: [facility] 03-11-2024 07:18-0500 Body mass index (BMI) [Ratio] 27.98 kg/m2 Brian Urbina MD Work Phone: [facility] 03-11-2024 07:18-0500 Body temperature 97 [degF] Brian Urbina MD Work Phone: [facility] 03-11-2024 07:18-0500 Body weight 73.94 kg Brian Urbina MD Work Phone: [facility] 03-11-2024 07:18-0500 Diastolic blood pressure 68 mm[Hg] Brian Urbina MD Work Phone: [facility] 03-11-2024 07:18-0500 Heart rate 75 /min Brian Urbina MD Work Phone: [facility] 03-11-2024 07:18-0500 SaO2% (BldA) [Mass fraction] 98 % Brian Urbina MD Work Phone: [facility] 03-11-2024 07:18-0500 Systolic blood pressure 118 mm[Hg] Brian Urbina MD Work Phone: [facility] 02-03-2024 08:37-0500 Body mass index (BMI) [Ratio] 28.25 kg/m2 Tuan Wells DO Work Phone: [facility] 02-03-2024 08:37-0500 Body weight 74.66 kg Christopher Priscilla DO Work Phone: [facility] 02-03-2024 08:37-0500 Diastolic blood pressure 92 mm[Hg] Christopher Priscilla DO Work Phone: [facility] 02-03-2024 08:37-0500 Heart rate 75 /min Christopher Priscilla DO Work Phone: [facility] 02-03-2024 08:37-0500 SaO2% (BldA) [Mass fraction] 98 % Christopher Priscilla DO Work Phone: [facility] 02-03-2024 08:37-0500 Systolic blood pressure 152 mm[Hg] Christopher Priscilla DO Work Phone: [facility] 01-21-2024 13:46-0500 Body height 162.6 cm Brian Urbina MD Work Phone: [facility] 01-21-2024 13:46-0500 Body mass index (BMI) [Ratio] 28.15 kg/m2 Brian Urbina MD Work Phone: [facility] 01-21-2024 13:46-0500 Body temperature 96.6 [degF] Brian Urbina MD Work Phone: [facility] 01-21-2024 13:46-0500 Body weight 74.39 kg Brian Urbina MD Work Phone: [facility] 01-21-2024 13:46-0500 Diastolic blood pressure 100 mm[Hg] Brian Urbina MD Work Phone: [facility] 01-21-2024 13:46-0500 Heart rate 94 /min Brian Urbina MD Work Phone: [facility] 01-21-2024 13:46-0500 Respiratory rate 22 /min Brian Urbina MD Work Phone: [facility] 01-21-2024 13:46-0500 SaO2% (BldA) [Mass fraction] 98 % Brian Urbina MD Work Phone: [facility] 01-21-2024 13:46-0500 Systolic blood pressure 154 mm[Hg] Brian Urbina MD Work Phone: [facility] 01-13-2024 09:58-0500 Diastolic blood pressure 86 mm[Hg] [facility] 01-13-2024 09:58-0500 Systolic blood pressure 144 mm[Hg] [facility] 01-13-2024 09:45-0500 Body height 162.56 cm [facility] 01-13-2024 09:45-0500 Body mass index (BMI) [Ratio] 29 kg/m2 [facility] 01-13-2024 09:45-0500 Body temperature 98.2 [degF] [facility] 01-13-2024 09:45-0500 Body weight 76.65 kg [facility] 01-13-2024 09:45-0500 Heart rate 77 /min [facility] 01-13-2024 09:45-0500 Respiratory rate 16 /min [facility] 01-13-2024 09:45-0500 SaO2% (BldA) [Mass fraction] 98 % [facility] 01-02-2024 09:50-0400 Body height 162.6 cm Brian Urbina MD Work Phone: [facility] 01-02-2024 09:50-0400 Body mass index (BMI) [Ratio] 28.15 kg/m2 Brian Urbina MD Work Phone: [facility] 01-02-2024 09:50-0400 Body temperature 97.5 [degF] Brian Urbina MD Work Phone: [facility] 01-02-2024 09:50-0400 Body weight 74.39 kg Brian Urbina MD Work Phone: [facility] 01-02-2024 09:50-0400 Diastolic blood pressure 64 mm[Hg] Brian Urbina MD Work Phone: [facility] 01-02-2024 09:50-0400 Heart rate 89 /min Brian Urbina MD Work Phone: [facility] 01-02-2024 09:50-0400 Respiratory rate 22 /min Brian Urbina MD Work Phone: [facility] 01-02-2024 09:50-0400 SaO2% (BldA) [Mass fraction] 98 % Brian Urbina MD Work Phone: [facility] 01-02-2024 09:50-0400 Systolic blood pressure 148 mm[Hg] Brian Urbina MD Work Phone: [facility] 12-19-2023 14:00-0400 Body height 162.6 cm Brian Urbina MD Work Phone: [facility] 12-19-2023 14:00-0400 Body mass index (BMI) [Ratio] 28.49 kg/m2 Brian Urbina MD Work Phone: [facility] 12-19-2023 14:00-0400 Body temperature 97.11 [degF] Brian Urbina MD Work Phone: [facility] 12-19-2023 14:00-0400 Body weight 75.3 kg Brian Urbina MD Work Phone: [facility] 12-19-2023 14:00-0400 Diastolic blood pressure 76 mm[Hg] Brian Urbina MD Work Phone: [facility] 12-19-2023 14:00-0400 Heart rate 92 /min Brian Urbina MD Work Phone: [facility] 12-19-2023 14:00-0400 Respiratory rate 20 /min Brian Urbina MD Work Phone: [facility] 12-19-2023 14:00-0400 SaO2% (BldA) [Mass fraction] 99 % Brian Urbina MD Work Phone: [facility] 12-19-2023 14:00-0400 Systolic blood pressure 134 mm[Hg] Brian Urbina MD Work Phone: [facility] 12-12-2023 10:26-0400 Body height 162.6 cm Brian Urbina MD Work Phone: [facility] 12-12-2023 10:26-0400 Body mass index (BMI) [Ratio] 28.32 kg/m2 Brian Urbina MD Work Phone: [facility] 12-12-2023 10:26-0400 Body temperature 95.11 [degF] Brian Urbina MD Work Phone: [facility] 12-12-2023 10:26-0400 Body weight 74.84 kg Brian Urbina MD Work Phone: [facility] 12-12-2023 10:26-0400 Diastolic blood pressure 90 mm[Hg] Brian Urbina MD Work Phone: [facility] 12-12-2023 10:26-0400 Heart rate 88 /min Brian Urbina MD Work Phone: [facility] 12-12-2023 10:26-0400 Respiratory rate 20 /min Brian Urbina MD Work Phone: [facility] 12-12-2023 10:26-0400 SaO2% (BldA) [Mass fraction] 98 % Brian Urbina MD Work Phone: [facility] 12-12-2023 10:26-0400 Systolic blood pressure 142 mm[Hg] Brian Urbina MD Work Phone: [facility] 12-04-2023 07:16-0400 Body height 162.6 cm Brian Urbina MD Work Phone: [facility] 12-04-2023 07:16-0400 Body mass index (BMI) [Ratio] 29.35 kg/m2 Brian Urbina MD Work Phone: [facility] 12-04-2023 07:16-0400 Body temperature 96.6 [degF] Brian Urbina MD Work Phone: [facility] 12-04-2023 07:16-0400 Body weight 77.56 kg Brian Urbina MD Work Phone: [facility] 12-04-2023 07:16-0400 Diastolic blood pressure 70 mm[Hg] Brian Urbina MD Work Phone: [facility] 12-04-2023 07:16-0400 Heart rate 67 /min Brian Urbina MD Work Phone: [facility] 12-04-2023 07:16-0400 Respiratory rate 20 /min Brian Urbina MD Work Phone: [facility] 12-04-2023 07:16-0400 SaO2% (BldA) [Mass fraction] 97 % Brian Urbina MD Work Phone: [facility] 12-04-2023 07:16-0400 Systolic blood pressure 120 mm[Hg] Brian Urbina MD Work Phone: [facility] 11-22-2023 11:16-0400 Body height 162.6 cm Brian Urbina MD Work Phone: [facility] 11-22-2023 11:16-0400 Body mass index (BMI) [Ratio] 29.52 kg/m2 Brian Urbina MD Work Phone: [facility] 11-22-2023 11:16-0400 Body temperature 97.3 [degF] Brian Urbina MD Work Phone: [facility] 11-22-2023 11:16-0400 Body weight 78.02 kg Brian Urbina MD Work Phone: [facility] 11-22-2023 11:16-0400 Diastolic blood pressure 62 mm[Hg] Brian Urbina MD Work Phone: [facility] 11-22-2023 11:16-0400 Heart rate 98 /min Brian Urbina MD Work Phone: [facility] 11-22-2023 11:16-0400 Respiratory rate 20 /min Brian Urbina MD Work Phone: [facility] 11-22-2023 11:16-0400 SaO2% (BldA) [Mass fraction] 99 % Brian Urbina MD Work Phone: [facility] 11-22-2023 11:16-0400 Systolic blood pressure 136 mm[Hg] Brian Urbina MD Work Phone: [facility] 05-17-2023 13:23-0400 Diastolic blood pressure 96 mm[Hg] [facility] 05-17-2023 13:23-0400 Systolic blood pressure 154 mm[Hg] [facility] 05-17-2023 13:00-0400 Body height 1920.24 cm [facility] 05-17-2023 13:00-0400 Body mass index (BMI) [Ratio] 0.2 kg/m2 [facility] 05-17-2023 13:00-0400 Body temperature 98 [degF] [facility] 05-17-2023 13:00-0400 Body weight 95.25 kg [facility] 05-17-2023 13:00-0400 Heart rate 99 /min [facility] 05-17-2023 13:00-0400 Respiratory rate 18 /min [facility] 05-17-2023 13:00-0400 SaO2% (BldA) [Mass fraction] 98 % [facility] 04-05-2023 11:02-0500 Body height 162.6 cm Brian Urbina MD Work Phone: [facility] 04-05-2023 11:02-0500 Body mass index (BMI) [Ratio] 37.59 kg/m2 Brian Urbina MD Work Phone: [facility] 04-05-2023 11:02-0500 Body temperature 97.3 [degF] Brian Urbina MD Work Phone: [facility] 04-05-2023 11:02-0500 Body weight 99.34 kg Brian Urbina MD Work Phone: [facility] 04-05-2023 11:02-0500 Diastolic blood pressure 80 mm[Hg] Brian Urbina MD Work Phone: [facility] 04-05-2023 11:02-0500 Heart rate 93 /min Brian Urbina MD Work Phone: [facility] 04-05-2023 11:02-0500 SaO2% (BldA) [Mass fraction] 98 % Brian Urbina MD Work Phone: [facility] 04-05-2023 11:02-0500 Systolic blood pressure 140 mm[Hg] Brian Urbina MD Work Phone: [facility] 06-08-2022 10:10-0400 Body height 160.02 cm Helen Akers Other [employer] Other 06-08-2022 10:10-0400 Body mass index (BMI) [Ratio] 38.79 kg/m2 Helen Akers Other [employer] Other 06-08-2022 10:10-0400 Body temperature 97.6 [degF] Helen Akers Other [employer] Other 06-08-2022 10:10-0400 Body weight 99.34 kg Helen Lakhanimond Other [employer] Other 06-08-2022 10:10-0400 Respiratory rate 18 /min Helen Akers Other [employer] Other 06-08-2022 10:10-0400 SaO2% (BldA) [Mass fraction] 96 % Helen Lakhanimond Other [employer] Other 03-27-2022 16:00-0500 Body height 160.02 cm Fabiola Bernardo Other [employer] Other 03-27-2022 16:00-0500 Body mass index (BMI) [Ratio] 38.97 kg/m2 Fabiola Bernardo Other [employer] Other 03-27-2022 16:00-0500 Body temperature 97.1 [degF] Fabiola Solimanault Other [employer] Other 03-27-2022 16:00-0500 Body weight 99.79 kg Fabiola Bernardo Other [employer] Other 03-27-2022 16:00-0500 Respiratory rate 18 /min Fabiola Bernardo Other [employer] Other 03-27-2022 16:00-0500 SaO2% (BldA) [Mass fraction] 91 % Fabiola Bernardo Other [employer] Other 02-09-2022 10:10-0500 Body height 160.02 cm Helen Delphine Other [employer] Other 02-09-2022 10:10-0500 Body mass index (BMI) [Ratio] 38.97 kg/m2 Helen Delphine Other [employer] Other 02-09-2022 10:10-0500 Body temperature 94.6 [degF] Helen Delphine Other [employer] Other 02-09-2022 10:10-0500 Body weight 99.79 kg Helen Delphine Other [employer] Other 02-09-2022 10:10-0500 Respiratory rate 18 /min Helen Akers Other [employer] Other 02-09-2022 10:10-0500 SaO2% (BldA) [Mass fraction] 98 % Helen Akers Other [employer] Other 12-11-2021 18:15-0400 Body height 160.02 cm Fabiola Solimanault Other [employer] Other 12-11-2021 18:15-0400 Body mass index (BMI) [Ratio] 38.97 kg/m2 Fabiola Solimanault Other [employer] Other 12-11-2021 18:15-0400 Body temperature 97.2 [degF] Fabiola Az Other [employer] Other 12-11-2021 18:15-0400 Body weight 99.79 kg Fabiola Solimanault Other [employer] Other 12-11-2021 18:15-0400 Diastolic blood pressure 94 mm[Hg] Fabiola Az Other [employer] Other 12-11-2021 18:15-0400 Respiratory rate 18 /min Fabiola Az Other [employer] Other 12-11-2021 18:15-0400 SaO2% (BldA) [Mass fraction] 98 % Fabiola Az Other [employer] Other 12-11-2021 18:15-0400 Systolic blood pressure 148 mm[Hg] Fabiola Az Other [employer] Other 07-12-2021 11:35-0400 Body height 160.02 cm Helen Akers Other [employer] Other 07-12-2021 11:35-0400 Body mass index (BMI) [Ratio] 39.5 kg/m2 Helen Akers Other [employer] Other 07-12-2021 11:35-0400 Body temperature 97.2 [degF] Helen Akers Other [employer] Other 07-12-2021 11:35-0400 Body weight 101.15 kg Helen Akers Other [employer] Other 07-12-2021 11:35-0400 Diastolic blood pressure 99 mm[Hg] Helen Akers Other [employer] Other 07-12-2021 11:35-0400 Respiratory rate 16 /min Helen Akers Other [employer] Other 07-12-2021 11:35-0400 SaO2% (BldA) [Mass fraction] 100 % Helen Akers Other [employer] Other 07-12-2021 11:35-0400 Systolic blood pressure 142 mm[Hg] Helen Delphine Other [employer] Other Encounters Encounter Date Encounter Type Care Provider Facility Start: 07-15-2024 End: 07-15-2024 Bright Urbina MD Work Phone: [facility] Start: 07-15-2024 End: 07-15-2024 Bright Urbina MD Work Phone: [facility] Start: 07-15-2024 End: 07-15-2024 Office outpatient visit 25 minutes Brian Urbina MD Work Phone: [facility] Comment on above: Vestibular migraine (CMS/HCC) (Primary Dx); Generalized anxiety disorder (CMS/HCC); Type 2 diabetes mellitus with hyperglycemia, without long-term current use of insulin (CMS/HCC); Bipolar affective, mixed (HCC) (CMS/HCC); Annual physical exam; Dyslipidemia (CMS/HCC); Type 2 diabetes mellitus with other specified complication Start: 07-15-2024 End: 07-15-2024 Patient encounter procedure Brian Urbina MD Work Phone: [facility] Start: 07-15-2024 End: 07-15-2024 ambulatory BRIAN URBINA Not Available Start: 07-06-2024 End: 07-06-2024 ambulatory [facility] Work Phone: Start: 07-06-2024 End: 07-06-2024 Patient encounter procedure [facility] Work Phone: Start: 06-30-2024 End: 06-30-2024 Refill Brian Urbina MD Work Phone: [facility] Comment on above: Generalized anxiety disorder (CMS/HCC); Vestibular migraine (CMS/HCC) Start: 06-30-2024 End: 06-30-2024 Patient encounter procedure [facility] Work Phone: Start: 06-09-2024 End: 06-09-2024 Bamboo flowsheet Brian Urbina MD Work Phone: [facility] Start: 06-09-2024 End: 06-09-2024 Bamboo flowsheet Brian Urbina MD Work Phone: [facility] Start: 06-09-2024 End: 06-09-2024 Office outpatient visit 15 minutes Brian Urbina MD Work Phone: [facility] Comment on above: Viral gastroenteriti s (Primary Dx); Vestibular migraine (CMS/HCC) Start: 06-09-2024 End: 06-09-2024 ambulatory BRIAN URBINA Not Available Start: 05-31-2024 End: 06-01-2024 Refill Brian Urbina MD Work Phone: [facility] Comment on above: Generalized anxiety disorder (CMS/HCC) Start: 05-30-2024 End: 05-30-2024 ambulatory [facility] Work Phone: Start: 05-30-2024 End: 05-30-2024 Patient encounter procedure [facility] Work Phone: Start: 05-13-2024 End: 05-13-2024 ambulatory [facility] Work Phone: Start: 05-13-2024 End: 05-13-2024 Patient encounter procedure [facility] Work Phone: Start: 04-15-2024 End: 04-15-2024 Bamboo flowsheet Brian Urbina MD Work Phone: [facility] Start: 04-15-2024 End: 04-15-2024 Bamboo flowsheet Brian Urbina MD Work Phone: [facility] Start: 04-15-2024 End: 04-15-2024 Office outpatient visit 25 minutes Brian Urbina MD Work Phone: [facility] Comment on above: Type 2 diabetes karrie itus with hyperglycemia, without long-term current use of insulin (CMS/HCC) (Primary Dx); Essential hypertension, benign (CMS/HCC); Bipolar affective, mixed (HCC) (CMS/HCC); Generalized anxiety disorder (CMS/HCC); Vestibular migraine (CMS/HCC) Start: 04-15-2024 End: 04-15-2024 ambulatory BRIAN URBINA Not Available Start: 04-05-2024 End: 04-06-2024 Cici Urbina MD Work Phone: [facility] Comment on above: Generalized anxiety disorder (CMS/HCC) Start: 03-11-2024 End: 03-11-2024 Bamboo flowsheet Brian Urbina MD Work Phone: [facility] Start: 03-11-2024 End: 03-11-2024 Bamboo flowsheet Brian Urbina MD Work Phone: [facility] Start: 03-11-2024 End: 03-11-2024 Office outpatient visit 25 minutes Brian Urbina MD Work Phone: [facility] Comment on above: Type 2 diabetes karrie itus with hyperglycemia, without long-term current use of insulin (CMS/HCC) (Primary Dx); Essential hypertension, benign (CMS/HCC); Bipolar affective, mixed (HCC) (CMS/HCC); Generalized anxiety disorder (CMS/HCC); Vestibular migraine (CMS/HCC) Start: 03-11-2024 End: 03-11-2024 ambulatory BRIAN URBINA Not Available Start: 03-03-2024 End: 03-05-2024 Reffede Urbina MD Work Phone: [facility] Comment on above: Generalized anxiety disorder (CMS/HCC) Start: 02-03-2024 End: 02-03-2024 Bamboo flowsheet Tuan Wells DO Work Phone: [facility] Start: 02-03-2024 End: 02-03-2024 Bamboo flowsheet Tuan Wells DO Work Phone: [facility] Start: 02-03-2024 End: 02-03-2024 Office outpatient new 45 minutes Tuan Wells DO Work Phone: [facility] Comment on above: Chronic migraine wit hout aura without status migrainosus, not intractable (CMS/HCC) (Primary Dx); Psychiatric disturbance Start: 02-03-2024 End: 02-03-2024 ambulatory TUAN WELLS Not Available Start: 01-29-2024 End: 01-29-2024 Refill Brian Urbina MD Work Phone: [facility] Comment on above: Generalized anxiety disorder (CMS/HCC) Start: 01-21-2024 End: 01-21-2024 Bamboo flowsheet Brian Urbina MD Work Phone: [facility] Start: 01-21-2024 End: 01-21-2024 Bamboo flowsheet Brian Urbina MD Work Phone: [facility] Start: 01-21-2024 End: 01-21-2024 Office outpatient visit 25 minutes Brian Urbina MD Work Phone: [facility] Comment on above: Vestibular migraine (CMS/HCC) (Primary Dx); Bipolar affective, mixed (HCC) (CMS/HCC); Generalized anxiety disorder (CMS/HCC) Start: 01-21-2024 End: 01-21-2024 ambulatory BRIAN URBINA Not Available Start: 01-13-2024 End: 01-13-2024 ambulatory [facility] Work Phone: Start: 01-13-2024 End: 01-13-2024 Patient encounter procedure [facility] Work Phone: Start: 01-09-2024 End: 01-09-2024 Refill Brian Urbina MD Work Phone: [facility] [...] URBINA Not Available Start: 11-22-2023 End: 11-22-2023 Bamboo flowsheet Brian Urbina MD Work Phone: [facility] Start: 11-22-2023 End: 11-22-2023 Bamboo flowsheet Brian Urbina MD Work Phone: [facility] Start: 11-22-2023 End: 11-22-2023 Office outpatient visit 25 minutes Brian Urbina MD Work Phone: [facility] Comment on above: Vestibular migraine (CMS/HCC) (Primary Dx); Generalized anxiety disorder (CMS/HCC); Bipolar affective, mixed (HCC) (CMS/HCC) Start: 11-22-2023 End: 11-22-2023 ambulatory BRIAN URBINA Not Available Start: 09-02-2023 End: 09-02-2023 ambulatory BRIAN SHAANR Not Available Start: 07-24-2023 End: 07-24-2023 ambulatory BRIAN SHAANR Not Available Start: 05-17-2023 End: 05-17-2023 ambulatory [facility] Work Phone: Start: 05-17-2023 End: 05-17-2023 Patient encounter procedure [facility] Work Phone: Start: 04-05-2023 Bamboo flowsheet Brian Urbina MD Work Phone: [facility] Start: 04-05-2023 Bamboo flowsheet Brian Urbina MD [...] disease without esophagitis; Vestibular migraine (CMS/HCC) Start: 06-08-2022 End: 06-08-2022 ambulatory Helen Akers Other [employer] Other Start: 06-08-2022 Office outpatient vi sit 15 minutes Helen Delphine [facility] Start: 03-27-2022 End: 03-27-2022 ambulatory Fabiolarafat Bernardo Other [employer] Other Start: 03-27-2022 Office outpatient vi sit 15 minutes Fabiola Az [facility] Start: 02-09-2022 End: 02-09-2022 ambulatory Helenkylee Akers Other [employer] Other Start: 02-09-2022 Office outpatient vi sit 15 minutes Helen Delphine [facility] Start: 12-11-2021 End: 12-11-2021 ambulatory Fabiolarafat Bernardo Other [employer] Other Start: 12-11-2021 Office outpatient vi sit 15 minutes Fabiolarafat Bernardo [facility] Start: 10-17-2021 End: 10-17-[address] BRIAN URBINA Facility:[facility] Start: 08-18-2021 End: 08-19-2021 ambulatory SHANKAR PACHECO Facility:[facility] Start: 07-26-2021 End: 09-16-[address] BRIAN URBINA Facility:[facility] Start: 07-26-2021 End: 07-27-[address] BRIAN URBINA Facility:[facility] Start: 07-12-2021 End: 07-12-2021 ambulatory Helen Akers Other [employer] Other Start: 07-12-2021 Office outpatient vi sit 15 minutes Helen Delphine [facility] Start: 05-22-2021 Encounter for genera l adult medical examination without abnormal findings DR BRIAN URBINA [facility] Start: 05-18-2021 End: 05-19-[address] BRIAN URBINA Facility:[facility] Start: 05-18-2021 End: 05-19-2021 Encounter for general adult medical examination without abnormal findings DR BRIAN URBINA Facility:[facility] Start: 03-27-2021 End: 03-27-2021 ambulatory Fabiola Bernardo Other [employer] Other Start: 03-27-2021 Office outpatient vi sit 5 minutes Fabiolarafat Bernardo [facility] Procedures Date Procedure Procedure Detail Performing Clinician Start: 12-13-2023 MLR HEMOGLOBIN A1C Brian Urbina MD Work Phone: Plan of Treatment Date Care Activity Detail Author Start: 12-12-2024 Urine screening for protein Diabetes: Urine Protein Screening [facility] Start: 10-14-2024 End: 10-14-2024 Patient encounter procedure 10/14/2024 8:00 AM EDT Office Visit [facility] [address] [place] [address] Brian Urbina MD [address] [place] [phone] [facility] Start: 08-27-2024 End: 08-27-2024 Patient encounter procedure 08/27/2024 9:40 AM EDT Office Visit [facility] [place] [address] [place] [address] Marj Larry NP [address] [place] [phone] [facility] Start: 08-13-2024 End: 08-13-2024 Patient encounter procedure 08/13/2024 9:45 AM EDT Office Visit [facility] [address] [place] [address] Brian Urbina MD [address] [place] [phone] [facility] Start: 07-15-2024 End: 07-15-2025 Basic metabolic 1998 panel - Serum or Plasma Basic metabolic panel Lab Routine Annual physical exam Expected: 07/15/2024 (Approximate), Expires: 07/15/2025 [facility] Comment on above: Expected: 07/15/2024 (Approximate), Expires: 07/15/2025 Start: 07-15-2024 End: 07-15-2025 CBC W Auto Differential panel - Blood CBC and differential Lab Routine Annual physical exam Expected: 07/15/2024 (Approximate), Expires: 07/15/2025 [facility] Comment on above: Expected: 07/15/2024 (Approximate), Expires: 07/15/2025 Start: 07-15-2024 End: 07-15-2025 Hemoglobin A1c/Hemoglobin.total in Blood Hemoglobin A1c Lab Routine Annual physical exam Expected: 07/15/2024 (Approximate), Expires: 07/15/2025 [facility] Work Phone: Comment on above: Expected: 07/15/2024 (Approximate), Expires: 07/15/2025 Start: 07-15-2024 End: 07-15-2025 Hepatic function 2000 panel - Serum or Plasma Hepatic function panel Lab Routine Annual physical exam Expected: 07/15/2024 (Approximate), Expires: 07/15/2025 [facility] Comment on above: Expected: 07/15/2024 (Approximate), Expires: 07/15/2025 Start: 07-15-2024 End: 07-15-2025 Lipid 1996 panel - Serum or Plasma Lipid panel Lab Routine Annual physical exam Expected: 07/15/2024 (Approximate), Expires: 07/15/2025 [facility] Comment on above: Expected: 07/15/2024 (Approximate), Expires: 07/15/2025 Start: 07-15-2024 End: 07-15-2025 Thyrotropin [Units/volume] in Serum or Plasma TSH Lab Routine Annual physical exam Expected: 07/15/2024 (Approximate), Expires: 07/15/2025 [facility] Comment on above: Expected: 07/15/2024 (Approximate), Expires: 07/15/2025 Start: 07-15-2024 End: 07-15-2025 Thyroxine (T4) free [Mass/volume] in Serum or Plasma T4, free Lab Routine Annual physical exam Expected: 07/15/2024 (Approximate), Expires: 07/15/2025 [facility] Comment on above: Expected: 07/15/2024 (Approximate), Expires: 07/15/2025 Start: 07-15-2024 End: 07-15-2025 Triiodothyronine (T3) Free [Mass/volume] in Serum or Plasma T3, free Lab Routine Annual physical exam Expected: 07/15/2024 (Approximate), Expires: 07/15/2025 [facility] Comment on above: Expected: 07/15/2024 (Approximate), Expires: 07/15/2025 Start: 07-15-2024 End: 07-15-2024 Patient encounter procedure 07/15/2024 11:15 AM EDT Office Visit [facility] [address] [place] [phone] Brian Urbina MD [address] [place] [phone] Arrived [facility] Comment on above: Arrived Start: 07-14-2024 End: 07-14-2024 Patient encounter procedure 07/14/2024 1:30 PM EDT Office Visit [facility] [address] [place] [phone] Brian Urbina MD [address] [place] [phone] [facility] Start: 07-01-2024 End: 07-01-2024 Patient encounter procedure 07/01/2024 9:00 AM EDT Office Visit [facility] [place] [address] [place] [phone] Marj Larry NP [address] [place] [phone] [facility] Start: 06-12-2024 Hemoglobin A1c measurement Wendy betes: Hemoglobin A1C [facility] Start: 06-11-2024 Glaucoma screening Diabetes: R etinopathy Screening [facility] Start: 06-09-2024 End: 06-09-2024 Patient encounter procedure 06/09/2024 10:15 AM EDT Office Visit [facility] [address] [place] [phone] Brian Urbina MD [address] [place] [phone] Arrived [facility] Comment on above: Arrived Start: 04-30-2024 End: 04-30-2024 Patient encounter procedure 04/30/2024 8:20 AM EST Office Visit [facility] [place] [address] [place] [address] Laron Marj, AMEYA [address] [place] [phone] [facility] Start: 04-15-2024 End: 04-15-2024 Patient encounter procedure [facility] Comment on above: Arrived Start: 04-06-2024 End: 04-06-2024 Patient encounter procedure [facility] Start: 03-11-2024 End: 03-11-2024 Patient encounter procedure [facility] Comment on above: Arrived Start: 02-03-2024 End: 02-03-2024 Patient encounter procedure [facility] Comment on above: Vestibular migraine (CMS/HCC) Start: 01-21-2024 End: 01-21-2024 Patient encounter procedure 01/21/2024 1:45 PM EST Office Visit [facility] [address] [place] [phone] Brian Urbina MD [address] [place] [phone] Arrived [facility] Comment on above: Arrived Start: 01-02-2024 End: 01-02-2024 Patient encounter procedure 01/02/2024 10:00 AM EDT Office Visit [facility] [address] [place] [phone] Brian Urbina MD [address] [place] [phone] Arrived [facility] Comment on above: Arrived Start: 12-19-2023 End: 12-19-2023 Patient encounter procedure 12/19/2023 2:00 PM EDT Office Visit [facility] [address] [place] [address] Brian Urbina MD [address] [place] [phone] Arrived [facility] Comment on above: Arrived Start: 12-12-2023 End: 12-12-2023 Patient encounter procedure 12/12/2023 10:30 AM EDT Office Visit [facility] [address] [place] [address] Brian Urbina MD [address] [place] [phone] Arrived [facility] Comment on above: Arrived Start: 12-04-2023 End: 12-04-2023 Patient encounter procedure [facility] Comment on above: Arrived Start: 11-22-2023 End: 11-22-2023 Patient encounter procedure 11/22/2023 11:15 AM EDT Office Visit [facility] [address] [place] [address] Brian Urbina MD [address] [place] [phone] Arrived [facility] Comment on above: Arrived Start: 11-03-2023 Influenza vaccination Influenza Vacc ine (#1) [facility] Start: 06-03-2023 End: 06-03-2023 Patient encounter procedure 06/03/2023 8:00 AM EDT Office Visit [facility] [address] [place] [address] Brian Urbina MD [address] [place] [phone] [facility] Start: 04-05-2023 End: 04-05-2023 Patient encounter procedure 04/05/2023 11:00 AM EST Office Visit [facility] [address] [place] [address] Brian Urbina MD [address] [place] [address] Arrived [facility] Comment on above: Arrived Start: 2010 Screening for malign ant neoplasm of breast Mammogram [facility] Start: 2000 Screening for malign ant neoplasm of cervix [facility] Start: 08-21-1991 Screening for malign ant neoplasm of cervix Pap Smear [facility] Start: 1989 Urine screening for protein Diabetes: Urine Protein Screening [facility] Start: 1980 Glaucoma screening Diabetes: R etinopathy Screening [facility] Start: 1970 Hemoglobin A1c measurement Wendy betes: Hemoglobin A1C [facility] Start: 1970 Screening for malign ant neoplasm of colon [facility] Immunizations Immunization Date Immunization Notes Care Provider Fa cility 01-08-2024 influenza virus vacc ine, unspecified formulation Brian Urbina MD Work Phone: [facility] 11-24-2022 influenza virus vacc ine, unspecified formulation Brian Urbina MD Work Phone: [facility] Payers Date Payer Category Payer [facility] [id number] 2023 Unknown [id number] 2022 Unknown [id number] 1970 Unknown [id number] [id number] 9.2.593 1970 Unknown [id number] 2.16.840.1.585730.3.57 9.2.593 1970 Unknown [id number] 2.16.840.1.618871.3.57 9.2.593 1970 Unknown [id number] [id number] 9.2.593 1970 Unknown [id number] 2.16.840.1.867787.3.57 9.2.593 1970 Unknown [id number] 2.16840.1.259270.3.57 9.2.125 1970 Unknown [id number] 2.840.1.327742.3.57 9.2.1259 1970 Unknown [id number] 2.840.1.519977.3.57 9.2.1259 1970 Unknown [id number] 2.16840.1.313835.3.57 9.2.125 1970 Unknown [id number] 2.840.1.366285.3.57 9.2.125 1970 Unknown [id number] 2.16840.1.690798.3.57 9.2.1259 1970 Unknown [id number] 2.840.1.730051.3.57 9.2.125 1970 Unknown [id number] 2.16840.1.458780.3.57 9.2.125 1970 Unknown [id number] 1970 Unknown [id number] 1970 Unknown [id number] 9.2.125 1970 Unknown [id number] 1970 Unknown [id number] 1959 Unknown [id number] [facility] [id number] Self-pay Self Pay [id number] Unknown Rahul BC/BS [id number] Unknown [facility] [id number] Social History Date Type Detail Facility Unknown if ever smoked [employer] Other Start: 04-03-2023 End: 06-08-2024 Sex Assigned At [facility] Start: 03-22-2023 End: 04-05-2023 Tobacco smoking status NVIS Never smoked tobacco [facility] Start: 04-03-2023 End: 06-08-2024 History of Social function [facility] Within [...] Start: 1970 Sex Assigned At Female F [facility] Start: 01-13-2024 End: 07-06-2024 Sex Female (finding) [facility] How hard is it for y ou to pay for the very basics like food, housing, medical care, and heating Not very hard [facility] (I/We) worried wheth er (my/our) food would run out before (I/we) got money to buy more. Never true [facility] Clinical Notes 03-27-2021 to 07-15-2024 Brian Urbina MD - 07/15/2024 11:38 AM Chichi Urbina MD - 07/15/2024 11:38 AM Chichi Urbina MD - 07/15/2024 11:37 AM Chichi Urbina MD - 07/15/2024 11:37 AM EDT Note Date & Type Note Facility 07-15-2024 History of Presen t illness Narrative Associated Problem(s): Dyslipidemia (CMS/HCC) Repeat labs. Associated Problem(s): Type 2 diabetes mellitus with hyperglycemia, without long-term current use of insulin (CMS/HCC) BS controlled but possible side effects from ozempic and stop. Due for A1C. Stick to ADA diet and limit carbs. Associated Problem(s): Vestibular migraine (CMS/HCC) DEJESUS worse with increased anxiety. Follow with neurology. Off work 07/06-08/16 and return 08/17. Associated Problem(s): Generalized anxiety disorder (CMS/HCC) Continues to have severe symptoms and increase zyprexa. Continue zoloft and use xanax PRN. Images from the original note were not included. Subjective Patient ID: Amanda Hong is a 53 y.o. female who presents for Follow-up ([facility] er f/up). ER follow up from 07/06 for nausea, vomiting, and anxiety. Continues to have severe anxiety. Nervous and worry all the time. Stressed out and overwhelmed. Thought racing and hard to clear mind. Arzola, irritable and snapping at others. Easily upset and overreact. Frequently waking up with anxiety attacks. Using xanax PRN and not much relief. Anxiety triggering migraines and making symptoms worse. Develops severe vertigo, nausea, and vomiting with migraine. Not functioning well and hard to eat. Off work since 07/06 due to symptoms. Concerned anxiety and nausea worse since taking ozempic. Review of Systems Respiratory: Negative for cough, [...] This Visit Bipolar affective, mixed (HCC) (CMS/HCC) Generalized anxiety disorder (CMS/HCC) Continues to have severe symptoms and increase zyprexa. Continue zoloft and use xanax PRN. Dyslipidemia (CMS/HCC) Repeat labs. Type 2 diabetes mellitus with hyperglycemia, without long-term current use of insulin (CMS/HCC) BS controlled but possible side effects from ozempic and stop. Due for A1C. Stick to ADA diet and limit carbs. Vestibular migraine (CMS/HCC) - Primary DEJESUS worse with increased anxiety. Follow with neurology. Off work 07/06-08/16 and return 08/17. Other Visit Diagnoses Annual physical exam Relevant Orders Hemoglobin A1c Basic metabolic panel CBC and differential Hepatic function panel Lipid panel TSH T4, free T3, free documented in this encounter [facility] 06-09-2024 History of Presen t illness Narrative Associated Problem(s): Viral gastroenteritis Symptoms due to virus and may take up to 10-14 days to resolve. Increase clear liquids. Give small sips of water, pedialyte or gatorade. If excess vomiting, nothing oral x 4-5 hours then start small amounts or sips of liquids every 15 minutes. Common to have diarrhea with this illness. No solids x 24 hours then gradually advance diet starting with crackers, toast, bananas, applesauce. Warned signs of dehydration such as dry mouth or decreased urine output. Wash hands frequently to prevent spread. Images from the original note were not included. Subjective Patient ID: Amanda Hong is a 53 y.o. female who presents for Follow-up (NAUSEA, VOMITING, DIARRHEA SINCE SAT). C/o nausea, vomiting, and diarrhea since 06/05. Positive for covid 10 days ago and initially had cough and SOB. 06/05 developed nausea and vomiting. Severe nausea and not able to keep down food. Few days later developed abdominal cramping and diarrhea. BM 5-10 times a day and loose, watery stool. No blood with BM. Afebrile. Out of zofran but helped. Trying to increase fluids. BS recently elevated. No improvement in symptoms since onset. Review of Systems Respiratory: Negative for cough, [...] Assessment/Plan Problem List Items Addressed This Visit Vestibular migraine (CMS/HCC) Relevant Medications ondansetron ODT (Zofran-ODT) 4 MG disintegrating tablet Viral gastroenteritis - Primary Symptoms due to virus and may take up to 10-14 days to resolve. Increase clear liquids. Give small sips of water, pedialyte or gatorade. If excess vomiting, nothing oral x 4-5 hours then start small amounts or sips of liquids every 15 minutes. Common to have diarrhea with this illness. No solids x 24 hours then gradually advance diet starting with crackers, toast, bananas, applesauce. Warned signs of dehydration such as dry mouth or decreased urine output. Wash hands frequently to prevent spread. Relevant Medications dicyclomine (Bentyl) 20 MG tablet documented in this encounter [facility] 05-13-2024 Evaluation note Diagnosis Onset Date Resolution Gastroenteritis acute May 3:13pm [facility] Work Phone: [phone]) 293-280503-12-2025 Evaluation note* Diagnosis Onset Date Resolution Status Admit Date Gastroenteritis acute May 3:13pm COVID-19 acute May 30 10:54am Viral gastroenteritis acute Jun 9:01am [facility] Work Phone: [phone]) 246-558302-12-2025 History of Present illness Narrative* Brian Urbina MD - 04/15/2024 8:53 AM ESTAssociated Problem(s): Vestibular migraine (CMS/HCC) DEJESUS stable and follow up with neurology. * Brian Urbina MD - 04/15/2024 8:53 AM ESTAssociated Problem(s): Type 2 diabetes mellitus with hyperglycemia, without long-term current use of insulin (CMS/HCC) Reports BS controlled and last A1C 4.3. Stick to ADA diet and limit carbs. * Brian Urbina MD - 04/15/2024 8:53 AM ESTAssociated Problem(s): Generalized anxiety disorder (CMS/HCC) Mood controlled with medication and continue at current dose. Use xanax PRN. * Brian Urbina MD - 04/15/2024 8:53 AM ESTAssociated Problem(s): Essential hypertension, benign (CMS/HCC) BP controlled and monitor PRN. * Brian Urbina MD - 04/15/2024 8:53 AM ESTAssociated Problem(s): Bipolar affective, mixed (HCC) (CMS/HCC) Mood controlled with medication and continue at current dose. * Brian Urbina MD - 04/15/2024 8:30 AM EST Images from the original note were not included. Subjective Patient ID: Amanda Hong is a 53 y.o. female who presents for Follow-up (1 m). Follow up DM, HTN, vestibular migraine, bipolar, and anxiety. BS well controlled around 90-100. Tries to eat well and stick to ADA diet. Denies signs of elevated BS such as polyuria, polyphagia or polydipsia. Checking BP PRN and typically controlled. BP normal today. Taking medication daily and tolerating without side effects. Migraines stable and following with neurology. Started on ajovy for 1 month and waiting for insurance approval. Still on zonegran. DEJESUS about 1-2 times a week. Still occasional vertigo and room spinning or severe DEJESUS. DEJESUS were better while on ajovy but now starting to worsen. Using fioricet PRN and helps. Bipolar stable with medication. Decreased zyprexa last visit and no worsening in symptoms. Not as down or sad and feels happier. No mingo and not hyper or full of energy. Anxiety stable. Increased zoloft and felt worse. Back on 50 mg and doing well. Not as stressed out or overwhelmed. Not [...] monitor PRN. Bipolar affective, mixed (HCC) (CMS/HCC) Mood controlled with medication and continue at current dose. Generalized anxiety disorder (CMS/HCC) Mood controlled with medication and continue at current dose. Use xanax PRN. Relevant Medications sertraline (Zoloft) 50 MG tablet Type 2 diabetes mellitus with hyperglycemia, without long-term current use of insulin (CMS/HCC) - Primary Reports BS controlled and last A1C 4.3. Stick to ADA diet and limit carbs. Vestibular migraine (CMS/HCC) DEJESUS stable and follow up with neurology. documented in this encounterHedrick Medical [id number] History of Present illness Narrative* Brian Urbina MD - 03/11/2024 7:36 AM ESTAssociated Problem(s): Vestibular migraine (CMS/HCC) DEJESUS stable and continue Ajovy. Follow up with neurology. * Brian Urbina MD - 03/11/2024 7:36 AM ESTAssociated Problem(s): Type 2 diabetes mellitus with hyperglycemia, without long-term current use of insulin (CMS/HCC) Reports BS controlled and last A1C 4.3. Stick to ADA diet and limit carbs. * Brian Urbina MD - 03/11/2024 7:36 AM ESTAssociated Problem(s): Generalized anxiety disorder (CMS/HCC) Bipolar unchanged but worsening anxiety. Decrease zyprexa and increase zoloft. Warned will take 2-3weeks to notice improvement in mood. Use xanax PRN. * Brian Urbina MD - 03/11/2024 7:35 AM ESTAssociated Problem(s): Essential hypertension, benign (CMS/HCC) BP controlled and monitor PRN. * Brian Urbina MD - 03/11/2024 7:35 AM ESTAssociated Problem(s): Bipolar affective, mixed (HCC) (CMS/HCC) Symptoms unchanged but worsening anxiety. Decrease zyprexa and increase zoloft. Warned will take 2-3 weeks to notice improvement in mood. * Brian Urbina MD - 03/11/2024 7:00 AM EST Images from the original note were not included. Subjective Patient ID: Amanda Hong is a 53 y.o. female who presents for Follow-up (Anxiety ). Follow up DM, HTN, vestibular migraine, bipolar, and anxiety. BS well controlled around 90-100. Tries to eat well and stick to ADA diet. Denies signs of elevated BS such as polyuria, polyphagia or polydipsia. Checking BP PRN and typically controlled. BP normal today. Taking medication daily and tolerating without side effects. Migraines improved and seen by neurology. Started on ajovy and still on zonegran. DEJESUS about 1-2 times a week. Still occasional vertigo and room spinning or severe DEJESUS. Using fioricet PRN and helps. Bipolar stable with medication. Not as down or sad and feels happier. No mingo and not hyper or full of energy. Anxiety worse. Nervous and worry all the time. Stressed out and overwhelmed. Thought racing and hard to clear mind. Arzola, irritable and snapping at others. Easily upset and overreact. Frequent anxiety attacks and feels like worse since increased zyprexa. Using xanax PRN and mild relief. Review [...] PRN. Bipolar affective, mixed (HCC) (CMS/HCC) Symptoms unchanged but worsening anxiety. Decrease zyprexa and increase zoloft. Warned will take 2-3 weeks to notice improvement in mood. Relevant Medications OLANZapine (ZyPREXA) 7.5 MG tablet Generalized anxiety disorder (CMS/HCC) Bipolar unchanged but worsening anxiety. Decrease zyprexa and increase zoloft. Warned will take 2-3weeks to notice improvement in mood. Use xanax PRN. Relevant Medications sertraline (Zoloft) 100 MG tablet Type 2 diabetes mellitus with hyperglycemia, with long-term current use of insulin (CMS/HCC) - Primary Reports BS controlled and last A1C 4.3. Stick to ADA diet and limit carbs. Vestibular migraine (CMS/HCC) DEJESUS stable and continue Ajovy. Follow up with neurology. documented in this encounterHedrick Medical [id number] History of Present illness Narrative* Tuan Wells, - 02/03/2024 9:00 AM EST Images from the original note were not included. Chief complaint: Headaches Subjective Amanda Hong, 53 y.o., female Patient presents today for a neurologic consult at the request of Dr. Urbina for vestibular migraine. Patient states she has been having dizziness and migraines for a few years. She states she can go a few months without having any symptoms. She states she believes this is flaring up because she is having anxiety issues. She currently believes she may be having a panic attack. She is having 2-3 migraines per week. She states these are located all over her head. She reports nausea and vomiting,light and sound sensitivity and aura with her migraines. She has Fioricet which occasionally helps with these. She reports dizziness almost daily. She states these spells can last a few minutes to an hour. She has meclizine but states this only helps temporarily. She states pressure in her ears will make her dizziness worse. She states she has done vestibular rehab previously which was not helpful. Review of Systems Constitutional: Negative for appetite change, fatigue and fever. Respiratory: Negative for cough, shortness of breath and wheezing. Cardiovascular: Negative for chest pain, palpitations and leg swelling. Gastrointestinal: Negative for abdominal pain, constipation, diarrhea and nausea. Musculoskeletal: Negative for arthralgias, gait problem and myalgias. Neurological: Positive for headaches. Negative for dizziness, tremors and numbness. Past Medical History: Diagnosis Date Bipolar affective, mixed (HCC) ([facility]) DDD (degenerative disc disease), cervical DDD (degenerative disc disease), lumbar DDD (degenerative disc disease), thoracic Deviated nasal septum Elevated LFTs MARGIE (generalized anxiety disorder) ([facility]) GERD (gastroesophageal reflux disease) Hyperlipidemia ([facility]) Hypertension ([facility]) Hypothyroidism, adult ([facility]) ADELAIDA on CPAP Otosclerosis Seasonal allergic rhinitis due to pollen Type 2 diabetes mellitus with hyperglycemia, with long-term current use of insulin ([facility]) Vestibular migraine ([facility]) Vitamin D deficiency Past Surgical History: Procedure Laterality Date HYSTERECTOMY SALPINGECTOMY Right STAPEDECTOMY Ear surgery for otosclerosis Family History Problem Relation Name Age of Onset Hyperlipidemia Mother Hypertension Mother Diabetes Mother Other (Postmenopausal Osteoporosis) Mother Peripheral vascular disease Mother Hypothyroidism Mother Kidney disease Father Hyperlipidemia Father Hypertension Father Heart disease Father Diabetes Father Cancer Father Skin cancer Father Other (Chronic Renal Failure Syndrome) Father Social History Tobacco Use Smoking status: Never Smokeless tobacco: Never Substance Use Topics Alcohol use: Not on file Allergies: Lisinopril and Aspirin Vitals: 02/03/24 0837 BP: (!) 152/92 Pulse: 75 SpO2: 98% Body mass index is 28.25 kg/m . weight: 164 lb 9.6 oz Neurologic exam: Mental status: Awake, alert to person, place and time. Recent and remote memory are intact. Language is fluent without aphasia. Attention and concentration are normal. Fund of knowledge is appropriate for level of education. Cranial nerves: CN II: Visual acuity is normal. Visual keyes full to confrontation. CN III, IV, : pupils equal round and reactive to light. Extraocular movements intact. No ptosis present. CN V: Facial sensation is normal. CN VII: Full and symmetric facial movement. CN VIII: Hearing is normal to finger rub bilaterally: CN IX and X: Palate elevates symmetrically. CN XI: Shoulder shrug is normal bilaterally. CN XII: Tongue is midline without atrophy or fasciculation. Motor: RUE Strength deltoid, , biceps , triceps , wrist extensors , wrist flexor , manager transfusion strength 5/5. LUE Strength deltoid , biceps , triceps , wrist extensors , wrist flexor , manager transfusion strength 5/5. RLE Strength illopsoas, quadriceps, tibialis anterior, and gastrocnemius strength 5/5. LLE Strength illopsoas, quadriceps, tibialis anterior, and gastrocnemius strength 5/5. Normal tone x4 extremities. Bulk is normal. Sensory: Sensation is intact to light touch throughout Four extremities. Reflexes: RUE biceps reflex 2+ brachioradialis reflex 2+ . LUE biceps reflex 2+ brachioradialis reflex 2+ . RLE knee reflex 2+ . LLE knee reflex 2+ . Bear's sign negative. Coordination: [id number] testing and rapid alternating movements are normal Gait: Normal Review and summary of old records: Assessment/Plan Diagnoses and all orders for this visit: Chronic migraine without aura without status migrainosus, not intractable (CMS/HCC) It is my impression that the patient has chronic migraine with a vestibular component. The patient also has psychiatric disease and actually the patient has trialed and failed multiple preventative medications for migraine including topiramate, baclofen, Fioricet, Zonegran and others. I feel the patient is a ideal candidate for high efficacy migraine preventative medication. Neurologic exam is relatively unremarkable. Plan: Start Ajovy subcutaneous injections once monthly. Side effects discussed in detail. Patient understands and wishes to proceed. I suggest reducing use of Fioricet as medication rebound can be seen in this medication very readily Keep migraine diary and diet Psychiatric disturbance I suggest careful management of the patient's stress. Certainly stress can exacerbate headaches andchronic migraines. I also will avoid medication that would further impact the patient's mental health and or would interfere with any mental health medications. Plan: Close follow up with Psychiatry and primary care Paresthesias The patient does mention occasional paresthesias in her bilateral upper extremities. She states that these can happen when she holds her hands in certain positions. This may represent pathology such as carpal tunnel Plan: Consider electrodiagnostic testing and follow up or if symptoms worsen or change Pt has been fully educated on their diagnosis, treatment options, follow up plan, and return instructions documented in this encounterHedrick Medical [id number] History of Present illness Narrative* Brian Urbina MD - 01/21/2024 4:33 PM ESTAssociated Problem(s): Bipolar affective, mixed (HCC) (CMS/HCC) Symptoms unchanged and continue zoloft and zyprexa. * Brian Urbina MD - 01/21/2024 4:33 PM ESTAssociated Problem(s): Generalized anxiety disorder (CMS/HCC) Symptoms unchanged and continue zoloft and zyprexa. Use xanax PRN. * Brian Urbina MD - 01/21/2024 4:33 PM ESTAssociated Problem(s): Vestibular migraine (CMS/HCC) DEJESUS unchanged and increase zonegran. Follow up with neurology as scheduled. Use fioricet PRN. Off work 01/06-01/25 and return 01/26. * Brian Urbina MD - 01/21/2024 1:45 PM EST Images from the original note were not included. Subjective Patient ID: Amanda Hong is a 53 y.o. female who presents for Migraine and Dizziness. Continues to c/o migraines and anxiety. Previously off work 12/16-01/05 for severe symptoms. Returned to work 01/05 and symptoms significantly worse. Out of work since 01/06. Continues to have severe symptoms. Frequent DEJESUS [...] able to function due to symptoms. Taking zonegran but not helping reduce DEJESUS. Scheduled with neurology 02/02. Continues to have severe anxiety. Nervous and worry all the time. Stressed out and overwhelmed. Thought racing and hard to clearmind. Arzola, irritable and snapping at others. Easily upset and overreact. Feels restless and can'tsit still. Using xanax PRN and not helping. Taking zoloft and zyprexa daily. Review of Systems Respiratory: Negative for cough, [...] Visit Bipolar affective, mixed (HCC) (CMS/HCC) Symptoms unchanged and continue zoloft and zyprexa. Generalized anxiety disorder (CMS/HCC) Symptoms unchanged and continue zoloft and zyprexa. Use xanax PRN. Vestibular migraine (CMS/HCC) - Primary DEJESUS unchanged and increase zonegran. Follow up with neurology as scheduled. Use fioricet PRN. Off work 01/06-01/25 and return 01/26. Relevant Medications zonisamide (Zonegran) 100 MG capsule ondansetron ODT (Zofran-ODT) 4 MG disintegrating tablet documented in this encounterHedrick Medical [id number] History of Present illness Narrative* Brian Urbina MD - 01/02/2024 10:27 AM EDTAssociated Problem(s): Vestibular migraine (CMS/HCC) DEJESUS unchanged and stop topamax. Try zonegran. Refer to neurology. Use fioricet PRN. Off work 12/16-01/04 and return 01/05. * Brian Urbina MD - 01/02/2024 10:26 AM EDTAssociated Problem(s): Generalized anxiety disorder (CMS/HCC) Symptoms worse and increase zoloft. Warned will take 2-3 weeks to notice improvement in mood. Continue zyprexa. Use xanax PRN. * Brian Urbina MD - 01/02/2024 10:26 AM EDTAssociated Problem(s): Bipolar affective, mixed (HCC) (CMS/HCC) Symptoms worse and increase zoloft. Warned will take 2-3 weeks to notice improvement in mood. Continue zyprexa. * Brian Urbina MD - 01/02/2024 10:00 AM EDT Images from the original note were not [...] topamax but not helping reduce DEJESUS. Continues tohave severe anxiety. Nervous and worry all the time. Stressed out and overwhelmed. Thought racing and hard to clear mind. Arzola, irritable and snapping at others. Easily upset and overreact. Feels restless and can't sit still. Using xanax PRN and not helping. Did not hand picker increased zoloft and onzyprexa. Review of Systems Respiratory: Negative for cough, [...] Ambulatory referral to Neurology documented in this encounterHedrick Medical [id number] History of Present illness Narrative* Brian Urbina MD - 12/19/2023 2:27 PM EDTAssociated Problem(s): Vestibular migraine (CMS/HCC) DEJESUS worse likely related to sinusitis and anxiety. Continue topamax. Use fioricet PRN. Off work 12/16-12/23 and return 12/24. * Brian Urbina MD - 12/19/2023 2:27 PM EDTAssociated Problem(s): Generalized anxiety disorder (CMS/HCC) Symptoms worse and zoloft increased last week. Warned will take 2-3 weeks to notice improvement in mood. Continue zyprexa. Increase xanax and use PRN. * Brian Urbina MD - 12/19/2023 2:26 PM EDTAssociated Problem(s): Bipolar affective, mixed (HCC) (CMS/HCC) Symptoms worse and zoloft increased last week. Warned will take 2-3 weeks to notice improvement in mood. Continue zyprexa. * Brian Urbina MD - 12/19/2023 2:26 PM EDTAssociated Problem(s): Acute non- recurrent pansinusitis Take antibiotics for 7 days. Use flonase for inflammation. Use sudafed or other decongestants as needed. Use Robitussin or Robitussin-DM for cough. Can use afrin for congestion but no longer than 3 days. Can use Mucinex to bring up phlegm. Use Motrin or Tylenol as needed for fever, aches, or pains.Increase fluid intake and rest. Should improve over next 5-7 days and if no better or worse call for re-evaluation. * Brian Urbina MD - 12/19/2023 2:00 PM EDT Images from the original note were not included. Subjective Patient ID: Amanda Hong is a 53 y.o. female who presents for Migraine and Anxiety. C/o continued sinus symptoms and migraines. Seen 12/11 and given cefdinir and prednisone. Only tookfor few days then stopped due to side effects. Continues to have severe symptoms. Frequent DEJESUS and daily migraines over the past few days. Returned to work 12/15 but off since 12/16. Throbbing pain inentire head associated with photophobia, phonophobia and nausea. [...] Tylenol as needed for fever, aches, or pains.Increase fluid intake and rest. Should improve over next 5-7 days and if no better or worse call for re-evaluation. Relevant Medications levoFLOXacin (Levaquin) 750 MG tablet documented in this encounterHedrick Medical [id number] History of Present illness Narrative* Brian Urbina MD - 12/12/2023 10:48 AM EDTAssociated Problem(s): Vestibular migraine (CMS/HCC) DEJESUS worse likely related to sinusitis and anxiety. Continue topamax. Use fioricet PRN. Off work 12/10-12/14 and return 12/15. * Brian Urbina MD - 12/12/2023 10:48 AM EDTAssociated Problem(s): Generalized anxiety disorder (CMS/HCC) Symptoms worse and increase zoloft. Warned will take 2-3 weeks to notice improvement in mood. Continue zyprexa. * Brian Urbina MD - 12/12/2023 10:47 AM EDTAssociated Problem(s): Chronic rhinosinusitis Start flonase. * Brian Urbina MD - 12/12/2023 10:47 AM EDTAssociated Problem(s): Bipolar affective, mixed (HCC) (CMS/HCC) Symptoms worse and increase zoloft. Warned will take 2-3 weeks to notice improvement in mood. Continue zyprexa. * Brian Urbina MD - 12/12/2023 10:46 AM EDTAssociated Problem(s): Acute non- recurrent pansinusitis Take antibiotics BID for 10 days. [...] 5-7 days and if no better or worsecall for re-evaluation. * Brian Urbina MD - 12/12/2023 10:30 AM EDT Images from the original note were not [...] but feels increased symptoms. Nervous and worry allthe time. Stressed out and overwhelmed. Thought racing and hard to clear mind. Arzola, irritable andsnapping at others. Easily upset and overreact. Feels restless and can't sit still. Using xanax PRNand mild relief. Still on zyprexa and zoloft. [...] 5-7 days and if no better or worsecall for re-evaluation. Relevant Medications cefdinir (Omnicef) 300 MG capsule predniSONE (Deltasone) 50 MG tablet Chronic rhinosinusitis Start flonase. Relevant Medications fluticasone (Flonase) 50 MCG/ACT nasal spray documented in this encounterHedrick Medical [id number] History of Present illness Narrative* Brian Urbina MD - 12/04/2023 7:39 AM EDTAssociated Problem(s): Vestibular migraine (CMS/HCC) DEJESUS stable and continue topamax. Use fioricet PRN. * Brian Urbina MD - 12/04/2023 7:39 AM EDTAssociated Problem(s): Type 2 diabetes mellitus with hyperglycemia, with long-term current use of insulin (CMS/HCC) Reports BS controlled and due for A1C. Stick to ADA diet and limit carbs. * Brian Urbina MD - 12/04/2023 7:38 AM EDTAssociated Problem(s): Generalized anxiety disorder (CMS/HCC) Symptoms stable and continue medication. Use xanax PRN. * Brian Urbina MD - 12/04/2023 7:38 AM EDTAssociated Problem(s): Essential hypertension, benign (CMS/HCC) BP controlled and monitor PRN. * Brian Urbina MD - 12/04/2023 7:38 AM EDTAssociated Problem(s): Bipolar affective, mixed (HCC) (CMS/HCC) Symptoms stable and continue medication. * Brian Urbina MD - 12/04/2023 7:00 AM EDT Images from the original note were not [...] topamax. Use fioricet PRN. documented in this encounterHedrick Medical [id number] History of Present illness Narrative* Brian Urbina MD - 11/22/2023 12:08 PM EDTAssociated Problem(s): Vestibular migraine (CMS/HCC) DEJESUS worse and increase topamax. Use fioricet PRN. * Brian Urbina MD - 11/22/2023 12:08 PM EDTAssociated Problem(s): Bipolar affective, mixed (HCC) (CMS/HCC) Symptoms worse and add zoloft. Continue zyprexa. * Brian Urbina MD - 11/22/2023 12:07 PM EDTAssociated Problem(s): Generalized anxiety disorder (CMS/HCC) Severe symptoms and c/o felt worse with celexa. Start zoloft and warned will take 2-3 weeks to notice improvement in mood. Use xanax PRN. * Brian Urbina MD - 11/22/2023 11:15 AM EDT Images from the original note were not included. Subjective Patient ID: Amanda Hong is a 53 y.o. female who presents for Migraine. C/o worsening migraines. Severe migraine over the past several days. Had to leave work 11/18. Throbbing pain in entire head associated with photophobia, phonophobia and nausea. Severe vertigo and dizziness with migraine and off balance. Using OTC but not helping. C/o severe anxiety. Severe stress and not handling well. Out of FMLA and worried will lose job. Worried will be angry and she won't be able to find new job. Nervous and worry all the time. Stressed out and overwhelmed. Thought racing and hard to clear mind. Arzola, irritable and snapping at others. Easily upset and overreact. Using xanax PRN and mild relief. Stopped celexa few weeks ago. Review of Systems Respiratory: Negative for cough, [...] affective, mixed (HCC) (CMS/HCC) Symptoms worse and add zoloft. Continue zyprexa. Generalized anxiety disorder (CMS/HCC) Severe symptoms and c/o felt worse with celexa. Start zoloft and warned will take 2-3 weeks to notice improvement in mood. Use xanax PRN. Relevant Medications sertraline (Zoloft) 25 MG tablet Vestibular migraine (CMS/HCC) - Primary DEJESUS worse and increase topamax. Use fioricet PRN. Relevant Medications juthngsoyl-gcgblpapgliti-hbspkqde 50-325-40 MG tablet topiramate (Topamax) 100 MG tablet documented in this encounterHedrick Medical [id number] History of Present illness Narrative* Brian Urbina MD - 04/05/2023 12:13 PM ESTAssociated Problem(s): Vestibular migraine (CMS/HCC) DEJESUS worse and side effects from topamax and stop. Try elavil to reduce DEJESUS. Use OTC PRN. * Brian Urbina MD - 04/05/2023 12:12 PM ESTAssociated Problem(s): Type 2 diabetes mellitus with hyperglycemia, with long-term current use of insulin (CMS/HCC) Reports BS elevated and increase ozempic. Stick to ADA diet and limit carbs. * Brian Urbina MD - 04/05/2023 12:12 PM ESTAssociated Problem(s): Generalized anxiety disorder (CMS/HCC) Occasional symptoms but tolerable and continue medication. * Brian Urbina MD - 04/05/2023 12:12 PM ESTAssociated Problem(s): Gastroesophageal reflux disease without esophagitis Symptoms controlled with medication and continue. * Brian Urbina MD - 04/05/2023 12:12 PM ESTAssociated Problem(s): Essential hypertension, benign (CMS/HCC) BP controlled and monitor PRN. * Brian Urbina MD - 04/05/2023 12:12 PM ESTAssociated Problem(s): Bipolar affective, mixed (HCC) (CMS/HCC) Occasional symptoms but tolerable and continue medication. * Brian Urbina MD - 04/05/2023 11:00 AM EST Subjective Patient ID: Amanda Hong is a [...] with medication and continue. documented in this encounterHedrick Medical [id number] Evaluation note* Encounter Date Diagnosis Assessment Notes Treatment Notes Treatment Clinical Notes Jun, Nasal congestion (ICD-10 - R09.81) [...] 3 days Jun, Bronchitis (ICD-10 - J40) [facility] Other 01-24-2023 Evaluation note* Encounter Date Diagnosis [...] treatment option may need to be discussed. [facility] Other 12-09-2022 Evaluation note* Encounter Date Diagnosis [...] vomiting, unspecified vomiting type (ICD-10 - R11.2) [facility] Other 10-10-2022 Evaluation note* Encounter Date Diagnosis [...] find specialist if symptoms are not improved. [facility] Other 05-11-2022 Evaluation note* Encounter Date Diagnosis [...] or sprain home care material was printed [facility] Other 01-24-2022 Evaluation note* Encounter Date Diagnosis [...] Patient care instructions given in writting by [facility] document. [employer] Other Chiir complaint+Reason for visit Narrative* Chief Complaint poss flu Reason for Visit Contact with and (landry spected) exposure to covid-19 Sinusitis [facility] Work Phone: Evaluation note* Diagnosis Type [...] migraine (CMS/HCC) documented [facility]* Diagnosis Onset Date Resolution Status Contact with and (suspected) exposure to covid-19 noneactive Sinusitis noneactive [facility] Work Phone: Evaluation note* Diagnosis Type 2 diabetes mellitus with hyperglycemia, with long-term current use of insulin (CMS/HCC)- Primary Essential hypertension, benign (CMS/HCC) Essential hypertension, benign Bipolar affective, mixed (HCC) (CMS/HCC) Bipolar I disorder, most recent episode (or current) mixed, unspecified Generalized anxiety disorder (CMS/HCC) Generalized anxiety disorder Vestibular migraine (CMS/HCC) documented [facility]* Diagnosis Vestibular migraine (CMS/HCC)- Primary [...] Generalized anxiety disorder documented in this encounter [facility] HealthcareEvaluation noteNo assessment information availableSub[facility] Evaluation note* Diagnosis Type [...] Generalized anxiety disorder Vestibular migraine (CMS/HCC)- Primary Bipolar affective, mixed [...] Generalized anxiety disorder Vestibular migraine (CMS/HCC)- Primary Bipolar affective, mixed [...] Generalized anxiety disorder Vestibular migraine (CMS/HCC)- Primary Bipolar affective, mixed (HCC) (CMS/HCC) Bipolar I disorder, most recent episode (or current) mixed, unspecified Generalized anxiety disorder (CMS/HCC) Generalized anxiety disorder Chronic migraine without aura without status migrainosus, not intractable (CMS/HCC)- Primary Psychiatric disturbance Unspecified nonpsychotic mental disorder documented in [facility]* Diagnosis Vestibular migraine (CMS/HCC)- Primary Generalized anxiety disorder [...] Generalized anxiety disorder Vestibular migraine (CMS/HCC)- Primary Bipolar affective, mixed (HCC) (CMS/HCC) Bipolar I disorder, most recent episode (or current) mixed, unspecified Generalized anxiety disorder (CMS/HCC) Generalized anxiety disorder Type 2 diabetes mellitus with hyperglycemia, without long-term current use of insulin (CMS/HCC)- Primary Essential hypertension, benign (CMS/HCC) Essential hypertension, benign Bipolar affective, mixed (HCC) (CMS/HCC) Bipolar I disorder, most recent episode (or current) mixed, unspecified Generalized anxiety disorder (CMS/HCC) Generalized anxiety disorder Vestibular migraine (CMS/HCC) documented [facility]* [...] Generalized anxiety disorder Vestibular migraine (CMS/HCC)- Primary Bipolar affective, mixed (HCC) (CMS/HCC) Bipolar I disorder, most recent episode (or current) mixed, unspecified Generalized anxiety disorder (CMS/HCC) Generalized anxiety disorder Type 2 diabetes mellitus with hyperglycemia, without long-term current use of insulin (CMS/HCC)- Primary Essential hypertension, benign (CMS/HCC) Essential hypertension, benign Bipolar affective, mixed (HCC) (CMS/HCC) Bipolar I disorder, most recent episode (or current) mixed, unspecified Generalized anxiety disorder (CMS/HCC) Generalized anxiety disorder Vestibular migraine (CMS/HCC) Generalized anxiety disorder (CMS/HCC) Generalized anxiety disorder [...] Generalized anxiety disorder Vestibular migraine (CMS/HCC)- Primary Bipolar affective, mixed (HCC) (CMS/HCC) Bipolar I disorder, most recent episode (or current) mixed, unspecified Generalized anxiety disorder (CMS/HCC) Generalized anxiety disorder Type 2 diabetes mellitus with hyperglycemia, without long-term current use of insulin (CMS/HCC)- Primary Essential hypertension, benign (CMS/HCC) Essential hypertension, benign Bipolar affective, mixed (HCC) (CMS/HCC) Bipolar I disorder, most recent episode (or current) mixed, unspecified Generalized anxiety disorder (CMS/HCC) Generalized anxiety disorder Vestibular migraine (CMS/HCC) Type 2 diabetes mellitus with hyperglycemia, without long-term current use of insulin (CMS/HCC)- Primary Essential hypertension, benign (CMS/HCC) Essential hypertension, benign Bipolar affective, mixed (HCC) (CMS/HCC) Bipolar I disorder, most recent episode (or current) mixed, unspecified Generalized anxiety disorder (CMS/HCC) Generalized anxiety disorder Vestibular migraine (CMS/HCC) documented in this encounter [facility] HealthcareEvaluation note* Diagnosis Type 2 diabetes mellitus [...] complication, without long-term current use of insulin Type 2 diabetes mellitus with hyperglycemia, with [...] Generalized anxiety disorder Vestibular migraine (CMS/HCC)- Primary Bipolar affective, mixed (HCC) (CMS/HCC) Bipolar I disorder, most recent episode (or current) mixed, unspecified Generalized anxiety disorder (CMS/HCC) Generalized anxiety disorder Type 2 diabetes mellitus with hyperglycemia, without long-term current use of insulin (CMS/HCC)- Primary Essential hypertension, benign (CMS/HCC) Essential hypertension, benign Bipolar affective, mixed (HCC) (CMS/HCC) Bipolar I disorder, most recent episode (or current) mixed, unspecified Generalized anxiety disorder (CMS/HCC) Generalized anxiety disorder Vestibular migraine (CMS/HCC) Type 2 diabetes mellitus with hyperglycemia, without long-term current use of insulin (CMS/HCC)- Primary Essential hypertension, benign (CMS/HCC) Essential hypertension, benign Bipolar affective, mixed (HCC) (CMS/HCC) Bipolar I disorder, most recent episode (or current) mixed, unspecified Generalized anxiety disorder (CMS/HCC) Generalized anxiety disorder Vestibular migraine (CMS/HCC) Generalized anxiety disorder (CMS/HCC) Generalized anxiety disorder [...] complication, without long-term current use of insulin Type 2 diabetes mellitus with hyperglycemia, with [...] Generalized anxiety disorder Vestibular migraine (CMS/HCC)- Primary Bipolar affective, mixed (HCC) (CMS/HCC) Bipolar I disorder, most recent episode (or current) mixed, unspecified Generalized anxiety disorder (CMS/HCC) Generalized anxiety disorder Type 2 diabetes mellitus with hyperglycemia, without long-term current use of insulin (CMS/HCC)- Primary Essential hypertension, benign (CMS/HCC) Essential hypertension, benign Bipolar affective, mixed (HCC) (CMS/HCC) Bipolar I disorder, most recent episode (or current) mixed, unspecified Generalized anxiety disorder (CMS/HCC) Generalized anxiety disorder Vestibular migraine (CMS/HCC) Type 2 diabetes mellitus with hyperglycemia, without long-term current use of insulin (CMS/HCC)- Primary Essential hypertension, benign (CMS/HCC) Essential hypertension, benign Bipolar affective, mixed (HCC) (CMS/HCC) Bipolar I disorder, most recent episode (or current) mixed, unspecified Generalized anxiety disorder (CMS/HCC) Generalized anxiety disorder Vestibular migraine (CMS/HCC) Viral gastroenteritis- Primary Intestinal infection due to other organism, NEC Vestibular migraine (CMS/HCC) documented in [facility]* [...] complication, without long-term current use of insulin Type 2 diabetes mellitus with hyperglycemia, with [...] Generalized anxiety disorder Vestibular migraine (CMS/HCC)- Primary Bipolar affective, mixed (HCC) (CMS/HCC) Bipolar I disorder, most recent episode (or current) mixed, unspecified Generalized anxiety disorder (CMS/HCC) Generalized anxiety disorder Type 2 diabetes mellitus with hyperglycemia, without long-term current use of insulin (CMS/HCC)- Primary Essential hypertension, benign (CMS/HCC) Essential hypertension, benign Bipolar affective, mixed (HCC) (CMS/HCC) Bipolar I disorder, most recent episode (or current) mixed, unspecified Generalized anxiety disorder (CMS/HCC) Generalized anxiety disorder Vestibular migraine (CMS/HCC) Type 2 diabetes mellitus with hyperglycemia, without long-term current use of insulin (CMS/HCC)- Primary Essential hypertension, benign (CMS/HCC) Essential hypertension, benign Bipolar affective, mixed (HCC) (CMS/HCC) Bipolar I disorder, most recent episode (or current) mixed, unspecified Generalized anxiety disorder (CMS/HCC) Generalized anxiety disorder Vestibular migraine (CMS/HCC) Viral gastroenteritis- Primary Intestinal infection due to other organism, NEC Vestibular migraine (CMS/HCC) Generalized anxiety disorder (CMS/HCC) Generalized anxiety disorder Vestibular migraine (CMS/HCC) documented in [facility]* [...] complication, without long-term current use of insulin Type 2 diabetes mellitus with hyperglycemia, with [...] Generalized anxiety disorder Vestibular migraine (CMS/HCC)- Primary Bipolar affective, mixed (HCC) (CMS/HCC) Bipolar I disorder, most recent episode (or current) mixed, unspecified Generalized anxiety disorder (CMS/HCC) Generalized anxiety disorder Type 2 diabetes mellitus with hyperglycemia, without long-term current use of insulin (CMS/HCC)- Primary Essential hypertension, benign (CMS/HCC) Essential hypertension, benign Bipolar affective, mixed (HCC) ([facility]/HCC) Bipolar I disorder, most recent episode (or current) mixed, unspecified Generalized anxiety disorder (CMS/HCC) Generalized anxiety disorder Vestibular migraine ([facility]/HCC) Type 2 diabetes mellitus with hyperglycemia, without long-term current use of insulin (CMS/HCC)- Primary Essential hypertension, benign (CMS/HCC) Essential hypertension, benign Bipolar affective, mixed (HCC) ([facility]/HCC) Bipolar I disorder, most recent episode (or current) mixed, unspecified Generalized anxiety disorder (CMS/HCC) Generalized anxiety disorder Vestibular migraine (CMS/HCC) Vestibular migraine (CMS/HCC)- Primary Generalized anxiety disorder (CMS/HCC) Generalized anxiety disorder Type 2 diabetes mellitus with hyperglycemia, without long-term current use of insulin ([facility]) Bipolar affective, mixed (HCC) ([facility]) Bipolar I disorder, most recent episode (or current) mixed, unspecified Annual physical exam Routine general medical examination at a health care facility Dyslipidemia ([facility]) Other and unspecified hyperlipidemia Type 2 diabetes mellitus with other specified complication documented in this encounter [facility] CenterHistory general Narrative - Reported* Type Description Date Medical History bipolar Medical History depression Medical History allergies Medical History Allergies Medical History HTN Medical History Otosclerosis, unspecified latera lity Medical History Bipolar disorder Surgical History left ear Surgical History stapedectomy Apr 2012 Surgical History hysterectomy Surgical History partial hysterectomy Hospitalization History child Hospitalization History see above [facility] Other History general Narrative - Reported* Type Description Date Medical History bipolar Medical History depression Medical History allergies Medical History Allergies Medical History HTN Medical History Otosclerosis, unspecified latera lity Medical History Bipolar disorder Medical History migraine headache Surgical History left ear Surgical History stapedectomy Apr 2012 Surgical History hysterectomy Surgical History partial hysterectomy Hospitalization History child Hospitalization History see above [facility] Other [employer] for visit Narrative* Consultation (Routine) - Closed Specialty Diagnoses / Procedures Referred By Contac t Referred To Contact Neurology Diagnoses Vestibular migraine (CMS/HCC) Procedures ID OFFICE/OUTPATIENT [facility] 60 MINUTES Brian Urbina MD [address] [place] [address] Phone: tel: fax: Tuan Wells, [address] [place] [id number] Phone: tel: fax: Referral ID Status Reason Start Date Expiration Date V isits Requested Visits Authorized [id number] Closed Consult and Treat 01/02/2024 06/30/2024 1 1 [facility] Healthcare Summary Purpose Family History No Family History Records Found Relationship Condition Age at Onset Recorded Date/T maylin father Diabetes mellitus Unknown Unknown Hypertension Unknown Not Specified Diabetes mellitus Unknown Family history of thyroid disease Unknown Relationship Condition Age at Onset Recorded Date/T maylin father Diabetes mellitus Unknown Unknown Hypertension Unknown mother Diabetes mellitus Unknown Family history of thyroid disease Unknown Advance Directives No Advanced Directives Records Found Advance Directive Response Recorded Date/ Time Advance Directives No August 05 8:30am Advance Directive Response Recorded Date/ Time Advance Directives No August 05 7:30am Chief Complaint and Reason for Visit Chief Complaint Admit Date headache, nausea January 13, 2024 9:29am Chief Complaint Admit Date Nausea/vomiting, earache May 13 3:13pm Chief Complaint Admit Date Nausea/vomiting, earache May 13 3:13pm Congestion May 30, 2024 10: 54am Reason for Visit Admit Date Gastroenteritis May 13, 2024 3:1 3pm Chief Complaint Admit Date Nausea/vomiting, earache May 13 3:13pm Congestion March 29th, 2025 10: 54am Nausea, vomiting June 30, 2024 9:0 1am Nausea, vomiting, diarrhea, dizziness Ma y 2024 1:49pm Reason for Visit Admit Date Gastroenteritis May 13, 2024 3:1 3pm COVID-19 May 30, 2024 10: 54am Viral gastroenteritis June 30, 2024 9 :01am Additional Source Comments REASON FOR VISIT (unrecogniz ed section and content) Reason Comments Follow-up Blood sugar running high, fatigue. Reason Comments Follow-up 3 m Reason Comments Migraine Reason Onset Date Comments Med Refill 12/16/2023 Reason Comments Migraine Anxiety Reason Comments Follow-up MIGRAINES/ VERTIGO Reason Onset Date Comments Med Refill 01/09/2024 Reason Comments Migraine Dizziness Reason Onset Date Comments Med Refill 01/29/2024 Reason Onset Date Comments Med Refill 03/03/2024 Reason Comments Follow-up Anxiety Reason Onset Date Comments Med Refill 04/05/2024 Reason Comments Follow-up 1 m Reason Comments Med Refill Reason Comments Follow-up NAUSEA, VOMITING, DI ARRHEA SINCE SAT Reason Comments Follow-up [facility] er f/up INFORMATION SOURCE (unrecogn ized section and content) DATE CREATED AUTHOR 02/27/2022 [facility] DATE CREATED AUTHOR AUTHOR'S ORGANIZ ATION 07/16/2024 [facility] [employer] Care Teams (unrecognized sec tion and content) Electricity Trader Relationship Specialty Start Date End Date Brian Urbina MD [address] [place] [address] PCP - General Family Medicine 03/22/23 Electricity Trader Relationship Specialty Start Date End Date Brian Urbina MD [address] [place] [address] PCP - General Family Medicine 03/22/23 Team Status: Active Member Role Status Dates Brian Urbina MD Primary Care Provider Active Team Status: Inactive Member Role Status Dates Brian Urbina MD Primary Care Provider Active S tart: May 17, 2023 End: May 17, 2023 MOSHE MoctezumaC Attending Provider Active S tart: May 17, 2023 End: May 17, 2023 Electricity Trader Relationship Specialty Start Date End Date Brian Urbina MD [address] [place] [phone] PCP - General Family Medicine 03/22/23 Electricity Trader Relationship Specialty Start Date End Date Brian Urbina MD [address] [place] [address] PCP - General Family Medicine 03/22/23 Electricity Trader Relationship Specialty Start Date End Date Brian Urbina MD [address] [place] [phone] PCP - General Family Medicine 03/22/23 Electricity Trader Relationship Specialty Start Date End Date Brian Urbina MD [address] [place] [address] PCP - General Family Medicine 03/22/23 Electricity Trader Relationship Specialty Start Date End Date Brian Urbina MD [address] [place] [address] PCP - General Family Medicine 03/22/23 Electricity Trader Relationship Specialty Start Date End Date Brian Urbina MD [address] [place] [address] PCP - General Family Medicine 03/22/23 Electricity Trader Relationship Specialty Start Date End Date Brian Urbina MD [address] [place] [address] PCP - General Family Medicine 03/22/23 Electricity Trader Relationship Specialty Start Date End Date Brian Urbina MD [address] [place] [phone] PCP - [facility] 03/22/23 Electricity Trader Relationship Specialty Start Date End Date Brian Urbina MD [address] [place] [phone] [facility] - [facility] [facility] 03/22/23 Brian Urbina MD [address] [place] [address] PCP [facility] 03/04/23 Electricity Trader Relationship Specialty Start Date End Date Brian Urbina MD [address] [place] [address] PCP - [facility] 03/22/23 Brian Urbina MD [address] [place] [address] PCP [facility] 03/04/23 Electricity Trader Relationship Specialty Start Date End Date Brian Urbina MD [address] [place] [address] PCP - [facility] 03/22/23 Team Status: Inactive Member Role Status Dates Brian Urbina MD Primary Care Provider Active S tart: January 13, 2024 End: January 13, 2024 Dena Amado APRN Attending Provider Active S tart: January 13, 2024 End: January 13, 2024 Electricity Trader Relationship Specialty Start Date End Date Brian Urbina MD [address] [place] [address] PCP - General Family Medicine 03/22/23 Brian Urbina MD [address] [place] [address] PCP - [facility] 03/04/23 Electricity Trader Relationship Specialty Start Date End Date Brian Urbina MD [address] [place] [address] PCP - General Family Medicine 03/22/23 Brian Urbina MD [address] [place] [address] PCP - [facility] 03/04/23 Electricity Trader Relationship Specialty Start Date End Date Brian Urbina MD [address] [place] [address] PCP - General Family Medicine 03/22/23 Brian Urbina MD [address] [place] [address] PCP - [facility] 03/04/23 Electricity Trader Relationship Specialty Start Date End Date Brian Urbina MD [address] [place] [address] PCP - General Family Medicine 03/22/23 Brian Urbina MD [address] [place] [address] PCP - [facility] 03/04/23 Tuan Wells DO [address] [address] Referring Physician Neurology 02/03/24 Mandy Pimentel NP [address] [address] Nurse Practitioner Neurology 02/03/24 Marj Larry NP [address] [phone] Nurse Practitioner Neurology 02/03/24 Electricity Trader Relationship Specialty Start Date End Date Brian Urbina MD [address] [place] [address] PCP - General Family Medicine 03/22/23 Brian Urbina MD [address] [place] [address] PCP - [facility] 03/04/23 Tuan Wells DO [address] [address] Referring Physician Neurology 02/03/24 Mandy Pimentel NP [address] [address] Nurse Practitioner Neurology 02/03/24 Marj Larry NP [address] [phone] Nurse Practitioner Neurology 02/03/24 Electricity Trader Relationship Specialty Start Date End Date Brian Urbina MD [address] [place] [address] PCP - General Family Medicine 03/22/23 Electricity Trader Relationship Specialty Start Date End Date Brian Urbina MD [address] [place] [address] PCP - General Family Medicine 03/22/23 Electricity Trader Relationship Specialty Start Date End Date Brian Urbina MD [address] [place] [address] PCP - General Family Medicine 03/22/23 Brian Urbina MD [address] [place] [address] PCP - [facility] 03/04/23 Tuan Wells DO [address] [place] [address] Referring Physician Neurology 02/03/24 Mandy Pimentel NP [address] [place] [address], [place] [address] Nurse Practitioner Neurology 02/03/24 Marj Larry NP [address] [place] [address] Nurse Practitioner Neurology 02/03/24 Electricity Trader Relationship Specialty Start Date End Date Brian Urbina MD [address] [place] [address] PCP - General Family Medicine 03/22/23 Brian Urbina MD [address] [place] [address] PCP - [facility] 03/04/23 Tuan Wells DO [address] [place] [address] Referring Physician Neurology 02/03/24 Mandy Pimentel NP [address] [address] Nurse Practitioner Neurology 02/03/24 Marj Larry, AMEYA [address] [phone] Nurse Practitioner Neurology 02/03/24 Electricity Trader Relationship Specialty Start Date End Date Brian Urbina MD [address] [place] [address] PCP - General Family Medicine 03/22/23 Brian Urbina MD [address] [place] [address] PCP - [facility] 03/04/23 Tuan Wells DO [address] [address] Referring Physician Neurology 02/03/24 Mandy Pimentel NP [address] [address] Nurse Practitioner Neurology 02/03/24 Marj Larry, AMEYA [address] [place] [phone] Nurse Practitioner Neurology 02/03/24 Electricity Trader Relationship Specialty Start Date End Date Brian Urbina MD [address] [place] [address] PCP - General Family Medicine 03/22/23 Brian Urbina MD [address] [place] [address] PCP - [facility] 03/04/23 Tuan Wells DO [address] [place] [address] Referring Physician Neurology 02/03/24 Mandy Pimentel NP [address] [place] [address] Nurse Practitioner Neurology 02/03/24 Marj Larry NP [address] [place] [phone] Nurse Practitioner Neurology 02/03/24 Electricity Trader Relationship Specialty Start Date End Date Brian Urbina MD [address] [place] [address] PCP - General Family Medicine 03/22/23 Brian Urbina MD [address] [place] [address] PCP - [facility] 03/04/23 Tuan Wells DO [address] [place] [address] Referring Physician Neurology 02/03/24 Mandy Pimentel NP [address] [place] [address] Nurse Practitioner Neurology 02/03/24 Marj Larry NP [address] [place] [phone] Nurse Practitioner Neurology 02/03/24 Electricity Trader Relationship Specialty Start Date End Date Brian Urbina MD [address] [place] [address] PCP - General Family Medicine 03/22/23 Brian Urbina MD [address] [place] [address] PCP - [facility] 03/04/23 Tuan Wells DO [address] [phone] Referring Physician Neurology 02/03/24 Mandy Pimentel NP [address] [phone] Nurse Practitioner Neurology 02/03/24 Marj Larry NP [address] [place] [phone] Nurse Practitioner Neurology 02/03/24 Team Status: Inactive Member Role Status Dates Brian Urbina MD Primary Care Provider Active S tart: May 13, 2024 End: May 13, 2024 Dena Amado APRN Attending Provider Active S tart: May 13, 2024 End: May 13, 2024 Team Status: Inactive Member Role Status Dates Brian Urbina MD Primary Care Provider Active S tart: May 30, 2024 End: May 30, 2024 Maria Luz Lowe APRN Attending Provider Active Start: May 30, 2024 End: May 30, 2024 Electricity Trader Relationship Specialty Start Date End Date Brian Urbina MD [address] [place] [address] PCP - General Family Medicine 03/22/23 Brian Urbina MD [address] [place] [address] PCP - [facility] 03/04/23 Tuan Wells DO [address] [place] [address] Referring Physician Neurology 02/03/24 Mandy Pimentel NP [address], [place] [phone] Nurse Practitioner Neurology 02/03/24 Marj Larry NP [address] [phone] Nurse Practitioner Neurology 02/03/24 Electricity Trader Relationship Specialty Start Date End Date Brian Urbina MD [address] [place] [address] PCP - General Family Medicine 03/22/23 Brian Urbina MD [address] [place] [address] PCP - [facility] 03/04/23 Tuan Wells DO [address] [place] [address] Referring Physician Neurology 02/03/24 Mandy Pimentel, AMEYA [address] [place] [address] Nurse Practitioner Neurology 02/03/24 Marj Larry NP [address] [place] [phone] Nurse Practitioner Neurology 02/03/24 Electricity Trader Relationship Specialty Start Date End Date Brian Urbina MD [address] [place] [address] PCP - General Family Medicine 03/22/23 Brian Urbina MD [address] [place] [address] PCP - [facility] 03/04/23 Tuan Wells DO [address] [place] [address] Referring Physician Neurology 02/03/24 Mandy Pimentel, AMEYA [address] [place] [address] Nurse Practitioner Neurology 02/03/24 Marj Larry NP [address] [place] [phone] Nurse Practitioner Neurology 02/03/24 Electricity Trader Relationship Specialty Start Date End Date Brian Urbina MD [address] [place] [address] PCP - General Family Medicine 03/22/23 Brian Urbina MD [address] [place] [address] PCP - [facility] 03/04/23 Tuan Wells DO [address], [place] [phone] Referring Physician Neurology 02/03/24 Mandy Pimentel NP [address] [place] [address] Nurse Practitioner Neurology 02/03/24 Marj Larry NP [address] [place] [phone] Nurse Practitioner Neurology 02/03/24 Team Status: Inactive Member Role Status Dates Brian Urbina MD Primary Care Provider Active S tart: June 30, 2024 End: June 30, 2024 Maria Luz Lowe APRN Attending Provider Active Start: June 30, 2024 End: June 30, 2024 Team Status: Inactive Member Role Status Dates Brian Urbina MD Primary Care Provider Active S tart: July 06, 2024 End: July 06, 2024 Dean Amado APRN Attending Provider Active S tart: July 06, 2024 End: July 06, 2024 Electricity Trader Relationship Specialty Start Date End Date Brian Urbina MD [address] [place] [address] PCP - General Family Medicine 03/22/23 Brian Urbina MD [address] [place] [address] PCP - [facility] 03/04/23 Tuan Wells DO [address] [address] Referring Physician Neurology 02/03/24 Mandy Pimentel NP [address] [address] Nurse Practitioner Neurology 02/03/24 Marj Larry NP [address] [phone] Nurse Practitioner Neurology 02/03/24 Electricity Trader Relationship Specialty Start Date End Date Brian Urbina MD [address] [place] [address] PCP - General Family Medicine 03/22/23 Brian Urbina MD [address] [place] [address] PCP - [facility] 03/04/23 Tuan Wells DO [address] [place] [phone] Referring Physician Neurology 02/03/24 Mandy Pimentel NP [address] [place] [phone] Nurse Practitioner Neurology 02/03/24 Marj Larry NP [address] [phone] Nurse Practitioner Neurology 02/03/24 Goals (unrecognized section and content) Goals may [...] BE BASED ON THE PRIMARY CLINICAL RECORDS. [employer] provides no warranty or guarantee of the accuracy or completeness of information in this document.
[2024-07-17 10:01] LABS: Basophils Percent Auto 0.5 % (0.2-2.0); Eosinophils Percent Auto 0.3 % (0.9-7.0); Hemoglobin 14.9 g/dL (12.0-16.0); Immature Granulocytes Abs Auto 0.02 10^3/uL (0.00-0.03); Immature Granulocytes Pct Auto 0.3 % (0.0-0.5); Lymphocytes Absolute Auto 1.4 10^3/uL (1.2-3.8); Lymphocytes Percent Auto 22.6 % (20.5-60.0); Mean Corpuscular HGB Conc 37.3 g/dL (29.9-35.2); Mean Corpuscular Hemoglobin 31.5 pg (26.7-34.0); Mean Corpuscular Volume 84.6 fL (81.0-99.0); Mean Platelet Volume 9.9 fL (9.5-13.5); Monocytes Absolute Auto 0.4 10^3/uL (0.3-0.8); Monocytes Percent Auto 6.1 % (1.7-12.0); Neutrophils Absolute Auto 4.4 10^3/uL (1.4-6.5); Neutrophils Percent Auto 70.2 % (43.0-75.0); Platelet Count 286 10^3/uL (150-450); Red Blood Count 4.73 10^6/uL (4.20-5.40); White Blood Count 6.2 10^3/uL (4.0-11.0)
[2024-07-17 10:41] LABS: Alanine Aminotransferase 25 U/L (14-59); Albumin Globulin Ratio 1.2; Albumin Level 3.9 g/dL (3.4-5.0); Alkaline Phosphatase 76 U/L (46-116); Aspartate Amino Transferase 16 U/L (15-37); BUN Creatinine Ratio 15.6; Bilirubin Direct 0.1 mg/dL (0.0-0.2); Bilirubin Total 0.6 mg/dL (0.2-1.0); Calcium 9.1 mg/dL (8.5-10.1); Carbon Dioxide 26.6 mmol/L (21.0-32.0); Chloride 104 mmol/L (98-107); Chol HDL Ratio 3.2; Cholesterol 261 mg/dL (<=200); Estimated GFR (African America >60 (>=60 mL/min/1.73m^2); Estimated GFR (Non-African Ame >60 (>=60 mL/min/1.73m^2); Free T3 1.87 pg/mL (2.18-3.98); Globulin 3.2 g/dL; Glucose 93 mg/dL (74-106); HDL Cholesterol 81 mg/dL (40-60); Potassium 3.6 mmol/L (3.5-5.1); Sodium 138 mmol/L (136-145); Thyroid Stimulating Hormone 1.834 uIU/mL (0.358-3.740); Total Protein 7.1 g/dL (6.4-8.2); Triglycerides 45 mg/dL (<=150)
[2024-07-17 11:02] LABS: Estimated Average Glucose 88 mg/dL; Glycohemoglobin A1C 4.7 % (4.5-6.2)
== END 2024-07-17 09:35 | disposition home or self-care (01) ==
LOC: LAB 09:37
PROVIDERS: PCP Family Medicine; Visit Provider Family Medicine
DX: Z00.00 Encounter for general adult medical examination without abnormal findings (principal)
CPT/HCPCS: 80048; 80061; 80076; 83036; 84439; 84443; 84481; 85025

== ENCOUNTER 2025-02-06 07:06 | Outpatient (OUT) | payer OTHER, SELFPAY ==
--- OUTSIDE RECORDS SUMMARY | 2025-02-06 07:11 | XMS_ITS | Clinical Summary ---
Author Organization [facility] Address [address] [place] [address] Care Team Providers [employer] Consultant Name Role Phone Brian Agrawal MD Primary Care Provider [phone] Brian Agrawal MD Unavailable Ricardo Wells DO Unavailable [phone] Mandy Pimentel NP Unavailable [phone] Allergies Active AllergyReactionsCriticalityNoted LnlsOelaingdJypqdivYofrVtu36/04/2023 TiuxgsxjxbBawrp89/04/2023 Medications MedicationSigDispense QuantityRefillsLast FilledStart DateEnd DateStatus baclofen (Lioresal) 20 MG tablet Take 20 mg by mouth 3 (three) times a day as needed for muscle spasmsActive Glucose Blood (BLOOD GLUCOSE TEST ) by In Vitro routeActive meclizine (Antivert) 25 MG tablet Indications:Vestibular migraineTake 1 tablet (25 mg) by mouth 4 (four) times a day as needed for dizziness 60 tablet ctive hvstlrgnwe-szhhsiajthwiv-yxitnabv 50-325-40 MG tablet Indications:Vestibular migraineTake 1 tablet by mouth 4 (four) times a day as needed for headaches 30 tablet 11/22/2023ctive omeprazole (PriLOSEC) [address] capsule Indications:Gastroesophageal reflux disease without esophagitisTake 1 capsule (40 mg) by mouth in the morning. Take before meals. Do not crush or chew.. 30 capsule 1105005/04/2025ctive fluticasone (Flonase) 50 MCG/ACT nasal spray Indications:Chronic rhinosinusitisAdminister 2 sprays into each nostril Daily Shake gently. Before first use, prime pump. After use, clean tip and replace cap. 16 g 5Active ondansetron ODT (Zofran-ODT) 4 MG disintegrating tablet Indications:Vestibular migraineTake 1 tablet (4 mg) by mouth every 8 (eight) hours if needed for nausea or vomiting 30 tablet 3045Active zonisamide (Zonegran) 100 MG capsule Indications:Vestibular migraineTAKE 1 CAPSULE BY MOUTH DAILY 30 capsule 5045Active sertraline (Zoloft) 100 MG tablet Indications:Generalized anxiety disorderTAKE 1 TABLET BY MOUTH EVERY DAY 30 tablet 505Active Tirzepatide (Mounjaro) 2.5 MG/0.5ML solution auto-injector Indications:Type 2 diabetes mellitus with hyperglycemia, without long-term current use of insulin (HCC)Inject 2.5 mg under the skin 1 (one) time per week 2 mL 5Active hydroCHLOROthiazide (HYDRODiuril) 25 MG tablet Indications:Essential hypertension, benignTake 1 tablet (25 mg) by mouth Daily 30 tablet 110815/490645/156Active ALPRAZolam (Xanax) 1 MG tablet Indications:Generalized anxiety disorderTake 1 tablet (1 mg) by mouth 3 (three) times a day as needed for anxiety for up to 20 days 60 tablet 5Active OLANZapine (ZyPREXA) 15 MG tablet Indications:Bipolar affective, mixed (HCC)Take 1 tablet (15 mg) by mouth at bedtime 30 tablet 505Active Active Problems ProblemNoted DateDiagnosed DateChronic ctwxaevvlajwea09/10/2024 Assessment & Plan (12/12/2023 10:47 AM EDT): Start flonase. Essential hypertension, dbfqng3204/05/2023 Assessment & Plan (10/14/2024 8:55 AM EDT): BP controlled and monitor PRN. Assessment & Plan (04/15/2024 8:53 AM EST): BP controlled and monitor PRN. Assessment & Plan (03/11/2024 7:35 AM EST): BP controlled and monitor PRN. Assessment & Plan (12/04/2023 7:38 AM EDT): BP controlled and monitor PRN. Assessment & Plan (09/02/2023 9:56 AM EDT): BP controlled and monitor PRN. Assessment & Plan (07/24/2023 8:53 AM EDT): BP controlled and monitor PRN. Assessment & Plan (06/03/2023 8:48 AM EDT): BP controlled and monitor PRN. Assessment & Plan (04/05/2023 12:12 PM EST): BP controlled and monitor PRN. Bipolar affective, mixed04/05/2023 Assessment & Plan (10/14/2024 8:55 AM EDT): Mood worse and increase zyprexa. Assessment & Plan (08/13/2024 10:31 AM EDT): Mood unchanged but only on higher dose for 1 week. Continue medication at current dose. Assessment & Plan (04/15/2024 8:53 AM EST): Mood controlled with medication and continue at current dose. Assessment & Plan (03/11/2024 7:35 AM EST): Symptoms unchanged but worsening anxiety. Decrease zyprexa and increase zoloft. Warned will take 2-3 weeks to notice improvement in mood. Assessment & Plan (01/21/2024 4:33 PM EST): Symptoms unchanged and continue zoloft and zyprexa. Assessment & Plan (01/02/2024 10:26 AM EDT): Symptoms worse and increase zoloft. Warned will take 2-3 weeks to notice improvement in mood. Continue zyprexa. Assessment & Plan (12/19/2023 2:26 PM EDT): Symptoms worse and zoloft increased last week. Warned will take 2-3 weeks to notice improvement in mood. Continue zyprexa. Assessment & Plan (12/12/2023 10:47 AM EDT): Symptoms worse and increase zoloft. Warned will take 2-3 weeks to notice improvement in mood. Continue zyprexa. Assessment & Plan (12/04/2023 7:38 AM EDT): Symptoms stable and continue medication. Assessment & Plan (11/22/2023 12:08 PM EDT): Symptoms worse and add zoloft. Continue zyprexa. Assessment & Plan (09/02/2023 9:56 AM EDT): Symptoms stable with medication and continue. Assessment & Plan (07/24/2023 8:52 AM EDT): Symptoms improved with medication change and continue at current dose. Assessment & Plan (06/28/2023 10:36 AM EDT): Mood unchanged with trileptal and stop. Increase zyprexa and continue celexa. Assessment & Plan (06/03/2023 8:47 AM EDT): Occasional symptoms and add trileptal. Continue zyprexa and celexa. Assessment & Plan (04/05/2023 12:12 PM EST): Occasional symptoms but tolerable and continue medication. DDD (degenerative disc disease), zinvkedw42/02/2024DDD (degenerative disc disease), mfatvl7304/05/2023DD (degenerative disc disease), wwhybodl89/02/2024 Deviated nasal mafyav9004/05/2023Generalized anxiety ycgbsjzd87/02/2024 Assessment & Plan (10/14/2024 8:56 AM EDT): Mood worse and increase zyprexa. Use xanax PRN. Assessment & Plan (08/13/2024 10:31 AM EDT): Mood unchanged but only on higher dose for 1 week. Continue medication at current dose. Use xanax PRN. Assessment & Plan (07/15/2024 11:37 AM EDT): Continues to have severe symptoms and increase zyprexa. Continue zoloft and use xanax PRN. Assessment & Plan (04/15/2024 8:53 AM EST): Mood controlled with medication and continue at current dose. Use xanax PRN. Assessment & Plan (03/11/2024 7:36 AM EST): Bipolar unchanged but worsening anxiety. Decrease zyprexa and increase zoloft. Warned will take 2-3weeks to notice improvement in mood. Use xanax PRN. Assessment & Plan (01/21/2024 4:33 PM EST): Symptoms unchanged and continue zoloft and zyprexa. Use xanax PRN. Assessment & Plan (01/02/2024 10:26 AM EDT): Symptoms worse and increase zoloft. Warned will take 2-3 weeks to notice improvement in mood. Continue zyprexa. Use xanax PRN. Assessment & Plan (12/19/2023 2:27 PM EDT): Symptoms worse and zoloft increased last week. Warned will take 2-3 weeks to notice improvement in mood. Continue zyprexa. Increase xanax and use PRN. Assessment & Plan (12/12/2023 10:48 AM EDT): Symptoms worse and increase zoloft. Warned will take 2-3 weeks to notice improvement in mood. Continue zyprexa. Assessment & Plan (12/04/2023 7:38 AM EDT): Symptoms stable and continue medication. Use xanax PRN. Assessment & Plan (11/22/2023 12:07 PM EDT): Severe symptoms and c/o felt worse with celexa. Start zoloft and warned will take 2-3 weeks to notice improvement in mood. Use xanax PRN. Assessment & Plan (09/02/2023 9:56 AM EDT): Worsening symptoms and increase celexa. Assessment & Plan (07/24/2023 8:53 AM EDT): Symptoms improved with medication change and continue at current dose. Use xanax PRN. Assessment & Plan (06/28/2023 10:36 AM EDT): Mood unchanged with trileptal and stop. Increase zyprexa and continue celexa. Use xanax PRN. Assessment & Plan (06/03/2023 8:48 AM EDT): Symptoms worse and add trileptal. Continue zyprexa and celexa. Start xanax PRN. Assessment & Plan (04/05/2023 12:12 PM EST): Occasional symptoms but tolerable and continue medication. Icmpwkmmibxf89/02/2024 Assessment & Plan (07/15/2024 11:38 AM EDT): Repeat labs. Adult reobghvplsbsit78/02/2024OSA on CPAP04/05/2023Type 2 diabetes mellitus with hyperglycemia, without long-term current use of vgdwheg6404/05/2023 Assessment & Plan (10/14/2024 8:56 AM EDT): BS elevated and try mounjaro. Stick to ADA diet and limit carbs. Assessment & Plan (08/13/2024 10:32 AM EDT): BS controlled A1C 4.7. Stick to ADA diet and limit carbs. Assessment & Plan (07/15/2024 11:38 AM EDT): BS controlled but possible side effects from ozempic and stop. Due for A1C. Stick to ADA diet and limit carbs. Assessment & Plan (04/15/2024 8:53 AM EST): Reports BS controlled and last A1C 4.3. Stick to ADA diet and limit carbs. Assessment & Plan (03/11/2024 7:36 AM EST): Reports BS controlled and last A1C 4.3. Stick to ADA diet and limit carbs. Assessment & Plan (12/04/2023 7:39 AM EDT): Reports BS controlled and due for A1C. Stick to ADA diet and limit carbs. Assessment & Plan (09/02/2023 9:56 AM EDT): Reports BS improved and due for A1C. Stick to ADA diet and limit carbs. Assessment & Plan (07/24/2023 8:54 AM EDT): Reports BS improved and due for A1C. Stick to ADA diet and limit carbs. Assessment & Plan (04/05/2023 12:12 PM EST): Reports BS elevated and increase ozempic. Stick to ADA diet and limit carbs. Vestibular gkaikcyh53/02/2024 Assessment & Plan (10/14/2024 8:56 AM EDT): DEJESUS worse with increased anxiety. Follow with neurology. Off work 07/06-11/22 and return 11/23. Assessment & Plan (08/13/2024 10:31 AM EDT): DEJESUS worse with increased anxiety. Follow with neurology. Off work 07/06-10/18 and return 10/19. Assessment & Plan (07/15/2024 11:37 AM EDT): DEJESUS worse with increased anxiety. Follow with neurology. Off work 07/06-08/16 and return 08/17. Assessment & Plan (04/15/2024 8:53 AM EST): DEJESUS stable and follow up with neurology. Assessment & Plan (03/11/2024 7:36 AM EST): DEJESUS stable and continue Ajovy. Follow up with neurology. Assessment & Plan (01/21/2024 4:33 PM EST): DEJESUS unchanged and increase zonegran. Follow up with neurology as scheduled. Use fioricet PRN. Off work 01/06-01/25 and return 01/26. Assessment & Plan (01/02/2024 10:27 AM EDT): DEJESUS unchanged and stop topamax. Try zonegran. Refer to neurology. Use fioricet PRN. Off work 12/16-01/04 and return 01/05. Assessment & Plan (12/19/2023 2:27 PM EDT): DEJESUS worse likely related to sinusitis and anxiety. Continue topamax. Use fioricet PRN. Off work 12/16-12/23 and return 12/24. Assessment & Plan (12/12/2023 10:48 AM EDT): DEJESUS worse likely related to sinusitis and anxiety. Continue topamax. Use fioricet PRN. Off work 12/10-12/14 and return 12/15. Assessment & Plan (12/04/2023 7:39 AM EDT): DEJESUS stable and continue topamax. Use fioricet PRN. Assessment & Plan (11/22/2023 12:08 PM EDT): DEJESUS worse and increase topamax. Use fioricet PRN. Assessment & Plan (09/02/2023 9:57 AM EDT): DEJESUS controlled with topamax and continue. Use fioricet PRN. Assessment & Plan (07/24/2023 8:54 AM EDT): DEJESUS initially improved with topamax but then worsen and increased dose. Monitor. Assessment & Plan (06/28/2023 10:36 AM EDT): DEJESUS worse and not responding to trileptal and stop. Start topamax and monitor for side effects. Use meclizine PRN. Off work 06/25-07/02. Assessment & Plan (04/05/2023 12:13 PM EST): DEJESUS worse and side effects from topamax and stop. Try elavil to reduce DEJESUS. Use OTC PRN. Vitamin D bfjphastnf89/02/2024Gastroesophageal reflux disease without ehewxghghgd07/02/2024 Assessment & Plan (04/05/2023 12:12 PM EST): Symptoms controlled with medication and continue. Resolved Problems ProblemNoted DateDiagnosed DateResolved DateViral mmoydzecdbdywtc59/08/2025 07/15/2024 Assessment & Plan (06/09/2024 11:03 AM EDT): Symptoms due to virus and may take [...] output. Wash hands frequently to prevent spread. Acute non-recurrent gwhbixbshzov92 Assessment & Plan (12/19/2023 2:26 PM EDT): Take antibiotics for 7 days. Use flonase [...] no better or worse call for re-evaluation. Assessment & Plan (12/12/2023 10:46 AM EDT): Take antibiotics BID for 10 days. Use [...] if no better or worsecall for re-evaluation. Assessment & Plan (07/24/2023 8:52 AM EDT): Take antibiotics BID for 10 days. Use [...] if no better or worsecall for re-evaluation. Assessment & Plan (06/03/2023 8:47 AM EDT): Take antibiotics BID for 10 days. Use [...] if no better or worsecall for re-evaluation. Family History Medical HistoryRelationNameCommentsCancerFatherChronic Renal Failure Syndrome FatherDiabetesFatherHeart diseaseFatherHyperlipidemiaFatherHypertensionFather Kidney diseaseFatherSkin cancerFatherDiabetesMotherHyperlipidemiaMother HypertensionMotherHypothyroidismMotherPeripheral vascular diseaseMother Postmenopausal OsteoporosisMotherRelationNameStatusCommentsFatherDeceasedMother Social History Tobacco UseTypesPacks/DayYears UsedDateSmoking Tobacco: NeverSmokeless Tobacco: Never Tobacco Cessation:Counseling Given: Not Answered B1300 Health LiteracyAnswerDate RecordedHow often do you need to have someone help you when you read instructions, pamphlets, or other written material from your doctor or pharmacy?Never10/12/2024Humiliation, Afraid, Rape, and Kick questionnaireAnswerDate RecordedWithin the last year, have you been afraid of your partner or ex-partner?No10/12/2024Within the last year, have you been humiliated or emotionally abused in other ways by your partner or ex-partner?No 10/12/2024Within the last year, have you been kicked, hit, slapped, or otherwise physically hurt by your partner or ex-partner?No10/12/2024Within the last year, have you been raped or forced to have any kind of sexual activity by your part ner or ex-partner?10/12/2024Social Connection and Isolation PanelAnswerDate RecordedIn a typical week, how many times do you talk on the phone with family, friends, or neighbors?Never10/12/2024How often do you get together with friends or relatives?Never10/12/2024How often do you attend holiness or caodaism services?Never10/12/2024Do you belong to any clubs or organizations such as holiness groups, unions, fraternal or athletic groups, or school groups?Yes 10/12/2024How often do you attend meetings of the clubs or organizations you belong to?Never10/12/2024re you , , , , never , or living with a partner?Edowzcj2610/12/2024UDIT-CAnswerDate RecordedQ1: How often do you have a drink containing alcohol?Never10/12/2024Q2: How many drinks containing alcohol do you have on a typical day when you are drinking? Patient does not drink10/12/2024Q3: How often do you have six or more drinks on one occasion?Never10/12/2024Overall Financial Resource Strain (CARDIA)AnswerDate RecordedHow hard is it for you to pay for the very basics like food, housing, medical care, and heating?Somewhat hard10/12/2024[facility] - Occupational Stress QuestionnaireAnswerDate RecordedDo you feel stress - tense, restless, nervous, or anxious, or unable to sleep at night because yourmind is troubled all the time - these days?Very much10/12/2024 Exercise Vital SignAnswerDate RecordedOn average, how many days per week do you engage in moderate to strenuous exercise (like a brisk walk)?0 days10/12/2024On average, how many minutes do you engage in exercise at this level?0 min 10/12/2024Hunger Vital SignAnswerDate RecordedWithin the past 12 months, you worried that your food would run out before you got the money to buymore. Sometimes true10/12/2024Within the past 12 months, the food you bought just didn't last and you didn't have money to get more.Sometimes true10/12/2024 PRAPARE - TransportationAnswerDate RecordedIn the past 12 months, has lack of transportation kept you from medical appointments or from getting medications?No 10/12/2024In the past 12 months, has lack of transportation kept you from meetings, work, or from getting things needed for daily living?No10/12/2024 Housing Stability Vital SignAnswerDate RecordedIn the last 12 months, was there a time when you were not able to pay the mortgage or rent on time?Patient phreudn2104/03/2023In the last 12 months, how many places have you lived?1 04/03/2023In the last 12 months, was there a time when you did not have a steady place to sleep or slept in ashelter (including now)?No04/03/2023Housing Stability Vital SignAnswerDate RecordedIn the last 12 months, was there a time when you were not able to pay the mortgage or rent on time?Yes10/12/2024In the past 12 months, how many times have you moved where you were living? At any time in the past 12 months, were you homeless or living in a retirement (including now)?No10/12/2024CommentsUnknownSex and Gender Information ValueDate RecordedSex Assigned at BirthNot on fileLegal XjfEslxzg59/15/2023 8:23 PM EDTGender IdentityNot on fileSexual OrientationNot on file Last Filed Vital Signs Vital SignReadingTime TakenCommentsBlood Frvmykey246/8210/14/2024 8:06 AM EDT Hhvxt30471/13/2025 8:06 AM XKFXfzsrskyoem79.2 ??C (97.1 ??F)10/14/2024 8:06 AM EDTRespiratory Tekx211710/14/2024 8:06 AM EDTOxygen Fzyulflqiq05%10/14/2024 8:06 AM EDTInhaled Oxygen Concentration--Hbsqfg03.6 kg (202 lb)10/14/2024 8:06 AM EDT Gmsmvz709.6 cm (5' 4 )10/14/2024 8:06 AM EDTBody Mass Index34.67010/14/2024 8:06 AM EDT Plan of Treatment Health MaintenanceDue DateLast DoneCommentsCT Msbtypgekckx79/19/1971Colonoscopy 1970Colorectal Cancer Ivgurtqbn27/19/1971FIT-DNA1970FIT1970 FOBT1970 6074Nmjyzzghevtep05/19/1971Pneumococcal Vaccine: Pediatrics (0 to 5 Years) and At-Risk Patients (6 to 64 Years) (1 of 2 - PCV)1989Pap Smear 08/21/1991Cervical Cancer Pnomcxhga75/19/2001HPV/Gwfswo2408/20/2000Mammogram 2010Diabetes: Retinopathy Yhrctxdew92/10/170340/3COVID-19 Vaccine ( season)/, 12/05/2020Influenza Vaccine (#1) 5103/09/2023, 11/24/2022, 02/13/2019, Additional history existsDiabetes: Urine Protein Wgbytudyj07/11/4851464Diabetes: Hemoglobin A1C01/17/2025 07/17/2024, 12/13/2023 Insurance * Guarantor: Amanda Wall TypeRelation to PatientDate of PhoneBilling AddressPersonal/CsuzgxAdll03/19/1971 [address] [place] [address] Care Teams Team MemberRelationshipSpecialtyStart DateEnd Date Brian Agrawal MD PCP - GeneralFamily Medicine03/22/23 Brian Agrawal MD [address] [facility] [place] [id number] PCP - [employer]03/04/23 Ricardo Wells DO [address] [place] [address] Referring FxrxhlbikZhhfjgncy90/2/24 Mandy Pimentel NP [address], [place] [address] Nurse NvgtplpvsvhnUqxuhbrcy14/2/24
--- OUTSIDE RECORDS SUMMARY | 2025-02-06 07:11 | XMS_ITS | Clinical Summary ---
Demographics Address [address] [place] [address] Mobile Phone Home Phone Email Address Preferred Language Japanese Marital Status Adventist Affiliation Unknown Race White Ethnic Group Not or Lati no Author Organization [facility] tem Address [id number] [place] [address] Care Team Providers Care Assistant Professor Of Geography Name Role Phone Brian Agrawal MD Primary Care Provider [phone] Allergies Active AllergyReactionsCriticalityNoted HngwLvyvpgygBxtbkes33/07/2022 Medications MedicationSigDispense QuantityRefillsLast FilledStart DateEnd DateStatus doxepin (SINEquan) 10 mg capsule take 1 to 2 capsules by mouth once daily at xoecsbb3811/20/2020ctive escitalopram (LEXAPRO) 20 mg tablet 11/28/2020ctive hydroCHLOROthiazide (HYDRODIURIL) 25 mg tablet 11/27/2020ctive montelukast (SINGULAIR) 10 mg tablet 12/01/2020ctive mupirocin (BACTROBAN) 2 % ointment Indications:Deviated septumApplied intranasally bilaterally 2 times daily 15 g 01/02/2021ctive topiramate (TOPAMAX) 25 mg capsule Take 1 capsule (25 mg total) by mouth 2 (two) times a day. 70 capsule 11004/10/2021ctive Active Problems ProblemNoted DateDiagnosed DateDeviated yoytms1901/02/2021OSA (obstructive sleep apnea)01/02/20211114Xbebawygjyjv94/01/7941Nlpwkdits20/01/2021 Social History Tobacco UseTypesPacks/DayYears UsedDateSmoking Tobacco: NeverSmokeless Tobacco: NeverPHQ-2AnswerDate RecordedTotal Xmbwl039hildcareAnswerDate Recorded EssgtrfxzIttykkw97/12/2019EmploymentAnswerDate RecordedEmploymentUnknown 08/13/2018CommentsUnknownSex and Gender InformationValueDate RecordedSex Assigned at AkuiaMrrncz44/29/2021 11:11 AM EDTLegal GlyDbvnco05/06/2015 11:59 AM EDTGender BrijbxkvZnybib72/29/2021 11:11 AM EDTSexual OrientationStraight 12/30/2020 11:11 AM EDT Last Filed Vital Signs Vital SignReadingTime TakenCommentsBlood Rbncnwkp916/3800204/10/2021 9:18 AM EST Wxbym298004/10/2021 9:18 AM UEPGyfkwbhcocc88.8 ??C (96.4 ??F)04/10/2021 9:18 AM ESTRespiratory Rate--Oxygen Saturation--Inhaled Oxygen Concentration--Weight 103.3 kg (227 lb 12.8 oz)04/10/2021 9:18 AM ICRPrilxg884.6 cm (5' 4 )04/10/2021 9:18 AM ESTBody Mass Index39. 9:18 AM EST Plan of Treatment Health MaintenanceDue DateLast DoneCommentsDepression Yxgocydyt61/19/1983Tobacco Kcoonrcre19/19/1983Adult BMI Xecqjjzic51/19/1989DTaP,Tdap and Td Vaccines (1 - Tdap)1989Pap Smear08/21/1991Zoster (Shingles) Vaccine (1 of 2)2020 COVID-19 Vaccine (3 - season), 12/05/2020Influenza Lcsvbwk52, 10/18/2015, 12/06/2014 Medical Devices Not on file Insurance * Guarantor: Amanda Wall [facility] TypeRelation to PatientDate of PhoneBilling AddressPersonal/JgcxqmVtwl80/19/1971 [address] [place] [address] Care Teams Team MemberRelationshipSpecialtyStart DateEnd Date Brian Ag[facility]al [facility] - [facility]21
--- OUTSIDE RECORDS SUMMARY | 2025-02-06 07:12 | XMS_ITS | CCD ---
Author Organization [facility]iniSyn[facility] Care Team Providers Care Diesel Scoop Operator Name Role Phone Fabiola Bernardo Unavailable [...] Unavailable Naderer Brian WILKINS Primary Care Provider [phone] Brian Urbina MD Unavailable Priscilla MONTES, Christopher Unavailable Margarito ROLL MILL OPERATOR, Mandy Unavailable Laron ROLL MILL OPERATOR, Marj Unavailable Margarito ROLL MILL OPERATOR, Mandy Unavailable Priscilla DO, Christopher Unavailable Margarito ROLL MILL OPERATOR, Mandy Unavailable Laron ROLL MILL OPERATOR, Marj Unavailable Unavailable Brian Urbina MD Primary Care Provider [phone] Maria Luz Lowe APRN Attending Provider [phone] Dena Amado APRN Attending Provider [phone] Laron BERNARDO-MEDICAL CHIEF TECHNICIAN-Marj Wu Attending Provider Tuan Wells DO Unavailable [phone] BRIAN URBINA Attending Unavailable NADERER, BRIAN Attending Unavailable NADERER, BRIAN Attending Unavailable NADERER, BRIAN Attending Unavailable NADERER, BRIAN Attending Unavailable NADERER, BRIAN Attending Unavailable NADERER, BRIAN Attending Unavailable NADERER, BRIAN Attending Unavailable NADERER, BRIAN Attending Unavailable NADERER, BRIAN Attending Unavailable NADERER, BRIAN Attending Unavailable TUAN WELLS Attending Unavailable NADEREKaty, BRIAN Referring Unavailable CIARA, BRIAN Attending Unavailable Brian Urbina MD Primary Care Provider Brian Urbina MD Attending Provider Allergies Allergy ClassificationReported Allergen(s)Allergy TypeDate of OnsetReaction(s) Facility (13 sources)AspirinDrug Iedosqg29-37-9340jvjssAwdtcqcekKeenan [facility] Hospital (13 sources)CiprofloxacinDrug Pfzntjp64-27-3763zbmhshbAshtab[facility] (12 sources)LisinoprilDrug Goztngc03-04-9997wzgwqemmZxmhnohznCincinnati [facility] (1 source)AspirinDrug Bqqeolw37-75-7592VqlDay[facility] (20 sources)Aluminum aspirinDrug Ecswrfk11-81-0802DbeeXUXD Healthcare Work Phone: (20 sources)LisinoprilPropensity to adverse zhhgeztzc15-69-0847DokviEFFQ Healthcare Medications Current Medications MedicationDrug Class(es)DatesSig (Normalized)Sig (Original)acetaminophen 325 mg / butalbital 50 mg / caffeine 40 mg oral tablet (20 sources)Barbiturate, Central Nervous System Stimulant, MethylxanthineStart: 83-81-2657jdzx 1 tablet by mouth every six hours as needed Tpemgkopam-Aajclpgiqhzch-Qoye 50-325-40 mg tablet Active 1 TAB PO Every 6 hours as needed January 13, 2024 1:00am Complies with drug therapyStart: 11-22-2023 take 1 tablet by mouth four times daily as needed for headache ijejjakkeb-viupntmbnnaov-pyatvsqd 50-325-40 MG tablet Indications: Vestibular migraine Take 1 tablet by mouth 4 (four) times a day as needed for headaches 30 tablet 11/22/2023 [id number] 200 actuat albuterol 0.09 mg/actuat metered dose inhaler (20 sources)beta2-Adrenergic AgonistStart: 87-87-7668osdo 2 puff(s) by inhalation four times daily as neededAlbuterol Sulfate HFA 108 (90 Base) MCG/ACT 2 puffs Inhalation 4 times a day prn Jun, Active End: 11-04-8814nxdw 2 puff(s) by inhalation every four hours for wheezing albuterol HFA 90 mcg/act inhaler Inhale 2 puffs every 4 (four) hours if needed for wheezing 01/21/2024 DiscontinuedALPRAZolam 1 mg oral tablet (20 sources)BenzodiazepineStart: 12-19-2023 End: 06-91-3934jtrk 1 tablet by mouth three times daily as needed for anxiety Alprazolam 1 mg tablet Active 1 MG PO Three times daily as needed for anxiety January 13, 2024 1:00am Complies with drug therapyStart: 06-03-2023 End: 47-40-2325kqgk 1 tablet by mouth three times daily as needed for anxiety ALPRAZolam (Xanax) 0.5 MG tablet Indications: Generalized anxiety disorder (CMS/HCC) Take 1 tablet (0.5 mg) by mouth 3 (three) times a day as needed for anxiety for up to 20 days 60 tablet Discontinued (Reorder) Xanax Activebaclofen 20 mg oral tablet (20 sources)gamma-Aminobutyric Acid-ergic Agonisttake 1 tablet by mouth three times daily as needed for muscle spasmsbaclofen (Lioresal) 20 MG tablet Take 20 mg by mouth 3 (three) times a day as needed for muscle spasms Active Mlykuanzta-Giyrlvhhhmcou-Geek 50-325-40 mg tablet (4 sources)Start: 53-57-5323ayms 1 tablet by mouth every six hours as needed Ozlpyhambh-Bauwoiubbmkwd-Riyw 50-325-40 mg tablet Active 1 TAB PO Every 6 hours as needed January 13, 2024 1:00amStart: 30-09-5776cwvb 1 tablet by mouth every six hours as kqvpmgVtqkpkkgpb-Vfpzkktbkuabn-Yhcb 50-325-40 mg tablet Active 1 TAB PO Every 6 hours as needed January 13, 2024 12:00amCetirizine (1 source)Histamine-1 Receptor AntagonistZyrTEC Allergy Activecitalopram 40 mg oral tablet (6 sources)Serotonin Reuptake InhibitorStart: 09-02-2023 End: 52-77-5112biia 1 tablet by mouth once dailycitalopram (CeleXA) 40 MG tablet Indications: Generalized anxiety disorder (CMS/HCC) Take 1 tablet (40 mg) by mouth Daily 30 tablet 5 09/02/2023 11/22/2023 Discontinuedtake 1 tablet by mouth in the morningcitalopram (CeleXA) 20 MG tablet Take 20 mg by mouth in the morning. 0 Activecyclobenzaprine hydrochloride 10 mg oral tablet (1 source)Muscle RelaxantStart: 50-44-7806yjup 1 tablet by mouth three times daily as needed for muscle spasmsCyclobenzaprine HCl 10 MG 1 tab(s) Orally tid prn As needed for muscle spasms or tightness July, Activedicyclomine hydrochloride 20 mg oral tablet (15 sources)AnticholinergicStart: 06-09-2024 End: 63-18-2059gfpl 1 tablet by mouth four times daily as needed for pain dicyclomine (Bentyl) 20 MG tablet Indications: Viral gastroenteritis Take 1 tablet (20 mg) by mouth4 (four) times a day as needed (abdominal pain or cramps) 30 tablet 2 06/09/2024 10/14/2024 DiscontinuedDoxepin (5 sources)Tricyclic AntidepressantDoxepin HCl Activedoxycycline monohydrate 100 mg oral capsule (1 source)Tetracycline-class DrugStart: 21-37-9613lapy 1 capsule by mouth every twelve hoursDoxycycline Monohydrate 100 MG 1 capsule Orally every 12 hrs for 7 days Dec, ActiveEscitalopram (5 sources)Serotonin Reuptake InhibitorLexapro Activefluticasone propionate 0.05 mg/actuat metered dose nasal spray (20 sources)CorticosteroidStart: 93-37-5339Rwsyeypjtij Propionate 50 mcg/actuation spray,suspension Active INTRANASAL January 13, 2024 1:00am Complies with drug therapyStart: 28-86-4882qlgd 2 spray(s) nasal route once dailyFluticasone Propionate 50 MCG/ACT 2 sprays Nasally Once a day for 14 day(s) Jun, Active End: 12-68-6402peka 2 spray(s) nasal route in the morningfluticasone (Flonase) 50 MCG/ACT nasal spray Administer 2 sprays into each nostril in the morning. S lance gently. Before first use, prime pump. After use, clean tip and replace cap.. 12/12/2023 Discontinued (Reorder)Glucose Blood (BLOOD GLUCOSE TEST ) (20 sources)Glucose Blood (BLOOD GLUCOSE TEST ) by In Vitro route Active Glucose Blood (BLOOD GLUCOSE TEST ) by In Vitro route 0 Active hydroCHLOROthiazide 25 mg oral tablet (20 sources)Thiazide DiureticStart: 08-19-2023 End: 86-06-0886uuqb 1 tablet by mouth once dailyhydroCHLOROthiazide (HYDRODiuril) 25 MG tablet Indications: Essential hypertension, benign Take 1 ta blet (25 mg) by mouth Daily 30 tablet 11 10/16/2024 10/16/2025 Activetake 1 tablet by mouth in the morninghydroCHLOROthiazide (HYDRODiuril) 25 MG tablet Take 25 mg by mouth in the morning. 0 ActivehydroCHLOROthiazide Activeibuprofen 800 mg oral tablet (7 sources)Nonsteroidal Anti-inflammatory DrugStart: 04-54-7296jnzl 1 tablet by mouth every eight hoursIbuprofen 800 MG 1 tablet Orally Three times a day for 14 days Apr, ActivelevoFLOXacin 750 mg oral tablet (4 sources)Quinolone AntimicrobialStart: 12-19-2023 End: 43-17-4006nccf 1 tablet by mouth once dailylevoFLOXacin (Levaquin) 750 MG tablet Indications: Acute non-recurrent pansinusitis Take 1 tablet (750 mg) by mouth Daily for 7 days 7 tablet 12/19/2023 01/02/2024 DiscontinuedLosartan (2 sources)Angiotensin 2 Receptor BlockerLosartan Potassium Activemeclizine hydrochloride 25 mg oral tablet (20 sources)AntiemeticStart: 42-97-2285rqyw 1 tablet by mouth four times daily as needed for dizzinessmeclizine (Antivert) 25 MG tablet Indications: Vestibular migraine Take 1 tablet (25 mg) by mouth 4(four) times a day as needed for dizziness 60 tablet 2 06/28/2023 Activemontelukast (5 sources)Leukotriene Receptor AntagonistSingulair Activemupirocin 0.02 mg/mg topical ointment (1 source)RNA Synthetase Inhibitor AntibacterialStart: 52-36-7962Aogaoiwby 2 % 1 application to affected area Externally 2 times a day for 7 days Dec, ActiveOLANZapine 15 mg oral tablet (20 sources)Atypical AntipsychoticStart: 72-78-1051mlhc 1 tablet by mouth once daily at bedtimeOlanzapine 15 mg tablet Active 15 MG PO Daily at bedtime November 19, 2024 12:00am Complies withdrug therapyStart: 10-14-2024 End: 07-76-9607flxd 1 tablet by mouth at bedtimeOLANZapine (ZyPREXA) 15 MG tablet Indications: Bipolar affective, mixed (HCC) Take 1 tablet (15 mg)by mouth at bedtime 30 tablet 5 10/29/2024 ActiveStart: 07-15-2024 End: 16-23-7766Yojnzjydsa 10 mg tablet Discontinued 10 MG PO August 27, 2024 12:00am November 19, 2024 4:11pmStart: 03-11-2024 End: 51-05-9130rfmd 1 tablet by mouth once dailyOlanzapine 7.5 mg tablet Discontinued 7.5 MG PO Daily May 30, 2024 11:00am August 27, 2024 9:34am Start: 07-16-2023 End: 71-43-2453vvoy 1 tablet by mouth once daily at bedtimeOlanzapine 15 mg tablet Discontinued 15 MG PO Daily at bedtime January 13, 2024 1:00am May 13, 2024 3:14pmStart: 05-17-2023 End: 37-79-2031lrcs 1 tablet by mouth once dailyOlanzapine 10 mg tablet Discontinued 10 MG PO Daily May 17, 2023 12:00am January 13, 2024 10:32am take 1 tablet by mouth once dailyOLANZapine (ZyPREXA) 10 MG tablet Take 10 mg by mouth 1 (one) time each day 0 ActiveOLANZapine Activeomeprazole 40 mg delayed release oral capsule (20 sources)Proton Pump InhibitorStart: 05-20-2023 End: 12-30-6209vglu 1 capsule by mouth once dailyOmeprazole 40 mg capsule,delayed release(DR/EC) Active 40 MG PO Daily January 13, 2024 1:00am Complies with drug therapytake 1 capsule by mouth before mealtimeomeprazole (PriLOSEC) [address] capsule Take 40 mg by mouth in the morning. Take before meals. Do not crush or chew.. 0 ActiveOmeprazole Activeondansetron 4 mg disintegrating oral tablet (20 sources)Serotonin-3 Receptor AntagonistStart: 68-32-4304ofyg 1 tablet by mouth every eight hours as needed for nausea and vomitingOndansetron 4 mg tablet,disintegrating Active 4 MG PO Every 8 hours as needed for nausea and vomiting 15 June 30, 2024 12:00am Complies with drug therapyStart: 01-21-2024 End: 57-10-4481bspg 1 tablet by mouth every eight hours for nauseaondansetron ODT (Zofran-ODT) 4 MG disintegrating tablet Indications: Vestibular migraine Take 1 tablet (4 mg) by mouth every 8 (eight) hours if needed for nausea or vomiting 30 tablet 3 06/09/2024 ActiveStart: 48-26-0223rnlo 1 tablet by mouth three times daily as neededZofran 4 MG 1 tablet Orally 3 times a day prn Feb, Activepromethazine hydrochloride 12.5 mg oral tablet (1 source)PhenothiazineStart: 46-08-5876svtc 1 tablet by mouth every eight hours Promethazine HCl 12.5 MG 1 tablet as needed Orally every 8 hrs for 4 days Mar, Jcbmzk45 hr propranolol hydrochloride 60 mg extended release oral capsule (3 sources)beta-Adrenergic BlockerStart: 08-27-2024 End: 24-12-2540megf 1 capsule by mouth once dailypropranolol LA (Inderal LA) 60 MG 24 hr capsule Take 60 mg by mouth Daily 08/28/2024 10/14/2024 Discontinued risperiDONE (1 source)Atypical AntipsychoticRisperDAL Active0.25 mg, 0.5 mg dose 1.5 ml semaglutide 1.34 mg/ml pen injector (2 sources)Start: 03-61-1834mhezie 2 mg by subcutaneous injection every week semaglutide (Ozempic, 0.25 or 0.5 MG/DOSE,) 2 MG/1.5ML solution pen-injector Indications: Type 2 diabetes mellitus with hyperglycemia, with long-term current use of insulin (CMS/HCC) Inject 2 mg under the skin 1 (one) time per week 4 each 3 04/05/2023 ActiveStart: 46-69-9210cxadkk 2 mg by subcutaneous injection every weeksemaglutide (Ozempic, 0.25 or 0.5 MG/DOSE,) 2 MG/1.5ML solution pen-injector Indications: Type 2 diabetes mellitus with hyperglycemia, with long-term current use of insulin (CMS/HCC) Inject 2 mg under the skin 1 (one) time per week 4 each 3 04/05/2023 ActiveSemaglutide (Ozempic) 2 mg/dose (8 mg/3 mL) pen injector (5 sources)Start: 81-67-4933Sdwopuhcfgn (Ozempic) 2 mg/dose (8 mg/3 mL) pen injector Active MG SUBCUT May 16, 2023 11:00pmStart: 15-44-7865Nwgpibzaato (Ozempic) 2 mg/dose (8 mg/3 mL) pen injector Active MG SUBCUT May 17, 2023 12:00amsemaglutide (Ozempic, 1 MG/DOSE,) 4 MG/3ML solution pen-injector (3 sources) End: 19-68-2866ibvcle 1 mg by subcutaneous injection every weeksemaglutide (Ozempic, 1 MG/DOSE,) 4 MG/3ML solution pen-injector Inject 1 mg under the skin 1 (one)time per week 0 04/05/2023 Discontinued (Dose adjustment)inject 1 mg by subcutaneous injection every weeksemaglutide (Ozempic, 1 MG/DOSE,) 4 MG/3ML solution pen-injector Inject 1 mg under the skin 1 (one)time per week 0 Active Semaglutide, 2 MG/DOSE, (Ozempic, 2 MG/DOSE,) 8 MG/3ML solution pen-injector (20 sources)Start: 03-02-2024 End: 47-08-1882fydpsp 2 mg by subcutaneous injection every weekSemaglutide, 2 MG/DOSE, (Ozempic, 2 MG/DOSE,) 8 MG/3ML solution pen-injector Indications: Type 2 diabetes mellitus with hyperglycemia, with long-term current use of insulin (CMS/HCC) Inject 2 mg under the skin 1 (one) time per week 3 mL 5 03/02/2024 07/15/2024 DiscontinuedStart: 56-94-1182cbaerq 2 mg by subcutaneous injection every weekSemaglutide, 2 MG/DOSE, (Ozempic, 2 MG/DOSE,) 8 MG/3ML solution pen- injector Indications: Type 2 diabetes mellitus with hyperglycemia, with long- term current use of insulin (CMS/HCC) Inject 2 mg under the skin 1 (one) time per week 3 mL 5 03/02/2024 ActiveStart: 42-43-6422dkqjej 2 mg by subcutaneous injection every weekSemaglutide, 2 MG/DOSE, (Ozempic, 2 MG/DOSE,) 8 MG/3ML solution pen-injector Indications: Type 2 diabetes mellitus with hyperglycemia, with long-term current use of insulin (CMS/HCC) Inject 2 mg under the skin 1 (one) time per week 3 mL 5 08/19/2023 Activesertraline 100 mg oral tablet (20 sources)Serotonin Reuptake InhibitorStart: 05-13-2024 End: 68-60-7176vply 1 tablet by mouth once dailysertraline (Zoloft) 100 MG tablet Indications: Generalized anxiety disorder TAKE 1 TABLET BY MOUTH EVERY DAY 30 tablet 5 09/28/2024 ActiveStart: 03-11-2024 End: 14-94-2252auoa 1 tablet by mouth once dailysertraline (Zoloft) 100 MG tablet Indications: Generalized anxiety disorder (CMS/HCC) Take 1 tablet(100 mg) by mouth Daily 30 tablet 5 03/11/2024 04/15/2024 Discontinued (Dose adjustment) Start: 12-12-2023 End: 40-92-3019csyq 1 tablet by mouth once dailySertraline 50 mg tablet Discontinued 50 MG PO Daily January 13, 2024 1:00am May 13, 2024 3:15pm Start: 11-22-2023 End: 70-16-1285nlmm 1 tablet by mouth once dailysertraline (Zoloft) 25 MG tablet Indications: Generalized anxiety disorder (CMS/HCC) Take 1 tablet (25 mg) by mouth Daily 30 tablet 3 11/22/2023 12/12/2023 Discontinued (Reorder)SUMAtriptan (2 sources)Serotonin-1b and Serotonin-1d Receptor AgonistImitrex Active Tirzepatide (1 source)Start: 12-71-8301Wxxzwutuewm (Mounjaro) 2.5 mg/0.5 mL pen injector Active 2.5 MG SUBCUT every week 2 November 10, 2024 12:00am for 4 weeks Complies with drug therapyTirzepatide (Mounjaro) 2.5 MG/0.5ML solution auto-injector (4 sources)Start: 89-76-3281ucnmmv 2.5 mg by subcutaneous injection every week Tirzepatide (Mounjaro) 2.5 MG/0.5ML solution auto-injector Indications: Type 2 diabetes mellitus with hyperglycemia, without long-term current use of insulin (HCC) Inject 2.5 mg under the skin 1 (one) time per week 2 mL 1 10/14/2024 ActivetraMADol hydrochloride 50 mg oral tablet (3 sources)Opioid AgonisttraMADol (Ultram) 50 MG tablet Take 50 mg by mouth in the morning and 50 mg at noon and 50 mg in the evening and 50 mg before bedtime. 0 Activezonisamide 100 mg oral capsule (20 sources)Anti-epileptic AgentStart: 01-21-2024 End: 95-95-0679Fmbeeufdys 100 mg capsule Active MG PO May 13, 2024 12:00am Complies with drug therapyStart: 01-13-2024 End: 67-12-6896lpmu 1 capsule by mouth once dailyZonisamide 25 mg capsule Discontinued 50 MG PO daily January 13, 2024 1:00am May 13, 2024 3:14pm Start: 01-02-2024 End: 51-38-1890ktst 2 capsules by mouth once dailyzonisamide (Zonegran) 25 MG capsule Indications: Vestibular migraine (CMS/HCC) Take 2 capsules (50 mg) by mouth Daily 60 capsule 3 01/02/2024 01/21/2024 Discontinued Completed/Discontinued Medications MedicationDrug Class(es)DatesSig (Normalized)Sig (Original)amitriptyline hydrochloride 25 mg oral tablet (12 sources)Tricyclic AntidepressantStart: 05-17-2023 End: 65-70-0439muud 1 tablet by mouth once dailyAmitriptyline 25 mg tablet Discontinued 25 MG PO Daily May 17, 2023 12:00am January 12164484:50am Start: 62-65-8926sxdo 1 tablet by mouth at bedtimeamitriptyline (Elavil) 25 MG tablet Indications: Vestibular migraine (CMS/HCC) Take 1 tablet (25 mg) by mouth at bedtime 30 tablet 3 04/05/2023 ActiveStart: 88-85-4501qext 1 tablet by mouth at bedtimeamitriptyline (Elavil) 25 MG tablet Indications: Vestibular migraine (CMS/HCC) Take 1 tablet (25 mg) by mouth at bedtime 30 tablet 3 04/05/2023 Activeamoxicillin 875 mg / clavulanate 125 mg oral tablet (7 sources)Penicillin-class AntibacterialStart: 05-17-2023 End: 80-93-2799stvv 1 tablet by mouth twice dailyAmoxicillin-Pot Clavulanate 875-125 mg tablet Discontinued 1 TAB PO Twice daily May 162:00am January 13, 2024 10:33amStart: 45-38-3045kryx 1 tablet by mouth every twelve hoursAmoxicillin-Pot Clavulanate 875-125 MG 1 tablet Orally every 12 hrs for 10 day(s) Jun, Activebenzonatate 200 mg oral capsule (6 sources)Non-narcotic AntitussiveStart: 05-17-2023 End: 75-68-1441Pctjagggwiz 200 mg capsule Discontinued 200 MG PO 2-3 TIMES PER DAY as needed for cough May 17, 2023 12:00am January 13, 2024 10:32am cefdinir 300 mg oral capsule (7 sources)Cephalosporin AntibacterialStart: 12-12-2023 End: 80-44-0922iwyq 1 capsule by mouth in the morningcefdinir (Omnicef) 300 MG capsule Indications: Acute non-recurrent pansinusitis Take 1 capsule (300mg) by mouth in the morning and 1 capsule (300 mg) before bedtime. Do all this for 10 days. 20 capsule 12/12/2023 12/19/2023 Discontinued1.5 ml fremanezumab-vfrm 150 mg/ml prefilled syringe (11 sources)Start: 09-15-2024 End: 72-96-8187Dempjnnkcgat-Vfrm (Ajovy Autoinjector) 225 mg/1.5 mL auto- injector Discontinued 225 MG SUBCUT everymonth 1.5 30 September 15, 2024 12:00am November 20, 2024 10:24amStart: 02-03-2024 End: 31-66-0690wmrpoc 1 mL by subcutaneous injection every 30 daysfremanezumab (Ajovy) 225 MG/1.5ML auto-injector Indications: Chronic migraine without aura without status migrainosus, not intractable (CMS/HCC) INJECT 1 PEN SUBCUTANEOUSLY (UNDER THE SKIN) EVERY 30 DAYS 1.5 mL 2 02/03/2024 04/15/2024 DiscontinuedStart: 02-03-2024 End: 49-63-2662nwcckbfxtxbr (Ajovy) 225 MG/1.5ML auto-injector Indications: Chronic migraine without aura without status migrainosus, not intractable (CMS/HCC) Inject 1 pen (225 mg) under the skin every 30 (thirty)days 1.68 mL 11 02/03/2024 02/02/2025 ActiveKetorolac (5 sources)Nonsteroidal Anti-inflammatory Drug, Cyclooxygenase InhibitorStart: 53-06-8970Ijxfzvq per 15 mg July, 30 mgpredniSONE 50 mg oral tablet (7 sources)Start: 12-12-2023 End: 28-50-9236cptl 1 tablet by mouth once dailypredniSONE (Deltasone) 50 MG tablet Indications: Acute non-recurrent pansinusitis Take 1 tablet (50mg) by mouth Daily for 6 days 6 tablet 12/12/2023 12/19/2023 DiscontinuedStart: 59-61-6016ppsi 1 tablet by mouth every twelve hourspredniSONE 20 MG 1 tablet Orally bid for 5 day(s) Jun, Activeprochlorperazine 10 mg oral tablet (3 sources)PhenothiazineStart: 01-13-2024 End: 94-93-6287kpsholojfijsuylf (Compazine) 10 MG tablet Take 10 mg by mouth every 12 (twelve) hours if needed fornausea or vomiting 01/13/2024 01/21/2024 DiscontinuedSemaglutide (2 sources)Start: 05-17-2023 End: 91-52-0947Ijmvjqifvvl (Ozempic) 2 mg/dose (8 mg/3 mL) pen injector Discontinued MG SUBCUT May 17, 2023 12:00am November 20, 2024 10:24am Start: 01-86-7748Npvchrargqp (Ozempic) 2 mg/dose (8 mg/3 mL) pen injector Active MG SUBCUT May 17, 2023 12:00am Complies with drug therapytopiramate 100 mg oral tablet (20 sources)Start: 01-13-2024 End: 70-19-7472zuak 1 tablet by mouth once dailyTopiramate 100 mg tablet Discontinued 100 MG PO Daily January 13, 2024 1:00am January 13, 2024 10:51amStart: 11-22-2023 End: 24-32-4967bjdb 1 tablet by mouth in the morningtopiramate (Topamax) 100 MG tablet Indications: Vestibular migraine (CMS/HCC) Take 1 tablet (100 mg) by mouth in the morning and 1 tablet (100 mg) before bedtime. 60 tablet 5 11/22/2023 01/02/2024 DiscontinuedStart: 06-28-2023 End: 31-29-3588ygum 1 tablet by mouth in the morningtopiramate 50 MG tablet Indications: Vestibular migraine (CMS/HCC) Take 50 mg by mouth in the morning and 50 mg before bedtime. 06/28/2023 11/22/2023 DiscontinuedStart: 05-17-2023 End: 13-05-5688aihb 1 tablet by mouth once dailyTopiramate 50 mg tablet Discontinued 50 MG PO Daily May 17, 2023 12:00am May 17, 2023 1:03pm Topamax ActiveToradol 30 mg/ml (2 sources)Start: 51-64-9094Dncsrmh 30 mg/ml Mar, 30 mgtriamcinolone acetonide 40 mg/ml injectable suspension (2 sources)CorticosteroidStart: 84-82-0633Ftpyquq-40 Mar, 40 mg Problems Active Problems Problem ClassificationProblemDateDocumented DateEpisodic/ChronicAllergic reactions (7 sources)Allergic condition; Translations: [Allergy, unspecified, initial encounter]87-11-0018QnqcfwudJzsjebg disorders (20 sources)Generalized anxiety disorder; Translations: [Generalized anxiety disorder]Onset: 087240-84-3512ImlrwlrVbuspct obstructive pulmonary disease and bronchiectasis (1 source)Bronchitis, not specified as acute or chronicEpisodicConditions associated with dizziness or vertigo (3 sources)Dizziness; Translations: [Dizziness and giddiness]26-62-5586Kxipuuwg Diabetes mellitus with complications (20 sources)Type 2 diabetes mellitus; Translations: [Type 2 diabetes mellitus with hyperglycemia]Onset: 622953-06-5516VkakaahUccyfyafj of lipid metabolism (20 sources)Hyperlipidemia; Translations: [Hyperlipidemia, unspecified]Onset: 262475-88-3649JirhwjdBbqufkdtwi disorders (20 sources)Gastroesophageal reflux disease without esophagitis; Translations: [Gastro-esophageal reflux disease without esophagitis]Onset: 04-05-2023 65-77-6285OdiffyhZqneucmfq hypertension (20 sources)Benign essential hypertension; Translations: [Essential (primary) hypertension]Onset: 831256-89-5729JeagbluRvockyqs; including migraine (20 sources)Migraine without aura, not refractory ; Translations: [Migraine without aura, not intractable, without status migrainosus]Onset: 04-05-2023 ChronicImmunizations and screening for infectious disease (3 sources)Encounter for screening for other viral diseases; Translations: [Contact with and (suspected) exposure to other viral communicable diseases] Onset: 03-27-2021 Resolved: 43-33-1242ZqfdorsySdzesqbsx (1 source)Influenza due to other identified influenza virus with other respiratory manifestationsEpisodicIntestinal infection (20 sources)Viral gastroenteritis; Translations: [Viral intestinal infection, unspecified]Onset: 06-09-2024 Resolved: 467641-75-5273WmjivszoYaatinejqqtzc mental health disorders (2 sources)Emotional state finding; Translations: [Mental disorder, not otherwise specified]94-65-4053TrahkltNhjs disorders (20 sources)Mixed bipolar affective disorder; Translations: [Bipolar disorder, current episode mixed, unspecified]Onset: 245489-98-8448XkjvrssHbdtip and vomiting (4 sources)Nausea with vomiting, unspecified; Translations: [Nausea and vomiting]EpisodicNoninfectious gastroenteritis (6 sources)Gastroenteritis; Translations: [Noninfective gastroenteritis and colitis, unspecified]55-04-2778XkonpqctOrmqoiozdui deficiencies (20 sources)Vitamin D deficiency, unspecified; Translations: [Vitamin D deficiency]Onset: 755389-92-9852DwsubyoJvsfy nervous system disorders (1 source)Other chronic pain; Translations: [OTHER CHRONIC PAIN]Onset: 07-22-7791ZvweqtaYdigl nervous system disorders (4 sources)Paresthesia; Translations: [Paresthesia of skin]51-75-0744Dgbfwcvm Other nutritional; endocrine; and metabolic disorders (1 source)Obesity, unspecified; Translations: [OBESITY UNSPECIFIED]Onset: 27-27-1091YwsrwfrUiuwq upper respiratory disease (1 source)Nasal congestionEpisodicOther upper respiratory disease (20 sources)Deviated nasal septum; Translations: [Deviated nasal septum]Onset: 715818-06-9110NykpmewbSellz upper respiratory infections (20 sources)Chronic sinusitis, unspecified; Translations: [Unspecified sinusitis (chronic)]Onset: 208070-42-9978IfeilliHfsqau media and related conditions (7 sources)Otosclerosis; Translations: [Unspecified otosclerosis, unspecified ear]14-17-0083WeucsevvGnojorro codes; unclassified (20 sources)Obstructive sleep apnea syndrome; Translations: [Obstructive sleep apnea (adult) (pediatric)]Onset: 099442-58-3064PapgjxeZerg and subcutaneous tissue infections (1 source)Cellulitis of right toeEpisodicSpondylosis; intervertebral disc disorders; other back problems (20 sources)Other intervertebral disc degeneration, lumbosacral region; Translations: [Degeneration of cervicalintervertebral disc]Onset: 07-28-2021 72-29-8599DgwezzoOspahfo disorders (20 sources)Hypothyroidism; Translations: [Hypothyroidism, unspecified]Onset: 682538-02-7990VxvdioqAedbvtvmfmav (3 sources)CONTACT W/AND (SUSP) EXPOS COVID-19; Translations: [CONTACT W/AND (SUSP) EXPOS COVID-19]Onset: 14-66-8438Mocuaazuzejw (3 sources)LOW BACK PAIN, UNSPECIFIED; Translations: [LOW BACK PAIN, UNSPECIFIED]Onset: 40-35-6091Placu infection (5 sources)Disease caused by 2019-nCoV; Translations: [COVID-19]05-30-2024 Episodic Past or Other Problems Problem ClassificationProblemDateDocumented DateEpisodic/ChronicOther connective tissue disease (1 source)Myalgia, other site; Translations: [MYALGIA OTHER SITE]Onset: 37-84-1908FjwaxgjcWkabf upper respiratory infections (20 sources)Acute sinusitis, unspecified; Translations: [Acute pansinusitis] Onset: 06-03-2023 Resolved: 24-71-8061BfvfutrbGslwzemtwkb; intervertebral disc disorders; other back problems (6 sources)Pain in thoracic spine; Translations: [Cervicalgia]Onset: 07-26-2021 EpisodicSprains and strains (1 source)Strain of muscle and tendon of unspecified wall of thorax, initial encounterOnset: 07-12-2021 Resolved: 17-00-2706DsplimfjAdydpblzhstm (1 source)CONTACT W/AND (SUSP) EXPOS COVID-19; Translations: [CONTACT W/AND (SUSP) EXPOS COVID-19]Onset: 57-48-0442Dtuwxhvfzkts (1 source)LOW BACK PAIN, UNSPECIFIED; Translations: [LOW BACK PAIN, UNSPECIFIED] Onset: 08-18-2021 Results Test NameValueInterpretationReference RangeFacilityALL CBC WITH AUTO DIFFon 76-40-7499EGWHZBMNV ABSOLUTE BTMC4BGWV HealthcareBasophils/100 WBC (Bld)0.5 %0.2 - 2.0 %NOM[facility] HealthcareEosinophils/100 WBC (Bld)0.3 %Low0.9 - 7.0 %[facility]OM[facility] HealthcareErythrocyte distribution width (RBC) [Ratio]12 %11.0 - 15.0 %[facility] HealthcareHematocrit (Bld) [Volume fraction]40 %36.0 - 48.0 %[facility] Hemoglobin (Bld) [Mass/Vol]14.9 g/dL12.0 - 16.0 g/dLCedar County Memorial HospitalIMMATURE GRANULOCYTES ABS AUTO0.02NOUniversity of Missouri Children's Hospitalmature granulocytes/100 WBC (Bld)0.3 % 0.0 - 0.5 %[facility] HospitalInterpretation and review of laboratory results AbnormalCedar County Memorial HospitalLYMPHOCYTES ABSOLUTE AUTO1.4NOAudrain Medical Center Lymphocytes/100 WBC (Bld)22.6 %20.5 - 60.0 %[facility] CenterH (RBC) [Entitic mass]31.5 pg26.7 - 34.0 pgSt. Joseph Medical CenterHC (RBC) [Mass/Vol]37.3 g/mACifg41.9 - 35.2 g/dLSt. Joseph Medical CenterV (RBC) [Entitic vol]84.6 fL81.0 - 99.0 fLCedar County Memorial HospitalMONOCYTES ABSOLUTE AUTO0.4NOCT HealthcareMonocytes/100 WBC (Bld)6.1 % 1.7 - 12.0 %[facility] HospitalNEUTROPHILS ABSOLUTE AUTO4.4[facility] Neutrophils/100 WBC (Bld)70.2 %43.0 - 75.0 %[facility] HospitalPlatelet mean volume (Bld) [Entitic vol]9.9 fL9.5 - 13.5 fLCedar County Memorial HospitalTBH EO #0NOMS [facility] HospitalTB TQB982HKIDMoberly Regional Medical Center RBC4.73NOMoberly Regional Medical Center WBC6.2[facility] CLINISYNCINTERMOUNTAIN MED[facility] HealthcareCOVID Cepheidon 30-86-8104BRQI-CoV-2 (COVID-19) RNA TOMMY+probe Ql (Unsp spec)COVID CepheidCity HospitalARS-CoV-2 (COVID-19) RNA TOMMY+probe Ql (Unsp spec)NegativePremier Health [facility] Laboratory - Microbiology and Antimicrobial susceptibilityon 05-30-2024 SARS-CoV-2 (COVID-19) RNA TOMMY+probe Ql (Unsp spec)PositivePremier Health Upper Valley Medical CenterNo Panel Informationon 19-27-5019WVT Influenza A (PCR)Negative [facility] CenterPO Influenza B (PCR)NegativePremier Health Upper Valley Medical CenterInfluenza virus B Ag [Presence] in Upper respiratory specimen by Rapid immunoassayon 91-46-4754SOYAO Ag IA.rapid Ql (Nph)Influenza virus B Ag [Presence] in Upper respiratory specimen by Rapid immunoassayPremier Health Upper Valley Medical CenterNo Panel Informationon 28-64-8869Ixdsfpgjk Type A (Rapid)Negative [facility] CenterPO SARS CoV-2 AntigenNegativePremier Health Upper Valley Medical CenterMLR HEMOGLOBIN A1Con 53-23-4527Fjhinkl [Mass/Vol]77 mg/dL [facility] HospitalHbA1c (Bld) [Mass fraction]4.3 %Low4.5 - 6.2 %[facility] Comment on above:ADA RECOMMENDED LIMIT 4.0 - 6.0 ADA THERAPEUTIC TARGET < 7.0 ACTION SUGGESTED > 7.0 Interpretation and review of laboratory resultsAbnormalNOAudrain Medical CenterCLFORT [facility] NOMSelect Specialty HospitalInfluenza virus B Ag [Presence] in Upper respiratory specimen by Rapid immunoassayon 93-97-5330VMYQB Ag IA.rapid Ql (Nph)NegativePremier Health Upper Valley Medical CenterNo Panel Informationon 83-40-9074Bbmqbevkc Type A (Rapid) NegativeLake County Memorial [facility] SARS CoV-2 AntigenNegativePremier Health Upper Valley Medical CenterCOVID + FLU Quick Testingon 17-17-6255QYNI-CoV-2 (COVID- 19) RNA TOMMY+probe Ql (Unsp spec)NegativeHot Springs [facility]ob[facility] Other COVID + FLU Quick TestingNegativeWAPA Other COVID + FLU Quick Testingon 60-10-7160DZLU-CoV-2 (COVID-19) RNA TOMMY+probe Ql (Unsp spec)NegativeHot Springs [facility]ob[facility] Other COVID + FLU Quick TestingPositiveCimetrix Halob[employer] Other COVID + FLU Quick TestingNegativeAdvanced [employer] Other 835-5543Xkaja-04 PCR ([facility])on 24-76-7612GVHF-CoV-2 (COVID- 19) RNA TOMMY+probe Ql (Unsp spec)Not detectedNormalNOT DETECTEDThe [facility] CenterComment on above:Result Comment: This test is not yet approved or cleared by the [place] FDA. When there are no FDA-approved or cleared tests available, and other criteria are met, FDA can make tests available under an emergency access mechanism called an Emergency Use Authorization (EUA). The EUA for this test is supported by the Sales Order Administrator of Health and Human Service's (HHS's) declaration [...] of clinical signs and symptoms consistent with SARS-CoV-2.Performed By: #### CVDTBH #### [facility] [address] [place] [address] Dr. Che AriasXR TSPINE 3 VIEWSon 15-83-5745LT TSPINE 3 VIEWSEXAMINATION: XR CSPINE 2_3 VIEWS, XR TSPINE 3 [...] Electronically authenticated by: LINCOLN SULLIVAN Date: 2021-07-26 10:49[facility] AUTO DIFFon 69-11-7151PLTE #0.1 103/ulNormal0.0-0.1The [facility] Medical CenterComment on above:Performed By: #### CBC #### [facility] [address] [address] [address] Che AriasBasophils/100 WBC (Bld)0.7 %Normal0.2-2.0The [facility] Comment on above:Performed By: #### CBC #### [facility] [address] [address] [address] Che Leon #0.2 103/ulNormal0.0-0.7The [facility] Medical CenterComment on above: Performed By: #### CBC #### [facility] [address] [address] [address] Che Caldwellosinophils/100 WBC (Bld)2.8 %Normal0.9-7.0The [facility] Comment on above:Performed By: #### CBC #### [facility] [address] [place] [address] Dr. Che Caldwellrythrocyte distribution width (RBC) [Ratio]13.3 %Nglzmm16.0-15.0 The [facility] Medical CenterComment on above:Performed By: #### CBC #### [facility] [address] [place] [address] Dr. Che AriasHematocrit (Bld) [Volume fraction]40.4 %Fhpfbu94.0-48.0The [facility] CenterComment on above:Performed By: #### CBC #### [facility] [address] [place] [address] Dr. Che AriasHemoglobin (Bld) [Mass/Vol]14.1 g/xBSelrff57.0-16.0The [facility] CenterComment on above:Performed By: #### CBC #### [facility] [address] [place] [address] Dr. Che Markham #0.03 10e3/ulNormal0.00-0.03The [facility] CenterComment on above:Performed By: #### CBC #### [facility] [address] [place] [address] Dr. Che Markham %0.4 %Normal0.0-0.5The [facility] Medical CenterComment on above: Performed By: #### CBC #### [facility] [address] [address] [address] Che Rodriguez #1.9 103/ulNormal1.2-3.8The [facility] CenterComment on above:Performed By: #### CBC #### [facility] [address] [address] [address] Che Arambulahocytes/100 WBC (Bld)27.6 %Djqwfh67.5-60.0The [facility] Medical CenterComment on above:Performed By: #### CBC #### [facility] [address] [address] [address] Che Hussein DIFF REQNONormalThe [facility] Medical CenterComment on above: Performed By: #### CBC #### [facility] [address] [place] [address] Dr. Che Nichole (RBC) [Entitic mass]30.7 eiKlvwen89.7-34.0The [facility] CenterComment on above:Performed By: #### CBC #### [facility] [address] [place] [address] Dr. Che Linder (RBC) [Mass/Vol]34.9 g/nZSwvbjk30.9-35.2The [facility] on above:Performed By: #### CBC #### [facility] [address] [place] [address] Dr. Che Linder (RBC) [Entitic vol]87.8 xQNfwkhf80.0-99.0The [facility] Hospital - Akronment on above:Performed By: #### CBC #### [facility] [address] [place] [address] Dr. Che Romano #0.5 103/ulNormal0.3-0.8The [facility] on above:Performed By: #### CBC #### [facility] [address] [address] [address] Che Jeffreyocytes/100 WBC (Bld)7.3 %Normal1.7-12.0The [facility] Comment on above:Performed By: #### CBC #### [facility] [address] [address] [address] Che Hwang #4.1 103/ulNormal1.4-6.5The [facility] CenterComment on above:Performed By: #### CBC #### [facility] [address] [address] [address] Che Sanchezutrophils/100 WBC (Bld)61.2 %Vkxcqj61.0-75.0The [facility] CenterComment on above:Performed By: #### CBC #### [facility] [address] [address] [address] Che AriasPlatelet mean volume (Bld) [Entitic vol]11.6 fLNormal9.5-13.5The [facility] CenterComment on above:Performed By: #### CBC #### [facility] [address] [address] [address] Che AriasPLT260 103/ndLufrcb846-878Igz [facility] CenterComment on above: Performed By: #### CBC #### [facility] [address] [place] [address] Dr. Che AriasRBC4.60 106/ulNormal4.20-5.40The [facility] CenterComment on above:Performed By: #### CBC #### [facility] [address] [address] [address] Che AriasWBC6.8 103/ulNormal4.0-11.0The [facility] CenterComment on above: Performed By: #### CBC #### [facility] [address] [address] [address] Che AriasGLYCOHEMOGLOBIN A1Con 03-11-9137XRH RECOMMENDATIONADA THERAPEUTIC TARGET 6.0 - 7.0 ACTION SUGGESTED > 7.0NormalThDunlap Memorial HospitalComment on above:Performed By: #### A1C ####[facility] [address] [address]Dr.Yilan ChangGlucose [Mass/Vol]140 mg/dLTuscarawas HospitalComment on above:Performed By: #### A1C ####[facility] [address] [address]Dr.Yilan AriasHbA1c (Bld) [Mass fraction]6.5 %Critically high<=6.0The [facility] Medical CenterComment on above: Performed By: #### A1C ####[facility] [address] [address]Dr.Yilan SalinasID PROFILEon 83-93-0692MICH-HDL RATIO NORMSEE [facility] Columbus SouthComment on above:Result Comment: 3.3 - 4.4 LOW RISK 4.4 - 7.1 AVERAGE RISK 7.1 - 11.0 MODERATE RISK >11.0 HIGH RISK Performed By: #### BMP, LIVER, TSH, LIPID #### [facility] [address] [address] [address] Che Cruzesterol [Mass/Vol]237 mg/dLCritically high<=200The [facility] CenterComment on above:Performed By: #### BMP, LIVER, TSH, LIPID #### [facility] [address] [address] [address] Che Cruzesterol in HDL [Mass/Vol]46 mg/qZPsjgih71-45Cqk [facility] on above:Performed By: #### BMP, LIVER, TSH, LIPID #### [facility] [address] [address] [address] Che Cruzestermu in LDL [Mass/Vol]161.4 mg/dLTuscarawas HospitalCommclaren flint on above:Performed By: #### BMP, LIVER, TSH, LIPID #### [facility] [address] [address] [address] Che Martinez.total/Cholesterol in HDL [Mass ratio]5.2 {ratio} NormalThe [facility] on above:Performed By: #### BMP, LIVER, TSH, LIPID #### [facility] [address] [address] [address] Che Rivera NORMAL> or = 60 mg/dl - LOW CARDIOVASCULAR RISK <40 mg/dl - HIGH CARDIOVASCULAR RISKTuscarawas HospitalComment on above:Performed By: #### BMP, LIVER, TSH, LIPID #### [facility] [address] [address] [address] Che Kwok CALC NORMALSEE BELOWTuscarawas HospitalComment on above:Result Comment: <100 mg/dl OPTIMAL 100 - 129 mg/dl NEAR OR ABOVE OPTIMAL 130 - 159 mg/dl BORDERLINE HIGH 160 - 189 mg/dl HIGH >190 mg/dl VERY HIGH Performed By: #### BMP, LIVER, TSH, LIPID #### [facility] [address] [address] [address] Che AriasTriglyceride [Mass/Vol]148 mg/dLNormal<=150The [facility] Comment on above:Performed By: #### BMP, LIVER, TSH, LIPID #### [facility] [address] [place] [address] Dr. Che Armando CALC29.6 mg/dLNoACMC Healthcare SystemComment on above: Performed By: #### BMP, LIVER, TSH, LIPID #### [facility] [address] [place] [address] Dr. Che Fraire PROFILEon 70-36-0329Sumsvfb [Mass/Vol]4.0 g/dLNormal3.5-5.0 The [facility] Medical CenterCommclaren flint on above:Performed By: #### BMP, LIVER, TSH, LIPID #### [facility] [address] [place] [address] Dr. Che AriasAlbumin/Globulin [Mass ratio]1.2 {ratio}NormalThe [facility] CenterComment on above:Performed By: #### BMP, LIVER, TSH, LIPID #### [facility] [address] [place] [address] Dr. Che Soriano [Catalytic activity/Vol]107 U/SDgrrxh10-748Fsf [facility] CenterCommclaren flint on above:Performed By: #### BMP, LIVER, TSH, LIPID #### [facility] [address] [place] [address] Dr. Che Roland [Catalytic activity/Vol]66 U/LCritically high9-52Access Hospital DaytonComment on above:Performed By: #### BMP, LIVER, TSH, LIPID #### [facility] [address] [address] [address] Che Gross [Catalytic activity/Vol]41 U/LCritically ihwo30-75Ybk [facility] CenterComment on above:Performed By: #### BMP, LIVER, TSH, LIPID #### [facility] [address] [place] [address] Dr. Che KhannaI, CONJUGATED0.1 mg/dLNormal0.0-0.3TAvita Health System Comment on above:Performed By: #### BMP, LIVER, TSH, LIPID #### [facility] [address] [address] [address] Che Khannairubin [Mass/Vol]0.6 mg/dLNormal0.2-1.3TAvita Health System Comment on above:Performed By: #### BMP, LIVER, TSH, LIPID #### [facility] [address] [address] [address] Che AriasGlobulin (S) [Mass/Vol]3.4 g/dLNormalThe [facility] CenterComment on above:Performed By: #### BMP, LIVER, TSH, LIPID #### [facility] [address] [address] [address] Che AriasProtein [Mass/Vol]7.4 g/dLNormal6.1-8.2[facility] Comment on above:Performed By: #### BMP, LIVER, TSH, LIPID #### [facility] [address] [place] [address] Dr. Che AriasPROF CHEM 8 (BAS METB)on 92-34-0415Jgijd gap [Moles/Vol]17.0 mmol/LNormalThe [facility] CenterComment on above:Performed By: #### BMP, LIVER, TSH, LIPID #### [facility] [address] [place] [address] Dr. Che AriasCalcium [Mass/Vol]8.9 mg/dLNormal8.4-10.2[facility] Comment on above:Performed By: #### BMP, LIVER, TSH, LIPID #### [facility] [address] [address] [address] Che AriasChloride [Moles/Vol]105 mmol/VGbxmwq38-903YwnAccess Hospital Dayton Comment on above:Performed By: #### BMP, LIVER, TSH, LIPID #### [facility] [address] [address] [address] Che AriasCO2 [Moles/Vol]23.2 mmol/XVlfpmt61.0-30.0[facility] Comment on above:Performed By: #### BMP, LIVER, TSH, LIPID #### [facility] [address] [place] [address] Dr. Che AriasCreatinine [Mass/Vol]0.78 mg/dLNormal0.52-1.04The [facility] CenterComment on above:Performed By: #### BMP, LIVER, TSH, LIPID #### [facility] [address] [place] [address] Dr. Che CaldwellGFR-AF POLISH>60Normal>=60The [facility] CenterComment on above:Performed By: #### BMP, LIVER, TSH, LIPID #### [facility] [address] [place] [address] Dr. Che CaldwellGFR-NON AF POLISH>60Normal>=60The [facility] CenterComment on above:Performed By: #### BMP, LIVER, TSH, LIPID #### [facility] [address] [address] [address] Che AriasGlucose [Mass/Vol]162 mg/dLCritically nric68-314Oib [facility] CenterComment on above:Performed By: #### BMP, LIVER, TSH, LIPID #### [facility] [address] [address] [address] Che AriasPotassium [Moles/Vol]4.2 mmol/LNormal3.4-5.0The [facility] Comment on above:Performed By: #### BMP, LIVER, TSH, LIPID #### [facility] [address] [address] [address] Che AriasSodium [Moles/Vol]141 mmol/NLrlttc613-625Bnl [facility] Comment on above:Performed By: #### BMP, LIVER, TSH, LIPID #### [facility] [address] [place] [address] Dr. Che AriasUrea nitrogen [Mass/Vol]10.0 mg/dLNormal7.0-17.0The [facility] CenterComment on above:Performed By: #### BMP, LIVER, TSH, LIPID #### [facility] [address] [place] [address] Dr. Che AriasUrea nitrogen/Creatinine [Mass ratio]12.8 mg/mgNoACMC Healthcare SystemComment on above:Performed By: #### BMP, LIVER, TSH, LIPID #### [facility] [address] [place] [address] Dr. Che SolanoHotucker 60-28-2105SRD8.158 uIU/mLNormal0.470-4.680The [facility] CenterComment on above:Performed By: #### BMP, LIVER, TSH, LIPID #### [facility] [address] [place] [address] Dr. Che OSBORNE BELOWTuscarawas HospitalComment on above: Result Comment: <0.34 UIU/ml HYPERTHYROID 0.34-5.60 UIU/ml EUTHYROID >5.60 UIU/ml HYPOTHYROIDPerformed By: #### BMP, LIVER, TSH, LIPID #### [facility] [address] [place] [address] Dr. Che AriasVITAMIN D 25 OHon 19-16-8667RWN D 25-OH28.4 ng/mLNormalAccess Hospital DaytonComment on above:Performed By: #### VITAD #### [facility] [address] [place] [address] Dr. Che Allison [facility] BELOWTuscarawas HospitalComment on above: Result Comment: <20 ng/mL Vit D deficient 20 - <30 ng/mL Vit D insufficient 30 - 100 ng/mL Vit D sufficient >100 ng/mL Potential ToxicityPerformed By: #### VITAD #### [facility] [address] [place] [address] Dr. Che Charles Quick Testingon 05-88-2424DcfkhbWdafubuaPnrpx Hal[employer] Other Vital Signs Date TimeVital SignValuePerforming UrxikicsnRumvhmzx35-65-2488 10:23-0400Body tyxokm754.56 cmBrian Urbina MD Work Phone: [phone]09-19-2025 10:23-0400 Body mass index (BMI) [Ratio]37.4 kg/m2Brian Urbina MD Work Phone: [phone] [place], [place] [address]809-19-2025 10:23-0400 Body jlczoutpgxj95.5 [degF]Brian Urbina MD Work Phone: [phone]09-19-2025 10:23-0400 Body .88 kgBrian Urbina MD Work Phone: [phone]09-19-2025 10:23-0400 Diastolic blood pqbzojph92 mm[Hg]Brian Urbina MD Work Phone: [phone]09-19-2025 10:23-0400 Heart rate31 /minBrian Urbina MD Work Phone: [phone]09-19-2025 10:23-0400 Respiratory rate22 /minBrian Urbina MD Work Phone: [phone]09-19-2025 10:23-0400 SaO2% (BldA) [Mass fraction]96 %Brian Urbina MD Work Phone: [phone]09-19-2025 10:23-0400 Systolic blood cbivjqos024 mm[Hg]Brian Urbina MD Work Phone: [phone] [place], [place] 5512908-13-2025 08:06-0400 Body tarzbr299.6 cmBrian Urbina MD Work Phone: [phone] [place], [place] [address]Oqanykpgui59-01-9566 08:06-0400Body mass index (BMI) [Ratio]34.67 kg/m2Brian Urbina MD Work Phone: [phone] [place], [place] [address]Ophkvkcqpp33-23-6420 08:06-0400Body temperature 97.11 [degF]Brian Urbina MD Work Phone: [phone] [place], [place] [address]Gopyfgojgk88-23-5213 08:06-0400Body mdiesk45.63 kgBrian Urbina MD Work Phone: [phone]08-13-2025 08:06-0400Diastolic blood ohswlcrc93 mm[Hg]Brian Urbina MD Work Phone: [phone] [place], [place] [address]Wnahndzvuo23-50-4200 08:06-0400Heart wnfg019 /min Brian Urbina MD Work Phone: [phone])[facility] [place], [place] [address]Mroiwscquq72-37-2642 08:06-0400Respiratory rate22 /minBrian Urbina MD Work Phone: [phone] [place], [place] [address]Jkcproamqk50-29-6910 08:06-8800ToD2% (BldA) [Mass fraction]96 %Brian Urbina MD Work Phone: 1(435)841-[address] [place], [place] [address]Qdanvocssv33-33-2279 08:06-0400Systolic blood ybmsfwcn455 mm[Hg]Brian Urbina MD Work Phone: [phone])[address]06-26-2025 09:30-0400Body hyceam462.56 cmBrian Urbina MD Work Phone: [phone])[address]06-26-2025 09:30-0400 Body mass index (BMI) [Ratio]30.4 kg/m2Brian Urbina MD Work Phone: [phone])[address]06-26-2025 09:30-0400 Body .28 kgBrian Urbina MD Work Phone: [facility]06-26-2025 09:30-0400 Diastolic blood afioicgr80 mm[Hg]Brian Urbina MD Work Phone: [phone])653-[facility]06-26-2025 09:30-0400 Heart rate68 /minBrian Urbina MD Work Phone: 1(983)093-[address] [place], [place] [address]906-26-2025 09:30-0400 Respiratory rate16 /minBrian Urbina MD Work Phone: [phone])[address]06-26-2025 09:30-0400 SaO2% (BldA) [Mass fraction]97 %Brian Urbina MD Work Phone: [phone])[address]06-26-2025 09:30-0400 Systolic blood ztzeseyc422 mm[Hg]Brian Urbina MD Work Phone: [phone]06-12-2025 09:53-0400 Body .6 cmBrian Urbina MD Work Phone: [facility] HospitalQhldawsplm53-10-3369 09:53-0400Body mass index (BMI) [Ratio]29.01 kg/m2Brian Urbina MD Work Phone: [facility] HospitalOlaykjyfgv51-56-0990 09:53-0400Body temperature 97.81 [degF]Brian Urbina MD Work Phone: [facility] HospitalVycaiyqimo22-65-6048 09:53-0400Body qxurpw41.66 kgBrian Urbina MD Work Phone: [facility] HospitalGxxpevjtvh43-55-3748 09:53-0400Diastolic blood haycnwtq75 mm[Hg]Brian Urbina MD Work Phone: [facility] HospitalAobqobowyf49-49-5709 09:53-0400Heart rate82 /min Brian Urbina MD Work Phone: [facility] HospitalAynajwpant77-90-7337 09:53-0400Respiratory rate22 /minBrian Urbina MD Work Phone: [facility] HospitalWylacaxdwu35-83-0207 09:53-5897DbJ8% (BldA) [Mass fraction]97 %Brian Urbina MD Work Phone: [facility] HospitalSzkdkinxcb42-93-2174 09:53-0400Systolic blood hijlteax649 mm[Hg]Brian Urbina MD Work Phone: [facility] HospitalPyreaawaqc70-87-4633 11:07-0400Body opzezg923.6 cmBrian Urbina MD Work Phone: [facility] HospitalJospxwjzfv64-03-8829 11:07-0400Body mass index (BMI) [Ratio]26.43 kg/m2Brian Urbina MD Work Phone: [facility] HospitalRqvwlvvkbw72-10-3685 11:07-0400Body temperature 97.11 [degF]Brian Urbina MD Work Phone: [phone] [place], [place] [address]Lpdduekkrn42-05-8255 11:07-0400Body jeaxju73.85 kgBrian Urbina MD Work Phone: [facility] HospitalYajexenbie01-27-2586 11:07-0400Diastolic blood mm[Hg]Brian Urbina MD Work Phone: [facility] HospitalPwpmtujdvu05-99-8600 11:07-0400Heart ndym084 /min Brian Urbina MD Work Phone: [facility] HospitalTzrkicjjww12-87-7404 11:07-0400Respiratory rate24 /minBrian Urbina MD Work Phone: [facility] HospitalCdpmgsyzjk85-71-9349 11:07-8884HhA0% (BldA) [Mass fraction]98 %Brian Urbina MD Work Phone: [facility] HospitalGtwnwivtvi42-98-8655 11:07-0400Systolic blood vhfrzuis768 mm[Hg]Brian Urbina MD Work Phone: [facility] HospitalKdigyqtuwz49-45-6098 13:54-0400Body .56 cm[facility]05-05-2025 13:54-0400Body mass index (BMI) [Ratio]27.3 kg/o4VigkyyljgPremier Health [facility] Medical Center05-05-2025 13:54-0400Body uphonldufxi31.9 [degF][facility]05-05-2025 13:54-0400Body qujhqa45.17 kgPrem[facility]05-05-2025 13:54-0400Diastolic blood lwnqcijf29 mm[Hg][facility]05-05-2025 13:54-0400 Heart rate80 /[facility]05-05-2025 13:54-0400 Respiratory rate19 /[facility]05-05-2025 13:54-0400 SaO2% (BldA) [Mass fraction]99 %[facility]05-05-2025 13:54-0400Systolic blood mjjbgwuo819 mm[Hg][facility] 06-30-2024 09:03-0400Body .56 cmPrem[facility] 06-30-2024 09:03-0400Body mass index (BMI) [Ratio]26.9 kg/v2NlyhbmjxlPrem[facility] Health [facility] Center04-29-2025 09:03-0400Body wcdwxathvde33.4 [degF][facility]04-29-2025 09:03-0400Body uxyyhv72.21 kgPrem[facility]04-29-2025 09:03-0400Diastolic blood swubfvex33 mm[Hg][facility]04-29-2025 09:03-0400Heart rate80 /[facility]04-29-2025 09:03-0400Respiratory rate14 /[facility]04-29-2025 09:03-4626IqM7% (BldA) [Mass fraction]97 %[facility]04-29-2025 09:03-0400Systolic blood pqlouhuj688 mm[Hg] [facility]04-08-2025 10:25-0400Body xduchp434.6 cmBrian Urbina MD Work Phone: [facility] HospitalDeqkfovcxj45-22-9334 10:25-0400Body mass index (BMI) [Ratio]26.26 kg/m2Brian Urbina MD Work Phone: [facility] HospitalTljojpyowm26-58-4730 10:25-0400Body temperature 96.6 [degF]Brian Urbina MD Work Phone: [facility] HospitalXysspbbdge39-70-6702 10:25-0400Body tvpdex87.4 kg Brian Urbina MD Work Phone: [facility] HospitalDcwlxqnxga29-49-1362 10:25-0400Diastolic blood mm[Hg]Brian Urbina MD Work Phone: [facility] HospitalJwsjqbeuwv72-23-9789 10:25-0400Heart rate97 /min Brian Urbina MD Work Phone: [facility] HospitalCyuglulkta33-37-7361 10:25-0400Respiratory rate20 /minBrian Urbina MD Work Phone: [facility] HospitalQqtnrupdqa17-22-0710 10:25-1376FuM8% (BldA) [Mass fraction]98 %Brian Urbina MD Work Phone: [facility] HospitalClrbkjdxdy77-24-8141 10:25-0400Systolic blood mm[Hg]Brian Urbina MD Work Phone: [facility] HospitalItgqthvfcv39-48-3632 10:57-0400Body oxheov147.56 cmPrem[facility]03-29-2025 10:57-0400Body mass index (BMI) [Ratio]26.8 kg/q6XmbjsnzquPrem[facility] Health [facility] Center03-29-2025 10:57-0400Body fdleapflybu04.4 [degF][facility]03-29-2025 10:57-0400Body dxanap24.81 kgPrem[facility]03-29-2025 10:57-0400Diastolic blood yvonujoj70 mm[Hg][facility]03-29-2025 10:57-0400 Heart qndw528 /[facility]03-29-2025 10:57-0400 Respiratory rate18 /[facility]03-29-2025 10:57-0400 SaO2% (BldA) [Mass fraction]97 %[facility]03-29-2025 10:57-0400Systolic blood syuxudbm075 mm[Hg][facility] 05-13-2024 15:22-0400Body swefmf496.56 cmPrem[facility] 05-13-2024 15:22-0400Body mass index (BMI) [Ratio]27.4 kg/v5CstmnsmpoPrem[facility] Health [facility] Center03-12-2025 15:22-0400Body mtlqwpgvmzy82.1 [degF][facility]03-12-2025 15:22-0400Body .63 kgPrem[facility]03-12-2025 15:22-0400Diastolic blood vyrakefp93 mm[Hg][facility]03-12-2025 15:22-0400Heart rate81 /[facility]03-12-2025 15:22-0400Respiratory rate18 /[facility]03-12-2025 15:22-4419HqN3% (BldA) [Mass fraction]97 %[facility]03-12-2025 15:22-0400Systolic blood vaoqyhyz543 mm[Hg] [facility]02-12-2025 08:30-0500Body ukjhcj655.6 cmBrian Urbina MD Work Phone: [facility] HospitalJcssznxehs79-95-2644 08:30-0500Body mass index (BMI) [Ratio]27.12 kg/m2Brian Urbina MD Work Phone: [facility] HospitalVfcpgulisf71-39-0936 08:30-0500Body temperature 96.6 [degF]Brian Urbina MD Work Phone: [facility] HospitalBxtatfcanz10-82-2357 08:30-0500Body tgixlu49.67 kgBrian Urbina MD Work Phone: [facility] HospitalYbqjnlplbs45-64-2889 08:30-0500Diastolic blood bxyujnbx36 mm[Hg]Brian Urbina MD Work Phone: [facility] HospitalRhqrrmfyml66-56-7090 08:30-0500Heart rate74 /min Brian Urbina MD Work Phone: [facility] HospitalWckxwrfrqv96-39-6513 08:30-0500Respiratory rate20 /minBrian Urbina MD Work Phone: [facility] HospitalXjldmqvbqj00-05-7945 08:30-0551AnA8% (BldA) [Mass fraction]98 %Brian Urbina MD Work Phone: [facility] HospitalWgvvbolgdz32-20-5688 08:30-0500Systolic blood qtkyhuas147 mm[Hg]Brian Urbina MD Work Phone: [facility] HospitalTvyyhqaamk51-48-0461 07:18-0500Body mass index (BMI) [Ratio]27.98 kg/m2Brian Urbina MD Work Phone: [facility] HospitalColhcethpo77-88-7759 07:18-0500Body wiauhsdmlqs10 [degF]Brian Urbina MD Work Phone: [facility] HospitalZsfuvhxifl65-74-1623 07:18-0500Body aptybt91.94 kgBrian Urbina MD Work Phone: [facility] HospitalHvjjutpaae45-26-6427 07:18-0500Diastolic blood mm[Hg]Brian Urbina MD Work Phone: [facility] HospitalIvbmqbqgde71-70-1039 07:18-0500Heart rate75 /min Brian Urbina MD Work Phone: [facility] HospitalFryptfeuln39-58-3107 07:18-8043DtC4% (BldA) [Mass fraction]98 %Brian Urbina MD Work Phone: [facility] HospitalUjptswggjf80-36-3668 07:18-0500Systolic blood gpiwuapp578 mm[Hg]Brian Urbina MD Work Phone: [facility] HospitalMixqgstugo48-28-9488 08:37-0500Body mass index (BMI) [Ratio]28.25 kg/s2Facpllcnhsu Priscilla DO Work Phone: no[facility] CenterMvxxsmetsw60-63-6368 08:37-0500Body .66 kgChristopher Priscilla DO Work Phone: no[facility] CenterWljvojiczx95-82-1218 08:37-0500Diastolic blood kucispsh35 mm[Hg]Tuan Wells DO Work Phone: [facility] HospitalOcgujqaeyt59-21-3400 08:37-0500Heart rate75 /min Christgiancarlo Wells DO Work Phone: [facility] HospitalVprdcxtkjn67-30-3254 08:37-2976UjD2% (BldA) [Mass fraction]98 %Christgiancarlo Wells DO Work Phone: no[facility] CenterYqydklsfkn22-64-7592 08:37-0500Systolic blood wzvelxtk320 mm[Hg]Tuan Wells DO Work Phone: [place] [address]Wqlxilijrz22-55-1853 13:46-0500Body .6 cmBrian Urbina MD Work Phone: [place] [address]Ywntwxwxcp19-34-3394 13:46-0500Body mass index (BMI) [Ratio]28.15 kg/m2Brian Urbina MD Work Phone: [place] [address]Vwywhahvrw87-87-9419 13:46-0500Body temperature 96.6 [degF]Brian Urbina MD Work Phone: [place] [address]Frxtvmjkub50-92-1237 13:46-0500Body mmvtra49.39 kgBrian Urbina MD Work Phone: [place] [address]Suxvlhrdso82-14-2645 13:46-0500Diastolic blood mm[Hg]Brian Urbina MD Work Phone: [place] [address]Rujhqwrisw65-58-2208 13:46-0500Heart rate94 /min Brian Urbina MD Work Phone: [place] [address]Dmdykhfsmg97-06-8330 13:46-0500Respiratory rate22 /minBrian Urbina MD Work Phone: [facility] HospitalBxqwbwrhqr72-75-3112 13:46-2133CcT8% (BldA) [Mass fraction]98 %Brian Urbina MD Work Phone: [facility] HospitalPdnbmabpvu93-02-4494 13:46-0500Systolic blood ayvrmznt818 mm[Hg]Brian Urbina MD Work Phone: [phone] HospitalUrscyvpddk64-83-8274 09:58-0500Diastolic blood gyfwerfo64 mm[Hg][facility]11-11-2024 09:58-0500Systolic blood cxkfyhpm107 mm[Hg][facility]11-11-2024 09:45-0500 Body .56 cmPrem[facility]11-11-2024 09:45-0500Body mass index (BMI) [Ratio]29 kg/e9YikyzicaqPrem[facility] Health [facility] Medical Center11-11-2024 09:45-0500Body vqxwycjazvt25.2 [degF][facility]11-11-2024 09:45-0500Body onortw95.65 kgPrem[facility]11-11-2024 09:45-0500Heart rate77 /[facility]11-11-2024 09:45-0500Respiratory rate16 /[facility]11-11-2024 09:45-4984RfR4% (BldA) [Mass fraction]98 %[facility] 01-02-2024 09:50-0400Body rsycoa450.6 cmBrian Urbina MD Work Phone: [facility] HospitalNfkexlbhxy23-52-2294 09:50-0400Body mass index (BMI) [Ratio]28.15 kg/m2Brian Urbina MD Work Phone: [facility] HospitalGebfqimlts10-56-7620 09:50-0400Body temperature 97.5 [degF]Brian Urbina MD Work Phone: [facility] HospitalGoeawzxwdl28-00-1207 09:50-0400Body siuzky35.39 kgBrian Urbina MD Work Phone: 1(419)547-[address] [place], [place] [address]Txmcpwxfjx89-54-3624 09:50-0400Diastolic blood mm[Hg]Brian Urbina MD Work Phone: 1(570)23-[address] [place], [place] [address]Eddsgudbib31-51-6829 09:50-0400Heart rate89 /min Brian Urbina MD Work Phone: [phone] HospitalVwttfzxjjh43-71-0772 09:50-0400Respiratory rate22 /minBrian Urbina MD Work Phone: 1(694)[facility] [place], [place] [address]Maoxijsbar72-53-2661 09:50-0098GxY4% (BldA) [Mass fraction]98 %Brian Urbina MD Work Phone: 1(230)[facility] [place], [place] [address]Friibnxinj17-10-8052 09:50-0400Systolic blood htvfuyoz861 mm[Hg]Brian Urbina MD Work Phone: 1(920)[facility]-[address] [place], [place] [address]Eyiqhanzmn66-80-9484 14:00-0400Body skagtt946.6 cmBrian Urbina MD Work Phone: [phone])[address] [place], [place] [address]10-17-2024 14:00-0400Body mass index (BMI) [Ratio]28.49 kg/m2Brian Urbina MD Work Phone: 1(114)[facility]-[address] [place], [place] [address]Qpqdfvwcix92-35-8031 14:00-0400Body temperature 97.11 [degF]Brian Urbina MD Work Phone: 1(359)[facility]-[address] [place], [place] [address]Dubmjximru95-16-4700 14:00-0400Body bhtequ94.3 kg Brian Urbina MD Work Phone: 1(507)[facility]-[address] [place], [place] [address]Hcujkctusm72-36-1072 14:00-0400Diastolic blood hkwawqdk19 mm[Hg]Brian Urbina MD Work Phone: 1(311)85-[address] [place], [place] [address]Mskvffozqo86-79-5422 14:00-0400Heart rate92 /min Brian Urbina MD Work Phone: [phone] [address]Zulgfsehfu78-61-4338 14:00-0400Respiratory rate20 /minBrian Urbina MD Work Phone: 1(670)75-[address] [place], [place] [address]Pircpbiixe49-73-7570 14:00-7156FlS3% (BldA) [Mass fraction]99 %Brian Urbina MD Work Phone: [facility] HospitalZtmwxumlvf60-24-0556 14:00-0400Systolic blood cctyxnzn561 mm[Hg]Brian Urbina MD Work Phone: [facility] HospitalYnzevqieos67-00-8992 10:26-0400Body iqriie903.6 cmBrian Urbina MD Work Phone: 1(480)832-[address] [place], [place] [address]Jywlnhasiz33-06-1526 10:26-0400Body mass index (BMI) [Ratio]28.32 kg/m2Brian Urbina MD Work Phone: [facility] HospitalKszlztoqku28-31-9122 10:26-0400Body temperature 95.11 [degF]Brian Urbina MD Work Phone: [facility] HospitalZxzfimfqvq64-49-6556 10:26-0400Body piowff39.84 kgBrian Urbina MD Work Phone: [facility] HospitalDpyqwvandd41-88-9374 10:26-0400Diastolic blood iffjphwl55 mm[Hg]Brian Urbina MD Work Phone: [facility] HospitalMettxjptap12-35-0101 10:26-0400Heart rate88 /min Brian Urbina MD Work Phone: [facility] HospitalUbgfxeppbn16-59-6240 10:26-0400Respiratory rate20 /minBrian Urbina MD Work Phone: [facility] HospitalBzkpfbcpnd12-34-5883 10:26-1156LsW4% (BldA) [Mass fraction]98 %Brian Urbina MD Work Phone: [facility] HospitalPrhjvlazxd30-69-1280 10:26-0400Systolic blood ijonkaqb866 mm[Hg]Brian Urbina MD Work Phone: [facility] HospitalLqudolhgph08-56-7081 07:16-0400Body .6 cmBrian Urbina MD Work Phone: [place] [address]Tpbevphxqi87-90-9719 07:16-0400Body mass index (BMI) [Ratio]29.35 kg/m2Brian Urbina MD Work Phone: [facility] HospitalEdemzqqcbl79-40-7629 07:16-0400Body temperature 96.6 [degF]Brian Urbina MD Work Phone: [facility] HospitalEtbssxhznz56-00-0421 07:16-0400Body .56 kgBrian Urbina MD Work Phone: [facility] HospitalGnzyjchhwg23-76-8573 07:16-0400Diastolic blood vgfyumqy17 mm[Hg]Brian Urbina MD Work Phone: [facility] HospitalOunhwdiwad60-84-9877 07:16-0400Heart rate67 /min Brian Urbina MD Work Phone: [facility] HospitalNyszdaakuk22-24-4361 07:16-0400Respiratory rate20 /minBrian Urbina MD Work Phone: [facility] HospitalQvifrlygkj58-38-2559 07:16-1273RxM8% (BldA) [Mass fraction]97 %Brian Urbina MD Work Phone: [facility] HospitalYqzgazpret81-65-3861 07:16-0400Systolic blood onljyyak720 mm[Hg]Brian Urbina MD Work Phone: [facility] HospitalRdtehktchl16-01-0050 11:16-0400Body nsikyt440.6 cmBrian Urbina MD Work Phone: [facility] HospitalTkgfvppetm09-23-5873 11:16-0400Body mass index (BMI) [Ratio]29.52 kg/m2Brian Urbina MD Work Phone: [facility] HospitalVjgillrgwq16-15-7971 11:16-0400Body temperature 97.3 [degF]Brian Urbina MD Work Phone: [facility] HospitalCqttxverwt88-05-9476 11:16-0400Body .02 kgBrian Urbina MD Work Phone: [facility] HospitalFlhoowcwuw28-60-7689 11:16-0400Diastolic blood dspzrrji71 mm[Hg]Brian Urbina MD Work Phone: [facility] HospitalLkblyfxlzk81-48-5150 11:16-0400Heart rate98 /min Brian Urbina MD Work Phone: [facility] HospitalGkdvpwnkod73-81-3600 11:16-0400Respiratory rate20 /minBrian Urbina MD Work Phone: [facility] HospitalFlmxyjyaow71-58-7323 11:16-3877YjE5% (BldA) [Mass fraction]99 %Brian Urbina MD Work Phone: [facility] HospitalBgtmkaloty28-52-2570 11:16-0400Systolic blood cixhrgqg018 mm[Hg]Brian Urbina MD Work Phone: [facility] HospitalTnrvoemlaz05-95-3183 13:23-0400Diastolic blood xwfyfroo03 mm[Hg][facility]03-15-2024 13:23-0400Systolic blood xqadsavr137 mm[Hg][facility]03-15-2024 13:00-0400 Body ogznhu0777.24 cmPrem[facility]03-15-2024 13:00-0400Body mass index (BMI) [Ratio]0.2 kg/l3LulhmkjqnPrem[facility] Health [facility] Center03-15-2024 13:00-0400Body trukdqxtpqs36 [degF][facility]03-15-2024 13:00-0400Body dmcrbo99.25 kgPrem[facility]03-15-2024 13:00-0400Heart rate99 /[facility]03-15-2024 13:00-0400Respiratory rate18 /[facility]03-15-2024 13:00-5823SoA2% (BldA) [Mass fraction]98 %[facility] 04-05-2023 11:02-0500Body ukawrf672.6 cmBrian Urbina MD Work Phone: [facility] HospitalYirhkhnwpc02-00-5667 11:02-0500Body mass index (BMI) [Ratio]37.59 kg/m2Brian Urbina MD Work Phone: no[facility] CenterZffzokyrvi52-43-9126 11:02-0500Body temperature 97.3 [degF]Brian Urbina MD Work Phone: no[facility] CenterEezjoymzhs99-65-2651 11:02-0500Body ogchuk46.34 kgBrian Urbina MD Work Phone: no[facility] CenterDaqggeijjd94-43-7773 11:02-0500Diastolic blood hrbytthy18 mm[Hg]Brian Urbina MD Work Phone: no[facility] CenterAfngmukndp81-19-5345 11:02-0500Heart rate93 /min Brian Urbina MD Work Phone: no[facility] CenterGsvrhtvkgu69-93-9085 11:02-9448YzN7% (BldA) [Mass fraction]98 %Brian Urbina MD Work Phone: no[facility] CenterQvrzyigfmy23-80-1959 11:02-0500Systolic blood nodgjmzh554 mm[Hg]Brian Urbina MD Work Phone: no[facility] CenterMhzpactslc59-80-8591 10:10-0400Body .02 cmPavtar Akers Other [employer] Other 04-07-2023 10:10-0400Body mass index (BMI) [Ratio] 38.79 kg/o2CwlbdlHelen Akers Other [employer] Other 04-07-2023 10:10-0400Body bgsqflnuhat20.6 [degF]Helen Akers Other [employer] Other 04-07-2023 10:10-0400Body naordr46.34 kgHelen Akers Other [employer] Other 04-07-2023 10:10-0400Respiratory rate18 /minHelen Lakhanimond Other [employer] Other 04-07-2023 10:10-6079YcP9% (BldA) [Mass fraction]96 % Helen Akers Other [employer] Other 01-24-2023 16:00-0500Body zqalha982.02 cmSstacypriyankameena Az Other [employer] Other 01-24-2023 16:00-0500Body mass index (BMI) [Ratio] 38.97 kg/l0Iqavebrdd Az Other [employer] Other 01-24-2023 16:00-0500Body uswdvkkmjmz41.1 [degF] Fabiola Az Other [employer] Other 01-24-2023 16:00-0500Body mlvloz62.79 kgStbharat Az Other [employer] Other 01-24-2023 16:00-0500Respiratory rate18 /minSdaija Az Other [employer] Other 01-24-2023 16:00-8538OvW3% (BldA) [Mass fraction]91 % Fabiola Az Other [employer] Other 12-09-2022 10:10-0500Body cuwyzw696.02 cmPamelbonita LakhaniDelphine Other [employer] Other 12-09-2022 10:10-0500Body mass index (BMI) [Ratio] 38.97 kg/y1Fgajmu Delphine Other [employer] Other 12-09-2022 10:10-0500Body sxplwjshkyy10.6 [degF]Helen Akers Other [employer] Other 12-09-2022 10:10-0500Body .79 kgHelen Akers Other [employer] Other 12-09-2022 10:10-0500Respiratory rate18 /minHelen Akers Other [employer] Other 12-09-2022 10:10-0167UhV9% (BldA) [Mass fraction]98 % Helen Akers Other [employer] Other 10-10-2022 18:15-0400Body wuuivz779.02 cmSdaija Bernardo Other [employer] Other 10-10-2022 18:15-0400Body mass index (BMI) [Ratio] 38.97 kg/z0UbvlfauutFabiola Bernardo Other [employer] Other 10-10-2022 18:15-0400Body hnxehxtdtbq94.2 [degF] Fabiola Bernardo Other [employer] Other 10-10-2022 18:15-0400Body gwnbew87.79 kgStbharat Bernardo Other [employer] Other 10-10-2022 18:15-0400Diastolic blood tbvhspeo93 mm[Hg] Fabiola Bernardo Other [employer] Other 10-10-2022 18:15-0400Respiratory rate18 /minSdaija Solimanault Other [employer] Other 10-10-2022 18:15-9429EyJ8% (BldA) [Mass fraction]98 % Fabiola Solimanault Other [employer] Other 10-10-2022 18:15-0400Systolic blood mm[Hg] Fabiola Solimanault Other [employer] Other 05-11-2022 11:35-0400Body urbjvx642.02 cmPamelbonita Akers Other [employer] Other 05-11-2022 11:35-0400Body mass index (BMI) [Ratio]39.5 kg/q2Nxrysjmele Akers Other [employer] Other 05-11-2022 11:35-0400Body bxdipgimjev75.2 [degF]Helen Lakhanimond Other [employer] Other 05-11-2022 11:35-0400Body uhvglg661.15 kgPamele Akers Other [employer] Other 05-11-2022 11:35-0400Diastolic blood oyueajsi77 mm[Hg] Helen Lakhanimond Other [employer] Other 05-11-2022 11:35-0400Respiratory rate16 /minHelen Lakhanimond Other [employer] Other 05-11-2022 11:35-1607SeV7% (BldA) [Mass fraction]100 % [facility] [employer] Other 05-11-2022 11:35-0400Systolic blood dthplhuf891 mm[Hg] Helen Akers Other [employer] Other Encounters Encounter DateEncounter [facility] ProviderFacilityStart: 11-20-2024 End: 76-32-0268umgbxyfkomRdml Naderer MD Work Phone: [facility] Work Phone: Start: 11-20-2024 End: 30-89-5544Rzmhcok encounter procedureBrian Urbina MD-[facility] Work Phone: Start: 10-28-2024 End: 35-68-4328JbbvrqCfnk Naderer MD Work Phone: [facility] FMComment on above:Bipolar affective, mixed (HCC)Start: 10-19-2024 End: 57-52-5999NsqoydHwvb Naderer MD Work Phone: [facility] FMComment on above:Generalized anxiety disorderStart: 10-14-2024 End: 72-34-9169Gdtksl flowsZaheer Urbina MD Work Phone: [facility] FMStart: 10-14-2024 End: 73-91-8053Dypgqq flowsZaheer Urbina MD Work Phone: [facility] FMStart: 10-14-2024 End: 91-17-2155Iturtz outpatient visit 25 minutesBrian Urbina MD Work Phone: [facility] FMComment on above:Type 2 diabetes mellitus with hyperglycemia, without long-term current use of insulin (HCC) (Primary Dx); Essential hypertension, benign ; Vestibular migraine ; Bipolar affective, mixed (HCC); Generalized anxiety disorderStart: 10-14-2024 End: 99-42-4684cslanxpxcqMAAO SHAANRNot AvailableStart: 10-01-2024 End: 90-24-0920RtmnfuHuky Naderer MD Work Phone: [facility] FMComment on above:Generalized anxiety disorderStart: 08-27-2024 End: 35-26-0150ltotnyfzahNqwa Naderer MD Work Phone: [facility] Work Phone: Start: 08-27-2024 End: 33-48-5977Iqntnlh encounter [place] [facility] [place] Work Phone: Start: 08-25-2024 End: 42-74-3451WxpdopQign Naderer MD Work Phone: [facility] FMComment on above:Generalized anxiety disorderStart: 08-13-2024 End: 56-43-0063Eylgod Ibis Urbina MD Work Phone: [facility] FMStart: 08-13-2024 End: 28-30-5831Kzloyc Ibis Urbina MD Work Phone: [facility] FMStart: 08-13-2024 End: 65-30-0127Pyolaa outpatient visit 25 minutesBrian Urbina MD Work Phone: NOMS CWM FMComment on above:Bipolar affective, mixed (HCC) (Primary Dx); Generalized anxiety disorder ; Vestibular migraine ; Type 2 diabetes mellitus with hyperglycemia, without long-term current use of insulin (HCC)Start: 08-13-2024 End: 79-21-6216zsmlkyqxwdWUKM NADERERNot AvailableStart: 07-17-2024 End: 52-59-0769Kgnbrxbnh Result EncounterBrian Urbina MD Work Phone: noms External Department UnsolicitedStart: 07-17-2024 End: 40-62-4542Jlvrwjcvb Result EncounterMarc Naderer MD Work Phone: noms External Department UnsolicitedStart: 07-15-2024 End: 89-29-9636Mysrlz flowsheetBrian Urbina MD Work Phone: noms CWM FMStart: 07-15-2024 End: 00-17-6847Ndwxem flowsheetBrian Urbina MD Work Phone: noms CWM FMStart: 07-15-2024 End: 68-13-8314Sjzuse outpatient visit 25 minutesBrian Urbina MD Work Phone: noms CWM FMComment on above:Vestibular migraine (CMS/HCC) (Primary Dx); Generalized anxiety disorder (CMS/HCC); Type 2 diabetes mellitus with hyperglycemia, without long-term current use of insulin (CMS/HCC); Bipolar affective, mixed (HCC) (CMS/HCC); Annual physical exam; Dyslipidemia (CMS/HCC); Type 2 diabetes mellitus with other specified complicationStart: 07-15-2024 End: 52-07-0229Eiplvec encounter procedureBrian Urbina MD Work Phone: noms HealthcareStart: 07-15-2024 End: 90-21-8589jfgnxwhcyoLSGK NADERERNot AvailableStart: 07-06-2024 End: 93-80-7665rvedcdufosRcwyklpprMer[facility] Work Phone: Start: 07-06-2024 End: 59-02-6363Naapxvx encounter procedureFirelandobinna [facility] Work Phone: Start: 06-30-2024 End: 78-50-3799DxhwpcExrp Naderer MD Work Phone: noms CWM FMComment on above:Generalized anxiety disorder (CMS/HCC); Vestibular migraine (CMS/HCC)Start: 06-30-2024 End: 76-76-1941Exugsyf encounter procedureFirpanchos [facility] Work Phone: Start: 06-09-2024 End: 25-00-3662Rvjpem Ibis Urbina MD Work Phone: NOLL CWM FMStart: 06-09-2024 End: 10-52-2817Nmoycc Ibis Urbina MD Work Phone: NOOL CWM FMStart: 06-09-2024 End: 85-86-7779Bamofm outpatient visit 15 minutesBrian Urbina MD Work Phone: NOMS CWM FMComment on above:Viral gastroenteritis (Primary Dx); Vestibular migraine (CMS/HCC)Start: 06-09-2024 End: 67-35-9273oiluailgfeCQGT NADERERNot AvailableStart: 05-31-2024 End: 45-21-6104XmtzrzLjqi Naderer MD Work Phone: noms CWM FMComment on above:Generalized anxiety disorder (CMS/HCC)Start: 05-30-2024 End: 12-95-2974mufkekiohvMwaxjsqptLima City Hospital Work Phone: Start: 05-30-2024 End: 63-53-3717Iqitglu encounter procedureFirretreat [facility] Work Phone: Start: 05-13-2024 End: 24-91-8524chsyidukcwMmscraszhLima City Hospital Work Phone: Start: 05-13-2024 End: 47-85-4342Iijsrlw encounter procedureFirretreat doctors' hospital [facility] Work Phone: Start: 04-15-2024 End: 07-75-0223Dadcju Ibis Urbina MD Work Phone: noms CWM FMStart: 04-15-2024 End: 30-38-2451Irtyighilda Urbina MD Work Phone: noms CWM FMStart: 04-15-2024 End: 01-46-6321Jxbvse outpatient visit 25 minutesBrian Urbina MD Work Phone: NOMS CWM FMComment on above:Type 2 diabetes mellitus with hyperglycemia, without long-term current use of insulin (CMS/HCC) (Primary Dx); Essential hypertension, benign (CMS/HCC); Bipolar affective, mixed (HCC) (CMS/HCC); Generalized anxiety disorder (CMS/HCC); Vestibular migraine (CMS/HCC)Start: 04-15-2024 End: 72-95-4436zfyhsltzjmYCWR NADERERNot AvailableStart: 04-05-2024 End: 91-59-5186SbkfmoRxms Naderer MD Work Phone: NOM[facility] CWM FMComment on above:Generalized anxiety disorder (CMS/HCC)Start: 03-11-2024 End: 34-57-0989Uswcvy Ibis Urbina MD Work Phone: NOMS CWM FMStart: 03-11-2024 End: 41-85-1025Jqyvsx Ibis Urbina MD Work Phone: NOMS CWM FMStart: 03-11-2024 End: 60-99-2338Rxajna outpatient visit 25 minutesBrian Urbina MD Work Phone: NOMS CWM FMComment on above:Type 2 diabetes mellitus with hyperglycemia, without long-term current use of insulin (CMS/HCC) (Primary Dx); Essential hypertension, benign (CMS/HCC); Bipolar affective, mixed (HCC) (CMS/HCC); Generalized anxiety disorder (CMS/HCC); Vestibular migraine (CMS/HCC)Start: 03-11-2024 End: 22-82-4862voxlacffxlBZYN NANCIERERNot AvailableStart: 03-03-2024 End: 10-34-7392IonubyWzvw Naderer MD Work Phone: NOM[facility] CWM FMComment on above:Generalized anxiety disorder (CMS/HCC)Start: 02-03-2024 End: 19-26-3587Xtwqvt flowsheetTuan Wells DO Work Phone: [facility] [place] [address] [facility]TEStart: 02-03-2024 End: 20-89-1363Jltnwh flowsheetChristopher Priscilla DO Work Phone: noms [place] [address]TEStart: 02-03-2024 End: 85-26-2820Zqcegw outpatient new 45 minutesChristopher Priscilla DO Work Phone: noms [place] [address] R[address]TEComment on above:Chronic migraine without aura without status migrainosus, not intractable (CMS/HCC) (Primary Dx); Psychiatric disturbanceStart: 02-03-2024 End: 18-90-1793yrdwyaqciaJGVQIVNRNYK HASSETTNot AvailableStart: 01-29-2024 End: 65-84-5008WsfxvcFscd Naderer MD Work Phone: NOMS CWM FMComment on above:Generalized anxiety disorder (CMS/HCC)Start: 01-21-2024 End: 90-66-3704Oequwz Ibis Urbina MD Work Phone: NOMS CWM FMStart: 01-21-2024 End: 50-60-6570Nqclfb Ibis Urbina MD Work Phone: NOSC CWM FMStart: 01-21-2024 End: 73-90-8257Elezdl outpatient visit 25 minutesBrian Urbina MD Work Phone: NOMS CWM FMComment on above:Vestibular migraine (CMS/HCC) (Primary Dx); Bipolar affective, mixed (HCC) (CMS/HCC); Generalized anxiety disorder (CMS/HCC)Start: 01-21-2024 End: 48-94-2948peqgtkbybiNZKW NADERERAbdi AvailableStart: 01-13-2024 End: 36-26-2603bxowdzxuquTjdhtomenLima City Hospital Work Phone: Start: 01-13-2024 End: 41-19-8628Ylfmpiw encounter procedureAtrium Health [facility] Work Phone: Start: 01-09-2024 End: 04-45-7145BswlygPdda Naderer MD Work Phone: NOMS CWM FMComment on above:Generalized anxiety disorder (CMS/HCC)Start: 01-02-2024 End: 75-17-5135Gspvia Ibis Urbina MD Work Phone: NOMS CWM FMStart: 01-02-2024 End: 57-71-2620Fiphis Ibis Urbina MD Work Phone: NOMS CWM FMStart: 01-02-2024 End: 25-41-1101Dgrlju outpatient visit 25 minutesBrian Urbina MD Work Phone: NOMS CWM FMComment on above:Vestibular migraine (CMS/HCC) (Primary Dx); Bipolar affective, mixed (HCC) (CMS/HCC); Generalized anxiety disorder (CMS/HCC)Start: 01-02-2024 End: 95-66-9174ontlpkqjdrVQLF NADERERNot AvailableStart: 12-19-2023 End: 20-55-3206Cqvvbw Ibis Urbina MD Work Phone: NOMS CWM FMStart: 12-19-2023 End: 01-85-0233Esiqur Ibis Urbina MD Work Phone: NOMS CWM FMStart: 12-19-2023 End: 46-94-6076Ninres outpatient visit 25 minutesBrian Urbina MD Work Phone: NOMS CWM FMComment on above:Vestibular migraine (CMS/HCC) (Primary Dx); Generalized anxiety disorder (CMS/HCC); Acute non-recurrent pansinusitis; Bipolar affective, mixed (HCC) (CMS/HCC)Start: 12-19-2023 End: 54-45-0450immtgydjupIRDH NADERERNot AvailableStart: 12-16-2023 End: 93-28-5430AbvxrnMrnj Naderer MD Work Phone: NOMS CWM FMComment on above:Generalized anxiety disorder (CMS/HCC)Start: 12-13-2023 End: 94-70-9273Bcxeiqslf Result EncounterBrian Urbina MD Work Phone: noms External Department UnsolicitedStart: 12-13-2023 End: 43-16-6767Odircwwls Result EncounterBrian Urbina MD Work Phone: noms External Department UnsolicitedStart: 12-12-2023 End: 52-45-1795Qwxmlo flowsZaheer Urbina MD Work Phone: NOYK CWM FMStart: 12-12-2023 End: 73-48-3386Rwwxya Ibis Urbina MD Work Phone: noms CWM FMStart: 12-12-2023 End: 45-41-5309Idgndz outpatient visit 25 minutesBrian Urbina MD Work Phone: noms CWM FMComment on above:Vestibular migraine (CMS/HCC) (Primary Dx); Acute non-recurrent pansinusitis; Chronic rhinosinusitis; Bipolar affective, mixed (HCC) (CMS/HCC); Generalized anxiety disorder (CMS/HCC)Start: 12-12-2023 End: 56-43-3088odwjxomyjxEWIF NADERERNot AvailableStart: 12-04-2023 End: 54-64-9214Ngdrzn Ibis Urbina MD Work Phone: noms CWM FMStart: 12-04-2023 End: 04-42-9623Ehhjsr Ibis Urbina MD Work Phone: NOMQ CWM FMStart: 12-04-2023 End: 13-17-6511Itxxtd outpatient visit 25 minutesBrian Urbina MD Work Phone: NOMS CWM FMComment on above:Type 2 diabetes mellitus with hyperglycemia, with long-term current use of insulin (CMS/HCC) (Primary Dx); Essential hypertension, benign (CMS/HCC); Bipolar affective, mixed (HCC) (CMS/HCC); Generalized anxiety disorder (CMS/HCC); Vestibular migraine (CMS/HCC)Start: 12-04-2023 End: 94-28-2901itcgbtpumpFYUG NADERERNot AvailableStart: 11-22-2023 End: 27-97-8194Mylajv Ibis Urbina MD Work Phone: NOMS CWM FMStart: 11-22-2023 End: 86-47-5437Crrxju Ibis Urbina MD Work Phone: NOMS CWM FMStart: 11-22-2023 End: 05-32-5677Gynzyz outpatient visit 25 minutesBrian Urbina MD Work Phone: NOFI CWM FMComment on above:Vestibular migraine (CMS/HCC) (Primary Dx); Generalized anxiety disorder (CMS/HCC); Bipolar affective, mixed (HCC) (CMS/HCC)Start: 11-22-2023 End: 57-44-0254grrszkjbkhOHIC NADERERNot AvailableStart: 05-17-2023 End: 23-07-1488mpzsfdxpuvRzdosuitqLima City Hospital Work Phone: Start: 05-17-2023 End: 79-65-7248Zgooztu encounter [facility] Work Phone: Start: 00-79-0694Zkwgxp Ibis Urbina MD Work Phone: noms CWM FMStart: 22-92-3363Mvwxbz Ibis Urbina MD Work Phone: NOMS CWM FMStart: 04-05-2023 End: 73-03-5525Jaodmw outpatient visit 25 minutesBrian Urbina MD Work Phone: NOPY CWM FMComment on above:Type 2 diabetes mellitus with hyperglycemia, with long-term current use of insulin (CMS/HCC) (Primary Dx); Essential hypertension, benign (CMS/HCC); Bipolar affective, mixed (HCC) (CMS/HCC); Generalized anxiety disorder (CMS/HCC); Gastroesophageal reflux disease without esophagitis; Vestibular migraine (CMS/HCC)Start: 06-08-2022 End: 98-66-2951ypifnvvpmrWjizzz Delphine Other noWAPA Other Start: 18-98-3024Owytzs outpatient visit 15 minutes Helen DymondFPG Urgent Care ClydeStart: 03-27-2022 End: 50-59-0153msxunjxqzhGtxqqjuky Az Other noWAPA Other Start: 78-27-9972Anyryj outpatient visit 15 minutes Fabiola BreaultFPG Urgent Care ClydeStart: 02-09-2022 End: 56-79-1297ehpxrbmrrySazzsi Delphine Other noWAPA Other Start: 66-07-8039Vupexm outpatient visit 15 minutes Helen DymondFPG [facility] Care ClydeStart: 12-11-2021 End: 59-57-7890jhrxmdfqlqJhewranwb Az Other noWAPA Other Start: 25-84-2457Fjgnnw outpatient visit 15 minutes Fabiola BreaultFPG [facility] Care ClydeStart: 10-17-2021 End: 03-53-2372akkhraxyvhAQ BRIAN A NADERERFacility:A8Iwljt: 08-18-2021 End: 67-30-8908nnwdzvbxafPFYZA SCRIBNERFacility:M1Tyqul: 07-26-2021 End: 51-50-2355gfsleriutfQG BRIAN A NADERERFacility:P7Fnudo: 07-26-2021 End: 40-04-4418fvjlggnqhdPO BRIAN A NADERERFacility:N5Eowpt: 07-12-2021 End: 07-50-0089ksbtjwvvcfRlxbor Delphine Other noWAPA Other Start: 58-81-8545Ewdgff outpatient visit 15 minutes Helen DymondFPG Urgent Care ClydeStart: 66-97-3788Pkegirixs for general adult medical examination without abnormal findingsDR BRIAN Fagan NADJEANNETTERTyfn [facility] HospitalStart: 05-18-2021 End: 56-21-8018hniwpigvefMJ BRIAN Fagan NADERERFacility:L8Xbvfr: 05-18-2021 End: 87-27-6955Tfkgsrjao for general adult medical examination without abnormal findingsDR BRIAN Fagan NADJEANNETTERFacility:U1Asmxc: 03-27-2021 End: 86-09-1554bhbddchnfhMnrkcfpxd Az Other Nort [employer] Other Start: 53-17-5997Ssrkai outpatient visit 5 minutes Fabiola BernardoFPSydney Urgent [facility] Procedures DateProcedureProcedure DetailPerforming ClinicianStart: 98-49-1148GHI CBC WITH AUTO DIFFMarita Urbina MD Work Phone: Start: 24-98-9166KKJ HEMOGLOBIN T3ZXeum Ciara WILKINS Work Phone: Plan of Treatment DateCare ActivityDetailAuthorStart: 20-44-8556Dqrdyxjgog A1c measurement Diabetes: Hemoglobin Q2EIAID HealthcareStart: 62-42-3737Wunov screening for proteinDiabetes: Urine Protein ScreeningNOCT HealthcareStart: 11-20-2024 End: 45-32-1988Qyokyut encounter /19/2025 10:15 AM EDT Office Visit [facility] [address] [place] [address] Brian Urbina MD [address] [place] [address] NOMS CWM FMStart: 95-19-0443Roewvasmy vaccinationInfluenza Vaccine (#1)NOMS HealthcareStart: 10-14-2024 End: 91-65-1337Ocmentv encounter procedureNOMS [facility] FMComment on above:Arrived Start: 08-27-2024 End: 92-07-1811Ocvswhd encounter byrrubycl66/26/2025 9:40 AM EDT Office Visit T[facility]O AN[facility] [address] [place] [address] Marj Larry [employer] [address] [place] [address] TADEO JEFFERStart: 08-13-2024 End: 42-49-2992Hdlvjbd encounter procedureNOMS [facility] FMComment on above:Arrived Start: 07-15-2024 End: 04-90-9723Emzul metabolic 1998 panel - Serum or PlasmaBasic metabolic panel Lab Routine Annual physical exam Expected: 07/15/2024 (Approximate), Expires: 07/15/2025NOCT HealthcareComment on above:Expected: 07/15/2024 (Approximate), Expires: 07/15/2025Start: 07-15-2024 End: 08-13-8320LTF W Auto Differential panel - BloodCBC and differential Lab Routine Annual physical exam Expected: 07/15/2024 (Approximate), Expires: 0 07/15/2025NOCT HealthcareComment on above:Expected: 07/15/2024 (Approximate), Expires: 07/15/2025Start: 07-15-2024 End: 66-28-7855Rshwnvtlws A1c/Hemoglobin.total in BloodHemoglobin A1c Lab Routine Annual physical exam Expected: 07/15/2024 (Approximate), Expires: 07/15/2025[facility] Work Phone: Comment on above:Expected: 07/15/2024 (Approximate), Expires: 07/15/2025Start: 07-15-2024 End: 52-13-4946Gzuzgfm function 2000 panel - Serum or PlasmaHepatic function panel Lab Routine Annual physical exam Expected: 07/15/2024 (Approximate), Expires: 07/15/2025NOCT HealthcareComment on above:Expected: 07/15/2024 (Approximate), Expires: 07/15/2025Start: 07-15-2024 End: 82-30-2245Npfrl 1996 panel - Serum or PlasmaLipid panel Lab Routine Annual physical exam Expected: 07/15/2024 (Approximate), Expires: 07/15/2025[facility] HealthcareComment on above:Expected: 07/15/2024 (Approximate), Expires: 07/15/2025Start: 07-15-2024 End: 96-94-2268Apkjsoqpbbr [Units/volume] in Serum or PlasmaTSH Lab Routine Annual physical exam Expected: 07/15/2024 (Approximate), Expires: 07/15/2025[facility] HealthcareComment on above:Expected: 07/15/2024 (Approximate), Expires: 07/15/2025Start: 07-15-2024 End: 75-45-2910Vfodnuach (T4) free [Mass/volume] in Serum or PlasmaT4, free Lab Routine Annual physical exam Expected: 07/15/2024 (Approximate), Expires: 07/15/2025[facility] HealthcareComment on above:Expected: 07/15/2024 (Approximate), Expires: 07/15/2025Start: 07-15-2024 End: 23-69-9987Sxkydhcfckooufng (T3) Free [Mass/volume] in Serum or PlasmaT3, free Lab Routine Annual physical exam Expected: 07/15/2024 (Approximate), Expires: 07/15/2025[facility] HealthcareComment on above:Expected: 07/15/2024 (Approximate), Expires: 07/15/2025Start: 07-15-2024 End: 95-90-9847Aeerloq encounter kjnqrhhry43/14/2025 11:15 AM EDT Office Visit [facility] [address] [place] [address] Brian Urbina MD [address] [place] [address] [facility] FMComment on above:ArrivedStart: 07-14-2024 End: 49-76-5749Zngcyfm encounter typgslnwi02/13/2025 1:30 PM EDT Office Visit [facility] [address] [place] [address] Brian Urbina MD [address] [place] [address] NOMS CWM FMStart: 07-01-2024 End: 85-91-3891Cxtyhit encounter pvibzggpf66/30/2025 9:00 AM EDT Office Visit TADEO ANTON [address] [place] [address] Marj Larry NP [address] [place] [address] TADEO RENEEUEStart: 92-06-0297Keomvatyad A1c measurementDiabetes: Hemoglobin N1HEHSC HealthcareStart: 00-63-7551Gvnjfhzs screeningDiabetes: Retinopathy ScreeningNOCT HealthcareStart: 06-09-2024 End: 90-22-2175Ovfbgcm encounter olgzwxcnq43/08/2025 10:15 AM EDT Office Visit [facility] [address] [place] [address] Brian Urbina MD [address] [place] [address] ArrivedNOMS CWM FMComment on above:ArrivedStart: 04-30-2024 End: 94-78-5578Ksshydl encounter pppuvaaxl42/27/2025 8:20 AM EST Office Visit TADEO ANTON [address] [place] [address] Marj Larry NP [address] [place] [address] TADEO RENEEUEStart: 04-15-2024 End: 13-14-6250Olmwfjq encounter procedureNOMS CWM FMComment on above:Arrived Start: 04-06-2024 End: 92-23-4304Rkyrvbd encounter procedureNOMS [place] [facility] R[address]TEStart: 03-11-2024 End: 88-90-6013Hzihsue encounter procedureNOMS CWM FMComment on above:Arrived Start: 02-03-2024 End: 12-56-8432Cejyouf encounter procedureNOMS [place] STATE R[address]TEComment on above:Vestibular migraine ([facility])Start: 01-21-2024 End: 69-34-8052Eivsowv encounter mdyoognit22/19/2024 1:45 PM EST Office Visit [facility] [address] [place] [address] Brian Urbina MD [address] [place] [address] ArrivedNOMS CWM FMComment on above:ArrivedStart: 01-02-2024 End: 72-51-5496Edszfar encounter surlesmxq15/31/2024 10:00 AM EDT Office Visit [facility] [address] [place] [address] Brian Urbina MD [address] [place] [address] ArrivedNOCT CW FMComment on above:ArrivedStart: 12-19-2023 End: 85-58-6123Zkcteyg encounter ayefagljy49/17/2024 2:00 PM EDT Office Visit [facility] [address] [place] [address] Brian Urbina MD [address] [place] [address] ArrivedNOMS CWM FMComment on above:ArrivedStart: 12-12-2023 End: 45-94-0403Crsxgln encounter vbfkmvyse84/10/2024 10:30 AM EDT Office Visit [facility] [address] [place] [address] Brian Urbina MD [address] [place] [address] ArrivedNOMS CWM FMComment on above:ArrivedStart: 12-04-2023 End: 09-28-0251Pvtaolm encounter procedureNOMS CWM FMComment on above:Arrived Start: 11-22-2023 End: 57-54-8642Hnflycn encounter wtkzikjdp35/20/2024 11:15 AM EDT Office Visit [facility] [address] [place] [address] Brian Urbina MD [address] [place] [address] ArrivedNOMS CWM FMComment on above:ArrivedStart: 42-20-7787Vbyoychoz vaccinationInfluenza Vaccine (#1)NOMS HealthcareStart: 06-03-2023 End: 87-60-5355Qsmnkfw encounter /01/2024 8:00 AM EDT Office Visit [facility] [address] [place] [address] Brian Urbina MD [address] [place] [address] NOMS CWM FMStart: 04-05-2023 End: 85-82-8135Tbjsync encounter yihbxqnqa20/02/2024 11:00 AM EST Office Visit [facility] [address] [place] [address] Brian Urbina MD [address] [place] [address] ArrivedNOCT CWM FMComment on above:ArrivedStart: 28-42-8135Xqnadthfe for malignant neoplasm of breastMammogramNOMS HealthcareStart: 05-01-4750Tqwnooddv for malignant neoplasm of cervixNOMS HealthcareStart: 78-90-6214Wwglmfadh for malignant neoplasm of cervixPap SmearNOMS HealthcareStart: 56-83-8017Donkn screening for proteinDiabetes: Urine Protein ScreeningNOMS HealthcareStart: 67-38-7845Tdietkdg screeningDiabetes: Retinopathy ScreeningNOMS HealthcareStart: 31-70-5245Ruioraozbe A1c measurementDiabetes: Hemoglobin W9JLZPUCedar [facility] Hospital Start: 74-48-9930Oftabkgvp for malignant neoplasm of colonN[facility]ours [facility] Immunizations Immunization DateImmunizationNotesCare ZbsrkxavDsjxujvd19-23-2188avyhrynjq virus vaccine, unspecified formulationBrian Urbina MD Work Phone: [facility] HospitalWchumoyyja97-68-7420knqxzekmb virus vaccine, unspecified formulationBrian Urbina MD Work Phone: [facility] Payers DatePayer CategoryPayerPolicy [id number] Blue ShieldBS Member Subscriber Plan / Payer (Effective 2023-Present) Name: Amanda Wall Relation to Subscriber: Self Name: Amanda Wall Payer ID: Not on file Type: Not on file Address: [place] [id number] 1..840.384047.1.13.693.2.7.3.687[id number] 2.0.1.828487.3.579.[id number] 2.0.1.559121.3.579.2.81517-69-9948Yomwiul3936901 2.0.1.935136.3.579.[id number] 2.16.840.1.941566.3.57[id number] 2.16.840.1.626040.3.57[id number] 2.16.840.1.199650.3.57[id number] 2.16.840.1.873198.3.579.2.239912-65-5902Ytyzclc4875044 2.16.840.1.661808.3.579.2.658567-85-6320Gervnkg5394074 2..840.1.274479.3.579.2.835134-80-9709Jpgqdrn5485249 2.840.1.061477.3.579.2.832616-83-1113Kitxakc5248851 2.840.1.043341.3.579.2.300329-70-6380Nfoqogd7757393 2.840.1.272703.3.579.2.533683-25-1945Tsgapmi1830969 2..840.1.408756.3.579.2.0[id number] 2.840.1.925505.3.579.2.968687-28-3258Bakknvg8103837 2.840.1.481391.3.579.[id number] 2.840.1.727203.3.579.[id number] 2.16.840.1.625289.3.579.2.678723-49-0295Mkgprhf8798831 2.16840.1.559870.3.579.[id number] 2.16.840.1.365264.19 Blue Cross [facility] [id number] .16.840.1.139893.19Self-paySelf Pay [id number] /[id number] Board Mental [id number] Social History DateTypeDetailFacilityUnknown if ever smokedNosaint mary's health center [employer] Other Start: 04-03-2023 End: 14-41-8298Rmr Assigned [facility] RegionalNOCT HealthcareStart: 03-22-2023 End: 23-24-3188Bikozbv smoking status NHISNever smoked tobaccoNOMS Healthcare Start: 04-03-2023 End: 96-87-9680Sjgbhqv of Social functionNOMS HealthcareWithin the last year, have you been afraid of your partner or ex-partner?NoNOMS HealthcareAre you now , , , , never or living with a partner? MarriedNOMS HealthcareHow often to you have a drink containing alcohol?NeverNOMS HealthcareHow many standard drinks containing alcohol do you have on a typical day?Patient does not drinkNOMS HealthcareDo you feel stress - tense, restless, nervous, or anxious, or unable to sleep at night because yourmind is troubled all the time - these days [OSQ]Very muchNOMS Healthcare(I/We) worried whether (my/our) food would run out before (I/we) got money to buy more.DK or Refused N[facility] HealthcareStart: [id number] Assigned At BirthNot on fileNOMS Healthcare Start: [id number] use and exposureSmokeless tobacco non-userNOMS HealthcareStart: [id number] [facility]tart: 01-13-2024 End: [phone] (finding)[facility] CenterHow hard is it for you to pay for the very basics like food, housing, medical care, and heatingNot very hardNOMS Healthcare(I/We) worried whether (my/our) food would run out before (I/we) got money to buy more.Never trueNOMS HealthcareDo you belong to any clubs or organizations such as restoration groups, unions, fraternal or athletic groups, or school groups?YesNOMS HealthcareHow hard is it for you to pay for the very basics like food, housing, medical care, and heatingSomewhat hardNOMS Healthcare(I/We) worried whether (my/our) food would run out before (I/we) got money to buy more.Sometimes trueNOMS Healthcare Clinical Notes 03-27-2021 to 10-14-2024 Note Date & [id number] History of Present illness Narrative* Brian Urbina MD - 10/14/2024 8:56 AM EDTAssociated Problem(s): Vestibular migraine DEJESUS worse with increased anxiety. Follow with neurology. Off work 07/06-11/22 and return 11/23. * Brian Urbina MD - 10/14/2024 8:56 AM EDTAssociated Problem(s): Type 2 diabetes mellitus with hyperglycemia, without long-term current use of insulin (HCC) BS elevated and try mounjaro. Stick to ADA diet and limit carbs. * Brian Urbina MD - 10/14/2024 8:56 AM EDTAssociated Problem(s): Generalized anxiety disorder Mood worse and increase zyprexa. Use xanax PRN. * Brian Urbina MD - 10/14/2024 8:55 AM EDTAssociated Problem(s): Essential hypertension, benign BP controlled and monitor PRN. * Brian Urbina MD - 10/14/2024 8:55 AM EDTAssociated Problem(s): Bipolar affective, mixed (HCC) Mood worse and increase zyprexa. * Brian Urbina MD - 10/14/2024 8:00 AM EDT Images from the original note were not included. Subjective Patient ID: Amanda Hong is a 54 y.o. female who presents for Follow-up (6m). Follow up DM, HTN, vestibular migraine, bipolar, and anxiety. Patient not doing well today. BS elevated and weight up 30 pounds since stopping ozempic. BS now 150-170 in am. Tries to eat well and stick to ADA diet. Denies signs of elevated BS such as polyuria, polyphagia or polydipsia. Checking BP PRN and typically controlled. BP slightly elevated today. Taking medication daily and tolerating without side effects. Migraines unchanged and following with neurology. Tried inderal and had side effects. Trying to get ajovy approved by insurance. Still on zonegran. DEJESUS almost daily and severe migraine several days a week. Still frequent vertigo and room spinning or severe DEJESUS. DEJESUS were better while on ajovy. Using fioricet PRN and helps. Bipolar worse. Down, sad and no motivation. No mingo and nothyper or full of energy. Anxiety worse. Nervous and worry all the time. Stressed out and overwhelmed. Thought racing and hard to clear mind. Arzola, irritable and snapping at others. Easily upset and overreact. Using xanax PRN and mild relief. Review [...] Items Addressed This Visit Essential hypertension, benign BP controlled and monitor PRN. Bipolar affective, mixed (HCC) Mood worse and increase zyprexa. Relevant Medications OLANZapine (ZyPREXA) 15 MG tablet Generalized anxiety disorder Mood worse and increase zyprexa. Use xanax PRN. Type 2 diabetes mellitus with hyperglycemia, without long-term current use of insulin (HCC) - Primary BS elevated and try mounjaro. Stick to ADA diet and limit carbs. Relevant Medications Tirzepatide (Mounjaro) 2.5 MG/0.5ML solution auto-injector Vestibular migraine DEJESUS worse with increased anxiety. Follow with neurology. Off work 07/06-11/22 and return 11/23. documented in this encounterCedar County Memorial [id number] Evaluation note* Diagnosis Onset Date Resolution Status Admit Date Paresthesias chronicJune 2024 9:26amChronic migraine with aura without status migrainosus, not intractableinactiveJune 2024 9:26amBenign essential HTN acuteSeptember 2024 9:58amBipolar affective disorder, mixedacuteSeptember 2024 9:58amGAD (generalized anxiety disorder)acuteSeptember 2024 9:58amType 2 diabetes mellitus with hyperglycemia, without long-term current use acuteSeptember 2024 9:58amVestibular migraineacuteSeptember 2024 9:58am [facility] Work Phone: 1(648) 909-300006-12-2025 History of Present illness Narrative* Brian Urbina MD - 08/13/2024 10:32 AM EDTAssociated Problem(s): Type 2 diabetes mellitus with hyperglycemia, without long-term current use of insulin (HCC) BS controlled A1C 4.7. Stick to ADA diet and limit carbs. * Brian Urbina MD - 08/13/2024 10:31 AM EDTAssociated Problem(s): Vestibular migraine DEJESUS worse with increased anxiety. Follow with neurology. Off work 07/06-10/18 and return 10/19. * Biran Urbina MD - 08/13/2024 10:31 AM EDTAssociated Problem(s): Generalized anxiety disorder Mood unchanged but only on higher dose for 1 week. Continue medication at current dose. Use xanax PRN. * Brian Urbina MD - 08/13/2024 10:31 AM EDTAssociated Problem(s): Bipolar affective, mixed (HCC) Mood unchanged but only on higher dose for 1 week. Continue medication at current dose. * Brian Urbina MD - 08/13/2024 9:45 AM EDT Images from the original note were not included. Subjective Patient ID: Amanda Hong is a 53 y.o. female who presents for Follow- up, Migraine, and Anxiety. Follow up migraines, anxiety, and DM. Continues to have severe anxiety. Increased stress and daughter moved to [place] but now back and trying to find job. Nervous and worry all the time. Stressed out and overwhelmed. Thought racing and hard to clear mind. Arzola, irritable and snapping at others. Easily upset and overreact. Frequently waking up with anxiety attacks. Using xanax PRN and not much relief. Didn't start increased dose zyprexa until early August. Anxiety triggering migraines and making symptoms worse. Develops severe vertigo, nausea, and vomiting with migraine. Not functioning well and hard to eat. Scheduled with neurology 08/27. Stopped ozempic due to potential side effects and GIsymptoms improved. Not checking BS. Off work since 07/06 due to symptoms. Review of Systems Respiratory: Negative for [...] Addressed This Visit Bipolar affective, mixed (HCC) - Primary Mood unchanged but only on higher dose for 1 week. Continue medication at current dose. Generalized anxiety disorder Mood unchanged but only on higher dose for 1 week. Continue medication at current dose. Use xanax PRN. Type 2 diabetes mellitus with hyperglycemia, without long-term current use of insulin (HCC) BS controlled A1C 4.7. Stick to ADA diet and limit carbs. Vestibular migraine DEJESUS worse with increased anxiety. Follow with neurology. Off work 07/06-10/18 and return 10/19. documented in this encounterCedar County Memorial [id number] History of Present illness Narrative* Brian Urbina MD - 07/15/2024 11:38 AM EDTAssociated Problem(s): Dyslipidemia (CMS/HCC) Repeat labs. * Brian Urbina MD - 07/15/2024 11:38 AM EDTAssociated Problem(s): Type 2 diabetes mellitus with hyperglycemia, without long-term current use of insulin (CMS/HCC) BS controlled but possible side effects from ozempic and stop. Due for A1C. Stick to ADA diet and limit carbs. * Brian Urbina MD - 07/15/2024 11:37 AM EDTAssociated Problem(s): Vestibular migraine (CMS/HCC) DEJESUS worse with increased anxiety. Follow with neurology. Off work 07/06-08/16 and return 08/17. * Brian Urbina MD - 07/15/2024 11:37 AM EDTAssociated Problem(s): Generalized anxiety disorder (CMS/HCC) Continues to have severe symptoms and increase zyprexa. Continue zoloft and use xanax PRN. * Brian Urbina MD - 07/15/2024 11:15 AM EDT Images from the original note were not included. Subjective Patient ID: Amanda Hong is a 53 y.o. female who presents for Follow-up ([facility] er f/up). ER follow up from 07/06 [...] Not functioning well and hard to eat. Offwork since 07/06 due to symptoms. Concerned anxiety [...] T4, free T3, free documented in this encounterCedar County Memorial [id number] History of Present illness Narrative* Brian Urbina MD - 06/09/2024 11:03 AM EDTAssociated Problem(s): Viral gastroenteritis Symptoms due to virus [...] output. Wash hands frequently to prevent spread. * Brian Urbina MD - 06/09/2024 10:15 AM EDT Images from the original note were not included. Subjective Patient ID: Amanda Hong is a 53 y.o. female who presents for Follow-up (NAUSEA, VOMITING,DIARRHEA SINCE SAT). C/o nausea, vomiting, and diarrhea since 06/05. Positive for covid 10 days ago and initially had cough and SOB. 06/05 developed nausea and vomiting. Severe nausea and not able to keep down food. Few dayslater developed abdominal cramping and diarrhea. BM 5-10 times a day and loose, watery stool. No blood with BM. Afebrile. Out of zofran but helped. Trying to increase fluids. BS recently elevated. Noimprovement in symptoms since onset. Review of Systems [...] (Bentyl) 20 MG tablet documented in this encounterCedar County Memorial [id number] Evaluation note* Diagnosis Onset Date Resolution Status Admit Date COVID-19 acuteMarch 2024 10:54amViral gastroenteritisacuteApril 2024 9:01am DizzinessacuteMay 2024 1:49pmNausea & vomitingacuteMay 2024 1:49pm Chronic migraine without aura without status migrainosus, not intractablechronic August 27, 2024 9:26amParesthesiaschronicJune 2024 9:26am [facility] Work Phone: 1(244) 187-264203-12-2025 Evaluation note* Diagnosis Onset Date Resolution Status Admit Date Gastroenteritis acuteMarch 2024 3:13pm [facility] Work Phone: 1([phone]) 525-875003-12-2025 Evaluation note* Diagnosis Onset Date Resolution Status Admit Date Gastroenteritis acuteMarch 2024 3:13pmCOVID-19acuteMarch 2024 10:54amViral gastroenteritisacuteApril 2024 9:01am [facility] Work Phone: 1([phone]) 642-194502-12-2025 History of Present illness Narrative* Brian Urbina [...] follow up with neurology. documented in this encounterCedar County Memorial [id number] History of Present illness Narrative* Brian Urbina [...] Follow up with neurology. documented in this encounterCedar County Memorial [id number] History of Present illness Narrative* Tuan Wells, DO - 02/03/2024 9:00 AM EST Images from the original note were not included. Chief complaint: Headaches Subjective Amanda Linda Hong, 53 y.o., female Patient presents today [...] History: Diagnosis Date Bipolar affective, mixed (HCC) (CMS/HCC) DDD (degenerative disc disease), cervical DDD (degenerative disc disease), lumbar DDD (degenerative disc disease), thoracic Deviated nasal septum Elevated LFTs MARGIE (generalized anxiety disorder) (CMS/HCC) GERD (gastroesophageal reflux disease) Hyperlipidemia (CMS/HCC) Hypertension (CMS/HCC) Hypothyroidism, adult (CMS/HCC) ADELAIDA on CPAP Otosclerosis Seasonal allergic rhinitis due to pollen Type 2 diabetes mellitus with hyperglycemia, with long-term current use of insulin (CMS/HCC) Vestibular migraine (CMS/HCC) Vitamin D deficiency Past Surgical History: Procedure [...] , wrist extensors , wrist flexor , mate chief strength 5/5. LUE Strength deltoid , biceps , triceps , wrist extensors , wrist flexor , mate chief strength 5/5. RLE Strength illopsoas, quadriceps, tibialis [...] reflex 2+ . Bear's sign negative. Coordination: Jernvf-te-ohfk testing and rapid alternating movements are normal [...] plan, and return instructions documented in this encounterCedar County Memorial HospitalRajtljkisn55-55-0316 History of Present illness Narrative* Brian Urbina [...] 4 MG disintegrating tablet documented in this encounterCedar County Memorial HospitalXsiixbxfvf99-90-0632 History of Present illness Narrative* Brian Urbina [...] xanax PRN and not helping. Did not cotton picker increased zoloft and onzyprexa. Review of [...] Ambulatory referral to Neurology documented in this encounterCedar County Memorial [id number] History of Present illness Narrative* Brian Urbina [...] notice improvement in mood. Continue zyprexa. * Brain Urbina MD - 12/19/2023 2:26 PM EDTAssociated [...] (Levaquin) 750 MG tablet documented in this encounterCedar County Memorial [id number] History of Present illness Narrative* Brian Urbina [...] 50 MCG/ACT nasal spray documented in this encounterCedar County Memorial [id number] History of Present illness Narrative* Brian Urbina [...] topamax. Use fioricet PRN. documented in this encounterCedar County Memorial [id number] History of Present illness Narrative* Brian Urbina [...] increase topamax. Use fioricet PRN. Relevant Medications luezbkgfvl-dbbqbhbxhlizj-zezcgsup 50-325-40 MG tablet topiramate (Topamax) 100 MG tablet documented in this encounterCedar County Memorial HospitalKhwprxkmbv15-79-6565 History of Present illness Narrative* Brian Urbina [...] with medication and continue. documented in this encounterCedar County Memorial HospitalLgrlzkzzqe76-01-6425 Evaluation note* Encounter Date Diagnosis Assessment Notes Treatment Notes Treatment Clinical Notes Jun, Nasal congestion (ICD-10 - R09.8 1) Jun,cute sinusitis, recurrence not specified, unspecified location (ICD-10 - J01.90)Sinusitis home care material was printed Drink plenty [...] no improvement in 2 to 3 days Jun,ronchitis (ICD-10 - J40) [employer] Other 01-24-2023 Evaluation note* Encounter Date Diagnosis Assessment Notes Treatment Notes Treatment Clinical Notes Mar, Migraine without aur a and without status migrainosus, not intractable (ICD-10 - G43.009) Take medication as directed. Shot given in office of Toradol and steroid. Stay away from known triggers. Follow up with primary care provider or neurology if symptoms persist as new treatment option may need to be discussed. [employer] Other 12-09-2022 Evaluation note* Encounter Date Diagnosis Assessment Notes Treatment Notes Treatment Clinical Notes Feb, Contact with and (landry spected) exposure to other viral communicable diseases (ICD-10 - Z20.828) Feb,Influenza A (ICD-10 - J10.1)Influenza: adult home care material was printed Drink plenty fluids, get plenty of rest. Take Tylenol or Motrin for aches pains or fevers. Take Zofran as prescribed for nausea and vomiting. Follow-up with your family physician if no improvement in2 to 3 days. Off work until next Feb,Nausea and vomiting, unspecified vomiting type (ICD-10 - R11.2) [employer] Other 10-10-2022 Evaluation note* Encounter Date Diagnosis [...] find specialist if symptoms are not improved. [employer] Other 05-11-2022 Evaluation note* Encounter Date Diagnosis Assessment Notes Treatment Notes Treatment Clinical Notes July, Thoracic myofascial strain, init ial encounter (ICD-10 - S29.019A) 3 to 4-dayDrink [...] the ER for worsening symptoms or concerns. July,therBack strain or sprain home care material was printed [employer] Other 01-24-2022 Evaluation note* Encounter Date Diagnosis Assessment Notes Treatment Notes Treatment Clinical Notes Mar, Encounter for screening for othe r viral diseases (ICD-10 - Z11.59) Mar,ther Additional time spent conducting pre-visit phone call, screening for symptoms, instructions on social distancing, application and removal of PPE, and cleaning of examination room, equipment and supplies was preformed. Patient education given for testing methodology and results. Patient care instructions given in writting by [facility] At [facility] document. [employer] Other Chief complaint+Reason for visit Narrative* Chief Complaint poss flu Reason for Visit Contact with and (landry spected) exposure to covid-19 Sinusitis [facility] Work Phone: Evaluation note* Diagnosis Type [...] Contact with and (suspected) exposure to covid-19 noneactiveSinusitisnoneactive [facility] Work Phone: Evaluation note* Diagnosis Type [...] Generalized anxiety disorder documented in this encounter [facility] HealthcareEvaluation noteNo assessment information availableHolzer Hospital Work Phone: Evaluation note* Diagnosis Type [...] Generalized anxiety disorder Bipolar affective, mixed (HCC) ([facility]) [...] Vestibular migraine (CMS/HCC) documented in this encounter [facility] HealthcareEvaluation note* Diagnosis Type 2 diabetes mellitus [...] without long-term current use of insulin (CMS/HCC) Bipolar affective, mixed (HCC) ([facility]) Bipolar I disorder, most recent episode (or current) mixed, unspecified Annual physical exam Routine general medical examination at a health care facility Dyslipidemia ([facility]) Other and unspecified hyperlipidemia Type 2 diabetes mellitus with other specified complication documented in this encounter [facility] HealthcareEvaluation note* Diagnosis Type 2 diabetes mellitus with hyperglycemia, with long-term current use of insulin ([facility])- Primary Essential hypertension, benign Essential hypertension, benign Bipolar affective, mixed (HCC) Bipolar I disorder, most recent episode (or current) mixed, unspecified Generalized anxiety disorder Generalized anxiety disorder Gastroesophageal reflux disease without esophagitis Esophageal reflux Vestibular migraine Essential hypertension, benign- Primary Essential hypertension, benign Type 2 diabetes mellitus with hyperglycemia, with long-term current use of insulin ([facility]) Vestibular migraine Bipolar affective, mixed (HCC) Bipolar I disorder, most recent episode (or current) mixed, unspecified Generalized anxiety disorder Generalized anxiety disorder Colon cancer screening Special screening for malignant neoplasms, colon Acute non-recurrent pansinusitis Vestibular migraine- Primary Bipolar affective, mixed (HCC) Bipolar I disorder, most recent episode (or current) mixed, unspecified Generalized anxiety disorder Generalized anxiety disorder Type 2 diabetes mellitus with hyperglycemia, with long-term current use of insulin ([facility])- Primary Essential hypertension, benign Essential hypertension, benign Vestibular migraine Bipolar affective, mixed (HCC) Bipolar I disorder, most recent episode (or current) mixed, unspecified Generalized anxiety disorder Generalized anxiety disorder Acute non-recurrent pansinusitis Breast cancer screening by mammogram Type 2 diabetes mellitus with other specified complication, without long-term current use of insulin ([facility]) Type 2 diabetes mellitus with hyperglycemia, with long-term current use of insulin ([facility])- Primary Essential hypertension, benign Essential hypertension, benign Bipolar affective, mixed (HCC) Bipolar I disorder, most recent episode (or current) mixed, unspecified Generalized anxiety disorder Generalized anxiety disorder Vestibular migraine Vestibular migraine- Primary Generalized anxiety disorder Generalized anxiety disorder Bipolar affective, mixed (HCC) Bipolar I disorder, most recent episode (or current) mixed, unspecified Type 2 diabetes mellitus with hyperglycemia, with long-term current use of insulin ([facility])- Primary Essential hypertension, benign Essential hypertension, benign Bipolar affective, mixed (HCC) Bipolar I disorder, most recent episode (or current) mixed, unspecified Generalized anxiety disorder Generalized anxiety disorder Vestibular migraine Vestibular migraine- Primary Acute non-recurrent pansinusitis Chronic rhinosinusitis Unspecified sinusitis (chronic) Bipolar affective, mixed (HCC) Bipolar I disorder, most recent episode (or current) mixed, unspecified Generalized anxiety disorder Generalized anxiety disorder Vestibular migraine- Primary Generalized anxiety disorder Generalized anxiety disorder Acute non-recurrent pansinusitis Bipolar affective, mixed (HCC) Bipolar I disorder, most recent episode (or current) mixed, unspecified Vestibular migraine- Primary Bipolar affective, mixed (HCC) Bipolar I disorder, most recent episode (or current) mixed, unspecified Generalized anxiety disorder Generalized anxiety disorder Vestibular migraine- Primary Bipolar affective, mixed (HCC) Bipolar I disorder, most recent episode (or current) mixed, unspecified Generalized anxiety disorder Generalized anxiety disorder Type 2 diabetes mellitus with hyperglycemia, without long-term current use of insulin (HCC)- Primary Essential hypertension, benign Essential hypertension, benign Bipolar affective, mixed (HCC) Bipolar I disorder, most recent episode (or current) mixed, unspecified Generalized anxiety disorder Generalized anxiety disorder Vestibular migraine Type 2 diabetes mellitus with hyperglycemia, without long-term current use of insulin (HCC)- Primary Essential hypertension, benign Essential hypertension, benign Bipolar affective, mixed (HCC) Bipolar I disorder, most recent episode (or current) mixed, unspecified Generalized anxiety disorder Generalized anxiety disorder Vestibular migraine Vestibular migraine- Primary Generalized anxiety disorder Generalized anxiety disorder Type 2 diabetes mellitus with hyperglycemia, without long-term current use of insulin (HCC) Bipolar affective, mixed (HCC) Bipolar I disorder, most recent episode (or current) mixed, unspecified Annual physical exam Routine general medical examination at a health care facility Dyslipidemia Other and unspecified hyperlipidemia Type 2 diabetes mellitus with other specified complication (HCC) Bipolar affective, mixed (HCC)- Primary Bipolar I disorder, most recent episode (or current) mixed, unspecified Generalized anxiety disorder Generalized anxiety disorder Vestibular migraine Type 2 diabetes mellitus with hyperglycemia, without long-term current use of insulin (HCC) documented in this encounter [facility] HealthcareEvaluation note* Diagnosis Type 2 diabetes mellitus with hyperglycemia, with long-term current use of insulin (HCC)- Primary Essential hypertension, benign Essential hypertension, benign Bipolar affective, mixed (HCC) Bipolar I disorder, most recent episode (or current) mixed, unspecified Generalized anxiety disorder Generalized anxiety disorder Gastroesophageal reflux disease without esophagitis Esophageal reflux Vestibular migraine Essential hypertension, benign- Primary Essential hypertension, benign Type 2 diabetes mellitus with hyperglycemia, with long-term current use of insulin (HCC) Vestibular migraine Bipolar affective, mixed (HCC) Bipolar I disorder, most recent episode (or current) mixed, unspecified Generalized anxiety disorder Generalized anxiety disorder Colon cancer screening Special screening for malignant neoplasms, colon Acute non-recurrent pansinusitis Vestibular migraine- Primary Bipolar affective, mixed (HCC) Bipolar I disorder, most recent episode (or current) mixed, unspecified Generalized anxiety disorder Generalized anxiety disorder Type 2 diabetes mellitus with hyperglycemia, with long-term current use of insulin (HCC)- Primary Essential hypertension, benign Essential hypertension, benign Vestibular migraine Bipolar affective, mixed (HCC) Bipolar I disorder, most recent episode (or current) mixed, unspecified Generalized anxiety disorder Generalized anxiety disorder Acute non-recurrent pansinusitis Breast cancer screening by mammogram Type 2 diabetes mellitus with other specified complication, without long-term current use of insulin ([facility]) Type 2 diabetes mellitus with hyperglycemia, with long-term current use of insulin ([facility])- Primary Essential hypertension, benign Essential hypertension, benign Bipolar affective, mixed (HCC) Bipolar I disorder, most recent episode (or current) mixed, unspecified Generalized anxiety disorder Generalized anxiety disorder Vestibular migraine Vestibular migraine- Primary Generalized anxiety disorder Generalized anxiety disorder Bipolar affective, mixed (HCC) Bipolar I disorder, most recent episode (or current) mixed, unspecified Type 2 diabetes mellitus with hyperglycemia, with long-term current use of insulin ([facility])- Primary Essential hypertension, benign Essential hypertension, benign Bipolar affective, mixed (HCC) Bipolar I disorder, most recent episode (or current) mixed, unspecified Generalized anxiety disorder Generalized anxiety disorder Vestibular migraine Vestibular migraine- Primary Acute non-recurrent pansinusitis Chronic rhinosinusitis Unspecified sinusitis (chronic) Bipolar affective, mixed (HCC) Bipolar I disorder, most recent episode (or current) mixed, unspecified Generalized anxiety disorder Generalized anxiety disorder Vestibular migraine- Primary Generalized anxiety disorder Generalized anxiety disorder Acute non-recurrent pansinusitis Bipolar affective, mixed (HCC) Bipolar I disorder, most recent episode (or current) mixed, unspecified Vestibular migraine- Primary Bipolar affective, mixed (HCC) Bipolar I disorder, most recent episode (or current) mixed, unspecified Generalized anxiety disorder Generalized anxiety disorder Vestibular migraine- Primary Bipolar affective, mixed (HCC) Bipolar I disorder, most recent episode (or current) mixed, unspecified Generalized anxiety disorder Generalized anxiety disorder Type 2 diabetes mellitus with hyperglycemia, without long-term current use of insulin ([facility])- Primary Essential hypertension, benign Essential hypertension, benign Bipolar affective, mixed (HCC) Bipolar I disorder, most recent episode (or current) mixed, unspecified Generalized anxiety disorder Generalized anxiety disorder Vestibular migraine Type 2 diabetes mellitus with hyperglycemia, without long-term current use of insulin (HCC)- Primary Essential hypertension, benign Essential hypertension, benign Bipolar affective, mixed (HCC) Bipolar I disorder, most recent episode (or current) mixed, unspecified Generalized anxiety disorder Generalized anxiety disorder Vestibular migraine Vestibular migraine- Primary Generalized anxiety disorder Generalized anxiety disorder Type 2 diabetes mellitus with hyperglycemia, without long-term current use of insulin (HCC) Bipolar affective, mixed (HCC) Bipolar I disorder, most recent episode (or current) mixed, unspecified Annual physical exam Routine general medical [facility] Dyslipidemia Other and unspecified hyperlipidemia Type 2 diabetes mellitus with other specified complication (HCC) Bipolar affective, mixed (HCC)- Primary Bipolar I disorder, most recent episode (or current) mixed, unspecified Generalized anxiety disorder Generalized anxiety disorder Vestibular migraine Type 2 diabetes mellitus with hyperglycemia, without long-term current use of insulin (HCC) Generalized anxiety disorder Generalized anxiety disorder [facility]* Diagnosis Type 2 diabetes mellitus with hyperglycemia, with long-term current use of insulin (HCC)- Primary Essential hypertension, benign Essential hypertension, benign Bipolar affective, mixed (HCC) Bipolar I disorder, most recent episode (or current) mixed, unspecified Generalized anxiety disorder Generalized anxiety disorder Gastroesophageal reflux disease without esophagitis Esophageal reflux Vestibular migraine Essential hypertension, benign- Primary Essential hypertension, benign Type 2 diabetes mellitus with hyperglycemia, with long-term current use of insulin (HCC) Vestibular migraine Bipolar affective, mixed (HCC) Bipolar I disorder, most recent episode (or current) mixed, unspecified Generalized anxiety disorder Generalized anxiety disorder Colon cancer screening Special screening for malignant neoplasms, colon Acute non-recurrent pansinusitis Vestibular migraine- Primary Bipolar affective, mixed (HCC) Bipolar I disorder, most recent episode (or current) mixed, unspecified Generalized anxiety disorder Generalized anxiety disorder Type 2 diabetes mellitus with hyperglycemia, with long-term current use of insulin (HCC)- Primary Essential hypertension, benign Essential hypertension, benign Vestibular migraine Bipolar affective, mixed (HCC) Bipolar I disorder, most recent episode (or current) mixed, unspecified Generalized anxiety disorder Generalized anxiety disorder Acute non-recurrent pansinusitis Breast cancer screening by mammogram Type 2 diabetes mellitus with other specified complication, without long-term current use of insulin (HCC) Type 2 diabetes mellitus with hyperglycemia, with long-term current use of insulin (HCC)- Primary Essential hypertension, benign Essential hypertension, benign Bipolar affective, mixed (HCC) Bipolar I disorder, most recent episode (or current) mixed, unspecified Generalized anxiety disorder Generalized anxiety disorder Vestibular migraine Vestibular migraine- Primary Generalized anxiety disorder Generalized anxiety disorder Bipolar affective, mixed (HCC) Bipolar I disorder, most recent episode (or current) mixed, unspecified Type 2 diabetes mellitus with hyperglycemia, with long-term current use of insulin (HCC)- Primary Essential hypertension, benign Essential hypertension, benign Bipolar affective, mixed (HCC) Bipolar I disorder, most recent episode (or current) mixed, unspecified Generalized anxiety disorder Generalized anxiety disorder Vestibular migraine Vestibular migraine- Primary Acute non-recurrent pansinusitis Chronic rhinosinusitis Unspecified sinusitis (chronic) Bipolar affective, mixed (HCC) Bipolar I disorder, most recent episode (or current) mixed, unspecified Generalized anxiety disorder Generalized anxiety disorder Vestibular migraine- Primary Generalized anxiety disorder Generalized anxiety disorder Acute non-recurrent pansinusitis Bipolar affective, mixed (HCC) Bipolar I disorder, most recent episode (or current) mixed, unspecified Vestibular migraine- Primary Bipolar affective, mixed (HCC) Bipolar I disorder, most recent episode (or current) mixed, unspecified Generalized anxiety disorder Generalized anxiety disorder Vestibular migraine- Primary Bipolar affective, mixed (HCC) Bipolar I disorder, most recent episode (or current) mixed, unspecified Generalized anxiety disorder Generalized anxiety disorder Type 2 diabetes mellitus with hyperglycemia, without long-term current use of insulin (HCC)- Primary Essential hypertension, benign Essential hypertension, benign Bipolar affective, mixed (HCC) Bipolar I disorder, most recent episode (or current) mixed, unspecified Generalized anxiety disorder Generalized anxiety disorder Vestibular migraine Type 2 diabetes mellitus with hyperglycemia, without long-term current use of insulin (HCC)- Primary Essential hypertension, benign Essential hypertension, benign Bipolar affective, mixed (HCC) Bipolar I disorder, most recent episode (or current) mixed, unspecified Generalized anxiety disorder Generalized anxiety disorder Vestibular migraine Vestibular migraine- Primary Generalized anxiety disorder Generalized anxiety disorder Type 2 diabetes mellitus with hyperglycemia, without long-term current use of insulin (HCC) Bipolar affective, mixed (HCC) Bipolar I disorder, most recent episode (or current) mixed, unspecified Annual physical exam Routine general medical examination at a health care facility Dyslipidemia Other and unspecified hyperlipidemia Type 2 diabetes mellitus with other specified complication (HCC) Bipolar affective, mixed (HCC)- Primary Bipolar I disorder, most recent episode (or current) mixed, unspecified Generalized anxiety disorder Generalized anxiety disorder Vestibular migraine Type 2 diabetes mellitus with hyperglycemia, without long-term current use of insulin (HCC) Generalized anxiety disorder Generalized anxiety disorder [facility]* Diagnosis Type 2 diabetes mellitus with hyperglycemia, with long-term current use of insulin (HCC)- Primary Essential hypertension, benign Essential hypertension, benign Bipolar affective, mixed (HCC) Bipolar I disorder, most recent episode (or current) mixed, unspecified Generalized anxiety disorder Generalized anxiety disorder Gastroesophageal reflux disease without esophagitis Esophageal reflux Vestibular migraine Essential hypertension, benign- Primary Essential hypertension, benign Type 2 diabetes mellitus with hyperglycemia, with long-term current use of insulin (HCC) Vestibular migraine Bipolar affective, mixed (HCC) Bipolar I disorder, most recent episode (or current) mixed, unspecified Generalized anxiety disorder Generalized anxiety disorder Colon cancer screening Special screening for malignant neoplasms, colon Acute non-recurrent pansinusitis Vestibular migraine- Primary Bipolar affective, mixed (HCC) Bipolar I disorder, most recent episode (or current) mixed, unspecified Generalized anxiety disorder Generalized anxiety disorder Type 2 diabetes mellitus with hyperglycemia, with long-term current use of insulin (HCC)- Primary Essential hypertension, benign Essential hypertension, benign Vestibular migraine Bipolar affective, mixed (HCC) Bipolar I disorder, most recent episode (or current) mixed, unspecified Generalized anxiety disorder Generalized anxiety disorder Acute non-recurrent pansinusitis Breast cancer screening by mammogram Type 2 diabetes mellitus with other specified complication, without long-term current use of insulin (HCC) Type 2 diabetes mellitus with hyperglycemia, with long-term current use of insulin (HCC)- Primary Essential hypertension, benign Essential hypertension, benign Bipolar affective, mixed (HCC) Bipolar I disorder, most recent episode (or current) mixed, unspecified Generalized anxiety disorder Generalized anxiety disorder Vestibular migraine Vestibular migraine- Primary Generalized anxiety disorder Generalized anxiety disorder Bipolar affective, mixed (HCC) Bipolar I disorder, most recent episode (or current) mixed, unspecified Type 2 diabetes mellitus with hyperglycemia, with long-term current use of insulin (HCC)- Primary Essential hypertension, benign Essential hypertension, benign Bipolar affective, mixed (HCC) Bipolar I disorder, most recent episode (or current) mixed, unspecified Generalized anxiety disorder Generalized anxiety disorder Vestibular migraine Vestibular migraine- Primary Acute non-recurrent pansinusitis Chronic rhinosinusitis Unspecified sinusitis (chronic) Bipolar affective, mixed (HCC) Bipolar I disorder, most recent episode (or current) mixed, unspecified Generalized anxiety disorder Generalized anxiety disorder Vestibular migraine- Primary Generalized anxiety disorder Generalized anxiety disorder Acute non-recurrent pansinusitis Bipolar affective, mixed (HCC) Bipolar I disorder, most recent episode (or current) mixed, unspecified Vestibular migraine- Primary Bipolar affective, mixed (HCC) Bipolar I disorder, most recent episode (or current) mixed, unspecified Generalized anxiety disorder Generalized anxiety disorder Vestibular migraine- Primary Bipolar affective, mixed (HCC) Bipolar I disorder, most recent episode (or current) mixed, unspecified Generalized anxiety disorder Generalized anxiety disorder Type 2 diabetes mellitus with hyperglycemia, without long-term current use of insulin (HCC)- Primary Essential hypertension, benign Essential hypertension, benign Bipolar affective, mixed (HCC) Bipolar I disorder, most recent episode (or current) mixed, unspecified Generalized anxiety disorder Generalized anxiety disorder Vestibular migraine Type 2 diabetes mellitus with hyperglycemia, without long-term current use of insulin (HCC)- Primary Essential hypertension, benign Essential hypertension, benign Bipolar affective, mixed (HCC) Bipolar I disorder, most recent episode (or current) mixed, unspecified Generalized anxiety disorder Generalized anxiety disorder Vestibular migraine Vestibular migraine- Primary Generalized anxiety disorder Generalized anxiety disorder Type 2 diabetes mellitus with hyperglycemia, without long-term current use of insulin (HCC) Bipolar affective, mixed (HCC) Bipolar I disorder, most recent episode (or current) mixed, unspecified Annual physical exam Routine general medical examination at a health care facility Dyslipidemia Other and unspecified hyperlipidemia Type 2 diabetes mellitus with other specified complication (HCC) Bipolar affective, mixed (HCC)- Primary Bipolar I disorder, most recent episode (or current) mixed, unspecified Generalized anxiety disorder Generalized anxiety disorder Vestibular migraine Type 2 diabetes mellitus with hyperglycemia, without long-term current use of insulin (HCC) Type 2 diabetes mellitus with hyperglycemia, without long-term current use of insulin (HCC)- Primary Essential hypertension, benign Essential hypertension, benign Vestibular migraine Bipolar affective, mixed (HCC) Bipolar I disorder, most recent episode (or current) mixed, unspecified Generalized anxiety disorder Generalized anxiety disorder documented [facility]* Diagnosis Type 2 diabetes mellitus with hyperglycemia, with long-term current use of insulin (HCC)- Primary Essential hypertension, benign Essential hypertension, benign Bipolar affective, mixed (HCC) Bipolar I disorder, most recent episode (or current) mixed, unspecified Generalized anxiety disorder Generalized anxiety disorder Gastroesophageal reflux disease without esophagitis Esophageal reflux Vestibular migraine Essential hypertension, benign- Primary Essential hypertension, benign Type 2 diabetes mellitus with hyperglycemia, with long-term current use of insulin (HCC) Vestibular migraine Bipolar affective, mixed (HCC) Bipolar I disorder, most recent episode (or current) mixed, unspecified Generalized anxiety disorder Generalized anxiety disorder Colon cancer screening Special screening for malignant neoplasms, colon Acute non-recurrent pansinusitis Vestibular migraine- Primary Bipolar affective, mixed (HCC) Bipolar I disorder, most recent episode (or current) mixed, unspecified Generalized anxiety disorder Generalized anxiety disorder Type 2 diabetes mellitus with hyperglycemia, with long-term current use of insulin ([facility])- Primary Essential hypertension, benign Essential hypertension, benign Vestibular migraine Bipolar affective, mixed (HCC) Bipolar I disorder, most recent episode (or current) mixed, unspecified Generalized anxiety disorder Generalized anxiety disorder Acute non-recurrent pansinusitis Breast cancer screening by mammogram Type 2 diabetes mellitus with other specified complication, without long-term current use of insulin ([facility]) Type 2 diabetes mellitus with hyperglycemia, with long-term current use of insulin ([facility])- Primary Essential hypertension, benign Essential hypertension, benign Bipolar affective, mixed (HCC) Bipolar I disorder, most recent episode (or current) mixed, unspecified Generalized anxiety disorder Generalized anxiety disorder Vestibular migraine Vestibular migraine- Primary Generalized anxiety disorder Generalized anxiety disorder Bipolar affective, mixed (HCC) Bipolar I disorder, most recent episode (or current) mixed, unspecified Type 2 diabetes mellitus with hyperglycemia, with long-term current use of insulin ([facility])- Primary Essential hypertension, benign Essential hypertension, benign Bipolar affective, mixed (HCC) Bipolar I disorder, most recent episode (or current) mixed, unspecified Generalized anxiety disorder Generalized anxiety disorder Vestibular migraine Vestibular migraine- Primary Acute non-recurrent pansinusitis Chronic rhinosinusitis Unspecified sinusitis (chronic) Bipolar affective, mixed (HCC) Bipolar I disorder, most recent episode (or current) mixed, unspecified Generalized anxiety disorder Generalized anxiety disorder Vestibular migraine- Primary Generalized anxiety disorder Generalized anxiety disorder Acute non-recurrent pansinusitis Bipolar affective, mixed (HCC) Bipolar I disorder, most recent episode (or current) mixed, unspecified Vestibular migraine- Primary Bipolar affective, mixed (HCC) Bipolar I disorder, most recent episode (or current) mixed, unspecified Generalized anxiety disorder Generalized anxiety disorder Vestibular migraine- Primary Bipolar affective, mixed (HCC) Bipolar I disorder, most recent episode (or current) mixed, unspecified Generalized anxiety disorder Generalized anxiety disorder Type 2 diabetes mellitus with hyperglycemia, without long-term current use of insulin (HCC)- Primary Essential hypertension, benign Essential hypertension, benign Bipolar affective, mixed (HCC) Bipolar I disorder, most recent episode (or current) mixed, unspecified Generalized anxiety disorder Generalized anxiety disorder Vestibular migraine Type 2 diabetes mellitus with hyperglycemia, without long-term current use of insulin (HCC)- Primary Essential hypertension, benign Essential hypertension, benign Bipolar affective, mixed (HCC) Bipolar I disorder, most recent episode (or current) mixed, unspecified Generalized anxiety disorder Generalized anxiety disorder Vestibular migraine Vestibular migraine- Primary Generalized anxiety disorder Generalized anxiety disorder Type 2 diabetes mellitus with hyperglycemia, without long-term current use of insulin (HCC) Bipolar affective, mixed (HCC) Bipolar I disorder, most recent episode (or current) mixed, unspecified Annual physical exam Routine general medical examination at a health care facility Dyslipidemia Other and unspecified hyperlipidemia Type 2 diabetes mellitus with other specified complication (HCC) Bipolar affective, mixed (HCC)- Primary Bipolar I disorder, most recent episode (or current) mixed, unspecified Generalized anxiety disorder Generalized anxiety disorder Vestibular migraine Type 2 diabetes mellitus with hyperglycemia, without long-term current use of insulin (HCC) Type 2 diabetes mellitus with hyperglycemia, without long-term current use of insulin (HCC)- Primary Essential hypertension, benign Essential hypertension, benign Vestibular migraine Bipolar affective, mixed (HCC) Bipolar I disorder, most recent episode (or current) mixed, unspecified Generalized anxiety disorder Generalized anxiety disorder Generalized anxiety disorder Generalized anxiety disorder documented [facility]* Diagnosis Type 2 diabetes mellitus with hyperglycemia, with long-term current use of insulin (HCC)- Primary Essential hypertension, benign Essential hypertension, benign Bipolar affective, mixed (HCC) Bipolar I disorder, most recent episode (or current) mixed, unspecified Generalized anxiety disorder Generalized anxiety disorder Gastroesophageal reflux disease without esophagitis Esophageal reflux Vestibular migraine Essential hypertension, benign- Primary Essential hypertension, benign Type 2 diabetes mellitus with hyperglycemia, with long-term current use of insulin (HCC) Vestibular migraine Bipolar affective, mixed (HCC) Bipolar I disorder, most recent episode (or current) mixed, unspecified Generalized anxiety disorder Generalized anxiety disorder Colon cancer screening Special screening for malignant neoplasms, colon Acute non-recurrent pansinusitis Vestibular migraine- Primary Bipolar affective, mixed (HCC) Bipolar I disorder, most recent episode (or current) mixed, unspecified Generalized anxiety disorder Generalized anxiety disorder Type 2 diabetes mellitus with hyperglycemia, with long-term current use of insulin ([facility])- Primary Essential hypertension, benign Essential hypertension, benign Vestibular migraine Bipolar affective, mixed (HCC) Bipolar I disorder, most recent episode (or current) mixed, unspecified Generalized anxiety disorder Generalized anxiety disorder Acute non-recurrent pansinusitis Breast cancer screening by mammogram Type 2 diabetes mellitus with other specified complication, without long-term current use of insulin ([facility]) Type 2 diabetes mellitus with hyperglycemia, with long-term current use of insulin ([facility])- Primary Essential hypertension, benign Essential hypertension, benign Bipolar affective, mixed (HCC) Bipolar I disorder, most recent episode (or current) mixed, unspecified Generalized anxiety disorder Generalized anxiety disorder Vestibular migraine Vestibular migraine- Primary Generalized anxiety disorder Generalized anxiety disorder Bipolar affective, mixed (HCC) Bipolar I disorder, most recent episode (or current) mixed, unspecified Type 2 diabetes mellitus with hyperglycemia, with long-term current use of insulin ([facility])- Primary Essential hypertension, benign Essential hypertension, benign Bipolar affective, mixed (HCC) Bipolar I disorder, most recent episode (or current) mixed, unspecified Generalized anxiety disorder Generalized anxiety disorder Vestibular migraine Vestibular migraine- Primary Acute non-recurrent pansinusitis Chronic rhinosinusitis Unspecified sinusitis (chronic) Bipolar affective, mixed (HCC) Bipolar I disorder, most recent episode (or current) mixed, unspecified Generalized anxiety disorder Generalized anxiety disorder Vestibular migraine- Primary Generalized anxiety disorder Generalized anxiety disorder Acute non-recurrent pansinusitis Bipolar affective, mixed (HCC) Bipolar I disorder, most recent episode (or current) mixed, unspecified Vestibular migraine- Primary Bipolar affective, mixed (HCC) Bipolar I disorder, most recent episode (or current) mixed, unspecified Generalized anxiety disorder Generalized anxiety disorder Vestibular migraine- Primary Bipolar affective, mixed (HCC) Bipolar I disorder, most recent episode (or current) mixed, unspecified Generalized anxiety disorder Generalized anxiety disorder Type 2 diabetes mellitus with hyperglycemia, without long-term current use of insulin ([facility])- Primary Essential hypertension, benign Essential hypertension, benign Bipolar affective, mixed (HCC) Bipolar I disorder, most recent episode (or current) mixed, unspecified Generalized anxiety disorder Generalized anxiety disorder Vestibular migraine Type 2 diabetes mellitus with hyperglycemia, without long-term current use of insulin ([facility])- Primary Essential hypertension, benign Essential hypertension, benign Bipolar affective, mixed (HCC) Bipolar I disorder, most recent episode (or current) mixed, unspecified Generalized anxiety disorder Generalized anxiety disorder Vestibular migraine Vestibular migraine- Primary Generalized anxiety disorder Generalized anxiety disorder Type 2 diabetes mellitus with hyperglycemia, without long-term current use of insulin (HCC) Bipolar affective, mixed (HCC) Bipolar I disorder, most recent episode (or current) mixed, unspecified Annual physical exam Routine general medical examination at a health care facility Dyslipidemia Other and unspecified hyperlipidemia Type 2 diabetes mellitus with other specified complication (HCC) Bipolar affective, mixed (HCC)- Primary Bipolar I disorder, most recent episode (or current) mixed, unspecified Generalized anxiety disorder Generalized anxiety disorder Vestibular migraine Type 2 diabetes mellitus with hyperglycemia, without long-term current use of insulin (HCC) Type 2 diabetes mellitus with hyperglycemia, without long-term current use of insulin (HCC)- Primary Essential hypertension, benign Essential hypertension, benign Vestibular migraine Bipolar affective, mixed (HCC) Bipolar I disorder, most recent episode (or current) mixed, unspecified Generalized anxiety disorder Generalized anxiety disorder Bipolar affective, mixed (HCC) Bipolar I disorder, most recent episode (or current) mixed, unspecified [facility] N[facility]ative - Reported* Type Description Date Medical History bipolar Medical HistorydepressionMedical HistoryallergiesMedical HistoryAllergiesMedical HistoryHTNMedical HistoryOtosclerosis, unspecified lateralityMedical History Bipolar disorderSurgical Historyleft earSurgical HistorystapedectomyFeb 2012 Surgical HistoryhysterectomySurgical Historypartial hysterectomyHospitalization Historychild birthHospitalization Historysee above [employer] Other History general Narrative - Reported* Type Description Date Medical History bipolar Medical HistorydepressionMedical HistoryallergiesMedical HistoryAllergiesMedical HistoryHTNMedical HistoryOtosclerosis, unspecified lateralityMedical History Bipolar disorderMedical Historymigraine headacheSurgical Historyleft earSurgical HistorystapedectomyFeb 2013Surgical HistoryhysterectomySurgical Historypartial hysterectomyHospitalization Historychild birthHospitalization Historysee above [employer] Other Reason for referral (narrative)No reason for referral information availableHol[facility] Work Phone: Reason for visit Narrative* Consultation (Routine) - ClosedSpecialtyDiagnoses / ProceduresReferred By ContactReferred To Contact Neurology Diagnoses Vestibular migraine (CMS/HCC) Procedures [place] OFFICE/OUTPATIENT [facility] 60 MINUTES Brian Urbina MD [address] [place] [address] Phone: tel: fax: Tuan Wells DO [address] [place] [id number] Phone: tel: fax: Referral IDStatusReasonStart DateExpiration DateVisits RequestedVisits [id number] Consult and Treat / [facility] Summary Purpose Family History Relationship Condition Age at Onset Recorded Date/T maylin father Diabetes mellitus Unknown DeceasedUnknownHypertensionUnknownNot SpecifiedDiabetes mellitusUnknownFamily history of thyroid diseaseUnknown Relationship Condition Age at Onset Recorded Date/T maylin father Diabetes mellitus Unknown DeceasedUnknownHypertensionUnknownmotherDiabetes mellitusUnknownFamily history of thyroid diseaseUnknown Advance Directives Advance Directive Response Recorded Date/ [...] 3:13pm Congestion May 30, 2024 10: 54am Nausea, vomiting June 30, 2024 9:0 1am Nausea, vomiting, diarrhea, dizziness Ma y 2024 1:49pm Reason for Visit Admit Date Gastroenteritis May 13, 2024 3:1 3pm COVID-19 May 30, 2024 10: 54am Viral gastroenteritis June 30, 2024 9 :01am Chief Complaint Admit Date Congestion May 30, 2024 10: 54am Nausea, vomiting June 30, 2024 9:0 1am Nausea, vomiting, diarrhea, dizziness Ma y 2024 1:49pm 1-2 MONTH F/U August 27, 2024 9:26 am Reason for Visit Admit Date COVID-19 May 30, 2024 10: 54am Viral gastroenteritis June 30, 2024 9 :01am Dizziness July 06, 2024 1:49pm Nausea & vomiting July 06, 2024 1:49pm Chronic migraine without aur a without status migrainosus, not intractable August 27, 2024 9:26am Paresthesias August 27, 2024 9:26 am Chief Complaint Admit Date 1-2 MONTH F/U August 27, 2024 9:26 am Established Patient November 20, 2024 9:58am Reason for Visit Admit Date Paresthesias August 27, 2024 9:26 am Chronic migraine with aura w ithout status migrainosus, not intractable August 27, 2024 9:26am Benign essential HTN November 20 9:58am Bipolar affective disorder, mixed Septem 2024 9:58am MARGIE (generalized anxiety disorder) Septe mb2024 9:58am Type 2 diabetes mellitus wit h hyperglycemia, without long-term current use November 20, 2024 9:58am Vestibular migraine November 20, 2024 9:58am Additional Source Comments REASON FOR VISIT (unrecogniz ed section and content) ReasonCommentsFollow-upBlood sugar running high, fatigue.ReasonCommentsFollow-up 3 mReasonCommentsMigraineReasonOnset DateCommentsMed [id number] CommentsMigraineAnxietyReasonCommentsFollow-upMIGRAINES/ VERTIGOReasonOnset Date CommentsMed Vwgzot814ReasonCommentsMigraineDizzinessReasonOnset Date CommentsMed Suytxc804ReasonOnset DateCommentsMed Ywxhou864Reason CommentsFollow-upAnxietyReasonOnset DateCommentsMed Qhxdvi8604/05/2024Reason CommentsFollow-up1 mReasonCommentsMed RefillReasonCommentsFollow-upNAUSEA, VOMITING, DIARRHEA SINCE FRIReasonCommentsFollow-upTbh er f/upReasonComments Follow-upMigraineAnxietyReasonOnset DateCommentsMed Phrwdm0810/01/2024Reason CommentsFollow-wr2qUfckpbUeqab DateCommentsMed Dxkyyj1410/19/2024ReasonOnset Date CommentsMed Qdplpg5310/28/2024 INFORMATION SOURCE (unrecogn ized section and content) DATE CREATED AUTHOR 02/27/2022 [facility] DATE CREATED AUTHOR AUTHOR'S ORGANIZ ATION 10/15/2024 [facility] EPIC Care Teams (unrecognized sec tion and content) Team MemberRelationshipSpecialtyStart DateEnd Date Brian Urbina MD [address] [place] [address] [facility]/22/23Team MemberRelationshipSpecialtyStart DateEnd Date Brian Urbina MD [address] [place] [address] [facility]/22/23 Team Status: Active Member Role Status Dates Brian Urbina MD Primary Care Provider Active Team Status: Inactive Member Role Status Dates Brian Urbina MD Primary Care Provider Active S tart: May 17, 2023 End: May 16avtar Akers [employer] MILL OPERATOR-CAttending ProviderActiveStart: May 17, 2023 End: May 17, 2023Team MemberRelationshipSpecialtyStart DateEnd Date Brian Urbina MD [address] [place] [address] [facility]/22/23Team MemberRelationshipSpecialtyStart DateEnd Date Brian Urbina MD [address] [place] [address] PCP - GeneralFamily Medicine03/22/23Team MemberRelationshipSpecialtyStart DateEnd Date Brian Urbina MD [address] [place] [address] PCP - GeneralFamily Medicine03/22/23Team MemberRelationshipSpecialtyStart DateEnd Date Brian Urbina MD [address] [place] [address] PCP - GeneralFamily Medicine03/22/23Team MemberRelationshipSpecialtyStart DateEnd Date Brian Urbina MD [address] [place] [address] PCP - GeneralFamily Medicine03/22/23Team MemberRelationshipSpecialtyStart DateEnd Date Brian Urbina MD [address] [place] [address] PCP - GeneralFamily Medicine03/22/23Team MemberRelationshipSpecialtyStart DateEnd Date Brian Urbina MD [address] [place] [address] PCP - GeneralFamily Medicine03/22/23Team MemberRelationshipSpecialtyStart DateEnd Date Brian Urbina MD [address] [place] [address] PCP - GeneralFamily Medicine03/22/23Team MemberRelationshipSpecialtyStart DateEnd Date Brian Urbina MD [address] [place] [address] PCP - [facility] Medicine03/22/23 Brian Urbina MD [address] [place] [address] PCP - [facility] [employer]03/04/23Team MemberRelationshipSpecialtyStart DateEnd Date Brian Urbina MD [address] [place] [address] PCP - [facility]03/22/23 Brian Urbina MD [address] [place] [address] PCP - [facility]03/04/23Team MemberRelationshipSpecialtyStart DateEnd Date Brian Urbina MD [address] [place] [address] PCP - [facility]03/22/23 Team Status: Inactive Member Role Status Dates Brian Urbina MD Primary Care Provider Active S tart: January 13, 2024 End: January 12kathy Amado APRNAterin ProviderActiveStart: January 13, 2024 End: January 13, 2024Team MemberRelationshipSpecialtyStart DateEnd Date Brian Urbina MD [address] [place] [address] PCP - [facility]03/22/23 Brian Urbina MD [address] [place] [address] PCP - [facility]03/04/23Team MemberRelationshipSpecialtyStart DateEnd Date Brian Urbina MD [address] [place] [address] PCP - GeneralFamily Medicine03/22/23 Brian Urbina MD [address] [place] [address] PCP - [facility]03/04/23Team MemberRelationshipSpecialtyStart DateEnd Date Brian Urbina MD [address] [place] [address] PCP - GeneralFamily Medicine03/22/23 Brian Urbina MD [address] [place] [address] PCP - [facility]03/04/23Te MemberRelationshipSpecialtyStart DateEnd Date Brian Urbina MD [address] [place] [address] PCP - GeneralFamily Medicine03/22/23 Brian Urbina MD [address] [place] [address] PCP - [facility]03/04/23 Tuan Wells DO [address] [address] Referring RoqeahhwzKooztfqwo00/2/24 Mandy Pimentel, AMEYA [address] [phone] Nurse WquvbuezzjpaIxdnbipiq07/2/24 Marj Larry NP [address] [address] Nurse IoqtqapsvqlmYdzhtpgnc79/2/24Team MemberRelationshipSpecialtyStart DateEnd Date Brian Urbina MD [address] [place] [address] PCP - GeneralFamily Medicine03/22/23 Brian Urbina MD [address] [place] [address] PCP - [facility]03/04/23 Tuan Wells DO [address] [address] Referring MlupvbjrtCcyqcgnwj90/2/24 Mandy Pimentel NP [address] [phone] Nurse ZablzbdregvaQtnvrexlg36/2/24 Marj Larry NP [address] [address] Nurse FkiyfpuobikzSdsqevyzv84/2/24Team MemberRelationshipSpecialtyStart DateEnd Date Brian Urbina MD [address] [place] [address] PCP - GeneralFamily Medicine03/22/23Team MemberRelationshipSpecialtyStart DateEnd Date Brian Urbina MD [address] [place] [address] PCP - [facility]03/22/23Team MemberRelationshipSpecialtyStart DateEnd Date Brian Urbina MD [address] [place] [address] PCP - [facility]03/22/23 Brian Urbina MD [address] [place] [address] [facility] - [facility]03/04/23 Tuan Wells DO [address] [place] [phone] Referring TtguvnhazBtsuzoojt39/2/24 Mandy Pimentel NP [address] [place] [address] [phone] Nurse CmresmueyxliQipclnadr48/2/24 Marj Larry NP [address] [place] [phone] Nurse TnosuzetgiqvRxsfwfecg57/2/24Team MemberRelationshipSpecialtyStart DateEnd Date Brian Urbina MD [address] [place] [address] PCP - [facility]03/22/23 Brian Urbina MD [address] [place] [address] PCP - [facility]03/04/23 Tuan Wells DO [address] [place] [address] Referring VmuvxyxrtAxiucvcgt48/2/24 Mandy Pimentel NP [address] [place] [address] Nurse GmqeouknqzaqVugriojbh21/2/24 Marj Larry NP [address] [place] [address] Nurse RjjofqzcphmbVifpahaom23/2/24Team MemberRelationshipSpecialtyStart DateEnd Date Brian Urbina MD [address] [place] [address] PCP - [facility]03/22/23 Brian Urbina MD [address] [place] [address] PCP - [facility]03/04/23 Tuan Wells DO [address] [place] [address] Referring WsnvzqlyfErvovjbyk97/2/24 Mandy Pimentel NP [address] [place] [address] Nurse GfmpbbuozmrtGdpfxsrlt93/2/24 Marj Larry NP [address] [place] [address] Nurse HuhlybxxmzlcVsoxelkdq96/2/24Team MemberRelationshipSpecialtyStart DateEnd Date Brian Urbina MD [address] [place] [address] PCP - GeneralFamily Medicine03/22/23 Brian Urbina MD [address] [place] [address] PCP - [facility]03/04/23 Tuan Wells DO [address] [address] Referring FyddjcemzQldwhaqme96/2/24 Mandy Pimentel NP [address] 1700511 Nurse PopxskncvgjfNesmkzdpl29/2/24 Marj Larry NP [address] [address] Nurse GyekthkajwabFmiddtejo54/2/24Team MemberRelationshipSpecialtyStart DateEnd Date Brian Urbina MD [address] [place] [address] PCP - GeneralFamily Medicine03/22/23 Brian Urbina MD [address] [place] [address] PCP - [facility]03/04/23 Tuan Wells DO [address] [address] Referring ZzaucwxhoOijrrowol16/2/24 Mandy Pimentel NP [address] [address] Nurse YzgimfwbedodGyhbimbfp71/2/24 Marj Larry NP [address] [address] Nurse EgswlinulmaeLuymshxpu68/2/24Team MemberRelationshipSpecialtyStart DateEnd Date Brian Urbina MD [address] [place] [address] PCP - [facility]03/22/23 Brian Urbina MD [address] [place] [address] PCP - [facility]03/04/23 Tuan Wells DO [address] [place] [address]511 Referring QhyzxmnuaFvpplihyd56/2/24 Mandy Pimentel NP [address] [place] 5504611 Nurse YwoszhezajyyPsioaxitu49/2/24 Marj Larry NP [address] [place] [phone] Nurse BvftcpsjbozaBytapfaqg24/2/24 Team Status: Inactive Member Role Status Dates Brian Urbina MD Primary Care Provider Active S tart: May 13, 2024 End: May 13Margarita Nascimento ProviderActiveStart: May 13, 2024 End: May 13, 2024 Team Status: Inactive Member Role Status Dates Brian Urbina MD Primary Care Provider Active S tart: May 30, 2024 End: May 30, 2024Margarita Cunningham ProviderActiveStart: May 30, 2024 End: May 30, 2024Team MemberRelationshipSpecialtyStart DateEnd Date Brian Urbina MD [address] [place] [address] [facility]/22/23 Brian Urbina MD [address] [place] [address] PCP - [facility]03/04/23 Tuan Wells DO [address] [place] [address] Referring NcymzsdpiLqcntosci62/2/24 Mandy Pimentel NP [address] [place] [address] Nurse RbwbonbuawlgBgehryqpn99/2/24 Marj Larry NP [address] [place] [address] Nurse RobdqleybrohDhhjhyggn57/2/24Team MemberRelationshipSpecialtyStart DateEnd Date Brian Urbina MD [address] [place] [address] P[facility]/22/23 Brian Urbina MD [address] [place] [address] PCP - [facility]03/04/23 Tuan Wells DO [address] [place] [address], [place] [address] Referring GpcsmetshIqpfpwauf50/2/24 Mandy Pimentel NP [address] [place] [phone] Nurse ErlahrjedrlpBaslruhhg37/2/24 Marj Larry NP [address] [place] [address] Nurse FqznleaufeqyDieudvjsm79/2/24Team MemberRelationshipSpecialtyStart DateEnd Date Brian Urbina MD [address] [place] [address] PCP - GeneralFamily Medicine03/22/23 Brian Urbina MD [address] [place] [address] PCP - [facility]03/04/23 Tuan Wells DO [address] [place] [phone] Referring FqeimyiuyCdugwhdym69/2/24 Mandy Pimentel NP [address] [place] [address] Nurse AclqettvqxavBlksypbwn80/2/24 Marj Larry NP [address] [place] [address] Nurse CmzqwazvhdijIvwwxioba33/2/24Team MemberRelationshipSpecialtyStart DateEnd Date Brian Urbina MD [address] [place] [address] PCP - GeneralFamily Medicine03/22/23 Brian Urbina MD [address] [place] [address] PCP - [facility]03/04/23 Tuan Wells DO [address] [phone] Referring KobcrkllzQpfaahswq40/2/24 Mandy Pimentel, AMEYA [address] [place] [phone] Nurse ObfymkkwvarnExanyyfzt64/2/24 Marj Larry NP [address] [place] [phone] Nurse HtnmytrflkzpYjxgjqmhd79/2/24 Team Status: Inactive Member Role Status Dates Brian Urbina MD Primary Care Provider Active S tart: June 30, 2024 End: June 30, 2024Margarita Cunningham ProviderActiveStart: June 30, 2024 End: June 30, 2024 Team Status: Inactive Member Role Status Dates Brian Urbina MD Primary Care Provider Active S tart: July 06, 2024 End: July 06mandMargarita Dao ProviderActiveStart: July 06, 2024 End: July 06, 2024Team MemberRelationshipSpecialtyStart DateEnd Date Brian Urbina MD [address] [place] [address] PCP - GeneralFamily Medicine03/22/23 Brian Urbina MD [address] [place] [address] PCP - [facility]03/04/23 Tuan Wells DO [address] [place] [phone] Referring RypgbtscsGpvhqpett96/2/24 Mandy Pimentel NP [address] [place] 5504611 Nurse ZlzyslnnubtkLujwofbkl04/2/24 Marj Larry NP [address] [place] [address] Nurse OlcskfjoztrsZqinqtpwa19/2/24Team MemberRelationshipSpecialtyStart DateEnd Date Brian Urbina MD [address] [place] [address] PCP - GeneralFamily Medicine03/22/23 Brian Urbina MD [address] [place] [address] PCP - [facility]03/04/23 Tuan Wells DO [address] [place] [address] Referring BgqmipwadIezqjnobw11/2/24 Mandy Pimentel NP [address] [place] 5504611 Nurse QstdhgsqirscZsyaheapi75/2/24 Marj Larry NP [address] [place] [address] Nurse AeabnucxvfcxJhzjfxuua90/2/24Team MemberRelationshipSpecialtyStart DateEnd Date Brian Urbina MD [address] [place] [address] PCP - GeneralFaally Medicine03/22/23 Brian Urbina MD [address] [place] [address] PCP - [facility]03/04/23 Tuan Wells DO [address] [place] [address] Referring EqdnwclkdCtemwrllt90/2/24 Mandy Pimentel NP [address] [address] Nurse XdhmrdlirxevEeswhlvqd74/2/24 Marj Larry NP [address] [address] Nurse OhvfgszwjzvkGedggnutt81/2/24Team MemberRelationshipSpecialtyStart DateEnd Date Brian Urbina MD [address] [place] [address] PCP - GeneralFamily Medicine03/22/23 Brian Urbina MD [address] [place] [address] PCP - [facility]03/04/23 Tuan Wells DO [address] [place] [address] Referring PyltjpqpwRatcaqlnh33/2/24 Mandy Pimentel NP [address] [place] [address] Nurse KjegxhdtdpilZtmrcgido22/2/24 Marj Larry NP [address] [place] [address] Nurse JeqlqadgiyrcMeeevhehr43/2/24Team MemberRelationshipSpecialtyStart DateEnd Date Brian Urbina MD [address] [place] [address] PCP - GeneralFamily Medicine03/22/23 Brian Urbina MD [address] [place] [address] PCP - [facility]03/04/23 Tuan Wells DO [address] [place] [address] Referring DidndccdiKnjetvgbe47/2/24 Mandy Pimentel NP [address] [address] Nurse NglvvakxkcpzRaeelbpfs17/2/24 Marj Larry NP [address] [address] Nurse HjuxtwcpbaerVrumubemt18/2/24Team MemberRelationshipSpecialtyStart DateEnd Date Brian Urbina MD [address] [place] [address] PCP - GeneralFamily Medicine03/22/23 Brian Urbina MD [address] [place] [address] PCP - [facility]03/04/23 Tuan Wells DO [address] [address] Referring JuygxahilNnzntxvhh62/2/24 Mandy Pimentel NP [address] [address] Nurse IqsxtacnjumhEjpadmqaf90/2/24 Marj Larry NP [address] [address] Nurse GvhpgcgivfrfExxxmeihn05/2/24 Team Status: Inactive Member Role Status Dates Brian Urbina MD Primary Care Provider Active S tart: August 27, 2024 End: August 27, 2024Sagoran Larry APRN-FNP-CAttending ProviderActiveStart: August 27, 2024 End: August 27, 2024Team MemberRelationshipSpecialtyStart DateEnd Date Brian Urbina MD [address] [place] [address] PCP - GeneralFamily Medicine03/22/23 Brian Urbina MD [address] [place] [address] PCP - [facility]03/04/23 Tuan Wells DO [address] [place] [address] Referring EjhqubnlfGsmwkgiil52/2/24 Mandy Pimentel NP [address] [place] [address] Nurse FkaulnfsheoyRrahjzxon74/2/24 Marj Larry NP [address] [place] [address] Nurse NpcfvofonttcDbscdhhrw08/2/24Team MemberRelationshipSpecialtyStart DateEnd Date Brian Urbina MD [address] [place] [address] PCP - GeneralFamily Medicine03/22/23 Brian Urbina MD [address] [place] [address] PCP - [facility]03/04/23 Tuan Wells DO [address] [place] [address], [place] [address] Referring UguaernoxTllqjzofb23/2/24 Mandy Pimentel NP [address] [place] [address], [place] [address] Nurse IgycqheeejadZhlfdmxff67/2/24 Marj Larry NP [address] [address] Nurse KaglxjwqtlqmOyguypvws13/2/24Team MemberRelationshipSpecialtyStart DateEnd Date Brian Urbina MD [address] [place] [address] PCP - GeneralFamily Medicine03/22/23 Brian Urbina MD [address] [place] [address] PCP - [facility]03/04/23 Tuan Wells DO [address] [place] [address] Referring TznfnngteLdghpvszj64/2/24 Mandy Pimentel NP [address] [place] [address] Nurse ZqnadewsaowyVxgwpxtmq19/2/24 Marj Larry NP [address] [place] [address] Nurse TilvzlvumzlnXagurzmiu93/2/24Team MemberRelationshipSpecialtyStart DateEnd Date Brian Urbina MD [address] [place] [address] [facility]23 Brian Urbina MD [address] [place] [address] [facility]04[facility] Tuan Wells DO [address] [place] [address] Referring KeqwcwetzYwmhshclr74/2/24 Mandy Pimentel NP [address] [place] [address] Nurse UnrbwhiipufhBseeyncep71/2/24 Marj Larry NP [address] [place] [address] Nurse LcdwrutpkswtDefkbkplk59/2/24 Team Status: Inactive Member Role Status Dates Brian Urbina MD Primary Care Provider Active S tart: November 20, 2024 End: November 20, 2024[facility] Urbina MDAttending ProviderActiveStart: November 20, 2024 End: November 20, 2024 Goals (unrecognized section and content) Goals may [...] BE BASED ON THE PRIMARY CLINICAL RECORDS. [facility] [employer] [facility]. provides no warranty or guarantee of the accuracy or completeness of information in this document.
== END 2025-02-06 07:07 | disposition home or self-care (01) ==
LOC: LAB 07:09
PROVIDERS: PCP Family Medicine; Visit Provider Family Medicine
DX: Z00.00 Encounter for general adult medical examination without abnormal findings (principal)
CPT/HCPCS: 36415; 83036